=== PATIENT | male | born 1930 | race Caucasian/White ===

== ENCOUNTER 2016-06-29 16:19 | Emergency (ER) | payer OTHER, MEDICARE ==
[~2016-06-29] VITALS: Ht 175.3 cm; Wt 76.0 kg
[2016-06-29 16:31] VITALS: TEMP 36.5
[2016-06-29] MEDS ORDERED: ONDANSETRON INJ 2 MG/ML 2 ML VIAL IV STA (16:32)
[2016-06-29] MEDS ORDERED: SODIUM CHLORIDE 0.9% 1000ML 1,000 ML IV SCH (16:32)
[2016-06-29] MEDS ORDERED: MECLIZINE HCL 25 MG TAB PO STA (16:32)
[2016-06-29 16:35] VITALS: O2SAT 96
[2016-06-29 16:44] VITALS: Ht 175.3 cm; Wt 76.0 kg
[2016-06-29 17:22] LABS: INR 2.8 (0.9-1.1); PARTIAL THROMBOPLASTIN RATIO 1.3; PROTHROMBIN TIME (PATIENT) 31.3 SECONDS (9.0-12.0)
[2016-06-29 17:26] LABS: BLOOD UREA NITROGEN 18 mg/dl (7-18); BUN/CREATININE RATIO 20.9 (10-20); CARBON DIOXIDE 23 mmol/L (21-32); CHLORIDE 107 mmol/L (98-107); CREATININE 0.86 mg/dl (0.60-1.40); GLUCOSE 130 mg/dl (70-99); POTASSIUM 3.2 mmol/L (3.5-5.1); SODIUM 143 mmol/L (136-145)
[2016-06-29 17:31] LABS: CKMB/CK RATIO 2.7 (0-3.0)
--- NOTE | 2016-06-29 17:59 | DIAGNOSTIC IMAGING REPORT ---
CT OF THE HEAD WITHOUT CONTRAST CLINICAL HISTORY: Stroke. COMPARISON STUDY: No previous studies for comparison. CT DOSE: 614.27 mGy.cm TECHNIQUE: Helical axial images of the head were obtained without IV contrast. Automated exposure control was utilized for the study. FINDINGS: No acute intracranial hemorrhage is present. There is a hypodense mass within the left middle cranial fossa along the left sphenoid bone that measures approximately 5.1 x 2.9 cm. This is partially calcified. There is associated permeative appearance of the adjacent temporal bone. There is extensive hypodensity which suggests edema within the left cerebral hemisphere. There is mild mass effect with 3 mm of rightward midline shift and slight compression of the left lateral ventricle. A previous left craniotomy is noted. There is no calvarial fracture. There is mild polypoid mucosal thickening of the sinuses. IMPRESSION: 1. No acute intracranial hemorrhage. 2. Hyperdense left middle cranial fossa mass, measuring approximately 5.1 x 2.9 cm with associated irregularity/permeative appearance of the adjacent bone. This favors a meningioma although is indeterminate and correlation with prior surgical history is recommended given previous left-sided craniotomy. 3. Extensive white matter hypodensity within the left cerebral hemisphere which is age indeterminate. In part, this could be related to the aforementioned mass although there is mild mass effect, including mild compression of the left lateral ventricle and minimal rightward midline shift. Correlation with prior imaging studies, if available, is recommended. An MRI is also recommended to determine the acuity of these findings. Discussed with Dr. Mayen at time of dictation. Electronically signed by: Garrison Martinez M.D. 06/29/2016 5:57 PM Dictated Date/Time: 06/29/2016 5:48 PM
--- NOTE | 2016-06-29 18:17 | DIAGNOSTIC IMAGING REPORT ---
CHEST ONE VIEW PORTABLE CLINICAL HISTORY: Stroke COMPARISON STUDY: No previous studies for comparison. FINDINGS: There is marked enlargement of the cardiac silhouette. No pneumothorax is present. There are trace bilateral pleural effusions. Mild interstitial thickening suggest pulmonary edema. The patient is rotated. IMPRESSION: 1. Mild interstitial pulmonary edema and trace bilateral pleural effusions. 2. Marked enlargement of the cardiac silhouette. Electronically signed by: Garrison Martinez M.D. 06/29/2016 6:15 PM Dictated Date/Time: 06/29/2016 6:14 PM
[2016-06-29 18:42] LABS: HEMATOCRIT 39.1 % (42-52); MEAN CELL VOLUME 88.3 fL (80-100); MEAN CORPUSCULAR HEMOGLOBIN 30.5 pg (25-34); MEAN CORPUSCULAR HGB CONC 34.5 g/dl (32-36); MEAN PLATELET VOLUME 12.3 fL (7.4-10.4); PLATELET COUNT 117 K/uL (130-400); RED BLOOD COUNT 4.43 M/uL (4.7-6.1); WHITE BLOOD COUNT 3.79 K/uL (4.8-10.8)
[2016-06-29 18:43] LABS: BASO ABS # 0.07 K/uL (0-0.2); BASOPHIL % 1.8 % (0-2); COMPLETE YES; EOSINOPHIL % 3.5 %; GIANT PLATELETS 1+; LYMPH ABS # 0.87 K/uL (1.2-3.4); META ABS # 0.03 K/uL (0-0); METAMYELOCYTE % 0.9 %; NEUTROPHILS % 64.6 %; PLT ESTIMATE DECREASED
[2016-06-29] MEDS ORDERED: GABA-113 PO ×2 (19:01)
[2016-06-29] MEDS ORDERED: LEVE250T PO (19:01)
[2016-06-29] MEDS ORDERED: MULT-618 PO (19:01)
[2016-06-29] MEDS ORDERED: TAMS0.4C38 PO (19:01)
[2016-06-29] MEDS ORDERED: WARF5TAB90 PO ×2 (19:01)
[2016-06-29] MEDS ORDERED: SIMV20TA2 PO (19:01)
[2016-06-29] MEDS ORDERED: MAGNEVIST IV PRN (20:30)
--- NOTE | 2016-06-29 21:05 | DIAGNOSTIC IMAGING REPORT ---
MRI OF THE BRAIN WITHOUT AND WITH IV CONTRAST CLINICAL HISTORY: Vertigo. Atrial fibrillation. Evaluate for stroke. COMPARISON STUDY: Head CT performed June 29, 2016. TECHNIQUE: Utilizing a 1.5 Tejal magnet and dedicated coil, multiplanar, multiecho imaging of the brain was performed pre and postcontrast administration. IV administration of 20 mL of Magnevist contrast was uneventful. FINDINGS: There are no areas of restricted diffusion. There are findings consistent with a left-sided craniotomy. There is a large extra-axial mass within the left middle cranial fossa that measures approximately 5.4 x 4.4 x 4.2 cm. This extends into the adjacent sphenoid bone which appears expanded. There may be slight extension to the adjacent soft tissues as well. Extensive edema within left cerebral hemisphere is noted with mild rightward midline shift and moderate compression of the left lateral ventricle. There is mild diffuse dural thickening. There is no extra-axial fluid collection. No acute intracranial hemorrhage is present. Basilar cisterns are patent. Note is made of an indeterminate 2.6 cm T1 and T2 hypointense lesion within the right frontal bone. There is overlying mild dural enhancement that measures 1.4 cm in extent. This is indeterminate. There is mild mucosal thickening of the sinuses and mucous retention cyst within the maxillary sinuses. Small amount of fluid within the left mastoid air cells is noted. IMPRESSION: 1. No evidence of acute infarction. 2. Postsurgical findings consistent with a left sided craniotomy. 5.4 x 4.4 x 4.2 cm enhancing extra-axial mass within the left middle cranial fossa with involvement of the adjacent sphenoid bone. The appearance favors a meningioma however correlation with prior pathology results is recommended to exclude the less likely possibility of a malignant lesion. 3. Extensive edema within the left cerebral hemisphere with moderate mass effect, including compression of the left lateral ventricle and minimal rightward midline shift. This finding is age-indeterminate and correlation with prior imaging studies would be of benefit. This edema could be related to the aforementioned tumor or previous treatment. 4. Indeterminate 2.6 cm right calvarial lesion with associated mild dural thickening. Correlation with prior imaging studies is recommended. 5. Small amount of fluid within the left mastoid air cells. 6. Mild nonspecific dural thickening. This may be postsurgical. Electronically signed by: Garrison Martinez M.D. 06/29/2016 9:03 PM Dictated Date/Time: 06/29/2016 8:52 PM
--- NOTE | 2016-06-29 21:11 | DIAGNOSTIC IMAGING REPORT ---
NECK MRA HISTORY: eval for VBI TECHNIQUE: Ooni-ij-wjtofs and gadolinium-enhanced MRA of the neck was performed both before and after the intravenous administration of contrast. All measurements were calculated based on NASCET criteria. COMPARISON STUDY: None. FINDINGS: The aortic arch and proximal great vessels are widely patent. There is no significant stenosis, occlusion, or dissection identified within the bilateral common carotid, internal carotid, or left vertebral artery. Mild focal narrowing at the distal end of the right vertebral artery.. The heart is enlarged. IMPRESSION: No significant stenosis, occlusion, or dissection identified within the carotid or left vertebral arteries. Mild focal narrowing at the distal end of the right vertebral artery. Electronically signed by: Aguila Cheek M.D. 06/29/2016 9:09 PM Dictated Date/Time: 06/29/2016 9:04 PM
--- NOTE | 2016-06-29 21:58 | DIAGNOSTIC IMAGING REPORT ---
MRA OF THE INTRACRANIAL CIRCULATION WITHOUT CONTRAST CLINICAL HISTORY: Vertigo. Atrial fibrillation. Evaluate for cerebrovascular accident. COMPARISON STUDY: Head CT performed earlier today. TECHNIQUE: Utilizing a 1.5 Tejal magnet and 3-D [id number] technique, unenhanced MRA of the intracranial circulation was obtained. FINDINGS: The bilateral M1, M2, A1 and A2 segments are patent. The left vertebral artery is dominant. The basilar artery is diminutive. There is persistence of the left posterior cerebral artery and a large right posterior communicating artery. An anterior communicating artery is present. No abrupt vessel cut off is identified. There are postsurgical findings consistent with a left-sided craniotomy. IMPRESSION: 1. No abrupt vessel cut off. 2. No intracranial aneurysm identified. 3. persistence of the left posterior cerebral artery and a large right posterior communicating artery. Electronically signed by: Garrison Martinez M.D. 06/29/2016 9:56 PM Dictated Date/Time: 06/29/2016 8:03 PM
[2016-06-29] MEDS ORDERED: MECL1TAB42 PO (22:04)
[2016-06-29 22:15] VITALS: BP 162/97; PULSE 88; O2SAT 95
--- NOTE | 2016-06-29 23:21 | EMERGENCY ROOM VISIT NOTE ---
History Report prepared by Sonali: Deidre Ross Under the Supervision of: Dr. Jesus Mayen M.D. First contact with patient: 16:26 Stated Complaint: RAPID AFIB History of Present Illness The patient is a 89 year old male who presents to the Emergency Room with complaints of persistent vertigo that started this morning. He was brought to the ED via EMS. He reports he feels dizzy, like the "room is spinning". Closing his eyes provides some relief. While in the field, he was found to be in atrial fibrillation with RVR. The patient is on daily Coumadin and admits to a history of atrial fibrillation. He complains of feeling nauseous and is vomiting on exam. He denies any numbness or weakness. He has had no prior history of vertigo. Source of History: patient, EMS Onset: this morning Position: other (global) Symptom Intensity: severe Quality: other (vertigo) Timing: other (persistent) Modifying Factors (Worsening): movement, other (opening his eyes) Modifying Factors (Relieving): other (closing his eyes) Associated Symptoms: + nausea, + vomiting, No numbness, No weakness Review of Systems See HPI for pertinent positives & negatives. A total of 10 systems reviewed and were otherwise negative. Past Medical & Surgical Medical Problems: (1) Atrial fibrillation (2) History of brain tumor Social History Smokeless Tobacco Use: No Alcohol Use: none Drug Use: none Marital Status: Housing Status: lives with family Occupation Status: retired Current/Historical Medications Scheduled Gabapentin (Neurontin), 600 MG PO AMHS Gabapentin (Neurontin), 300 MG PO DAILY NOON Levetiracetam (Keppra), 500 MG PO BID Multiple Vitamins W/ Minerals (Centrum Silver Ultra Mens), 1 TAB PO DAILY Simvastatin (Zocor), 20 MG PO QPM Tamsulosin Hcl (Flomax), 0.4 MG PO DAILY Warfarin Sodium (Coumadin), 5 MG PO 3XWK Warfarin Sodium (Coumadin), 2.5 MG PO 4XWK Scheduled PRN Meclizine Hcl (Meclizine Hcl), 1 TAB PO Q8 PRN for vertigo Physical Exam Vital Signs Date Time Temp Pulse Resp B/P Pulse Ox O2 Delivery O2 Flow Rate FiO2 06/29/16 22:15 88 22 162/97 95 06/29/16 20:53 88 22 160/95 97 Room Air 06/29/16 18:48 85 22 171/101 96 Room Air 06/29/16 16:54 79 16 165/97 93 Room Air 06/29/16 16:35 96 Room Air 06/29/16 16:31 36.5 108 22 176/129 95 Room Air 06/29/16 16:29 94 Physical Exam Constitutional: Vital signs reviewed. Eyes: Pupils are equal round reactive to light. Conjunctiva are noninjected. ENT: Pharynx is clear without erythema or exudate. Mucous membranes are moist. Neck supple without meningeal signs. Respiratory: Clear to auscultation bilaterally. Breath sounds are equal bilaterally. Cardiovascular: Irregularly irregular rhythm. Rate 111. GI: Soft, nondistended and nontender. Bowel sounds are present. Musculoskeletal: No peripheral edema. No lower extremity tenderness. No CVA tenderness. Integumentary: No cyanosis. Neurological: The patient is awake and alert. No focal deficits. Limited examination secondary to vomiting and vertigo with opening his eyes. Rotatory nystagmus without any vertical nystagmus. Psychiatric: Anxious. Medical Decision & Procedures ER Provider Diagnostic Interpretation: This CT scan was reviewed and interpreted by the radiologist and reviewed by myself. CT OF THE HEAD WITHOUT CONTRAST CLINICAL HISTORY: Stroke. COMPARISON STUDY: No previous studies for comparison. CT DOSE: 614.27 mGy.cm TECHNIQUE: Helical axial images of the head were obtained without IV contrast. Automated exposure control was utilized for the study. FINDINGS: No acute intracranial hemorrhage is present. There is a hypodense mass within the left middle cranial fossa along the left sphenoid bone that measures approximately 5.1 x 2.9 cm. This is partially calcified. There is associated permeative appearance of the adjacent temporal bone. There is extensive hypodensity which suggests edema within the left cerebral hemisphere. There is mild mass effect with 3 mm of rightward midline shift and slight compression of the left lateral ventricle. A previous left craniotomy is noted. There is no calvarial fracture. There is mild polypoid mucosal thickening of the sinuses. IMPRESSION: 1. No acute intracranial hemorrhage. 2. Hyperdense left middle cranial fossa mass, measuring approximately 5.1 x 2.9 cm with associated irregularity/permeative appearance of the adjacent bone. This favors a meningioma although is indeterminate and correlation with prior surgical history is recommended given previous left-sided craniotomy. 3. Extensive white matter hypodensity within the left cerebral hemisphere which is age indeterminate. In part, this could be related to the aforementioned mass although there is mild mass effect, including mild compression of the left lateral ventricle and minimal rightward midline shift. Correlation with prior imaging studies, if available, is recommended. An MRI is also recommended to determine the acuity of these findings. Discussed with Dr. Mayen at time of dictation. Electronically signed by: Garrison Martinez M.D. 06/29/2016 5:57 PM This X-Ray was reviewed and interpreted by myself and the radiologist. CHEST ONE VIEW PORTABLE CLINICAL HISTORY: Stroke COMPARISON STUDY: No previous studies for comparison. FINDINGS: There is marked enlargement of the cardiac silhouette. No pneumothorax is present. There are trace bilateral pleural effusions. Mild interstitial thickening suggest pulmonary edema. The patient is rotated. IMPRESSION: 1. Mild interstitial pulmonary edema and trace bilateral pleural effusions. 2. Marked enlargement of the cardiac silhouette. Electronically signed by: Garrison Martinez M.D. 06/29/2016 6:15 PM This MRA was reviewed and interpreted by the radiologist and reviewed by myself. NECK MRA HISTORY: eval for VBI TECHNIQUE: [id number] and gadolinium-enhanced MRA of the neck was performed both before and after the intravenous administration of contrast. All measurements were calculated based on NASCET criteria. COMPARISON STUDY: None. FINDINGS: The aortic arch and proximal great vessels are widely patent. There is no significant stenosis, occlusion, or dissection identified within the bilateral common carotid, internal carotid, or left vertebral artery. Mild focal narrowing at the distal end of the right vertebral artery.. The heart is enlarged. IMPRESSION: No significant stenosis, occlusion, or dissection identified within the carotid or left vertebral arteries. Mild focal narrowing at the distal end of the right vertebral artery. Electronically signed by: Aguila Cheek M.D. 06/29/2016 9:09 PM This MRI was reviewed and interpreted by the radiologist and reviewed by myself. MRI OF THE BRAIN WITHOUT AND WITH IV CONTRAST CLINICAL HISTORY: Vertigo. Atrial fibrillation. Evaluate for stroke. COMPARISON STUDY: Head CT performed June 29, 2016. TECHNIQUE: Utilizing a 1.5 Tejal magnet and dedicated coil, multiplanar, multiecho imaging of the brain was performed pre and postcontrast administration. IV administration of 20 mL of Magnevist contrast was uneventful. FINDINGS: There are no areas of restricted diffusion. There are findings consistent with a left-sided craniotomy. There is a large extra-axial mass within the left middle cranial fossa that measures approximately 5.4 x 4.4 x 4.2 cm. This extends into the adjacent sphenoid bone which appears expanded. There may be slight extension to the adjacent soft tissues as well. Extensive edema within left cerebral hemisphere is noted with mild rightward midline shift and moderate compression of the left lateral ventricle. There is mild diffuse dural thickening. There is no extra-axial fluid collection. No acute intracranial hemorrhage is present. Basilar cisterns are patent. Note is made of an indeterminate 2.6 cm T1 and T2 hypointense lesion within the right frontal bone. There is overlying mild dural enhancement that measures 1.4 cm in extent. This is indeterminate. There is mild mucosal thickening of the sinuses and mucous retention cyst within the maxillary sinuses. Small amount of fluid within the left mastoid air cells is noted. IMPRESSION: 1. No evidence of acute infarction. 2. Postsurgical findings consistent with a left sided craniotomy. 5.4 x 4.4 x 4.2 cm enhancing extra-axial mass within the left middle cranial fossa with involvement of the adjacent sphenoid bone. The appearance favors a meningioma however correlation with prior pathology results is recommended to exclude the less likely possibility of a malignant lesion. 3. Extensive edema within the left cerebral hemisphere with moderate mass effect, including compression of the left lateral ventricle and minimal rightward midline shift. This finding is age-indeterminate and correlation with prior imaging studies would be of benefit. This edema could be related to the aforementioned tumor or previous treatment. 4. Indeterminate 2.6 cm right calvarial lesion with associated mild dural thickening. Correlation with prior imaging studies is recommended. 5. Small amount of fluid within the left mastoid air cells. 6. Mild nonspecific dural thickening. This may be postsurgical. Electronically signed by: Garrison Martinez M.D. 06/29/2016 9:03 PM This MRA was reviewed and interpreted by the radiologist and reviewed by myself. MRA OF THE INTRACRANIAL CIRCULATION WITHOUT CONTRAST CLINICAL HISTORY: Vertigo. Atrial fibrillation. Evaluate for cerebrovascular accident. COMPARISON STUDY: Head CT performed earlier today. TECHNIQUE: Utilizing a 1.5 Tejal magnet and 3-D [id number] technique, unenhanced MRA of the intracranial circulation was obtained. FINDINGS: The bilateral M1, M2, A1 and A2 segments are patent. The left vertebral artery is dominant. The basilar artery is diminutive. There is persistence of the left posterior cerebral artery and a large right posterior communicating artery. An anterior communicating artery is present. No abrupt vessel cut off is identified. There are postsurgical findings consistent with a left-sided craniotomy. IMPRESSION: 1. No abrupt vessel cut off. 2. No intracranial aneurysm identified. 3. persistence of the left posterior cerebral artery and a large right posterior communicating artery. Electronically signed by: Garrison Martinez M.D. 06/29/2016 9:56 PM Laboratory Results 06/29/16 16:48 Red Blood Count 4.43, Mean Corpuscular Volume 88.3, Mean Corpuscular Hemoglobin 30.5, Mean Corpuscular Hemoglobin Concent 34.5, Mean Platelet Volume 12.3 06/29/16 16:48 Test 06/29/16 16:48 06/29/16 17:07 White Blood Count 3.79 K/uL (4.8-10.8) Red Blood Count 4.43 M/uL (4.7-6.1) Hemoglobin 13.5 g/dL (14.0-18.0) Hematocrit 39.1 % (42-52) Mean Corpuscular Volume 88.3 fL (80-100) Mean Corpuscular Hemoglobin 30.5 pg (25-34) Mean Corpuscular Hemoglobin Concent 34.5 g/dl (32-36) Platelet Count 117 K/uL (130-400) Mean Platelet Volume 12.3 fL (7.4-10.4) RDW Standard Deviation 47.2 fL (36.4-46.3) RDW Coefficient of Variation 14.4 % (11.5-14.5) Neutrophils % (Manual) 64.6 % Lymphocytes % (Manual) 23.0 % Monocytes % (Manual) 6.2 % Eosinophils % (Manual) 3.5 % Basophils % (Manual) 1.8 % (0-2) Metamyelocytes % 0.9 % Neutrophils # (Manual) 2.45 K/uL (1.4-6.5) Total Absolute Neutrophils 2.45 K/uL (1.4-6.5) Lymphocytes # (Manual) 0.87 K/uL (1.2-3.4) Total Absolute Lymphocytes 0.87 K/uL (1.2-3.4) Monocytes # (Manual) 0.23 K/uL (0.11-0.59) Eosinophils # (Manual) 0.13 K/uL (0-0.5) Basophils # (Manual) 0.07 K/uL (0-0.2) Metamyelocytes # 0.03 K/uL (0-0) Platelet Estimate DECREASED Giant Platelets 1+ Prothrombin Time 31.3 SECONDS (9.0-12.0) Prothromb Time International Ratio 2.8 (0.9-1.1) Activated Partial Thromboplast Time 34.4 SECONDS (21.0-31.0) Partial Thromboplastin Ratio 1.3 Anion Gap 13.0 mmol/L (3-11) Est Creatinine Clear Calc Drug Dose 61.7 ml/min Estimated GFR () 91.0 Estimated GFR (Non- 78.5 BUN/Creatinine Ratio 20.9 (10-20) Calcium Level 9.0 mg/dl (8.5-10.1) Total Creatine Kinase 64 U/L (39-308) Creatine Kinase MB 1.7 ng/ml (0.5-3.6) Creatine Kinase MB Ratio 2.7 (0-3.0) Troponin I < 0.015 ng/ml (0-0.045) Bedside Glucose 124 mg/dl (70-99) Laboratory results as reviewed by me. Medications Administered Medications (Trade) Dose Ordered Sig/Alexus Route Start Time Stop Time Status Last Admin Dose Admin Sodium Chloride (Nss 1000ml) 1,000 ml @ 50 mls/hr Q20H IV 06/29/16 16:32 07/29/16 16:31 06/29/16 16:43 50 MLS/HR Ondansetron HCl (Zofran Inj) 4 mg NOW STAT IV 06/29/16 16:32 06/29/16 16:35 DC 06/29/16 16:43 4 MG Meclizine HCl (Antivert Tab) 25 mg NOW STAT PO 06/29/16 16:32 06/29/16 16:35 DC 06/29/16 16:43 25 MG ECG Indication: palpitations Rate (beats per minute): 105 Rhythm: atrial fibrillation Findings: PVC, Q waves (Inferior) Comparison ECG Date: no prior available ED Course 1627: The patient was evaluated in room B11. A complete history and physical exam was performed. 163: Meclizine HCl 25 mg PO, Zofran 4 mg IV, NSS 1000 ml @ 50 mls/hr IV. 1800: I reevaluated the patient. He is still dizzy but is feeling better. He states he has a prior history of a brain tumor. 1814: I reevaluated the patient. I discussed his case with his family. They report he has had 6 episodes of similar vertigo in the past. He has been previously worked up at [facility] in [place]. The patient's heart rate remained in the 70's during my reevaluation. 1924: I reassessed the patient. He is on his way to MRI and states he is no longer dizzy. 2029: Magnevist 20 ml IV. 2119: I reviewed the patients extensive records from [facility]. We were unable to get a copy of the CT or MRI of the head despite multiple calls requesting it. 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 He was also noted to have a meningioma with stable mass effect. 2127: I discussed the patients case with Dr. Riggs, [facility]. She agrees with the plan for outpatient management and to have the patient follow up in the office with Dr. Sandoval [facility]. 2134: I reassessed the patient. I discussed the plan with the family and patient and they are in agreement. Medical Decision This is an 86-year-old male presents with vertigo. Differential diagnosis includes CVA, intracranial hemorrhage, intracranial mass, BPV, labyrinthitis. I did perform a limited focused review of portions of the patient's old chart on the electronic medical record. The patient has had no prior visits to this hospital. I did provide prehospital medical command from patient. His heart rate was reported to be in the 140s and he was severely hypertensive. I did order IV Cardizem 10 mg. On arrival to the hospital I did evaluate the patient as noted above. The patient was placed on a continuous bicycle repairer. His heart rate was 110 with atrial fibrillation. After examining him and he started vomiting his heart rate went up to 150. I did treat the patient with IV Zofran. He was also given meclizine 25 mg orally. Once the patient was more comfortable his heart rate was in the 70s to 80s. I did order and personally review the patient 's 12-lead EKG and chest x-ray as described above. I did order and review the patient's blood work as noted in the electronic medical record. Troponin is negative. I did order a CT of the head. I did review the images myself as well as the radiology report as described above. The patient has a meningioma with edema and mass effect. It is unclear whether this is acute. Radiology did recommend an MRI. I did order an MRI of the head as well as an MRA of the neck and head. I did obtain further history from the patient's family stated that he has had 6 episodes of vertigo and was admitted to the hospital in [place] for this. He has a known history of meningioma and has had a craniectomy in the past although his states that the meningioma is getting larger. I did obtain records from [facility] in [place]. They sent record's to us but no CT or MRI results of the head, although he specifically asked for this. It was noted by the physician that the patient likely had BPV and was placed on meclizine. He was evaluated by neuro and ENT. He did have a meningioma with"stable mass effect." This is consistent with the MRI results today. I did discuss the case with Dr. Ortega of neurology. The patient does see Dr. Sandoval as an outpatient. She agreed that the symptoms sound consistent with BPV and recommended outpatient treatment. The patient is currently no longer vertiginous and feels much better. He does not have tachycardia at this time. I did discuss the plan and test results with the patient and his family. He did feel well enough for discharge. He was discharged with a prescription for meclizine and will follow up with neurology, neurosurgery and his primary care physician. After the patient was discharged with did obtain further results from [facility] which included an MRI of the brain which showed meningioma with mass effect. Consults Time Called: 2125 Consulting Physician: [facility] Returned Call: [phone] I discussed the patients case with [facility]. She agrees with the plan for outpatient management and to have the patient follow up in the office with [facility]. Impression Primary Impression: Vertigo Additional Impressions: Atrial fibrillation with RVR Anticoagulated on Coumadin Scribe Attestation The scribe's documentation has been prepared under my direct and personally reviewed by me in its entirety. I confirm that the note above accurately reflects all work, treatment, procedures, and medical decision making performed by me. Departure Information Dispostion Home / Self-Care Prescriptions Meclizine Hcl (MECLIZINE HCL) 25 Mg Tab 1 TAB PO Q8 Y for vertigo, #20 TAB Prov: Jesus Mayen M.D. 06/29/16 Patient Instructions ED Afib, ED Vertigo Unspecified, [facility] Additional Instructions You have been examined and treated today on an emergency basis only. This is not a substitute for, or an effort to provide, complete comprehensive medical care. It is impossible to recognize and treat all injuries or illnesses in a single emergency department visit. It is therefore important that you follow up closely with your physician. Call as soon as possible for an appointment. Return for worsening symptoms or if you develop fever, numbness or weakness on one side of your body, difficulty with your speech, confusion, headache or any other concerning symptoms. Problem Qualifiers
[2016-09-08] MEDS ORDERED: CRD200 PO (10:27)
[2016-09-08] MEDS ORDERED: LSN5 PO (10:27)
[2016-10-04] MEDS ORDERED: METO1TAB66 PO (09:49)
[2016-10-04] MEDS ORDERED: CRD200 PO (09:49)
[2016-10-20] MEDS ORDERED: LSX40 PO (14:07)
[2016-10-20] MEDS ORDERED: CRD200 PO (14:07)
== END 2016-06-29 22:16 | disposition home or self-care (01) ==
LOC: EDBD 16:19 → C.EDB 16:23
DX: I48.91 Unspecified atrial fibrillation (principal); R42 Dizziness and giddiness; R11.2 Nausea with vomiting, unspecified; D32.9 Benign neoplasm of meninges, unspecified; Z79.01 Long term (current) use of anticoagulants; Z86.73 Personal history of transient ischemic attack (TIA), and cerebral infarction without residual deficits

== ENCOUNTER 2016-08-05 11:02 | Inpatient (IN) | payer OTHER, MEDICARE ==
[~2016-08-05] VITALS: Ht 175.3 cm; Wt 75.0 kg
[~2016-08-05 11:02] MED LIST: GABA-113 PO; LEVE250T PO; MECL1TAB42 PO; MULT-618 PO; SIMV20TA2 PO; TAMS0.4C38 PO; WARF5TAB90 PO
[2016-08-05] MEDS ORDERED: DILTIAZEM BOLUS / DRIP IV STA (11:26)
[2016-08-05] MEDS ORDERED: DILTIAZEM HCL 5 MG/ML 5 ML VIAL IV SCH (11:45)
[2016-08-05] MEDS ORDERED: DILTIAZEM HCL INJ 125 MG in DEXTROSE 5% 100ML IV PRN (11:45)
[2016-08-05] MEDS ORDERED: SERT1TAB72 PO (11:52)
--- NOTE | 2016-08-05 11:52 | DIAGNOSTIC IMAGING REPORT ---
CHEST ONE VIEW PORTABLE CLINICAL HISTORY: Respiratory distress. Shortness of breath. COMPARISON STUDY: 06/29/2016 FINDINGS: The cardiac silhouette is enlarged. There is aortic tortuosity. There is radiographic evidence of congestive failure and interstitial pulmonary edema. There are small bilateral pleural effusions.[ There is no lobar consolidation IMPRESSION: Cardiomegaly, worsening pulmonary edema, and small bilateral pleural effusions. Electronically signed by: Alfonzo Shi M.D. 08/05/2016 11:51 AM Dictated Date/Time: 08/05/2016 11:50 AM
[2016-08-05] MEDS ORDERED: NITROGLYCERIN OINT 2% 1GM PACKET EXT STA (12:08)
[2016-08-05] MEDS ORDERED: FUROSEMIDE 40 MG/4 ML VIAL IV STA (12:08)
[2016-08-05 12:10] LABS: BASO % 0.2 %; BASO ABS # 0.01 K/uL (0-0.2); COMPLETE YES; EOS % 0.2 %; HEMATOCRIT 42.3 % (42-52); IG% 0.2 %; LYMPH % 9.9 %; MEAN CELL VOLUME 87.6 fL (80-100); MEAN CORPUSCULAR HEMOGLOBIN 29.6 pg (25-34); MEAN CORPUSCULAR HGB CONC 33.8 g/dl (32-36); MEAN PLATELET VOLUME 12.4 fL (7.4-10.4); MONO % 6.4 %; NEUT % 83.1 %; PLATELET COUNT 138 K/uL (130-400); RED BLOOD COUNT 4.83 M/uL (4.7-6.1); WHITE BLOOD COUNT 5.03 K/uL (4.8-10.8)
[2016-08-05 12:27] LABS: ALT/SGPT 16 U/L (12-78); AST/SGOT 20 U/L (15-37); BLOOD UREA NITROGEN 17 mg/dl (7-18); BUN/CREATININE RATIO 17.4 (10-20); CALCIUM 8.9 mg/dl (8.5-10.1); CARBON DIOXIDE 27 mmol/L (21-32); CHLORIDE 105 mmol/L (98-107); CREATININE 0.96 mg/dl (0.60-1.40); GLUCOSE 85 mg/dl (70-99); MAGNESIUM 1.8 mg/dl (1.8-2.4); POTASSIUM 4.1 mmol/L (3.5-5.1); SODIUM 142 mmol/L (136-145)
[2016-08-05 12:30] LABS: PARTIAL THROMBOPLASTIN RATIO 1.7; PROTHROMBIN TIME (PATIENT) 85.9 SECONDS (9.0-12.0)
[2016-08-05 12:38] LABS: ALB/GLOB RATIO 1.1 (0.9-2); ALKALINE PHOSPHATASE 103 U/L (45-117)
[2016-08-05 12:41] LABS: INR 7.4 (0.9-1.1)
[2016-08-05 12:43] VITALS: O2SAT 92; Ht 175.3 cm; Wt 75.0 kg
[2016-08-05] MEDS ORDERED: ACETAMINOPHEN 325 MG TAB PO PRN (13:15)
[2016-08-05] MEDS ORDERED: ONDANSETRON INJ 2 MG/ML 2 ML VIAL IV PRN (13:15)
[2016-08-05] MEDS ORDERED: DILTIAZEM BOLUS / DRIP IV PRN (13:41)
[2016-08-05 14:30] VITALS: BP 141/85; PULSE 96; TEMP 36.5; O2SAT 92
--- NOTE | 2016-08-05 14:58 | EMERGENCY ROOM VISIT NOTE ---
History Report prepared by Sonali: Carmen Ortiz Under the Supervision of: Dr. Justyn Forman M.D. 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 The patient states that the shortness of breath has been worsened with exertion but he states that it also occurs at rest and when lying down. He states that he does have occasional nausea with his symptoms. The patient states that he has not had any change in his baseline leg edema and denies any history of blood clots. The patient denies any cough, pain, fever, black or bloody stool. The patient states that he takes Coumadin for atrial fibrillation but denies taking any pacer medication. The patient's family states that the patient had a episode of vertigo about a month ago and he was evaluated at the ED. 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 Review of Systems See HPI for pertinent positives & negatives. A total of 10 systems reviewed and were otherwise negative. Past Medical & Surgical Medical Problems: (1) Atrial fibrillation (2) Atrial fibrillation with RVR (3) Congestive heart failure (4) History of brain tumor Family History No pertient family history secondary rto age Social History Smoking Status: Unknown if Ever Smoked Alcohol Use: none Drug Use: none Marital Status: Housing Status: lives with family Occupation Status: retired Current/Historical Medications Scheduled Gabapentin (Neurontin), 600 MG PO AMHS Gabapentin (Neurontin), 300 MG PO DAILY NOON Levetiracetam (Keppra), 500 MG PO BID Multiple Vitamins W/ Minerals (Centrum Silver Ultra Mens), 1 TAB PO DAILY Sertraline Hcl (Zoloft), 25 MG PO DAILY Simvastatin (Zocor), 20 MG PO QAM Tamsulosin Hcl (Flomax), 0.4 MG PO DAILY Warfarin Sodium (Coumadin), 5 MG PO 3XWK Warfarin Sodium (Coumadin), 2.5 MG PO 4XWK Allergies Coded Allergies: No Known Allergies (Unverified , 08/05/16) Physical Exam Vital Signs Date Time Temp Pulse Resp B/P Pulse Ox O2 Delivery O2 Flow Rate FiO2 08/05/16 12:38 90 19 93 08/05/16 12:37 91 20 164/93 92 Nasal Cannula 2.0 08/05/16 12:35 101 14 08/05/16 12:25 87 19 92 Nasal Cannula 2.0 08/05/16 12:24 167/94 08/05/16 12:20 83 21 92 Nasal Cannula 2.0 08/05/16 12:19 158/100 08/05/16 12:15 71 17 92 Nasal Cannula 2.0 08/05/16 12:14 151/98 08/05/16 12:13 77 08/05/16 12:10 74 19 92 Nasal Cannula 2.0 08/05/16 12:09 149/76 08/05/16 12:05 72 17 92 Nasal Cannula 2.0 08/05/16 12:04 150/90 08/05/16 12:00 77 24 92 Nasal Cannula 2.0 08/05/16 11:59 18 135/89 92 Nasal Cannula 2.0 08/05/16 11:54 100 18 155/90 92 Nasal Cannula 2.0 08/05/16 11:33 92 Room Air 08/05/16 11:17 118 08/05/16 11:04 37.1 118 22 138/118 93 Room Air Physical Exam GENERAL: Patient is in no acute distress. HEENT: No acute trauma, normocephalic atraumatic, mucous membranes moist, no nasal congestion, no scleral icterus. NECK: No stridor, no adenopathy, no meningismus, trachea is midline. LUNGS: Clear to auscultation bilaterally, no wheeze, no rhonchi, breath sounds equal. HEART: Tachycardic rate with irregular rhythm. No murmur. ABDOMEN: Soft, nontender, bowel sounds positive, no hernias, no peritonitis. EXTREMITIES: No cyanosis or edema, full range of motion of all the joints without pain or difficulty, no signs for acute trauma. Trace pedal edema. NEUROLOGIC: Oriented x 3, no acute motor or sensory deficits, no focal weakness. SKIN: No rash, no jaundice, no diaphoresis. Medical Decision & Procedures ER Provider Diagnostic Interpretation: X-ray results as stated below per interpretation by me and the radiologist: CHEST ONE VIEW PORTABLE CLINICAL HISTORY: Respiratory distress. Shortness of breath. COMPARISON STUDY: 06/29/2016 FINDINGS: The cardiac silhouette is enlarged. There is aortic tortuosity. There is radiographic evidence of congestive failure and interstitial pulmonary edema. There are small bilateral pleural effusions.[ There is no lobar consolidation IMPRESSION: Cardiomegaly, worsening pulmonary edema, and small bilateral pleural effusions. Electronically signed by: Alfonzo Shi M.D. 08/05/2016 11:51 AM Dictated Date/Time: 08/05/2016 11:50 AM Laboratory Results 08/05/16 11:40 Red Blood Count 4.83, Mean Corpuscular Volume 87.6, Mean Corpuscular Hemoglobin 29.6, Mean Corpuscular Hemoglobin Concent 33.8, Mean Platelet Volume 12.4, Neutrophils (%) (Auto) 83.1, Lymphocytes (%) (Auto) 9.9, Monocytes (%) (Auto) 6.4, Eosinophils (%) (Auto) 0.2, Basophils (%) (Auto) 0.2, Neutrophils # (Auto) 4.18, Lymphocytes # (Auto) 0.50, Monocytes # (Auto) 0.32, Eosinophils # (Auto) 0.01, Basophils # (Auto) 0.01 08/05/16 11:40 Test 08/05/16 11:40 White Blood Count 5.03 K/uL (4.8-10.8) Red Blood Count 4.83 M/uL (4.7-6.1) Hemoglobin 14.3 g/dL (14.0-18.0) Hematocrit 42.3 % (42-52) Mean Corpuscular Volume 87.6 fL (80-100) Mean Corpuscular Hemoglobin 29.6 pg (25-34) Mean Corpuscular Hemoglobin Concent 33.8 g/dl (32-36) Platelet Count 138 K/uL (130-400) Mean Platelet Volume 12.4 fL (7.4-10.4) Neutrophils (%) (Auto) 83.1 % Lymphocytes (%) (Auto) 9.9 % Monocytes (%) (Auto) 6.4 % Eosinophils (%) (Auto) 0.2 % Basophils (%) (Auto) 0.2 % Neutrophils # (Auto) 4.18 K/uL (1.4-6.5) Lymphocytes # (Auto) 0.50 K/uL (1.2-3.4) Monocytes # (Auto) 0.32 K/uL (0.11-0.59) Eosinophils # (Auto) 0.01 K/uL (0-0.5) Basophils # (Auto) 0.01 K/uL (0-0.2) RDW Standard Deviation 49.2 fL (36.4-46.3) RDW Coefficient of Variation 15.3 % (11.5-14.5) Immature Granulocyte % (Auto) 0.2 % Immature Granulocyte # (Auto) 0.01 K/uL (0.00-0.02) Prothrombin Time 85.9 SECONDS (9.0-12.0) Prothromb Time International Ratio 7.4 (0.9-1.1) Activated Partial Thromboplast Time 44.3 SECONDS (21.0-31.0) Partial Thromboplastin Ratio 1.7 Anion Gap 10.0 mmol/L (3-11) Est Creatinine Clear Calc Drug Dose 55.3 ml/min Estimated GFR () 82.6 Estimated GFR (Non- 71.3 BUN/Creatinine Ratio 17.4 (10-20) Calcium Level 8.9 mg/dl (8.5-10.1) Magnesium Level 1.8 mg/dl (1.8-2.4) Total Bilirubin 1.2 mg/dl (0.2-1) Aspartate Amino Transf (AST/SGOT) 20 U/L (15-37) Alanine Aminotransferase (ALT/SGPT) 16 U/L (12-78) Alkaline Phosphatase 103 U/L (45-117) Troponin I < 0.015 ng/ml (0-0.045) Pro-B-Type Natriuretic Peptide 4270 pg/ml (0-1800) Total Protein 7.9 gm/dl (6.4-8.2) Albumin 4.1 gm/dl (3.4-5.0) Globulin 3.8 gm/dl (2.5-4.0) Albumin/Globulin Ratio 1.1 (0.9-2) Thyroid Stimulating Hormone (TSH) 2.260 uIu/ml (0.300-4.500) Free Thyroxine 1.29 ng/dl (0.80-1.60) Laboratory results reviewed by me. Medications Administered Medications (Trade) Dose Ordered Sig/Alexus Route Start Time Stop Time Status Last Admin Dose Admin Diltiazem HCl (Cardizem Bolus / Drip) 1 ea NOW STAT IV 08/05/16 11:26 08/05/16 11:29 DC 08/05/16 11:26 1 EA Diltiazem HCl 10 mg 10 mg TODAY@1145 IV 08/05/16 11:45 08/05/16 11:46 DC 08/05/16 11:52 10 MG Diltiazem HCl/ Dextrose (Cardizem Inj/D5 100ml) 125 ml @ 0 mls/hr Q0M PRN IV 08/05/16 11:45 08/05/16 23:59 08/05/16 11:51 5 MLS/HR Furosemide (Lasix Inj) 40 mg NOW STAT IV 08/05/16 12:08 08/05/16 12:10 DC 08/05/16 12:21 40 MG Nitroglycerin (Nitroglycerin 2% Oint) 1 inch NOW STAT EXT 08/05/16 12:08 08/05/16 12:10 DC 08/05/16 12:21 1 INCH ECG Indication: SOB/dyspnea Rate (beats per minute): 125 Rhythm: atrial fibrillation (with rapid rate ) Findings: PVC, no acute ischemic change, other (old possible inferior infarct) ED Course 1121: The patient was evaluated in room B7. A complete history and physical exam was performed. 1126: Ordered Diltiazem HCl 1 ea IV. 1145: Ordered Diltiazem HCl 125 mg/Dextrose 125 ml @ 0 mls/hr Protocol IV, Cardizem Inj 10 mg IV. 1208: Ordered Nitroglycerin 1 inch EXT, Lasix Inj 40 mg IV. 1215: I discussed the case with Dr. Carmen Martin Hospitalist. He agreed to evaluate the patient for further management and care. Medical Decision The patient is a 86 year old male who presents to the ED with complaints of shortness of breath. Differential diagnoses considered includes rapid atrial fibrillation, GA, electrolyte imbalance, CHF, pneumonia, anemia. There is no leukocytosis or concerning anemia. No significant electrolyte abnormality, kidney failure, hepatitis. INR is quite elevated at over 7. The patient appears to be in a euthyroid state. EKG shows a rapid A. fib, there was no acute ischemia. Cardiac enzyme testing times one is not suggestive of acute cardiac injury. Chest x-ray does not show pneumonia, CHF was noted. BNP is elevated consistent with fluid overload. The patient received IV Lasix, Nitropaste. Because of the rapid atrial fibrillation, he was given a bolus of diltiazem and placed on a diltiazem drip. With the above treatment, the patient is feeling better, his heart rate has decreased. Admission/observation is warranted. I spoke to the patient and his family. I spoke to case management. The on-call hospitalist was consulted. Consults Time Called: 1212 Consulting Physician: Dr. Carmen Martin Hospitalist Returned Call: 1215 I discussed the case with Dr. Carmen Tsai. He agreed to evaluate the patient for further management and care. Impression Primary Impression: Atrial fibrillation with RVR Additional Impression: Congestive heart failure Critical Care I have personally spent greater than 30 minutes of critical care time in the direct management of this patient. This includes bedside care, interpretation of diagnostic studies and testing, discussion with consultants, the patient, and family members, and other required patient management activities. This 30 minutes is in excess of all separately billable procedures. Scribe Attestation The scribe's documentation has been prepared under my direction and personally reviewed by me in its entirety. I confirm that the note above accurately reflects all work, treatment, procedures, and medical decision making performed by me. Departure Information Dispostion Being Evaluated By Hospitalist Referrals Carlie Abarca D.O. (PCP) Patient Instructions [facility] Problem Qualifiers
[2016-08-05 15:07] VITALS: BP 154/92; PULSE 90; TEMP 36.6; O2SAT 90
[2016-08-05] MEDS ORDERED: MECL1TAB42 PO (15:27)
[2016-08-05] MEDS ORDERED: MECLIZINE HCL 25 MG TAB PO PRN (15:30)
--- NOTE | 2016-08-05 16:18 | History and Physical ---
History & Physical Date & Time of Service: Aug 05, 2016 at 13:39 Chief Complaint: Shortness Of Breath Primary Care Physician: Carlie Abarca D.O. History of Present Illness Source: patient, family ( and son-in-law at bedside), clinic records This is an 86 year old male with PMH of chronic atrial fibrillation on anticoagulation, chronic systolic dysfunction EF 45-50%, cerebral meningioma s/ p craniotomy in 1897, dyslipidemia, borderline HTN, depression, and other problems listed below who presents to the ED for worsening shortness of breath. Pt follows with Dr. Hickey for cardiology and Dr. Sandoval for neurology. Pt states he had GROVE at baseline with brisk walking but typically could walk slowly on the treadmill daily. Then for past 3 weeks his GROVE is worse than usual and additionally has paroxysmal nocturnal dyspnea and occasional SOB at rest. He admits to fatigue. He states chronic R>L edema is unchanged. He reports occasional palpitations, but not having any today. He denies presyncope , syncope, chest pain, orthopnea, weight gain, nausea, vomiting, weight gain, calf pain, bleeding. In the ER patient was found to be in AF with RVR to 110s which improved to 80s with Cardizem bolus and drip. His blood pressure has been mildly elevated. CXR showed pulmonary edema. He was also treated with 1 inch nitro paste and Lasix 40 mg. He is feeling better currently. He has chronic "dizzy spells" described as "room spinning" with associated tinnitus in left ear. His symptoms resolve with meclizine. He is not feeling dizzy currently. Pt was seen in [facility] ER in 07/2106 for dizziness and had workup including CT head and MRI brain which showed his known meningioma with mass effect. Records were obtained from [facility] including MRI brain which showed meningioma with mass effect. Case was discussed with Dr. Riggs via phone call and patient's symptoms were thought to be consistent with benign positional vertigo and pt was discharged with meclizine. Pt had a prior cath in 01/2015 at [facility] which showed diffuse nonobstructive coronary plaque disease and medical management was recommended. Pt had echo 05/22/2016 which showed mild global hypokinesis with LV EF 45-50%, mild AV sclerosis, mild AR, mild MR, mod TR, severe biatrial enlargement, pulmonary HTN. Denies history of TIA or CVA. He is on prophylactic antiepileptic medication but denies h/o seizure. He admits to drinking 1 cup of regular coffee each morning. He admits to occasional intake of potato chips and lunch meat. Past Medical/Surgical History Medical Problems: (1) Benign positional vertigo Status: Chronic (2) Borderline hypertension Status: Chronic (3) BPH (benign prostatic hypertrophy) Status: Chronic (4) Cerebral meningioma Status: Chronic (5) Chronic atrial fibrillation Status: Chronic (6) Depression with anxiety Status: Chronic (7) Dyslipidemia Status: Chronic (8) Systolic dysfunction Permanent Comment: echo 05/22/16- moderate concentric LVH, Mildly reduced LV systolic function with mild global hypokinesis, EF 45- 50%. Mild AV scleroiss without stenosis. Mild AR, Mild MR, Moderate TR, Severe biatrial enlargement. Pulmonary HTN is present. The estimated pulmonary artery systolic pressure is 42mm Hg. Status: Chronic Surgical Problems: (1) H/O craniotomy Permanent Comment: 1986 for meningioma Status: Chronic (2) S/P cardiac cath Permanent Comment: 01/2015 [facility]- diffuse nonobstructive coronary plaque disease; overall CAD medically manageable Status: Chronic Family History FH: atrial fibrillation SISTER Recently moved here from [facility]. Social History Smoking Status: Never Smoker Alcohol Use: none Drug Use: none Marital Status: Housing status: lives with family (intermittently uses a walker in the apartment) Occupational Status: retired Allergies Coded Allergies: No Known Allergies (Unverified , 08/05/16) Home Medications Scheduled Gabapentin (Neurontin), 600 MG PO AMHS Gabapentin (Neurontin), 300 MG PO DAILY NOON Levetiracetam (Keppra), 500 MG PO BID Multiple Vitamins W/ Minerals (Centrum Silver Ultra Mens), 1 TAB PO DAILY Sertraline Hcl (Zoloft), 25 MG PO DAILY Simvastatin (Zocor), 20 MG PO QAM Tamsulosin Hcl (Flomax), 0.4 MG PO DAILY Warfarin Sodium (Coumadin), 5 MG PO 3XWK Warfarin Sodium (Coumadin), 2.5 MG PO 4XWK Scheduled PRN Meclizine Hcl (Meclizine Hcl), 25 MG PO Q8 PRN for Dizziness or Vertigo Review of Systems Constitutional: + fatigue, + sweats (occasional sweats. no diaphoresis today.) , + weakness (generalized), No chills, No fever Eyes: + problem reported (style left lower eyelid x 2 days + itching, no discharge), No discharge, No worsening of vision ENT: + tinnitus (left ear), No nasal symptoms, No sore throat Respiratory: + dyspnea on exertion, + shortness of breath, No cough Cardiovascular: + edema (chronic R> L), + palpitations (occasional), + problem reported (paroxysmal nocturnal dyspnea), No chest pain, No orthopnea Abdomen: No GI bleeding, No diarrhea, No nausea, No pain, No vomiting Musculoskeletal: No calf pain Genitourinary - Male: + problem reported (nocturia 2x per night. no change in urination. ), No dysuria, No hematuria, No urinary frequency, No urinary urgency Neurologic: + vertigo (see HPI) Psychiatric: + problem reported (depression/ anxiety are improved after recently starting Zoloft. no suicidal ideation. ) Hematologic / Lymphatic: + problem reported (bruises easily. denies abnormal bleeding including epistaxis, gum bleeding, GI bleeding, hematuria.) Integumentary: + problem reported (chronic venous stasis change RLE), No new/ changing skin lesions Physical Exam Vital Signs Date Time Temp Pulse Resp B/P Pulse Ox O2 Delivery O2 Flow Rate FiO2 08/05/16 12:43 92 Nasal Cannula 2.0 08/05/16 12:37 91 20 164/93 92 Nasal Cannula 2.0 08/05/16 12:35 101 14 08/05/16 12:25 87 19 92 Nasal Cannula 2.0 08/05/16 12:24 167/94 08/05/16 12:20 83 21 92 Nasal Cannula 2.0 08/05/16 12:19 158/100 08/05/16 12:15 71 17 92 Nasal Cannula 2.0 08/05/16 12:14 151/98 08/05/16 12:13 77 08/05/16 12:10 74 19 92 Nasal Cannula 2.0 08/05/16 12:09 149/76 08/05/16 12:05 72 17 92 Nasal Cannula 2.0 08/05/16 12:04 150/90 08/05/16 12:00 77 24 92 Nasal Cannula 2.0 08/05/16 11:59 18 135/89 92 Nasal Cannula 2.0 08/05/16 11:54 100 18 155/90 92 Nasal Cannula 2.0 08/05/16 11:33 92 Room Air 08/05/16 11:17 118 08/05/16 11:04 37.1 118 22 138/118 93 Room Air General Appearance: + pertinent finding (pleasant alert 86 year old male, no distress, family at bedside) Head: normocephalic, atraumatic Eyes: PERRL, EOMI, sclerae normal, + pertinent finding (hordeolum left lower eyelid, no drainage) ENT: pharynx normal, + pertinent finding (mildly hard of hearing) Neck: supple, trachea midline, + JVD Respiratory/Chest: lungs clear, normal breath sounds, no respiratory distress, no accessory muscle use Cardiovascular: no murmur, normal peripheral pulses, + irregularly irregular ( rate 80s) Abdomen/GI: normal bowel sounds, non tender, soft Extremities/Musculoskelatal: no calf tenderness, + pertinent finding (1+ pretibial edema RLE, trace edema LLE) Neurologic/Psych: alert, normal mood/affect, oriented x 3, + pertinent finding (grossly nonfocal) Skin: warm/dry, + pertinent finding (chronic venous stasis change RLE) Diagnostics Laboratory Results Results Past 24 Hours Test 08/05/16 11:40 Range/Units White Blood Count 5.03 4.8-10.8 K/uL Red Blood Count 4.83 4.7-6.1 M/uL Hemoglobin 14.3 14.0-18.0 g/dL Hematocrit 42.3 42-52 % Mean Corpuscular Volume 87.6 80-100 fL Mean Corpuscular Hemoglobin 29.6 25-34 pg Mean Corpuscular Hemoglobin Concent 33.8 32-36 g/dl Platelet Count 138 130-400 K/uL Mean Platelet Volume 12.4 7.4-10.4 fL Neutrophils (%) (Auto) 83.1 % Lymphocytes (%) (Auto) 9.9 % Monocytes (%) (Auto) 6.4 % Eosinophils (%) (Auto) 0.2 % Basophils (%) (Auto) 0.2 % Neutrophils # (Auto) 4.18 1.4-6.5 K/uL Lymphocytes # (Auto) 0.50 1.2-3.4 K/uL Monocytes # (Auto) 0.32 0.11-0.59 K/uL Eosinophils # (Auto) 0.01 0-0.5 K/uL Basophils # (Auto) 0.01 0-0.2 K/uL RDW Standard Deviation 49.2 36.4-46.3 fL RDW Coefficient of Variation 15.3 11.5-14.5 % Immature Granulocyte % (Auto) 0.2 % Immature Granulocyte # (Auto) 0.01 0.00-0.02 K/uL Prothrombin Time 85.9 9.0-12.0 SECONDS Prothromb Time International Ratio 7.4 0.9-1.1 Activated Partial Thromboplast Time 44.3 21.0-31.0 SECONDS Partial Thromboplastin Ratio 1.7 Sodium Level 142 136-145 mmol/L Potassium Level 4.1 3.5-5.1 mmol/L Chloride Level 105 98-107 mmol/L Carbon Dioxide Level 27 21-32 mmol/L Anion Gap 10.0 3-11 mmol/L Blood Urea Nitrogen 17 7-18 mg/dl Creatinine 0.96 0.60-1.40 mg/dl Est Creatinine Clear Calc Drug Dose 55.3 ml/min Estimated GFR () 82.6 Estimated GFR (Non- 71.3 BUN/Creatinine Ratio 17.4 10-20 Random Glucose 85 70-99 mg/dl Calcium Level 8.9 8.5-10.1 mg/dl Magnesium Level 1.8 1.8-2.4 mg/dl Total Bilirubin 1.2 0.2-1 mg/dl Aspartate Amino Transf (AST/SGOT) 20 15-37 U/L Alanine Aminotransferase (ALT/SGPT) 16 12-78 U/L Alkaline Phosphatase 103 45-117 U/L Troponin I < 0.015 0-0.045 ng/ml Pro-B-Type Natriuretic Peptide 4270 0-1800 pg/ml Total Protein 7.9 6.4-8.2 gm/dl Albumin 4.1 3.4-5.0 gm/dl Globulin 3.8 2.5-4.0 gm/dl Albumin/Globulin Ratio 1.1 0.9-2 Thyroid Stimulating Hormone (TSH) 2.260 0.300-4.500 uIu/ml Free Thyroxine 1.29 0.80-1.60 ng/dl Diagnostic Radiology CHEST ONE VIEW PORTABLE CLINICAL HISTORY: Respiratory distress. Shortness of breath. COMPARISON STUDY: 06/29/2016 FINDINGS: The cardiac silhouette is enlarged. There is aortic tortuosity. There is radiographic evidence of congestive failure and interstitial pulmonary edema. There are small bilateral pleural effusions.[ There is no lobar consolidation IMPRESSION: Cardiomegaly, worsening pulmonary edema, and small bilateral pleural effusions. EKG atrial fibrillation with RVR, 125 bpm, occasional PVC, poor R wave progression appears unchanged from prior EKG, no ST or T wave abnormalities Impression Assessment and Plan ATRIAL FIBRILLATION WITH RVR Rate intially 110s, improved to 80s with Cardizem bolus and drip K+ and mag WNL; TSH WNL; initial troponin negative CXR consistent with acute CHF Was not on rate control medication at home as rate was controlled in the past and ? hx of symptomatic bradycardia as per cardiology note Continue Cardizem drip for now Hold Coumadin for supratherapeutic INR Trend serial cardiac enzymes Follows with Dr. Jesus Hickey Consult cardiology ACUTE ON CHRONIC SYSTOLIC CHF Prior echo 05/22/16- moderate concentric LVH, Mildly reduced LV systolic function with mild global hypokinesis, EF 45- 50%. Mild AV scleroiss without stenosis. Mild AR, Mild MR, Moderate TR, Severe biatrial enlargement. Pulmonary HTN is present. The estimated pulmonary artery systolic pressure is 42mm Hg. CXR shows cardiomegaly, pulmonary edema, small bilateral pleural effusions Pro-BNP is 4200 Received IV Lasix 40 mg in ER Monitor daily weight and I/O Discussed with patient about reduced sodium diet HX NONOBSTRUCTIVE CAD S/p cath 01/2015 [facility]- diffuse nonobstructive coronary plaque disease; overall CAD medically manageable Denies chest pain No ischemic findings on EKG Initial troponin negative Trend serial cardiac enzymes HYPERTENSION BP elevated in ER Not on anti-hypertensive medication at home Given nitro paste 1 inch On Cardizem drip BPH Check post void bladder scan Continue Flomax HISTORY OF MENINGIOMA Continue prophylactic Keppra Follows with Dr. Sandoval BENIGN POSITIONAL VERTIGO Continue PRN meclizine DEPRESSION WITH ANXIETY Stable; continue Zoloft DYSLIPIDEMIA Continue statin DVT PROPHYLAXIS Coumadin held for supratherapeutic INR CODE STATUS Full code per my discussion with the patient Patient seen in collaboration with Dr. Morales. Please see his addendum. Advanced Directives Existing Living Will: No Existing Power of Lead Technician: No VTE Prophylaxis VTE Risk Assessment Done? Y/N: Yes Risk Level: High Given or contraindicated: Warfarin (Coumadin) Note ATTENDING ADDENDUM Record reviewed. Patient interviewed and examined. Care coordinated with Marlene Knutson PA-C. Please refer to her documentation for patient's history. Briefly, 86 YO male with chronic atrial fibrillation, rate-controlled without meds. Presented to ED with progressive dyspnea on exertion. Found to be in AF with AVR. Received IV diltiazem bolus followed by infusion with improvement of rate. Chest x-ray demonstrated pulmonary edema. Received IV furosemide. Comfortable at time of my assessment. EXAM: General- no distress VS- as noted Neck- + JVD Lungs- essentially clear Heart- irregularly irregular, no gallop appreciated Abdomen- + BS, soft, nontender Extremities- 1+ pretibial edema, no calf tenderness Neuro- alert DATA: Item Value Date Time Hemoglobin 14.3 g/dL 08/05/16 1140 Prothromb Time International Ratio 7.4 *H 08/05/16 1140 Blood Urea Nitrogen 17 mg/dl 08/05/16 1140 Creatinine 0.96 mg/dl 08/05/16 1140 Potassium Level 4.1 mmol/L 08/05/16 1140 Magnesium Level 1.8 mg/dl 08/05/16 1140 Thyroid Stimulating Hormone (TSH) 2.260 uIu/ml 08/05/16 1140 Troponin I < 0.015 ng/ml 08/05/16 1140 Pro-B-Type Natriuretic Peptide 4270 pg/ml H 08/05/16 1140 Other lab studies as noted. CXR- cardiomegaly, pulmonary edema. EKG- AF 125 / min, PVC's, poor R-wave progression, . ASSESSMENT AND PLAN: Chronic AF. Presented with rapid AF + CHF. Ventricular rate improved with IV diltiazem. Received IV furosemide for CHF. Cardiology consulted for further recommendations. INR elevated on warfarin. No active bleeding. Hold warfarin. Follow. Please refer to BETHANY Knutson's documentation for discussion of other issues. Henok Morales MD .
--- NOTE | 2016-08-05 17:21 | CARDIOLOGY CONSULTATION ---
DATE OF CONSULTATION: 08/05/2016 REFERRING PHYSICIAN: Dr. Henok Morales. REASON FOR CONSULTATION: Congestive heart failure, rapid atrial fibrillation. CHIEF COMPLAINT ON ADMISSION: Shortness of breath. HISTORY OF PRESENT ILLNESS: Mr. Alcantara is an 86-year-old gentleman who presented to the Emergency Department with approximately 2 weeks of progressive shortness of breath. Daughter is present at the bedside to aid in history. The patient states he was dyspneic with both exertion and at times at rest. Denies palpitations, lightheadedness, dizziness, syncope or near syncope. Intermittent chest discomfort noted which was not associated with exertion. He describes a sharp stabbing pain which lasted a few seconds. Denies orthopnea or paroxysmal nocturnal dyspnea. No weight gain or lower extremity edema. The patient was treated in the Emergency Department with intravenous diltiazem, diltiazem infusion, as well as a dose of intravenous Lasix. Currently, the patient is feeling better. Dyspnea has improved. Denies chest pain currently. Initial cardiac enzymes are undetectable. Heart rate currently 70-80s in atrial fibrillation on a diltiazem infusion. Dose currently 10 mg per hour. His INR is supertherapeutic. No signs/symptoms of GI/ blood loss. The patient denies abdominal pain, nausea, vomiting or diarrhea. Denies fevers, chills, or sick contacts. No focal weakness, slurred speech, visual changes, gait instability or falls. Offers no other complaints at this time. REVIEW OF SYSTEMS: The pertinent positive noted above, a comprehensive 10-system review is otherwise negative. PAST MEDICAL HISTORY: 1. Dyslipidemia. 2. Chronic atrial fibrillation. 3. Near syncope. 4. ? history of symptomatic bradycardia. PAST SURGICAL HISTORY: Craniotomy for sphenoid meningioma. FAMILY HISTORY: Negative for premature CAD or sudden cardiac ; however, noncontributory given patient's age. SOCIAL HISTORY: Lifelong nonsmoker, denies alcohol or illicit drug use. ALLERGIES: No known drug allergies. CURRENT OUTPATIENT MEDICATIONS: 1. Coumadin 5 mg every other day alternating with 2.5 mg. 2. Flomax 0.4 mg daily. 3. Zocor 20 mg daily. 4. Levetiracetam 250 mg 2 tablets twice daily. 5. Gabapentin 300 mg 2 capsules in the a.m., 1 at lunch and 2 at bedtime. DATA: Telemetry demonstrates atrial fibrillation with currently controlled ventricular response. ECG currently unavailable for review in the medical record or on MUSE. Recent 2D transthoracic echo performed 05/2016 at [facility] demonstrated mild systolic dysfunction with an ejection fraction of 45%-50%, mild global hypokinesis, aortic sclerosis without stenosis, moderate tricuspid regurgitation, severe biatrial enlargement, and pulmonary hypertension with estimated pulmonary systolic pressure 42 mmHg. A 24-hour Holter monitor performed on 05/22/2016 demonstrated an average heart rate of 81 beats per minute with a minimum heart rate of 46 beats per minute and a maximum heart rate of 150 beats per minute in atrial fibrillation. Chest x-ray on admission demonstrates pulmonary edema and small bilateral pleural effusions. LABORATORY DATA: ProBNP 4270. Sodium 142, potassium 4.0, chloride 105, CO2 is 27, BUN is 17, creatinine 0.96. Calcium is 8.9. TSH 2.260. INR is 7.4. PHYSICAL EXAMINATION: VITAL SIGNS: Temperature is 36.6 degrees centigrade, pulse 90 beats per minute and irregular, respiratory rate is 18 breaths per minute, blood pressure currently 154/92. SAO2 is 98% on room air. GENERAL: NAD, awake, alert and oriented x3, hard of hearing. THROAT: His mucous membranes are moist. No scleral icterus. Conjunctivae pink. NECK: Supple with mildly elevated JVD, there is no HJR. There are no carotid bruits. HEART: Irregular with a normal S1 and S2. A soft 1/6 systolic ejection murmurs heard best at the right second intercostal space without radiation. LUNGS: Demonstrate crackles at the bases bilaterally. There are also diminished breath sounds at the bases. No rhonchi or wheeze. ABDOMEN: Soft, nontender. No rebound or guarding. EXTREMITIES: Demonstrate trace pedal edema. Bilateral varicosities noted. NEUROLOGIC: Demonstrates no focal motor deficit. FINAL IMPRESSION: 1. Acute decompensated heart failure secondary to atrial fibrillation with rapid ventricular response, diastolic dysfunction, and mild systolic dysfunction. 2. 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 3. Supratherapeutic INR. 4. Aortic valve sclerosis without stenosis. 5. Moderate tricuspid regurgitation with mild pulmonary hypertension. 6. Hypertension -- borderline controlled. 7. Dyslipidemia. RECOMMENDATIONS: Recommend discontinuation of intravenous diltiazem infusion at this time. We will cautiously start low-dose beta-akil therapy, Lopressor 12.5 q. 12 hours. We will monitor telemetry for any symptomatic bradycardia, or significant pauses. I discussed the potential need for pacemaker implantation pending clinical course and response to medical therapies. Both the patient and his daughter voice understanding and agreement. Coumadin will remain on hold due to supratherapeutic INR. He will receive an additional dose of intravenous Lasix in the a.m., 40 mg x1. Will continue to follow urine output, fluid balance, electrolytes, and daily weights closely. Other cardiovascular medications will be continued as noted in the outpatient record. No need for repeat resting 2D transthoracic echo currently. Cardiac enzymes will be trended x3 sets. Further recommendations pending clinical response to medical therapies. Thank you for allowing me to take part in the care of your patient.
[2016-08-05 18:06] LABS: CKMB/CK RATIO 2.8 (0-3.0)
[2016-08-05] MEDS: METOPROLOL TARTRATE 25 MG TAB PO SCH (18:20)
[2016-08-05 19:29] VITALS: BP 151/87; TEMP 37; O2SAT 96
[2016-08-05 20:00] VITALS: O2SAT 96
[2016-08-05] MEDS: LEVETIRACETAM 500 MG TAB PO SCH (20:32)
[2016-08-05] MEDS: GABAPENTIN 600 MG TAB PO SCH (20:34)
[2016-08-05 23:23] VITALS: BP 144/72; PULSE 84; TEMP 37; O2SAT 99
[2016-08-06] MEDS ORDERED: BUTALBITAL/ACETAMIN/CAFFEINE TAB PO STA
[2016-08-06 04:57] VITALS: BP 155/87; PULSE 82; TEMP 36.5; O2SAT 97
[2016-08-06 06:56] LABS: PROTHROMBIN TIME (PATIENT) 78.6 SECONDS (9.0-12.0)
[2016-08-06 07:00] LABS: INR 6.8 (0.9-1.1)
[2016-08-06 07:14] LABS: CALCIUM 8.5 mg/dl (8.5-10.1); CREATININE 0.91 mg/dl (0.60-1.40); MAGNESIUM 1.8 mg/dl (1.8-2.4); POTASSIUM 3.6 mmol/L (3.5-5.1)
[2016-08-06 08:00] VITALS: BP 159/99; PULSE 84; TEMP 36.3; O2SAT 96
[2016-08-06] MEDS: FUROSEMIDE INJ 40 MG in SYRINGE 0 ML IV SCH (08:02)
[2016-08-06] MEDS: TAMSULOSIN HCL 0.4 MG CAP PO SCH (08:02)
[2016-08-06] MEDS: LEVETIRACETAM 500 MG TAB PO SCH ×2 (08:03→19:55)
[2016-08-06] MEDS: GABAPENTIN 600 MG TAB PO SCH ×2 (08:04→19:55)
[2016-08-06] MEDS: METOPROLOL TARTRATE 25 MG TAB PO SCH ×2 (08:04→19:56)
[2016-08-06] MEDS: CEROVITE ADV FORMULA TAB PO SCH (08:04)
[2016-08-06] MEDS: SERTRALINE HCL 50 MG TAB PO SCH (08:05)
[2016-08-06] MEDS: SIMVASTATIN 20 MG TAB PO SCH (08:05)
[2016-08-06] MEDS: GABAPENTIN 300 MG CAP PO SCH ×2 (11:10→19:55)
[2016-08-06 12:00] VITALS: BP 132/83; PULSE 56; TEMP 36.4; O2SAT 98
--- NOTE | 2016-08-06 13:32 | Cardiology Follow-Up ---
Subjective General Date of Service: Aug 06, 2016. Pt evaluation today including: conversation w/ patient, conversation w/ family , physical exam, chart review, lab review, review of studies, review of inpatient medication list History of Present Illness The patient is a 86 year old male seen in follow up. Patient feeling better today. No CP, palpitations, lightheadedness, syncope, or near syncope. SOB improving. Slept well overnight. Heart rate controlled. Offers no complaints at this time. Allergies Coded Allergies: No Known Allergies (Unverified , 08/05/16) Social History Smoking Status: Never Smoker Hx Alcohol Use - Type And Amou: No Hx Substance Use - Type And Am: No Problem List Medical Problems: (1) Anticoagulated on Coumadin Status: Acute (2) Atrial fibrillation with RVR Status: Acute (3) Vertigo Status: Acute Review of Systems Respiratory: + dyspnea on exertion, + shortness of breath, No cough, No dyspnea at rest, No hemoptysis, No sputum, No wheezing Cardiac: + edema, No PND, No chest pain, No claudication, No orthopnea, No palpitations Physical Exam Vital Signs Last Vital Signs Documentation Date Time Temp Pulse Resp B/P Pulse Ox O2 Delivery O2 Flow Rate FiO2 08/06/16 12:00 Nasal Cannula 3.0 08/06/16 12:00 36.4 56 18 132/83 98 Physical Exam Constitutional: General Apperance: well-nourished Level of Distress: NAD Head: normocephalic ENMT: normal ENT inspection Neck: supple, trachea midline Lungs: Auscultation: no wheezing, no rhonchi, rales/crackles on the right Cardiovascular: Heart Auscultation: normal S1, normal S2, II/ MARIE, irregular rate rhythm Peripheral Pulses: Carotid Pulse: normal on the left, normal on the right Abdomen: Bowel Sounds: normal Inspection & Palpation: soft, non-distended, no tenderness, guarding & rebound Extremities: no cyanosis, no edema, no clubbing, no ulcers Neurologic: Cranial Nerves: grossly intact Assessment and Plan Assessment and Plan FINAL IMPRESSION: 1. Acute decompensated heart failure secondary to atrial fibrillation with rapid ventricular response, diastolic dysfunction, and mild systolic dysfunction. -improving with IV diuresis and rate control 2. 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 3. Supratherapeutic INR - trending downward, no signs/symptoms of bleeding 4. Aortic valve sclerosis without stenosis. 5. Moderate tricuspid regurgitation with mild pulmonary hypertension. 6. Hypertension - borderline control 7. Dyslipidemia. RECOMMENDATIONS: Continue low dose beta akil and follow telemetry. Will give additional dose IV lasix in AM. Repeat Pt/INR in AM. No indication for PPM currently. Plan discharge to home in 24-48 hours. Laboratory Results Last 24 Hours Test 08/05/16 17:25 08/05/16 23:30 08/06/16 06:18 Total Creatine Kinase 57 U/L 63 U/L Creatine Kinase MB 1.6 ng/ml 1.9 ng/ml Creatine Kinase MB Ratio 2.8 3.0 Troponin I < 0.015 ng/ml < 0.015 ng/ml Prothrombin Time 78.6 SECONDS Prothromb Time International Ratio 6.8 Sodium Level 138 mmol/L Potassium Level 3.6 mmol/L Chloride Level 102 mmol/L Carbon Dioxide Level 32 mmol/L Anion Gap 4.0 mmol/L Blood Urea Nitrogen 24 mg/dl Creatinine 0.91 mg/dl Est Creatinine Clear Calc Drug Dose 58.3 ml/min Estimated GFR () 88.1 Estimated GFR (Non- 76.0 BUN/Creatinine Ratio 26.0 Random Glucose 76 mg/dl Calcium Level 8.5 mg/dl Magnesium Level 1.8 mg/dl
[2016-08-06 15:35] VITALS: BP 94/44; PULSE 79; TEMP 36.2; O2SAT 91
[2016-08-06 19:13] VITALS: BP 123/70; PULSE 85; TEMP 36.3; O2SAT 92
[2016-08-06] MEDS ORDERED: POTASSIUM CHLORIDE 20 MEQ TABCR PO STA (21:13)
--- NOTE | 2016-08-06 21:18 | Progress Note ---
Internal Med Progress Note Date of Service: Aug 06, 2016. Provider Documentation: SUBJECTIVE: denies of chest pain , no complain of palpitations, lightheadedness, syncope, or near syncope. SOB improving. Slept well overnight. Heart rate controlled. Offers no complaints at this time. OBJECTIVE: Vital Signs-as noted below Exam: General-no sign of distress Eyes-sclera non icteric ENT-NAd Neck-no JVD Lungs-[CTA Heart-irregular Abdomen-soft, non tender Extremities-no lower ext edema Neuro-no focal deficit Lab data as noted below. ASSESSMENT & PLAN: ATRIAL FIBRILLATION WITH RVR appreciate cardiology eval given Cardizem drip ED D/radha started on Low dose Beta akil HR remains rate controlled in 70's Hold Coumadin for supratherapeutic INR ACUTE ON CHRONIC SYSTOLIC CHF due to above echo 05/22/16- moderate concentric LVH, Mildly reduced LV systolic function with mild global hypokinesis, EF 45- 50%. Mild AV scleroiss without stenosis. Mild AR, Mild MR, Moderate TR, Severe biatrial enlargement. Pulmonary HTN is present. The estimated pulmonary artery systolic pressure is 42mm Hg. CXR shows cardiomegaly, pulmonary edema, small bilateral pleural effusions Pro-BNP is 4200 Received IV Lasix 40 mg in ER ordered for repeat Lasix dose tomorrow by Cardiology Monitor daily weight and I/O HX NONOBSTRUCTIVE CAD S/p cath 01/2015 [facility]- diffuse nonobstructive coronary plaque disease; overall CAD medically manageable Denies chest pain No ischemic findings on EKG serial troponin negative Cardiology following HYPERTENSION BP stable BPH Continue Flomax HISTORY OF MENINGIOMA Continue Noman for Sz prophylaxis Follows with Dr. Sandoval DEPRESSION WITH ANXIETY continue Zoloft DYSLIPIDEMIA Continue statin DVT PROPHYLAXIS Coumadin held for supratherapeutic INR CODE STATUS Full code DISPOSITION to home when medically stale Vital Signs: Date Time Temp Pulse Resp B/P Pulse Ox O2 Delivery O2 Flow Rate FiO2 08/07/16 16:00 Room Air 08/07/16 15:09 36.6 88 18 144/84 95 08/07/16 12:00 Room Air 08/07/16 11:45 36.5 72 20 137/86 93 Room Air 08/07/16 08:00 Room Air 08/07/16 07:48 36.8 92 20 144/84 92 Room Air 08/07/16 04:00 Room Air 08/07/16 03:54 36.6 84 18 148/86 93 Room Air 08/07/16 00:00 Room Air 08/06/16 23:23 37.1 86 17 123/71 93 Room Air 08/06/16 20:00 Room Air 08/06/16 19:13 36.3 85 16 123/70 92 Room Air Lab Results: Results Past 24 Hours Test 08/07/16 05:33 Range/Units Prothrombin Time 38.1 9.0-12.0 SECONDS Prothromb Time International Ratio 3.4 0.9-1.1 Sodium Level 139 136-145 mmol/L Potassium Level 4.1 3.5-5.1 mmol/L Chloride Level 102 98-107 mmol/L Carbon Dioxide Level 33 21-32 mmol/L Anion Gap 4.0 3-11 mmol/L Blood Urea Nitrogen 21 7-18 mg/dl Creatinine 0.80 0.60-1.40 mg/dl Est Creatinine Clear Calc Drug Dose 66.3 ml/min Estimated GFR () 93.8 Estimated GFR (Non- 80.9 BUN/Creatinine Ratio 26.1 10-20 Random Glucose 85 70-99 mg/dl Calcium Level 8.3 8.5-10.1 mg/dl Magnesium Level 2.2 1.8-2.4 mg/dl
[2016-08-06] MEDS: MAGNESIUM SULFATE 1GM / D5W 1 GM in PREMIXED IN D5W 100 ML IV SCH ×2 (21:35→22:00)
[2016-08-06 23:23] VITALS: BP 123/71; PULSE 86; TEMP 37.1; O2SAT 93
[2016-08-07] VITALS (7 sets, daily range): BP systolic 137–166; BP diastolic 77–94; PULSE 72–92; TEMP 36.5–36.8; O2SAT 92–95
[2016-08-07 06:27] LABS: INR 3.4 (0.9-1.1); PROTHROMBIN TIME (PATIENT) 38.1 SECONDS (9.0-12.0)
[2016-08-07 06:36] LABS: BUN/CREATININE RATIO 26.1 (10-20); CALCIUM 8.3 mg/dl (8.5-10.1); CREATININE 0.8 mg/dl (0.60-1.40); MAGNESIUM 2.2 mg/dl (1.8-2.4); POTASSIUM 4.1 mmol/L (3.5-5.1)
[2016-08-07] MEDS: FUROSEMIDE INJ 40 MG in SYRINGE 0 ML IV SCH (08:09)
[2016-08-07] MEDS: CEROVITE ADV FORMULA TAB PO SCH (08:10)
[2016-08-07] MEDS: SERTRALINE HCL 50 MG TAB PO SCH (08:10)
[2016-08-07] MEDS: GABAPENTIN 600 MG TAB PO SCH ×2 (08:11→20:40)
[2016-08-07] MEDS: SIMVASTATIN 20 MG TAB PO SCH (08:11)
[2016-08-07] MEDS: METOPROLOL TARTRATE 25 MG TAB PO SCH ×2 (08:11→20:39)
[2016-08-07] MEDS: LEVETIRACETAM 500 MG TAB PO SCH ×2 (08:11→20:39)
[2016-08-07] MEDS: TAMSULOSIN HCL 0.4 MG CAP PO SCH (08:12)
--- NOTE | 2016-08-07 10:25 | Cardiology Follow-Up ---
Subjective General Date of Service: Aug 07, 2016. Pt evaluation today including: conversation w/ patient, physical exam, chart review, lab review, review of studies, review of inpatient medication list History of Present Illness The patient is a 86 year old male seen in follow up. C/o GROVE today. No Cp. Rate controlled at rest on telemetry. No palpitations, lightheadedness, syncope, or near syncope. Slept well overnight. Offers no other complaints at this time. Allergies Coded Allergies: No Known Allergies (Unverified , 08/05/16) Social History Smoking Status: Never Smoker Hx Alcohol Use - Type And Amou: No Hx Substance Use - Type And Am: No Problem List Medical Problems: (1) Anticoagulated on Coumadin Status: Acute (2) Atrial fibrillation with RVR Status: Acute (3) Vertigo Status: Acute Review of Systems Respiratory: + dyspnea on exertion, No cough, No dyspnea at rest, No shortness of breath, No sputum, No wheezing Cardiac: No PND, No chest pain, No claudication, No edema, No orthopnea, No palpitations Physical Exam Vital Signs Last Vital Signs Documentation Date Time Temp Pulse Resp B/P Pulse Ox O2 Delivery O2 Flow Rate FiO2 08/07/16 07:48 36.8 92 20 144/84 92 Room Air 08/06/16 16:00 3.0 Physical Exam Constitutional: General Apperance: well-nourished Level of Distress: NAD Head: normocephalic ENMT: normal ENT inspection Neck: supple, trachea midline Lungs: Auscultation: no wheezing, no rhonchi, rales/crackles on the right Cardiovascular: Heart Auscultation: normal S1, normal S2, II/ MARIE, irregular rate rhythm Peripheral Pulses: Carotid Pulse: normal on the left, normal on the right Abdomen: Bowel Sounds: normal Inspection & Palpation: soft, non-distended, no tenderness, guarding & rebound Extremities: no cyanosis, no edema, no clubbing, no ulcers Neurologic: Cranial Nerves: grossly intact Assessment and Plan Assessment and Plan FINAL IMPRESSION: 1. Acute decompensated heart failure secondary to atrial fibrillation with rapid ventricular response, diastolic dysfunction, and mild systolic dysfunction. -improving with IV diuresis and rate control 2. 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 - no symptomatic bradycardia or significant pauses overnight. 3. Supratherapeutic INR - trending downward, no signs/symptoms of bleeding 4. Aortic valve sclerosis without stenosis. 5. Moderate tricuspid regurgitation with mild pulmonary hypertension. 6. Hypertension -controlled 7. Dyslipidemia. RECOMMENDATIONS: Ambulate patient in nash with assistance. Continue low dose beta akil. Will add low dose diuretic. Furosemide 20mg daily as outpatient. Restart coumadin. Repeat Pt/INR in AM. No indication for PPM currently. Close outpatient cardiology follow up in one week. Laboratory Results Last 24 Hours Test 08/07/16 05:33 Prothrombin Time 38.1 SECONDS Prothromb Time International Ratio 3.4 Sodium Level 139 mmol/L Potassium Level 4.1 mmol/L Chloride Level 102 mmol/L Carbon Dioxide Level 33 mmol/L Anion Gap 4.0 mmol/L Blood Urea Nitrogen 21 mg/dl Creatinine 0.80 mg/dl Est Creatinine Clear Calc Drug Dose 66.3 ml/min Estimated GFR () 93.8 Estimated GFR (Non- 80.9 BUN/Creatinine Ratio 26.1 Random Glucose 85 mg/dl Calcium Level 8.3 mg/dl Magnesium Level 2.2 mg/dl
--- NOTE | 2016-08-07 16:21 | Discharge Instructions ---
Discharge Instructions Admission Reason for Admission: Atrial Fibrillation With Rvr Discharge Discharge Diagnosis / Problem: AFIB RVR /ELEVATED INR Discharge Goals Goal(s): Increase independence, Diagnostic testing, Therapeutic intervention Activity Recommendations Activity Limitations: resume your previous activity . Instructions / Follow-Up Instructions / Follow-Up HOSPITAL FOLLOW UP WITH DR NAVARRETE ON 08/11/16 @ 12 : 50 PM LAB WORK : PT /INR ON 08/09/16 CARDIOLOGY FOLLOW UP ON 08/22/2016 @ 10:[address] Jesus Hickey, Cardiology, [facility] Diet Patient's current hospital diet: AHA Diet (Heart Healthy) Discharge Diet Recommended Diet: AHA Diet (Heart Healthy) Pending Studies Studies pending at discharge: yes List of pending studies: PT/INR Medical Emergencies . Who to Call and When: Medical Emergencies: If at any time you feel your situation is an emergency, please call 911 immediately. . Non-Emergent Contact Non-Emergency issues call your: Primary Care Provider . . "Provider Documentation" section prepared by Maxine Landa. VTE Core Measure Inpt VTE Proph given/why not?: Warfarin (Coumadin)
[2016-08-07] MEDS ORDERED: LPR25 PO (16:22)
[2016-08-07] MEDS ORDERED: CMD25 PO (16:25)
[2016-08-07] MEDS ORDERED: FURO40TA3 PO (16:25)
[2016-08-08] VITALS: BP 151/83; PULSE 77; TEMP 36.6; O2SAT 95
[2016-08-08 07:03] VITALS: BP 169/96; PULSE 92; TEMP 36.9; O2SAT 92
[2016-08-08 07:47] LABS: INR 1.9 (0.9-1.1); PROTHROMBIN TIME (PATIENT) 21.2 SECONDS (9.0-12.0)
[2016-08-08] MEDS: TAMSULOSIN HCL 0.4 MG CAP PO SCH (07:58)
[2016-08-08] MEDS: LEVETIRACETAM 500 MG TAB PO SCH (07:59)
[2016-08-08] MEDS: CEROVITE ADV FORMULA TAB PO SCH (07:59)
[2016-08-08] MEDS: METOPROLOL TARTRATE 25 MG TAB PO SCH (07:59)
[2016-08-08] MEDS: SIMVASTATIN 20 MG TAB PO SCH (08:00)
[2016-08-08] MEDS: SERTRALINE HCL 50 MG TAB PO SCH (08:00)
[2016-08-08] MEDS: GABAPENTIN 600 MG TAB PO SCH (08:00)
[2016-08-08 10:00] VITALS: BP 136/76
[2016-08-08] MEDS ORDERED: FUROSEMIDE 40 MG TAB PO SCH (10:00)
[2016-08-08] MEDS: GABAPENTIN 300 MG CAP PO SCH (11:31)
--- NOTE | 2016-08-08 13:09 | Progress Note ---
Internal Med Progress Note Date of Service: Aug 07, 2016. LATE ENTRY FOR 08/07/16 PT WAS SEEN AT 1700 Provider Documentation: SUBJECTIVE: HR remains stable , rate controlled Afib no complain of chest pain feels fine OBJECTIVE: Vital Signs-as noted below Exam: General-no sign of distress Eyes-sclera non icteric ENT-NAd Neck-no JVD Lungs-[CTA Heart-irregular Abdomen-soft, non tender Extremities-no lower ext edema Neuro-no focal deficit Lab data as noted below. ASSESSMENT & PLAN: ATRIAL FIBRILLATION WITH RVR appreciate cardiology eval started on Low dose Beta akil HR remains rate controlled in 70's Coumadin will be resumed as INR becomes therapeutic ACUTE ON CHRONIC SYSTOLIC CHF due to above echo 05/22/16- moderate concentric LVH, Mildly reduced LV systolic function with mild global hypokinesis, EF 45- 50%. Mild AV scleroiss without stenosis. Mild AR, Mild MR, Moderate TR, Severe biatrial enlargement. Pulmonary HTN is present. The estimated pulmonary artery systolic pressure is 42mm Hg. CXR shows cardiomegaly, pulmonary edema, small bilateral pleural effusions Pro-BNP is 4200 pt is started on low dose Lasix 20 mg PO daily by Cardiology Monitor daily weight and I/O HX NONOBSTRUCTIVE CAD S/p cath 01/[address] [facility]- diffuse nonobstructive coronary plaque disease; overall CAD medically manageable Denies chest pain No ischemic findings on EKG serial troponin negative no evidence of ACS HYPERTENSION BP stable BPH Continue Flomax HISTORY OF MENINGIOMA Continue Keppra for Sz prophylaxis Follows with Dr. Sandoval DEPRESSION WITH ANXIETY continue Zoloft DYSLIPIDEMIA Continue statin DVT PROPHYLAXIS Coumadin resumed CODE STATUS Full code DISPOSITION to home when medically stale Vital Signs: Lab Results:
[2016-08-08 13:18] VITALS: BP 136/76; PULSE 92; TEMP 36.9; O2SAT 92
[2016-08-08] MEDS ORDERED: WARFARIN SOD 5 MG TAB PO ONE (13:45)
[2016-08-08] MEDS ORDERED: WARFARIN SOD 5 MG TAB PO SCH ×2 (14:00→16:00)
--- NOTE | 2016-08-08 14:44 | Discharge Summary ---
Discharge Summary Date of Service Aug 08, 2016. Discharge Summary Admission Date: Aug 05, 2016 at 12:41 Discharge Date: Aug 08, 2016 Discharge Disposition: Home with services Principal Diagnosis: AFIB RVR /ELEVATED INR Consultations: CARDIOLOGY Medication Reconciliation New Medications: Furosemide (Lasix) 40 Mg Tab 20 MG PO DAILY for 30 Days, #15 TAB 3 Refills Warfarin Sod (Coumadin) 2.5 Mg Tab 1 TAB PO DAILY for 30 Days, #30 TAB 2 Refills Metoprolol Tartrate (Lopressor) 25 Mg Tab 12.5 MG PO BID for 30 Days, #60 TAB 5 Refills Continued Medications: Gabapentin (Neurontin) 300 Mg Cap 600 MG PO AMHS, CAP Gabapentin (Neurontin) 300 Mg Cap 300 MG PO DAILY NOON, CAP Levetiracetam (Keppra) 250 Mg Tab 500 MG PO BID, TAB Meclizine Hcl (Meclizine Hcl) 25 Mg Tab 25 MG PO Q8 PRN for Dizziness or Vertigo, TAB Multiple Vitamins W/ Minerals (Centrum Silver Ultra Mens) 1 Tab Tab 1 TAB PO DAILY Sertraline Hcl (Zoloft) 25 Mg Tab 25 MG PO DAILY, TAB Simvastatin (Zocor) 20 Mg Tab 20 MG PO QAM, TAB Tamsulosin Hcl (Flomax) 0.4 Mg Cap 0.4 MG PO DAILY, CAP Discontinued Medications: Warfarin Sodium (Coumadin) 5 Mg Tab 5 MG PO 3XWK, TAB Take sun, tu, thur Warfarin Sodium (Coumadin) 5 Mg Tab 2.5 MG PO 4XWK, TAB mon, wed, fri, sat Admission Information HPI (per Admitting provider): This is an 86 year old male with PMH of chronic atrial fibrillation on anticoagulation, chronic systolic dysfunction EF 45-50%, cerebral meningioma s/ p craniotomy in 1897, dyslipidemia, borderline HTN, depression, and other problems listed below who presents to the ED for worsening shortness of breath. Pt follows with Dr. Hickey for cardiology and Dr. Sandoval for neurology. Pt states he had GROVE at baseline with brisk walking but typically could walk slowly on the treadmill daily. Then for past 3 weeks his GROVE is worse than usual and additionally has paroxysmal nocturnal dyspnea and occasional SOB at rest. He admits to fatigue. He states chronic R>L edema is unchanged. He reports occasional palpitations, but not having any today. He denies presyncope , syncope, chest pain, orthopnea, weight gain, nausea, vomiting, weight gain, calf pain, bleeding. In the ER patient was found to be in AF with RVR to 110s which improved to 80s with Cardizem bolus and drip. His blood pressure has been mildly elevated. CXR showed pulmonary edema. He was also treated with 1 inch nitro paste and Lasix 40 mg. He is feeling better currently. He has chronic "dizzy spells" described as "room spinning" with associated tinnitus in left ear. His symptoms resolve with meclizine. He is not feeling dizzy currently. Pt was seen in [facility] ER in 07/2106 for dizziness and had workup including CT head and MRI brain which showed his known meningioma with mass effect. Records were obtained from [facility] including MRI brain which showed meningioma with mass effect. Case was discussed with Dr. Riggs via phone call and patient's symptoms were thought to be consistent with benign positional vertigo and pt was discharged with meclizine. Pt had a prior cath in 01/2015 at [facility] which showed diffuse nonobstructive coronary plaque disease and medical management was recommended. Pt had echo 05/22/2016 which showed mild global hypokinesis with LV EF 45-50%, mild AV sclerosis, mild AR, mild MR, mod TR, severe biatrial enlargement, pulmonary HTN. Denies history of TIA or CVA. He is on prophylactic antiepileptic medication but denies h/o seizure. He admits to drinking 1 cup of regular coffee each morning. He admits to occasional intake of potato chips and lunch meat. Physical Exam (per Admitting): General Appearance: + pertinent finding (pleasant alert 86 year old male, no distress, family at bedside) Head: normocephalic, atraumatic Eyes: PERRL, EOMI, sclerae normal, + pertinent finding (hordeolum left lower eyelid, no drainage) ENT: pharynx normal, + pertinent finding (mildly hard of hearing) Neck: supple, trachea midline, + JVD Respiratory/Chest: lungs clear, normal breath sounds, no respiratory distress, no accessory muscle use Cardiovascular: no murmur, normal peripheral pulses, + irregularly irregular (rate 80s) Abdomen/GI: normal bowel sounds, non tender, soft Extremities/Musculoskelatal: no calf tenderness, + pertinent finding (1+ pretibial edema RLE, trace edema LLE) Neurologic/Psych: alert, normal mood/affect, oriented x 3, + pertinent finding (grossly nonfocal) Skin: warm/dry, + pertinent finding (chronic venous stasis change RLE) Hospital Course ATRIAL FIBRILLATION WITH RVR appreciate cardiology eval started on Low dose Beta akil HR remains rate controlled in 70's Coumadin resumed as INR becomes therapeutic ACUTE ON CHRONIC SYSTOLIC CHF due to above echo 05/22/16- moderate concentric LVH, Mildly reduced LV systolic function with mild global hypokinesis, EF 45- 50%. Mild AV scleroiss without stenosis. Mild AR, Mild MR, Moderate TR, Severe biatrial enlargement. Pulmonary HTN is present. The estimated pulmonary artery systolic pressure is 42mm Hg. CXR shows cardiomegaly, pulmonary edema, small bilateral pleural effusions Pro-BNP is 4200 pt is started on low dose Lasix 20 mg PO daily by Cardiology Monitor daily weight and I/O HX NONOBSTRUCTIVE CAD S/p cath 01/2015 [facility]- diffuse nonobstructive coronary plaque disease; overall CAD medically manageable Denies chest pain No ischemic findings on EKG serial troponin negative no evidence of ACS HYPERTENSION BP stable BPH Continue Flomax HISTORY OF MENINGIOMA Continue Keppra for Sz prophylaxis Follows with Dr. Sandoval DEPRESSION WITH ANXIETY continue Zoloft DYSLIPIDEMIA Continue statin DVT PROPHYLAXIS Coumadin resumed CODE STATUS Full code DISPOSITION discharge to home today Total time spent on discharge = 35 mins This includes examination of the patient, discharge planning, medication reconciliation, and communication with other providers. Discharge Instructions Discharge Instructions Admission Reason for Admission: Atrial Fibrillation With Rvr Discharge Discharge Diagnosis / Problem: AFIB RVR /ELEVATED INR Discharge Goals Goal(s): Increase independence, Diagnostic testing, Therapeutic intervention Activity Recommendations Activity Limitations: resume your previous activity . Instructions / Follow-Up Instructions / Follow-Up HOSPITAL FOLLOW UP WITH DR NAVARRETE ON 08/11/16 @ 12 : 50 PM LAB WORK : PT /INR ON 08/09/16 CARDIOLOGY FOLLOW UP ON 08/22/2016 @ 10:[address] Jesus Hickey, DO Cardiology, [facility] Current Hospital Diet Patient's current hospital diet: AHA Diet (Heart Healthy) Discharge Diet Recommended Diet: AHA Diet (Heart Healthy) Pending Studies Studies pending at discharge: yes List of pending studies: PT/INR Medical Emergencies . Who to Call and When: Medical Emergencies: If at any time you feel your situation is an emergency, please call 911 immediately. . Non-Emergent Contact Non-Emergency issues call your: Primary Care Provider . . "Provider Documentation" section prepared by Maxine Landa. VTE Core Measure Inpt VTE Proph given/why not?: Warfarin (Coumadin)
--- NOTE | 2016-08-08 15:41 | Cardiology Follow-Up ---
Subjective General Date of Service: Aug 08, 2016. Pt evaluation today including: conversation w/ patient, physical exam, chart review, lab review, review of studies, review of inpatient medication list History of Present Illness The patient is a 86 year old male seen in follow-up. Feeling better from a cardiovascular perspective. Dyspnea on exertion has nearly resolved. Denies orthopnea or paroxysmal nocturnal dyspnea. No palpitations, lightheadedness, dizziness, syncopal or near-syncope. Telemetry has been discontinued. Patient ambulating in the halls without complaints. Allergies Coded Allergies: No Known Allergies (Unverified , 08/05/16) Social History Smoking Status: Never Smoker Hx Alcohol Use - Type And Amou: No Hx Substance Use - Type And Am: No Problem List Medical Problems: (1) Anticoagulated on Coumadin Status: Acute (2) Atrial fibrillation with RVR Status: Acute (3) Vertigo Status: Acute Review of Systems Respiratory: + dyspnea on exertion, No cough, No dyspnea at rest, No hemoptysis , No shortness of breath, No sputum, No wheezing Cardiac: No PND, No chest pain, No claudication, No edema, No orthopnea Physical Exam Vital Signs Last Vital Signs Documentation Date Time Temp Pulse Resp B/P Pulse Ox O2 Delivery O2 Flow Rate FiO2 08/08/16 13:18 36.9 92 18 92 Room Air 08/08/16 10:00 136/76 08/06/16 16:00 3.0 Physical Exam Constitutional: General Apperance: well-nourished Level of Distress: NAD Head: normocephalic ENMT: normal ENT inspection Neck: supple, trachea midline Lungs: Auscultation: breath sounds normal, no wheezing, no rales/crackles, no rhonchi Cardiovascular: Heart Auscultation: normal S1, normal S2, II/ MARIE, irregular rate rhythm Peripheral Pulses: Carotid Pulse: normal on the left, normal on the right Abdomen: Bowel Sounds: normal Inspection & Palpation: soft, non-distended, no tenderness, guarding & rebound Extremities: no cyanosis, no edema, no clubbing, no ulcers Neurologic: Gait & Station: pertinent finding (no focal motor deficit.) Cranial Nerves: grossly intact Assessment and Plan Assessment and Plan FINAL IMPRESSION: 1. Acute decompensated heart failure secondary to atrial fibrillation with rapid ventricular response, diastolic dysfunction, and mild systolic dysfunction. -Resolved IV diuresis and rate control 2. 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 - no symptomatic bradycardia or significant pauses overnight. 3. Subtherapeutic INR today 1.9 4. Aortic valve sclerosis without stenosis. 5. Moderate tricuspid regurgitation with mild pulmonary hypertension. 6. Hypertension -controlled 7. Dyslipidemia. RECOMMENDATIONS: Continue low dose beta akil and low-dose oral furosemide, 20mg, at discharge. Coumadin restarted. Follow-up with [facility] anticoagulation clinic as outpatient. No indication for PPM. I will arrange for outpatient cardiology follow-up in 1-2 weeks. We'll sign off at this time. Please call with questions. Laboratory Results Last 24 Hours Test 08/08/16 07:00 Prothrombin Time 21.2 SECONDS Prothromb Time International Ratio 1.9
[2016-10-04] MEDS ORDERED: CRD200 PO (09:49)
[2016-10-04] MEDS ORDERED: METO1TAB66 PO (09:49)
[2016-10-20] MEDS ORDERED: LSX40 PO (14:07)
[2016-10-20] MEDS ORDERED: CRD200 PO (14:07)
== END 2016-08-08 15:08 | disposition home health service (06) | DRG 308 ==
LOC: CANRESERV → ENRESERVTM → ENRESERVDT → C.EDB 11:03 → C.2T 12:41 → C.MS2W 08-07 19:03
PROVIDERS: ADMIT Hospitalist; ATTEND Internal Medicine
DX: I48.91 Unspecified atrial fibrillation (principal); I50.23 Acute on chronic systolic (congestive) heart failure; E78.5 Hyperlipidemia, unspecified; I10 Essential (primary) hypertension; F32.9 Major depressive disorder, single episode, unspecified; I25.10 Atherosclerotic heart disease of native coronary artery without angina pectoris; I36.1 Nonrheumatic tricuspid (valve) insufficiency; I27.2 Other secondary pulmonary hypertension; H81.10 Benign paroxysmal vertigo, unspecified ear; Z86.011 Personal history of benign neoplasm of the brain; T45.516A Underdosing of anticoagulants, initial encounter; Y92.009 Unspecified place in unspecified non-institutional (private) residence as the place of occurrence of the external cause; Z79.01 Long term (current) use of anticoagulants

== ENCOUNTER 2016-08-31 19:03 | Emergency (ER) | payer OTHER, MEDICARE ==
[~2016-08-31] VITALS: Ht 175.3 cm; Wt 77.3 kg
[~2016-08-31 19:03] MED LIST changes: +CMD25 PO; +FURO40TA3 PO; +LPR25 PO; +SERT1TAB72 PO; -WARF5TAB90 PO
[2016-08-31 19:10] VITALS: TEMP 37.1; Ht 175.3 cm; Wt 77.3 kg
[2016-08-31] MEDS ORDERED: SODIUM CHLORIDE 0.9% 500ML 500 ML IV STA (19:20)
[2016-08-31] MEDS ORDERED: MECLIZINE HCL 25 MG TAB PO STA (19:20)
--- NOTE | 2016-08-31 19:21 | EMERGENCY ROOM VISIT NOTE ---
History Report prepared by Sonali: Pratik Wang Under the Supervision of: Dr. Andrea Marroquin M.D. First contact with patient: 19:15 Chief Complaint: VERTIGO Stated Complaint: DIZZY/VERTIGO Nursing Triage Summary: pt has hx of vertigo seen in ER within past several months for vertigo today pt had episode of vertigo. Pt felt "off balance" pt was near chair and sat down, no fall no loc no injury pt reports "slight pain on left side chest under breast radiating to side History of Present Illness The patient is an 86 year old male who presents to the Emergency Room with complaints of resolved dizziness that occurred earlier today. The patient describes a room-spinning sensation that has improved on its own. He did not fall or hit his head. The patient has been to the ED with dizziness before. He has had intermittent chest pains, but none today that he can recall. The patient denies headaches, double vision, shortness of breath, abdominal pain, or one-sided weakness. He is not sure if he has Meclizine. Source of History: patient Onset: today Position: other (global) Quality: other (dizziness) Timing: resolved Associated Symptoms: No SOB, No abdominal pain, No chest pain, No headache, No weakness Review of Systems See HPI for pertinent positives & negatives. A total of 10 systems reviewed and were otherwise negative. Past Medical & Surgical Medical Problems: (1) Atrial fibrillation (2) Atrial fibrillation with RVR (3) Benign positional vertigo (4) Borderline hypertension (5) BPH (benign prostatic hypertrophy) (6) Cerebral meningioma (7) Chronic atrial fibrillation (8) Congestive heart failure (9) Depression with anxiety (10) Dyslipidemia (11) History of brain tumor (12) Systolic dysfunction Surgical Problems: (1) H/O craniotomy (2) S/P cardiac cath Family History FH: atrial fibrillation SISTER Social History Smoking Status: Never Smoker Alcohol Use: none Drug Use: none Marital Status: Housing Status: lives with family Occupation Status: retired Current/Historical Medications Scheduled Furosemide (Lasix), 20 MG PO DAILY Gabapentin (Neurontin), 600 MG PO AMHS Gabapentin (Neurontin), 300 MG PO DAILY NOON Levetiracetam (Keppra), 500 MG PO BID Metoprolol Tartrate (Lopressor), 12.5 MG PO BID Multiple Vitamins W/ Minerals (Centrum Silver Ultra Mens), 1 TAB PO DAILY Sertraline Hcl (Zoloft), 25 MG PO DAILY Simvastatin (Zocor), 20 MG PO QAM Tamsulosin Hcl (Flomax), 0.4 MG PO DAILY Warfarin Sod (Jantoven), 5 MG PO UD Warfarin Sod (Jantoven), 2.5 MG PO UD Scheduled PRN Meclizine Hcl (Meclizine Hcl), 25 MG PO Q8 PRN for Dizziness or Vertigo Allergies Coded Allergies: No Known Allergies (Unverified , 08/31/16) Physical Exam Vital Signs Date Time Temp Pulse Resp B/P Pulse Ox O2 Delivery O2 Flow Rate FiO2 08/31/16 21:26 84 20 160/75 92 08/31/16 20:21 99 20 158/94 95 Room Air 08/31/16 19:34 85 20 164/98 08/31/16 19:13 83 08/31/16 19:10 37.1 90 20 164/110 96 Room Air Physical Exam GENERAL: Patient is well appearing and in no acute distress. HEENT: No acute trauma, normocephalic atraumatic, mucous membranes moist, no nasal congestion, no scleral icterus. NECK: No stridor, no adenopathy, no meningismus, trachea is midline. LUNGS: No dyspnea. Clear to auscultation and equal bilaterally. No wheeze, no rhonchi. HEART: Irregular rhythm, regular rate. No murmurs, rubs, gallops appreciated. ABDOMEN: Soft, nontender, bowel sounds positive, no masses appreciated, no peritonitis. BACK: No midline tenderness, no CVA tenderness EXTREMITIES: Normal motion all extremities, no cyanosis, no edema. NEUROLOGIC: Alert and oriented, no acute motor or sensory deficits, no focal weakness, cranial nerves grossly intact. SKIN: No rash, no jaundice, no diaphoresis. Medical Decision & Procedures ER Provider Diagnostic Interpretation: Radiology results and stated below per my review and radiologist interpretation: SINGLE VIEW CHEST CLINICAL HISTORY: Vertigo. Dizziness. FINDINGS: An AP, portable, upright chest radiograph is compared to study dated 08/05/2016. The examination is degraded by portable technique and patient rotation. The heart is markedly enlarged and there is atherosclerotic calcification of the thoracic aorta. There is prominence of the central pulmonary vessels. Chronic interstitial thickening is identified. A trace right pleural effusion is suspected. No airspace consolidation is seen typical for pneumonia. No pneumothorax is seen. The skeletal structures are osteopenic. The bony thorax is grossly intact. IMPRESSION: 1. Marked cardiomegaly. There is prominence of the central pulmonary vessels. Correlate clinically for evidence of mild congestive failure. 2. A trace right pleural effusion is identified. No airspace consolidation is seen typical for pneumonia. Electronically signed by: Justyn Alaniz M.D. 08/31/2016 7:51 PM Dictated Date/Time: 08/31/2016 7:[address] SCAN OF THE BRAIN WITHOUT IV CONTRAST CLINICAL HISTORY: Vertigo and dizziness. COMPARISON STUDY: CT of the brain dated 06/29/2016. MRI of the brain dated 06/29/2016. TECHNIQUE: Unenhanced axial CT scan of the brain is performed from the vertex to the skull base. 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 This measures at least 4.4 cm and invades the anterior sphenoid bone. There is significant edema seen throughout the left hemisphere with effacement of the overlying left temporal sulci. No midline shift is seen. There are age-related involutional changes noting mild to moderate patchy subcortical and periventricular microangiopathic change. There is no hemorrhage or evidence of acute territorial ischemia by CT criteria. No extra-axial fluid collection is seen. Ventricles, sulci, cisterns: Prominent secondary to involutional change. See above. Intracranial vasculature: There is atherosclerotic calcification of the cavernous carotid and vertebral arteries. Calvarium: There is evidence of previous left craniotomy. 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 Sinuses and mastoids: A retention cyst is noted in the right maxillary antrum. Trace mucosal thickening is seen in the ethmoid sinuses. The remaining visualized paranasal sinuses are clear. The mastoid air cells are well pneumatized. Orbits: The bony orbits are grossly intact. There are bilateral ocular lens implants. There is trace abnormal soft tissue density along the posterior aspect of the left orbit, likely related to the permeative lesion in the adjacent sphenoid bone. IMPRESSION: 1. There is no hemorrhage or evidence of acute territorial ischemia by CT criteria. 2. No significant change in the appearance of a large mass lesion within the anterior left temporal fossa measuring at least 4.5 cm. There is significant mass effect and edema throughout the left hemisphere as above. This is also similar to previous. No midline shift is seen. Correlation with the patient's history will be required. 3. 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 Electronically signed by: Justyn Alaniz M.D. 08/31/2016 8:10 PM Dictated Date/Time: 08/31/2016 8:04 PM Laboratory Results 08/31/16 19:35 08/31/16 19:35 Test 08/31/16 19:35 Red Blood Count 4.02 M/uL (4.7-6.1) Mean Corpuscular Volume 87.3 fL (80-100) Mean Corpuscular Hemoglobin 29.6 pg (25-34) Mean Corpuscular Hemoglobin Concent 33.9 g/dl (32-36) RDW Standard Deviation 48.3 fL (36.4-46.3) RDW Coefficient of Variation 15.0 % (11.5-14.5) Mean Platelet Volume 12.4 fL (7.4-10.4) Prothrombin Time 29.0 SECONDS (9.0-12.0) Prothromb Time International Ratio 2.6 (0.9-1.1) Anion Gap 6.0 mmol/L (3-11) Est Creatinine Clear Calc Drug Dose 71.7 ml/min Estimated GFR () 96.8 Estimated GFR (Non- 83.5 BUN/Creatinine Ratio 35.1 (10-20) Calcium Level 8.4 mg/dl (8.5-10.1) Troponin I < 0.015 ng/ml (0-0.045) Laboratory results as reviewed by me. Medications Administered Medications (Trade) Dose Ordered Sig/Alexus Route Start Time Stop Time Status Last Admin Dose Admin Meclizine HCl 12.5 mg 12.5 mg NOW STAT PO 08/31/16 19:20 08/31/16 19:22 DC 08/31/16 19:36 12.5 MG Sodium Chloride (Nss 500ml) 500 ml @ 999 mls/hr Q31M STAT IV 08/31/16 19:20 08/31/16 19:50 DC 08/31/16 19:36 999 MLS/HR ECG Indication: other (dizziness) Rate (beats per minute): 82 Rhythm: atrial fibrillation Findings: PVC, no acute ischemic change ED Course 1916: The patient was evaluated in room C5. A complete history and physical exam was performed. 1919: NSS 500 ml @ 999 mls/hr, Antivert 12.5 mg PO. 2019: The patient has no further symptoms. Discussed findings with and son. They note that he got Meclizine at home around 1300 today. He feels comfortable going home and following up with his Neurologist. He also has Meclizine at home. Medical Decision Differential diagnoses include Benign positional vertigo, Dehydration, Hypovolemia, Anemia, Tumor, Infection, Hypoglycemia, Electrolyte abnormalities, Cardiac sources, Intracerebral event, Toxicologic, Neurologic, as well as others were entertained. 86 yr old male with long history of BPV arrives post vertiginous symptoms last few hours now resolved. Still mild horizontal nystagmus to left thus small dose meclizine given. Patient feeling fine and in no distress. With known brain mass and on blood thinner felt CT head necessary. Labs EKG unremarkable. CT head without change from previous several months ago. Mass apparently being followed closely though family notes it is not amenable to resection are aware risks of it getting worse, swelling more or bleeding, especially on blood thinner. Feeling well and in no distress without neuro deficits. Had MRI just a few months ago when episode of similar symptoms. No evidence ACS, bleeding, electrolyte cause. Follow up with PCP, aware can always return if worsening or other concerns. Impression Primary Impression: Benign positional vertigo Additional Impressions: Afib Brain mass Scribe Attestation The scribe's documentation has been prepared under my direction and personally reviewed by me in its entirety. I confirm that the note above accurately reflects all work, treatment, procedures, and medical decision making performed by me. Departure Information Dispostion Home / Self-Care Referrals Carlie Abarca D.O. (PCP) Forms HOME CARE DOCUMENTATION FORM, IMPORTANT VISIT INFORMATION Patient Instructions ED BPV Vertigo, My [facility] Additional Instructions Follow up with your Neurologist. Return immediately if worsening symptoms or other concerns. Problem Qualifiers Primary Impression: Benign positional vertigo Laterality: unspecified laterality Qualified Codes: H81.10 - Benign paroxysmal vertigo, unspecified ear Additional Impressions: Afib Atrial fibrillation type: persistent Qualified Codes: I48.1 - Persistent atrial fibrillation
[2016-08-31 19:52] LABS: HEMATOCRIT 35.1 % (42-52); MEAN CELL VOLUME 87.3 fL (80-100); MEAN CORPUSCULAR HEMOGLOBIN 29.6 pg (25-34); MEAN CORPUSCULAR HGB CONC 33.9 g/dl (32-36); MEAN PLATELET VOLUME 12.4 fL (7.4-10.4); PLATELET COUNT 128 K/uL (130-400); RED BLOOD COUNT 4.02 M/uL (4.7-6.1); WHITE BLOOD COUNT 5.46 K/uL (4.8-10.8)
--- NOTE | 2016-08-31 19:53 | DIAGNOSTIC IMAGING REPORT ---
SINGLE VIEW CHEST CLINICAL HISTORY: Vertigo. Dizziness. FINDINGS: An AP, portable, upright chest radiograph is compared to study dated 08/05/2016. The examination is degraded by portable technique and patient rotation. The heart is markedly enlarged and there is atherosclerotic calcification of the thoracic aorta. There is prominence of the central pulmonary vessels. Chronic interstitial thickening is identified. A trace right pleural effusion is suspected. No airspace consolidation is seen typical for pneumonia. No pneumothorax is seen. The skeletal structures are osteopenic. The bony thorax is grossly intact. IMPRESSION: 1. Marked cardiomegaly. There is prominence of the central pulmonary vessels. Correlate clinically for evidence of mild congestive failure. 2. A trace right pleural effusion is identified. No airspace consolidation is seen typical for pneumonia. Electronically signed by: Justyn Alaniz M.D. 08/31/2016 7:51 PM Dictated Date/Time: 08/31/2016 7:50 PM
[2016-08-31 20:05] LABS: BLOOD UREA NITROGEN 26 mg/dl (7-18); BUN/CREATININE RATIO 35.1 (10-20); CALCIUM 8.4 mg/dl (8.5-10.1); CARBON DIOXIDE 30 mmol/L (21-32); CHLORIDE 106 mmol/L (98-107); CREATININE 0.74 mg/dl (0.60-1.40); GLUCOSE 89 mg/dl (70-99); SODIUM 142 mmol/L (136-145)
[2016-08-31 20:06] LABS: INR 2.6 (0.9-1.1)
--- NOTE | 2016-08-31 20:11 | DIAGNOSTIC IMAGING REPORT ---
CT SCAN OF THE BRAIN WITHOUT IV CONTRAST CLINICAL HISTORY: Vertigo and dizziness. COMPARISON STUDY: CT of the brain dated 06/29/2016. MRI of the brain dated 06/29/2016. TECHNIQUE: Unenhanced axial CT scan of the brain is performed from the vertex to the skull base. 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 This measures at least 4.4 cm and invades the anterior sphenoid bone. There is significant edema seen throughout the left hemisphere with effacement of the overlying left temporal sulci. No midline shift is seen. There are age-related involutional changes noting mild to moderate patchy subcortical and periventricular microangiopathic change. There is no hemorrhage or evidence of acute territorial ischemia by CT criteria. No extra-axial fluid collection is seen. Ventricles, sulci, cisterns: Prominent secondary to involutional change. See above. Intracranial vasculature: There is atherosclerotic calcification of the cavernous carotid and vertebral arteries. Calvarium: There is evidence of previous left craniotomy. 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 Sinuses and mastoids: A retention cyst is noted in the right maxillary antrum. Trace mucosal thickening is seen in the ethmoid sinuses. The remaining visualized paranasal sinuses are clear. The mastoid air cells are well pneumatized. Orbits: The bony orbits are grossly intact. There are bilateral ocular lens implants. There is trace abnormal soft tissue density along the posterior aspect of the left orbit, likely related to the permeative lesion in the adjacent sphenoid bone. IMPRESSION: 1. There is no hemorrhage or evidence of acute territorial ischemia by CT criteria. 2. No significant change in the appearance of a large mass lesion within the anterior left temporal fossa measuring at least 4.5 cm. There is significant mass effect and edema throughout the left hemisphere as above. This is also similar to previous. No midline shift is seen. Correlation with the patient's history will be required. 3. 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 Electronically signed by: Justyn Alaniz M.D. 08/31/2016 8:10 PM Dictated Date/Time: 08/31/2016 8:04 PM
[2016-08-31] MEDS ORDERED: WARF5TAB7 PO (20:23)
[2016-08-31] MEDS ORDERED: WARF2.5T8 PO (20:27)
[2016-08-31 21:26] VITALS: BP 160/75; PULSE 84; O2SAT 92
[2016-09-08] MEDS ORDERED: LSN5 PO (10:27)
[2016-09-08] MEDS ORDERED: CRD200 PO (10:27)
[2016-10-04] MEDS ORDERED: CRD200 PO (09:49)
[2016-10-04] MEDS ORDERED: METO1TAB66 PO (09:49)
[2016-10-20] MEDS ORDERED: CRD200 PO (14:07)
[2016-10-20] MEDS ORDERED: LSX40 PO (14:07)
== END 2016-08-31 21:27 | disposition home or self-care (01) ==
LOC: EDBD 19:03 → C.EDC 19:04
DX: H81.10 Benign paroxysmal vertigo, unspecified ear (principal); G93.9 Disorder of brain, unspecified; I48.1 Persistent atrial fibrillation; R03.0 Elevated blood-pressure reading, without diagnosis of hypertension; N40.0 Benign prostatic hyperplasia without lower urinary tract symptoms; I50.9 Heart failure, unspecified; F41.9 Anxiety disorder, unspecified; F32.9 Major depressive disorder, single episode, unspecified; E78.5 Hyperlipidemia, unspecified; Z82.49 Family history of ischemic heart disease and other diseases of the circulatory system; Z79.01 Long term (current) use of anticoagulants; Z79.899 Other long term (current) drug therapy

== ENCOUNTER 2016-09-02 15:42 | Inpatient (IN) | payer OTHER, MEDICARE ==
[2016-09-01 20:45] VITALS: BP 129/72; TEMP 36.8; BMI 23.7
[~2016-09-02] VITALS: Ht 175.3 cm; Wt 72.7 kg
[2016-09-02 15:42] VITALS: Ht 175.3 cm; Wt 72.7 kg
[~2016-09-02 15:42] MED LIST changes: -CMD25 PO; +WARF2.5T8 PO; +WARF5TAB7 PO
[2016-09-02] MEDS ORDERED: MECLIZINE HCL 25 MG TAB PO STA (16:03)
[2016-09-02 16:29] LABS: BASO % 0.2 %; BASO ABS # 0.01 K/uL (0-0.2); COMPLETE YES; EOS % 0.5 %; HEMATOCRIT 35.6 % (42-52); IG% 0.2 %; LYMPH % 12.6 %; LYMPH ABS # 0.74 K/uL (1.2-3.4); MEAN CELL VOLUME 89.2 fL (80-100); MEAN CORPUSCULAR HEMOGLOBIN 31.1 pg (25-34); MEAN CORPUSCULAR HGB CONC 34.8 g/dl (32-36); MEAN PLATELET VOLUME 11.5 fL (7.4-10.4); MONO % 11.1 %; NEUT % 75.4 %; PLATELET COUNT 119 K/uL (130-400); RED BLOOD COUNT 3.99 M/uL (4.7-6.1); WHITE BLOOD COUNT 5.86 K/uL (4.8-10.8)
--- NOTE | 2016-09-02 16:33 | EMERGENCY ROOM VISIT NOTE ---
History Report prepared by Sonali: Roseline Cerrato Under the Supervision of: Dr. Ty Godoy D.O. First contact with patient: 15:51 Chief Complaint: DIZZY Stated Complaint: DIZZINESS Nursing Triage Summary: Per EMS, patient c/o dizziness x 2 days. Patient was seen yesterday in the ER for the same symptoms. Patient describes a room-spinning sensation whenever he moves his head left or right or whenever he stands. Patient denies trauma or injury. Patient denies headaches, double vision, shortness of breath, abdominal pain, or one-sided weakness. Patient has hx of vertigo and A-fib. History of Present Illness The patient is a 86 year old male who presents to the Emergency Room with complaints of intermittent dizziness starting 8-9 months ago. The patient was seen here 2 days ago for similar complaints. He experiences the dizziness often and takes Antivert, which he says usually calms down his dizziness. He took some today at 1230, but presents to the ED after still feeling dizzy. His daughter reports that the patient was started on Lasix and metoprolol 1 month ago. He has seen a neurologist and has an ENT appointment next week. He has a meningioma in the front of his brain, but has been told that it is not the cause of his dizziness. He reports shortness of breath with even short walks from one room to the other. He denies any swelling or pain in the legs, ringing in the ears, nausea, or vomiting. He denies any alcohol use. Source of History: patient, family (daughter) Onset: 8-9 months ago Position: other (global) Quality: other (dizziness) Timing: intermittent Associated Symptoms: + SOB (on exertion), No nausea, No vomiting Note: Pt denies pain or swelling in the legs, ringing in the ears. Review of Systems See HPI for pertinent positives & negatives. A total of 10 systems reviewed and were otherwise negative. Past Medical & Surgical Medical Problems: (1) Atrial fibrillation (2) Atrial fibrillation with RVR (3) Benign positional vertigo (4) Borderline hypertension (5) BPH (benign prostatic hypertrophy) (6) Cerebral meningioma (7) Chest pain (8) Chronic atrial fibrillation (9) Congestive heart failure (10) Depression with anxiety (11) Dyslipidemia (12) History of brain tumor (13) Systolic dysfunction Surgical Problems: (1) H/O craniotomy (2) S/P cardiac cath Family History FH: atrial fibrillation SISTER Social History Smoking Status: Never Smoker Alcohol Use: none Drug Use: none Marital Status: Housing Status: lives with family Occupation Status: retired Current/Historical Medications Scheduled Furosemide (Lasix), 20 MG PO Q2D Gabapentin (Gabapentin), 300 MG PO UD Levetiracetam (Keppra), 500 MG PO BID Magnesium Oxide (Mg Supplement (Magnesium Oxide), 1 TAB DAILY Metoprolol Tartrate (Lopressor), 12.5 MG PO BID Multiple Vitamins W/ Minerals (Centrum Silver Ultra Mens), 1 TAB PO DAILY Sertraline Hcl (Zoloft), 25 MG PO DAILY Simvastatin (Zocor), 20 MG PO QAM Tamsulosin Hcl (Flomax), 0.4 MG PO DAILY Warfarin Sod (Coumadin), 2.5 MG PO DAILY Warfarin Sodium (Coumadin), 5 MG PO UD Scheduled PRN Meclizine Hcl (Meclizine Hcl), 25 MG PO Q8 PRN for Dizziness or Vertigo Allergies Coded Allergies: No Known Allergies (Unverified , 09/02/16) Physical Exam Vital Signs Date Time Temp Pulse Resp B/P Pulse Ox O2 Delivery O2 Flow Rate FiO2 09/02/16 18:26 167/86 09/02/16 18:13 85 20 94 09/02/16 18:00 148/100 09/02/16 17:43 86 19 95 09/02/16 17:37 157/83 09/02/16 17:30 164/89 09/02/16 17:13 87 14 94 09/02/16 17:08 84 13 93 09/02/16 17:00 162/85 09/02/16 16:38 79 15 96 09/02/16 16:33 83 20 123/69 94 09/02/16 16:31 140/68 09/02/16 16:30 130/88 09/02/16 16:30 89 18 130/88 95 Room Air 87 140/68 91 123/69 09/02/16 16:29 95 Room Air 09/02/16 16:12 85 18 94 09/02/16 16:11 81 09/02/16 16:03 137/88 09/02/16 15:42 37.1 85 13 142/76 95 Room Air Physical Exam GENERAL: Patient is awake, alert, non-anxious appearing, and comfortable appearing. EYES: The conjunctivae are clear. The pupils are round and reactive. EARS, NOSE, MOUTH AND THROAT: The nose is without any evidence of any deformity. Mucous membranes are moist tongue is midline. TMs clear bilaterally. Mild cerumen impaction bilaterally. NECK: The neck is nontender and supple. RESPIRATORY: Normal respiratory effort is noted there is no evidence of wheezing rhonchi or rales CARDIOVASCULAR: Regular rate and irregular rhythm noted. No definite murmurs noted to auscultation. GASTROINTESTINAL: The abdomen is soft. Bowel sounds are present in all quadrants. Abdomen is nontender MUSCULOSKELETAL/EXTREMITIES: There is no evidence of gross deformity full range of motion is noted in the hips and shoulders SKIN: There is no obvious evidence of any rash. There are no petechiae, pallor or cyanosis noted. Trace pedal edema. NEUROLOGIC: Patient is awake alert and oriented x3 strength is symmetric, no facial droop noted. Medical Decision & Procedures Laboratory Results 09/02/16 16:16 Red Blood Count 3.99, Mean Corpuscular Volume 89.2, Mean Corpuscular Hemoglobin 31.1, Mean Corpuscular Hemoglobin Concent 34.8, Mean Platelet Volume 11.5, Neutrophils (%) (Auto) 75.4, Lymphocytes (%) (Auto) 12.6, Monocytes (%) (Auto) 11.1, Eosinophils (%) (Auto) 0.5, Basophils (%) (Auto) 0.2, Neutrophils # (Auto ) 4.42, Lymphocytes # (Auto) 0.74, Monocytes # (Auto) 0.65, Eosinophils # (Auto ) 0.03, Basophils # (Auto) 0.01 09/02/16 16:16 Test 09/02/16 16:16 09/02/16 18:25 White Blood Count 5.86 K/uL (4.8-10.8) Red Blood Count 3.99 M/uL (4.7-6.1) Hemoglobin 12.4 g/dL (14.0-18.0) Hematocrit 35.6 % (42-52) Mean Corpuscular Volume 89.2 fL (80-100) Mean Corpuscular Hemoglobin 31.1 pg (25-34) Mean Corpuscular Hemoglobin Concent 34.8 g/dl (32-36) Platelet Count 119 K/uL (130-400) Mean Platelet Volume 11.5 fL (7.4-10.4) Neutrophils (%) (Auto) 75.4 % Lymphocytes (%) (Auto) 12.6 % Monocytes (%) (Auto) 11.1 % Eosinophils (%) (Auto) 0.5 % Basophils (%) (Auto) 0.2 % Neutrophils # (Auto) 4.42 K/uL (1.4-6.5) Lymphocytes # (Auto) 0.74 K/uL (1.2-3.4) Monocytes # (Auto) 0.65 K/uL (0.11-0.59) Eosinophils # (Auto) 0.03 K/uL (0-0.5) Basophils # (Auto) 0.01 K/uL (0-0.2) RDW Standard Deviation 49.2 fL (36.4-46.3) RDW Coefficient of Variation 14.9 % (11.5-14.5) Immature Granulocyte % (Auto) 0.2 % Immature Granulocyte # (Auto) 0.01 K/uL (0.00-0.02) Prothrombin Time 19.7 SECONDS (9.0-12.0) Prothromb Time International Ratio 1.8 (0.9-1.1) Activated Partial Thromboplast Time 34.4 SECONDS (21.0-31.0) Partial Thromboplastin Ratio 1.3 Anion Gap 5.0 mmol/L (3-11) Est Creatinine Clear Calc Drug Dose 63.2 ml/min Estimated GFR () 91.9 Estimated GFR (Non- 79.3 BUN/Creatinine Ratio 31.7 (10-20) Calcium Level 8.1 mg/dl (8.5-10.1) Magnesium Level 2.1 mg/dl (1.8-2.4) Total Bilirubin 1.1 mg/dl (0.2-1) Direct Bilirubin 0.3 mg/dl (0-0.2) Aspartate Amino Transf (AST/SGOT) 16 U/L (15-37) Alanine Aminotransferase (ALT/SGPT) 15 U/L (12-78) Alkaline Phosphatase 78 U/L (45-117) Troponin I < 0.015 ng/ml (0-0.045) Total Protein 7.3 gm/dl (6.4-8.2) Albumin 3.2 gm/dl (3.4-5.0) Thyroid Stimulating Hormone (TSH) 1.300 uIu/ml (0.300-4.500) Urine Color YELLOW Urine Appearance CLEAR (CLEAR) Urine pH 7.0 (4.5-7.5) Urine Specific [place] 1.011 (1.000-1.030) Urine Protein NEG (NEG) Urine Glucose (UA) NEG (NEG) Urine Ketones NEG (NEG) Urine Occult Blood NEG (NEG) Urine Nitrite NEG (NEG) Urine Bilirubin NEG (NEG) Urine Urobilinogen NEG (NEG) Urine Leukocyte Esterase NEG (NEG) Laboratory results per my review. Medications Administered Medications (Trade) Dose Ordered Sig/Alexus Route Start Time Stop Time Status Last Admin Dose Admin Meclizine HCl 25 mg 25 mg NOW STAT PO 09/02/16 16:03 09/02/16 16:04 DC 09/02/16 16:29 25 MG Sodium Chloride (Nss 500ml) 500 ml @ 999 mls/hr Q31M STAT IV 09/02/16 16:49 09/02/16 17:19 DC 09/02/16 17:06 999 MLS/HR ECG Indication: SOB/dyspnea Rate (beats per minute): 80 Rhythm: atrial fibrillation Findings: PVC, other (no ST segment abnormalities noted) Comparison ECG Date: Change: no significant change ED Course 1558: The patient was evaluated in room B4. A complete history and physical examination were performed. 1603: Antivert Tab 25 mg PO. 1649: NSS 500 ml 999 mls/hr IV. 1803: I discussed the patient's case with JESSICA Montana. The patient will be evaluated for further management. 1807: I reevaluated the patient. He is resting comfortably. I discussed results and treatment plan with him. He verbalizes agreement and understanding. The patient will be evaluated for further management and care. Medical Decision Prior records/ancillary studies reviewed. Triage Nursing notes reviewed. Additional history obtained from the patient's family members. The patient's history was concerning for chest pain. Differential diagnosis: Etiologies such as cardiac ischemia, aortic dissection, pulmonary embolism, pneumonia, pneumothorax, musculoskeletal, infections, pericarditis, myocarditis , esophageal rupture, gastrointestinal, as well as others were entertained. The patient is an 86-year-old male who presented to the emergency department with family for an evaluation of dizziness and vertigo but also anterior chest pain. The patient has been seen multiple times in our facility for vertigo. The patient was treated with meclizine and IV fluids in the emergency department. He was found have some mild degree of orthostasis. I discussed the patient's laboratory and radiographic studies with him. He also had a recent visit to our facility for similar complaints. At that time he did have a complete neurologic workup. The patient did not have any new focal neurologic complaints. I discussed the patient's condition with the on-call [facility] hospitalist group. They've agreed to evaluate the patient in emergency department for further management and disposition. Consults Time Called: 1800 Consulting Physician: JESSICA Montana Returned Call: [phone] I discussed the patient's case with her. The patient will be evaluated for further management. Impression Primary Impression: Substernal chest pain Additional Impressions: Vertigo Orthostatic hypotension Scribe Attestation The scribe's documentation has been prepared under my direction and personally reviewed by me in its entirety. I confirm that the note above accurately reflects all work, treatment, procedures, and medical decision making performed by me. Departure Information Dispostion Being Evaluated By Hospitalist Referrals Carlie Abarca D.O. (PCP) Patient Instructions My [facility] Problem Qualifiers
[2016-09-02 16:40] LABS: INR 1.8 (0.9-1.1); PARTIAL THROMBOPLASTIN RATIO 1.3; PROTHROMBIN TIME (PATIENT) 19.7 SECONDS (9.0-12.0)
[2016-09-02] MEDS ORDERED: MAGNTAB10 PO (16:43)
[2016-09-02 16:46] LABS: ALT/SGPT 15 U/L (12-78); AST/SGOT 16 U/L (15-37); BLOOD UREA NITROGEN 27 mg/dl (7-18); BUN/CREATININE RATIO 31.7 (10-20); CALCIUM 8.1 mg/dl (8.5-10.1); CARBON DIOXIDE 29 mmol/L (21-32); CHLORIDE 106 mmol/L (98-107); CREATININE 0.84 mg/dl (0.60-1.40); GLUCOSE 121 mg/dl (70-99); MAGNESIUM 2.1 mg/dl (1.8-2.4); SODIUM 140 mmol/L (136-145)
[2016-09-02] MEDS ORDERED: SODIUM CHLORIDE 0.9% 500ML 500 ML IV STA (16:49)
[2016-09-02 16:57] LABS: ALKALINE PHOSPHATASE 78 U/L (45-117)
[2016-09-02 18:36] LABS: URINE APPEARANCE CLEAR (CLEAR); URINE BILIRUBIN NEG (NEG); URINE COLOR YELLOW; URINE NITRITE NEG (NEG); URINE SPECIFIC GRAVITY 1.011 (1.000-1.030); UROBILINOGEN NEG (NEG)
[2016-09-02 18:40] LABS: MANUAL MICROSCOPIC REQUIRED? NO; REVIEW REQ? NO
[2016-09-02] MEDS ORDERED: NITROGLYCERIN 0.4 MG SL PER TAB CHARGE SL PRN (19:00)
[2016-09-02] MEDS ORDERED: IV FLUIDS COMPLETED PRN (19:30)
--- NOTE | 2016-09-02 19:40 | History and Physical ---
History & Physical Date & Time of Service: Sep 02, 2016 at 19:02 Chief Complaint: Dizziness Primary Care Physician: Carlie Abarca D.O. History of Present Illness Source: patient, family, clinic records, hospital records 86 year old male with PMH of AFib on coumadin, cerbral meningioma, vertigo, systolic CHF was brought to the Emergency Room with complaints for dizziness. Pt has been having intermittent dizziness for almost 1 yr. He describes the episodes as the room is spinning. He had many imaging done. He was in the ER 2 days ago for vertigo where he had CT head done. Daughter said that this morning pt had an appointment this morning to see his pcp, they could not get him out of bed because he was so dizzy. Daughter called the PCP that recommended to bring him to the ER via EMS. Pt also said that he has been having intermittent chest discomfort around left breast area, last few seconds, sharp pain and grade 4/10. No aggravating factors. he said that he can occur at anytime. he said that he has been having SOB with minimal exertion. denies any palpitation , fever, cough and urinary symptoms. Past Medical/Surgical History Medical Problems: (1) Benign positional vertigo Status: Chronic (2) Borderline hypertension Status: Chronic (3) BPH (benign prostatic hypertrophy) Status: Chronic (4) Cerebral meningioma Status: Chronic (5) Chronic atrial fibrillation Status: Chronic (6) Depression with anxiety Status: Chronic (7) Dyslipidemia Status: Chronic (8) Systolic dysfunction Permanent Comment: echo 05/22/16- moderate concentric LVH, Mildly reduced LV systolic function with mild global hypokinesis, EF 45- 50%. Mild AV scleroiss without stenosis. Mild AR, Mild MR, Moderate TR, Severe biatrial enlargement. Pulmonary HTN is present. The estimated pulmonary artery systolic pressure is 42mm Hg. Status: Chronic Surgical Problems: (1) H/O craniotomy Permanent Comment: 1986 for meningioma Status: Chronic (2) S/P cardiac cath Permanent Comment: 01/2015 [facility]- diffuse nonobstructive coronary plaque disease; overall CAD medically manageable Status: Chronic Family History FH: atrial fibrillation SISTER Social History Smoking Status: Never Smoker Alcohol Use: none Drug Use: none Marital Status: Housing status: lives with family Occupational Status: retired Allergies Coded Allergies: No Known Allergies (Unverified , 09/02/16) Home Medications Scheduled Furosemide (Lasix), 20 MG PO Q2D Gabapentin (Gabapentin), 300 MG PO UD Levetiracetam (Keppra), 500 MG PO BID Magnesium Oxide (Mg Supplement (Magnesium Oxide), 1 TAB DAILY Metoprolol Tartrate (Lopressor), 12.5 MG PO BID Multiple Vitamins W/ Minerals (Centrum Silver Ultra Mens), 1 TAB PO DAILY Sertraline Hcl (Zoloft), 25 MG PO DAILY Simvastatin (Zocor), 20 MG PO QAM Tamsulosin Hcl (Flomax), 0.4 MG PO DAILY Warfarin Sod (Coumadin), 2.5 MG PO DAILY Warfarin Sodium (Coumadin), 5 MG PO UD Scheduled PRN Meclizine Hcl (Meclizine Hcl), 25 MG PO Q8 PRN for Dizziness or Vertigo Review of Systems Constitutional: No chills, No fever Eyes: No eye pain, No worsening of vision ENT: No nasal symptoms, No sore throat Respiratory: + shortness of breath, No cough, No sputum Cardiovascular: + chest pain Abdomen: No nausea, No pain, No vomiting Musculoskeletal: No calf pain Genitourinary - Male: No dysuria, No hematuria Neurologic: + weakness, No paralysis Psychiatric: No substance abuse Endocrine: No excessive thirst Hematologic / Lymphatic: No night sweats Integumentary: No itch, No rash Physical Exam Vital Signs Date Time Temp Pulse Resp B/P Pulse Ox O2 Delivery O2 Flow Rate FiO2 09/02/16 17:08 84 13 93 09/02/16 17:00 162/85 09/02/16 16:38 79 15 96 09/02/16 16:33 83 20 123/69 94 09/02/16 16:31 140/68 09/02/16 16:30 130/88 09/02/16 16:30 89 18 130/88 95 Room Air 87 140/68 91 123/69 09/02/16 16:29 95 Room Air 09/02/16 16:12 85 18 94 09/02/16 16:11 81 09/02/16 16:03 137/88 09/02/16 15:42 37.1 85 13 142/76 95 Room Air General Appearance: WD/WN, no apparent distress Head: normocephalic, atraumatic Eyes: normal inspection, PERRL, EOMI ENT: normal ENT inspection, + nasal congestion Neck: supple, no JVD Respiratory/Chest: lungs clear, no respiratory distress, no accessory muscle use Cardiovascular: no JVD, + systolic murmur, + irregularly irregular Abdomen/GI: normal bowel sounds, non tender, soft Back: normal inspection, no CVA tenderness Extremities/Musculoskelatal: no calf tenderness Neurologic/Psych: no motor/sensory deficits, alert, normal mood/affect Skin: normal color, warm/dry, no rash Diagnostics Laboratory Results Results Past 24 Hours Test 09/02/16 16:16 09/02/16 18:25 Range/Units White Blood Count 5.86 4.8-10.8 K/uL Red Blood Count 3.99 4.7-6.1 M/uL Hemoglobin 12.4 14.0-18.0 g/dL Hematocrit 35.6 42-52 % Mean Corpuscular Volume 89.2 80-100 fL Mean Corpuscular Hemoglobin 31.1 25-34 pg Mean Corpuscular Hemoglobin Concent 34.8 32-36 g/dl Platelet Count 119 130-400 K/uL Mean Platelet Volume 11.5 7.4-10.4 fL Neutrophils (%) (Auto) 75.4 % Lymphocytes (%) (Auto) 12.6 % Monocytes (%) (Auto) 11.1 % Eosinophils (%) (Auto) 0.5 % Basophils (%) (Auto) 0.2 % Neutrophils # (Auto) 4.42 1.4-6.5 K/uL Lymphocytes # (Auto) 0.74 1.2-3.4 K/uL Monocytes # (Auto) 0.65 0.11-0.59 K/uL Eosinophils # (Auto) 0.03 0-0.5 K/uL Basophils # (Auto) 0.01 0-0.2 K/uL RDW Standard Deviation 49.2 36.4-46.3 fL RDW Coefficient of Variation 14.9 11.5-14.5 % Immature Granulocyte % (Auto) 0.2 % Immature Granulocyte # (Auto) 0.01 0.00-0.02 K/uL Prothrombin Time 19.7 9.0-12.0 SECONDS Prothromb Time International Ratio 1.8 0.9-1.1 Activated Partial Thromboplast Time 34.4 21.0-31.0 SECONDS Partial Thromboplastin Ratio 1.3 Sodium Level 140 136-145 mmol/L Potassium Level 4.0 3.5-5.1 mmol/L Chloride Level 106 98-107 mmol/L Carbon Dioxide Level 29 21-32 mmol/L Anion Gap 5.0 3-11 mmol/L Blood Urea Nitrogen 27 7-18 mg/dl Creatinine 0.84 0.60-1.40 mg/dl Est Creatinine Clear Calc Drug Dose 63.2 ml/min Estimated GFR () 91.9 Estimated GFR (Non- 79.3 BUN/Creatinine Ratio 31.7 10-20 Random Glucose 121 70-99 mg/dl Calcium Level 8.1 8.5-10.1 mg/dl Magnesium Level 2.1 1.8-2.4 mg/dl Total Bilirubin 1.1 0.2-1 mg/dl Direct Bilirubin 0.3 0-0.2 mg/dl Aspartate Amino Transf (AST/SGOT) 16 15-37 U/L Alanine Aminotransferase (ALT/SGPT) 15 12-78 U/L Alkaline Phosphatase 78 45-117 U/L Troponin I < 0.015 0-0.045 ng/ml Total Protein 7.3 6.4-8.2 gm/dl Albumin 3.2 3.4-5.0 gm/dl Thyroid Stimulating Hormone (TSH) 1.300 0.300-4.500 uIu/ml Urine Color YELLOW Urine Appearance CLEAR CLEAR Urine pH 7.0 4.5-7.5 Urine Specific [place] 1.011 1.000-1.030 Urine Protein NEG NEG Urine Glucose (UA) NEG NEG Urine Ketones NEG NEG Urine Occult Blood NEG NEG Urine Nitrite NEG NEG Urine Bilirubin NEG NEG Urine Urobilinogen NEG NEG Urine Leukocyte Esterase NEG NEG Diagnostic Radiology CT SCAN OF THE BRAIN WITHOUT IV CONTRAST CLINICAL HISTORY: Vertigo and dizziness. COMPARISON STUDY: CT of the brain dated 06/29/2016. MRI of the brain dated 06/29/2016. TECHNIQUE: Unenhanced axial CT scan of the brain is performed from the vertex to the skull base. 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 This measures at least 4.4 cm and invades the anterior sphenoid bone. There is significant edema seen throughout the left hemisphere with effacement of the overlying left temporal sulci. No midline shift is seen. There are age-related involutional changes noting mild to moderate patchy subcortical and periventricular microangiopathic change. There is no hemorrhage or evidence of acute territorial ischemia by CT criteria. No extra-axial fluid collection is seen. Ventricles, sulci, cisterns: Prominent secondary to involutional change. See above. Intracranial vasculature: There is atherosclerotic calcification of the cavernous carotid and vertebral arteries. Calvarium: There is evidence of previous left craniotomy. 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 Sinuses and mastoids: A retention cyst is noted in the right maxillary antrum. Trace mucosal thickening is seen in the ethmoid sinuses. The remaining visualized paranasal sinuses are clear. The mastoid air cells are well pneumatized. Orbits: The bony orbits are grossly intact. There are bilateral ocular lens implants. There is trace abnormal soft tissue density along the posterior aspect of the left orbit, likely related to the permeative lesion in the adjacent sphenoid bone. IMPRESSION: 1. There is no hemorrhage or evidence of acute territorial ischemia by CT criteria. 2. No significant change in the appearance of a large mass lesion within the anterior left temporal fossa measuring at least 4.5 cm. There is significant mass effect and edema throughout the left hemisphere as above. This is also similar to previous. No midline shift is seen. Correlation with the patient's history will be required. 3. 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 Electronically signed by: Justyn Alaniz M.D. 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 Hickey on 08/28 Consider cardiology consult if troponin trending up or chest pain persists Continue metoprolol and statin last Echo on 05/22/16 showed: Interpretation Summary The primary indication after review was deemed appropriate and the examination was performed. Normal LV chamber size with moderate concentric LVH. Mildly reduced LV systolic function with mild global hypokinesis, EF 4550%. Mild aortic valve scleroiss without stenosis. Mild aortic regurgitation. Mild mitral regurgitation. Moderate tricuspid regurgitation. Severe biatrial enlargement. Pulmonary hypertension is present. The estimated pulmonary artery systolic pressure is 42mm Hg. Dizziness Possible related to benign positional vertigo CT done on 08/31 showed no changes schedule with neuro and ENT next week continue meclizine fall precaution Atrial Fibrillation rate is controlled continue metoprolol and coumadin INR 1.8 CHRONIC SYSTOLIC CHF Last echo was 05/22/[address] Corrigan on 08/28 Continue lasix, metoprolol BPH Continue Flomax HISTORY OF MENINGIOMA Continue prophylactic Keppra and gabapentin Pt said that he has a follow up with neuro next week Stable DEPRESSION WITH ANXIETY Stable; continue Zoloft DYSLIPIDEMIA Continue statin DVT px on Coumadin Code Status Full code as per my discussion with patient Level of Care Telemetry Resuscitation Status FULL RESUSCITATION VTE Prophylaxis VTE Risk Assessment Done? Y/N: Yes Risk Level: Moderate Given or contraindicated: Warfarin (Coumadin)
[2016-09-02] MEDS ORDERED: CMD/25 PO (19:59)
[2016-09-02] MEDS ORDERED: MAGN250T16 (19:59)
[2016-09-02] MEDS ORDERED: GABA1CAP4 PO (19:59)
[2016-09-02] MEDS ORDERED: WARF5TAB90 PO (19:59)
[2016-09-02] MEDS ORDERED: FURO-85 PO (20:00)
[2016-09-02 21:15] VITALS: BP 156/80; PULSE 80; TEMP 36.8; O2SAT 95
[2016-09-02] MEDS: GABAPENTIN 300 MG CAP PO SCH (22:32)
[2016-09-02] MEDS: METOPROLOL TARTRATE 25 MG TAB PO SCH (22:33)
[2016-09-02] MEDS: LEVETIRACETAM 500 MG TAB PO SCH (22:35)
[2016-09-02 23:14] VITALS: BP 129/72; PULSE 89; TEMP 36.8; O2SAT 96
[2016-09-03] VITALS (11 sets, daily range): BP systolic 90–161; BP diastolic 48–81; PULSE 65–96; TEMP 36.5–37.9; O2SAT 91–96
[2016-09-03 04:39] LABS: INR 1.7 (0.9-1.1); PROTHROMBIN TIME (PATIENT) 18.8 SECONDS (9.0-12.0)
[2016-09-03 04:55] LABS: BLOOD UREA NITROGEN 25 mg/dl (7-18); BUN/CREATININE RATIO 32.8 (10-20); CALCIUM 8.2 mg/dl (8.5-10.1); CARBON DIOXIDE 30 mmol/L (21-32); CHLORIDE 108 mmol/L (98-107); CREATININE 0.76 mg/dl (0.60-1.40); GLUCOSE 92 mg/dl (70-99); POTASSIUM 4.1 mmol/L (3.5-5.1); SODIUM 141 mmol/L (136-145)
[2016-09-03 05:16] LABS: HEMATOCRIT 34.4 % (42-52); MEAN CELL VOLUME 89.4 fL (80-100); MEAN CORPUSCULAR HEMOGLOBIN 30.6 pg (25-34); MEAN CORPUSCULAR HGB CONC 34.3 g/dl (32-36); MEAN PLATELET VOLUME 12.2 fL (7.4-10.4); PLATELET COUNT 126 K/uL (130-400); RED BLOOD COUNT 3.85 M/uL (4.7-6.1); WHITE BLOOD COUNT 5.71 K/uL (4.8-10.8)
[2016-09-03 05:18] LABS: PLT ESTIMATE DECREASED
[2016-09-03] MEDS: TAMSULOSIN HCL 0.4 MG CAP PO SCH (07:50)
[2016-09-03] MEDS: CEROVITE ADV FORMULA TAB PO SCH (07:50)
[2016-09-03] MEDS: MAGNESIUM OXIDE 400 MG TAB PO SCH (07:50)
[2016-09-03] MEDS: SERTRALINE HCL 50 MG TAB PO SCH (07:50)
[2016-09-03] MEDS: LEVETIRACETAM 500 MG TAB PO SCH ×2 (07:50→21:10)
[2016-09-03] MEDS: METOPROLOL TARTRATE 25 MG TAB PO SCH ×2 (07:50→21:11)
[2016-09-03] MEDS: MECLIZINE HCL 12.5 MG TAB PO PRN (07:51)
[2016-09-03] MEDS: GABAPENTIN 300 MG CAP PO SCH ×3 (07:51→21:11)
[2016-09-03] MEDS: SIMVASTATIN 20 MG TAB PO SCH (07:52)
--- NOTE | 2016-09-03 09:25 | Progress Note ---
Internal Med Progress Note Date of Service: Sep 03, 2016. Provider Documentation: SUBJECTIVE: Patient did have an episode of vertigo today AM. Received Meclizine and it helped - symptoms resolved. Has had these symptoms for 1 year now. C/o chest pain in AM, atypical- left sided, non radiating, sharp, self resolving after few minutes. Does have some nasal congestion + No fever, chills, cough, leg swelling. OBJECTIVE: Vital Signs-as noted below Exam: General Appearance: AAO X 3, No apparent distress Neck- Supple, No JVD Respiratory/Chest: Lungs clear, no wheezing, rhonchi Cardiovascular: no JVD, + systolic murmur, + irregularly irregular Abdomen/GI: normal bowel sounds, non tender, soft Extremities/Musculoskelatal: no edema Neurologic/Psych: no motor/sensory deficits, alert, normal mood/affect Lab data as noted below. Diagnostic Radiology CT SCAN OF THE BRAIN WITHOUT IV CONTRAST CLINICAL HISTORY: Vertigo and dizziness. COMPARISON STUDY: CT of the brain dated 06/29/2016. MRI of the brain dated 06/29/2016. TECHNIQUE: Unenhanced axial CT scan of the brain is performed from the vertex to the skull base. 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 This measures at least 4.4 cm and invades the anterior sphenoid bone. There is significant edema seen throughout the left hemisphere with effacement of the overlying left temporal sulci. No midline shift is seen. There are age-related involutional changes noting mild to moderate patchy subcortical and periventricular microangiopathic change. There is no hemorrhage or evidence of acute territorial ischemia by CT criteria. No extra-axial fluid collection is seen. Ventricles, sulci, cisterns: Prominent secondary to involutional change. See above. Intracranial vasculature: There is atherosclerotic calcification of the cavernous carotid and vertebral arteries. Calvarium: There is evidence of previous left craniotomy. 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 Sinuses and mastoids: A retention cyst is noted in the right maxillary antrum. Trace mucosal thickening is seen in the ethmoid sinuses. The remaining visualized paranasal sinuses are clear. The mastoid air cells are well pneumatized. Orbits: The bony orbits are grossly intact. There are bilateral ocular lens implants. There is trace abnormal soft tissue density along the posterior aspect of the left orbit, likely related to the permeative lesion in the adjacent sphenoid bone. IMPRESSION: 1. There is no hemorrhage or evidence of acute territorial ischemia by CT criteria. 2. No significant change in the appearance of a large mass lesion within the anterior left temporal fossa measuring at least 4.5 cm. There is significant mass effect and edema throughout the left hemisphere as above. This is also similar to previous. No midline shift is seen. Correlation with the patient's history will be required. 3. 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 ASSESSMENT & PLAN: Assessment and Plan: CHEST PAIN, ATYPICAL : Patient came in for vertigo, but had chest pain, atypical. Says has had it on and off in past, self resolving, not associated with exertion, diaphoresis, SOB , palpitations, sweating. No prior hx of CAD/RI/Stroke. Does have chronic CHF, Atrial fibrillation -EKG on admission - No acute ischemic changes (per admitting physician)-unable to find the EKG in chart or in EMS, Repeat EKG in AM- No acute ischemic changes -Troponin x 3 negative, Recent Echo 05/22/16- Moderate LVH, EF 45-50%, Mild MR, Moderate TR, Severe Biatrial Enlargement. -Continue with Metoprolol, Statin. On coumadin -Recently seen by cardiology Dr Hickey on 08/28/16 -Monitor VERTIGO, CHRONIC -Likely BPPV. Has had symptoms x 1 year. Has had multiple tests /Investigations done in past. -Last CT scan 08/31- No new changes -Meclizine PRN helps -Neurology, ENT appointment scheduled for next week -Fall precautions -Will get PT for Donny maneuver trial to see if it helps ATRIAL FIBRILLATION, Rate controlled -Continue with Metoprolol, Coumadin -INR 1.8 -Monitor INR CHRONIC SYSTOLIC CHF: -Last echo 05/22/17 -No signs of exacerbation -Continue with lasix/Metoprolol BPH -Continue Flomax HISTORY OF MENINGIOMA -Continue prophylactic Keppra and gabapentin -Pt said that he has a follow up with neuro next week -Stable DEPRESSION WITH ANXIETY -Stable; continue Zoloft DYSLIPIDEMIA -Continue statin DVT px on Coumadin Heparin SQ till INR is therapeutic Code Status Full code as per Dr Beth discussion with patient DISPOSITION Monitor on telemetry PT- ordered for Donny Maneuver Vital Signs: Date Time Temp Pulse Resp B/P Pulse Ox O2 Delivery O2 Flow Rate FiO2 09/03/16 06:58 37.5 65 20 161/81 92 Room Air 09/03/16 05:13 37.4 09/03/16 04:05 Room Air 09/03/16 04:01 37.9 96 18 144/68 91 Nasal Cannula 09/03/16 00:05 94 Room Air 09/02/16 23:14 36.8 89 20 129/72 96 Room Air 09/02/16 21:15 36.8 80 20 156/80 95 Room Air 09/02/16 20:14 37.1 85 20 147/84 94 09/02/16 20:07 85 20 147/84 94 Room Air 09/02/16 19:15 85 20 154/88 94 Room Air 09/02/16 18:26 167/86 09/02/16 18:13 85 20 94 09/02/16 18:00 148/100 09/02/16 17:43 86 19 95 09/02/16 17:37 157/83 09/02/16 17:30 164/89 09/02/16 17:13 87 14 94 09/02/16 17:08 84 13 93 09/02/16 17:00 162/85 09/02/16 16:38 79 15 96 09/02/16 16:33 83 20 123/69 94 09/02/16 16:31 140/68 09/02/16 16:30 130/88 09/02/16 16:30 89 18 130/88 95 Room Air 87 140/68 91 123/69 09/02/16 16:29 95 Room Air 09/02/16 16:12 85 18 94 09/02/16 16:11 81 09/02/16 16:03 137/88 09/02/16 15:42 37.1 85 13 142/76 95 Room Air Lab Results: Results Past 24 Hours Test 09/02/16 16:16 09/02/16 18:25 09/02/16 22:00 09/02/16 22:15 Range/Units White Blood Count 5.86 4.8-10.8 K/uL Red Blood Count 3.99 4.7-6.1 M/uL Hemoglobin 12.4 14.0-18.0 g/dL Hematocrit 35.6 42-52 % Mean Corpuscular Volume 89.2 80-100 fL Mean Corpuscular Hemoglobin 31.1 25-34 pg Mean Corpuscular Hemoglobin Concent 34.8 32-36 g/dl Platelet Count 119 130-400 K/uL Mean Platelet Volume 11.5 7.4-10.4 fL Neutrophils (%) (Auto) 75.4 % Lymphocytes (%) (Auto) 12.6 % Monocytes (%) (Auto) 11.1 % Eosinophils (%) (Auto) 0.5 % Basophils (%) (Auto) 0.2 % Neutrophils # (Auto) 4.42 1.4-6.5 K/uL Lymphocytes # (Auto) 0.74 1.2-3.4 K/uL Monocytes # (Auto) 0.65 0.11-0.59 K/uL Eosinophils # (Auto) 0.03 0-0.5 K/uL Basophils # (Auto) 0.01 0-0.2 K/uL RDW Standard Deviation 49.2 36.4-46.3 fL RDW Coefficient of Variation 14.9 11.5-14.5 % Immature Granulocyte % (Auto) 0.2 % Immature Granulocyte # (Auto) 0.01 0.00-0.02 K/uL Prothrombin Time 19.7 9.0-12.0 SECONDS Prothromb Time International Ratio 1.8 0.9-1.1 Activated Partial Thromboplast Time 34.4 21.0-31.0 SECONDS Partial Thromboplastin Ratio 1.3 Sodium Level 140 136-145 mmol/L Potassium Level 4.0 3.5-5.1 mmol/L Chloride Level 106 98-107 mmol/L Carbon Dioxide Level 29 21-32 mmol/L Anion Gap 5.0 3-11 mmol/L Blood Urea Nitrogen 27 7-18 mg/dl Creatinine 0.84 0.60-1.40 mg/dl Est Creatinine Clear Calc Drug Dose 63.2 ml/min Estimated GFR () 91.9 Estimated GFR (Non- 79.3 BUN/Creatinine Ratio 31.7 10-20 Random Glucose 121 70-99 mg/dl Calcium Level 8.1 8.5-10.1 mg/dl Magnesium Level 2.1 1.8-2.4 mg/dl Total Bilirubin 1.1 0.2-1 mg/dl Direct Bilirubin 0.3 0-0.2 mg/dl Aspartate Amino Transf (AST/SGOT) 16 15-37 U/L Alanine Aminotransferase (ALT/SGPT) 15 12-78 U/L Alkaline Phosphatase 78 45-117 U/L Troponin I < 0.015 < 0.015 0-0.045 ng/ml Total Protein 7.3 6.4-8.2 gm/dl Albumin 3.2 3.4-5.0 gm/dl Thyroid Stimulating Hormone (TSH) 1.300 0.300-4.500 uIu/ml Urine Color YELLOW Urine Appearance CLEAR CLEAR Urine pH 7.0 4.5-7.5 Urine Specific Center 1.011 1.000-1.030 Urine Protein NEG NEG Urine Glucose (UA) NEG NEG Urine Ketones NEG NEG Urine Occult Blood NEG NEG Urine Nitrite NEG NEG Urine Bilirubin NEG NEG Urine Urobilinogen NEG NEG Urine Leukocyte Esterase NEG NEG Creatine Kinase MB Ratio 0-3.0 Creatine Kinase MB < 0.5 0.5-3.6 ng/ml Test 09/03/16 04:00 09/03/16 04:20 Range/Units Creatine Kinase MB Ratio 0-3.0 White Blood Count 5.71 4.8-10.8 K/uL Red Blood Count 3.85 4.7-6.1 M/uL Hemoglobin 11.8 14.0-18.0 g/dL Hematocrit 34.4 42-52 % Mean Corpuscular Volume 89.4 80-100 fL Mean Corpuscular Hemoglobin 30.6 25-34 pg Mean Corpuscular Hemoglobin Concent 34.3 32-36 g/dl RDW Standard Deviation 48.7 36.4-46.3 fL RDW Coefficient of Variation 14.9 11.5-14.5 % Platelet Count 126 130-400 K/uL Mean Platelet Volume 12.2 7.4-10.4 fL Platelet Estimate DECREASED Prothrombin Time 18.8 9.0-12.0 SECONDS Prothromb Time International Ratio 1.7 0.9-1.1 Sodium Level 141 136-145 mmol/L Potassium Level 4.1 3.5-5.1 mmol/L Chloride Level 108 98-107 mmol/L Carbon Dioxide Level 30 21-32 mmol/L Anion Gap 3.0 3-11 mmol/L Blood Urea Nitrogen 25 7-18 mg/dl Creatinine 0.76 0.60-1.40 mg/dl Est Creatinine Clear Calc Drug Dose 69.8 ml/min Estimated GFR () 95.7 Estimated GFR (Non- 82.6 BUN/Creatinine Ratio 32.8 10-20 Random Glucose 92 70-99 mg/dl Calcium Level 8.2 8.5-10.1 mg/dl Magnesium Level 2.0 1.8-2.4 mg/dl Creatine Kinase MB < 0.5 0.5-3.6 ng/ml Troponin I < 0.015 0-0.045 ng/ml
[2016-09-03] MEDS ORDERED: WARFARIN SOD 2.5 MG TAB PO SCH (16:00)
[2016-09-03] MEDS: WARFARIN SOD 2.5 MG TAB PO SCH (16:35)
[2016-09-04 05:03] VITALS: BP 146/81; PULSE 75; TEMP 36.9; O2SAT 94
[2016-09-04 06:05] LABS: HEMATOCRIT 35.9 % (42-52); MEAN CELL VOLUME 89.1 fL (80-100); MEAN CORPUSCULAR HEMOGLOBIN 29.8 pg (25-34); MEAN CORPUSCULAR HGB CONC 33.4 g/dl (32-36); PLATELET COUNT 145 K/uL (130-400); RED BLOOD COUNT 4.03 M/uL (4.7-6.1); WHITE BLOOD COUNT 5.12 K/uL (4.8-10.8)
[2016-09-04 06:39] LABS: BUN/CREATININE RATIO 33.8 (10-20); CALCIUM 8.6 mg/dl (8.5-10.1); CREATININE 0.8 mg/dl (0.60-1.40); POTASSIUM 4.1 mmol/L (3.5-5.1)
[2016-09-04 07:49] VITALS: BP 137/79; PULSE 94; TEMP 36.5; O2SAT 93
[2016-09-04] MEDS: CEROVITE ADV FORMULA TAB PO SCH (08:03)
[2016-09-04] MEDS: MAGNESIUM OXIDE 400 MG TAB PO SCH (08:03)
[2016-09-04] MEDS: FUROSEMIDE 20 MG TAB PO SCH (08:03)
[2016-09-04] MEDS: METOPROLOL TARTRATE 25 MG TAB PO SCH ×2 (08:03→20:20)
[2016-09-04] MEDS: LEVETIRACETAM 500 MG TAB PO SCH ×2 (08:03→20:19)
[2016-09-04] MEDS: TAMSULOSIN HCL 0.4 MG CAP PO SCH (08:03)
[2016-09-04] MEDS: SERTRALINE HCL 50 MG TAB PO SCH (08:04)
[2016-09-04] MEDS: SIMVASTATIN 20 MG TAB PO SCH (08:04)
[2016-09-04] MEDS: GABAPENTIN 300 MG CAP PO SCH ×3 (08:04→20:18)
--- NOTE | 2016-09-04 09:18 | Progress Note ---
Internal Med Progress Note Date of Service: Sep 04, 2016. Provider Documentation: SUBJECTIVE : Patient is doing better. Tolerating activity well. No vertigo episodes since yesterday. No chest pain episodes since yesterday. Does have some nasal congestion + No fever, chills, cough, leg swelling, SOB. Tele- Atrial fibrillation Had a run of v tach, non sustained overnight OBJECTIVE: Vital Signs-as noted below Exam: General Appearance: AAO X 3, No apparent distress Neck- Supple, No JVD Respiratory/Chest: Lungs clear, no wheezing, rhonchi Cardiovascular: no JVD, + systolic murmur, + irregularly irregular Abdomen/GI: normal bowel sounds, non tender, soft Extremities/Musculoskelatal: no edema Neurologic/Psych: no motor/sensory deficits, alert, normal mood/affect Lab data as noted below. Diagnostic Radiology CT SCAN OF THE BRAIN WITHOUT IV CONTRAST CLINICAL HISTORY: Vertigo and dizziness. COMPARISON STUDY: CT of the brain dated 06/29/2016. MRI of the brain dated 06/29/2016. TECHNIQUE: Unenhanced axial CT scan of the brain is performed from the vertex to the skull base. 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 This measures at least 4.4 cm and invades the anterior sphenoid bone. There is significant edema seen throughout the left hemisphere with effacement of the overlying left temporal sulci. No midline shift is seen. There are age-related involutional changes noting mild to moderate patchy subcortical and periventricular microangiopathic change. There is no hemorrhage or evidence of acute territorial ischemia by CT criteria. No extra-axial fluid collection is seen. Ventricles, sulci, cisterns: Prominent secondary to involutional change. See above. Intracranial vasculature: There is atherosclerotic calcification of the cavernous carotid and vertebral arteries. Calvarium: There is evidence of previous left craniotomy. 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 Sinuses and mastoids: A retention cyst is noted in the right maxillary antrum. Trace mucosal thickening is seen in the ethmoid sinuses. The remaining visualized paranasal sinuses are clear. The mastoid air cells are well pneumatized. Orbits: The bony orbits are grossly intact. There are bilateral ocular lens implants. There is trace abnormal soft tissue density along the posterior aspect of the left orbit, likely related to the permeative lesion in the adjacent sphenoid bone. IMPRESSION: 1. There is no hemorrhage or evidence of acute territorial ischemia by CT criteria. 2. No significant change in the appearance of a large mass lesion within the anterior left temporal fossa measuring at least 4.5 cm. There is significant mass effect and edema throughout the left hemisphere as above. This is also similar to previous. No midline shift is seen. Correlation with the patient's history will be required. 3. 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 ASSESSMENT & PLAN: Assessment and Plan : CHEST PAIN, ATYPICAL : Patient came in for vertigo, but had chest pain, atypical. Says has had it on and off in past, self resolving, not associated with exertion, diaphoresis, SOB , palpitations, sweating. No prior hx of CAD/MN/Stroke. Does have chronic CHF, Atrial fibrillation. -EKG on admission - No acute ischemic changes (per admitting physician), unable to find it in chart. EKG repeat- No acute changes. -Tele- Had a run of non sustained V tach overnight. -Troponin x 3 negative, Recent Echo 05/22/16- Moderate LVH, EF 45-50%, Mild MR, Moderate TR, Severe Biatrial Enlargement-- > Will order Echo with chest pain, Runs of v tach. -Continue with Metoprolol, Statin. On Coumadin, thus not on ASA -Recently seen by cardiology Dr Hickey on 08/28/16 VERTIGO, CHRONIC -Likely BPPV. Has had symptoms x 1 year. Has had multiple tests /Investigations done in past. -Last CT scan 08/31- No new changes -Meclizine PRN helps -Neurology, ENT appointment scheduled for next week -Fall precautions -Will get PT for Donny maneuver trial to see if it helps ATRIAL FIBRILLATION, Rate controlled -Continue with Metoprolol, Coumadin -INR 1.7 -Monitor INR CHRONIC SYSTOLIC CHF: -Last echo 05/22/17 -No signs of exacerbation -Continue with lasix/Metoprolol BPH -Continue Flomax HISTORY OF MENINGIOMA -Continue prophylactic Keppra and gabapentin -Pt said that he has a follow up with neuro next week -Stable DEPRESSION WITH ANXIETY -Stable; continue Zoloft DYSLIPIDEMIA -Continue statin DVT px on Coumadin Heparin SQ till INR is therapeutic Code Status Full code as per Dr Campos discussion with patient DISPOSITION Monitor on telemetry PT- ordered for Donny Maneuver - for it today, recommends home. Vital Signs: Date Time Temp Pulse Resp B/P Pulse Ox O2 Delivery O2 Flow Rate FiO2 09/04/16 07:49 36.5 94 18 137/79 93 Room Air 09/04/16 05:03 36.9 75 20 146/81 94 Room Air 09/04/16 04:05 Room Air 09/04/16 00:05 Room Air 09/03/16 23:11 37.1 93 20 145/79 92 Room Air 09/03/16 20:24 36.8 68 20 137/77 93 Room Air 09/03/16 20:05 Room Air 09/03/16 16:00 92 Room Air 09/03/16 14:16 37.0 78 18 118/65 94 71 113/65 80 107/67 09/03/16 12:00 92 Room Air 09/03/16 11:51 36.5 78 20 90/48 96 Room Air Lab Results: Results Past 24 Hours Test 09/04/16 05:45 Range/Units White Blood Count 5.12 4.8-10.8 K/uL Red Blood Count 4.03 4.7-6.1 M/uL Hemoglobin 12.0 14.0-18.0 g/dL Hematocrit 35.9 42-52 % Mean Corpuscular Volume 89.1 80-100 fL Mean Corpuscular Hemoglobin 29.8 25-34 pg Mean Corpuscular Hemoglobin Concent 33.4 32-36 g/dl RDW Standard Deviation 48.6 36.4-46.3 fL RDW Coefficient of Variation 14.8 11.5-14.5 % Platelet Count 145 130-400 K/uL Mean Platelet Volume 12.0 7.4-10.4 fL Sodium Level 142 136-145 mmol/L Potassium Level 4.1 3.5-5.1 mmol/L Chloride Level 106 98-107 mmol/L Carbon Dioxide Level 29 21-32 mmol/L Anion Gap 7.0 3-11 mmol/L Blood Urea Nitrogen 27 7-18 mg/dl Creatinine 0.80 0.60-1.40 mg/dl Est Creatinine Clear Calc Drug Dose 66.3 ml/min Estimated GFR () 93.8 Estimated GFR (Non- 80.9 BUN/Creatinine Ratio 33.8 10-20 Random Glucose 92 70-99 mg/dl Calcium Level 8.6 8.5-10.1 mg/dl
[2016-09-04 12:01] VITALS: BP 136/75; PULSE 79; TEMP 37.1; O2SAT 93
--- NOTE | 2016-09-04 14:05 | ECHOCARDIOGRAM REPORT ---
*NOTICE TO RECEIVING [employer] This information is strictly Confidential and protected under [place] law. [place] law prohibits you from making any further disclosure of this information unless further disclosure is expressly permitted by the written consent of the person to whom it pertains or is authorized by law. A general authorization for the release of medical or other information is not sufficient for this purpose. Hospital accepts no responsibility if the information is made available to any other person, INCLUDING THE PATIENT. Interpretation Summary * Name: ABDULKADIR BOYD Study Date: 09/04/2016 11:06 AM BP: 137/79 mmHg * Patient Location: [facility]\S\N281\S\2 HR: 94 * : 1930 (M/d/yyyy) Gender: Male Height: 69 in * Age: 86 yrs Ethnicity: DC Weight: 157 lb * Ordering Physician: Cecilia Craft. * Performed By: Erika Castillo/ Sudha Catherine * * Reason For Study: CHEST PAIN/ RUN OF V TACH * BSA: 1.9 m2 * The study was technically adequate. * -- Conclusions -- * Atrial fibrillation with controlled ventricular rate was present during the echocardiogram study. * There is moderate concentric left ventricular hypertrophy. * There is moderate global hypokinesis of the left ventricle. * Left ventricular systolic function is moderately reduced. * The LV Ejection Fraction = 35-40%. * The left atrium is severely dilated. * There is moderate tricuspid regurgitation. * Moderate aortic regurgitation. Procedure Details * A complete two-dimensional transthoracic echocardiogram was performed (2D, M-mode, Doppler and color flow Doppler). Left Ventricle * The left ventricle is normal in size. * There is moderate concentric left ventricular hypertrophy. * Left ventricular systolic function is moderately reduced. * Ejection Fraction = 35-40%. * There is moderate global hypokinesis of the left ventricle. Right Ventricle * The right ventricle is normal in size and function. Atria * The left atrium is severely dilated. * The right atrium is moderately dilated. * There is no evidence of atrial septal defect, but resolution does not allow assessment for a patent foramen ovale. Mitral Valve * The mitral valve is normal. * There is no mitral valve stenosis. * There is moderate mitral regurgitation. Tricuspid Valve * The tricuspid valve is normal. * There is no tricuspid stenosis. * There is moderate tricuspid regurgitation. Aortic Valve * The aortic valve is trileaflet. * Aortic valve sclerosis mild, without significant aortic valvular stenosis. * Aortic stenosis is absent. * Moderate aortic regurgitation. Pulmonic Valve * The pulmonary valve is not well seen, but the Doppler examination is normal without significant regurgitation or stenosis. Great Vessels * The aortic root and proximal ascending aorta are normal sized. Pericardium/Pleural * There is no pericardial effusion. Great Vessels * Normal inferior vena cava diameter and respiratory variation suggests normal central venous pressure. MMode 2D Measurements and Calculations IVSd 1.8 cm IVSs 1.9 cm LVIDd 5.3 cm LVIDs 3.8 cm LVPWd 1.5 cm LVPWs 2.5 cm IVS/LVPW 1.2 FS 27.1 % EDV(Teich) 132.9 ml ESV(Teich) 63.3 ml EF(Teich) 52.4 % EDV(cubed) 145.3 ml ESV(cubed) 56.3 ml EF(cubed) 61.2 % % IVS thick 5.2 % % LVPW thick 66.0 % LV mass(C)d 408.7 grams LV mass(C)dI 219.3 grams/m\S\2 LV mass(C)s 422.5 grams LV mass(C)sI 226.7 grams/m\S\2 SV(Teich) 69.6 ml SI(Teich) 37.3 ml/m\S\2 SV(cubed) 89.0 ml SI(cubed) 47.8 ml/m\S\2 ACS 1.3 cm LA dimension 5.8 cm asc Aorta Diam 3.5 cm LVOT diam 2.1 cm LVOT area 3.4 cm\S\2 LVAd ap4 27.5 cm\S\2 LVLd ap4 7.5 cm EDV(MOD-sp4) 85.9 ml EDV(sp4-el) 85.2 ml LVAs ap4 16.3 cm\S\2 LVLs ap4 5.5 cm ESV(MOD-sp4) 40.4 ml ESV(sp4-el) 40.9 ml EF(MOD-sp4) 53.0 % EF(sp4-el) 52.0 % LVAd ap2 34.0 cm\S\2 LVLd ap2 8.8 cm EDV(MOD-sp2) 109.4 ml EDV(sp2-el) 111.6 ml LVAs ap2 21.0 cm\S\2 LVLs ap2 7.1 cm ESV(MOD-sp2) 51.1 ml ESV(sp2-el) 52.5 ml EF(MOD-sp2) 53.2 % EF(sp2-el) 52.9 % LVLd %diff 14.5 % EDV(MOD-bp) 105.9 ml LVLs %diff 22.2 % ESV(MOD-bp) 51.6 ml EF(MOD-bp) 51.3 % SV(MOD-sp4) 45.5 ml SI(MOD-sp4) 24.4 ml/m\S\2 SV(MOD-sp2) 58.2 ml SI(MOD-sp2) 31.2 ml/m\S\2 SV(MOD-bp) 54.3 ml SI(MOD-bp) 29.1 ml/m\S\2 SV(sp4-el) 44.3 ml SI(sp4-el) 23.8 ml/m\S\2 SV(sp2-el) 59.1 ml SI(sp2-el) 31.7 ml/m\S\2 Doppler Measurements and Calculations MV E max luan 75.9 cm/sec MV dec time 0.22 sec Ao V2 max 157.7 cm/sec Ao max PG 10.0 mmHg Ao max PG (full) 8.5 mmHg Ao V2 mean 89.1 cm/sec Ao mean PG 4.0 mmHg Ao V2 VTI 26.4 cm FARTUN(V,A) 1.3 cm\S\2 FARTUN(V,D) 1.3 cm\S\2 AI max luan 430.8 cm/sec AI max PG 74.4 mmHg AI dec slope 203.9 cm/sec\S\2 AI P1/2t 619.0 msec LV V1 max PG 1.5 mmHg LV V1 max 60.5 cm/sec MR max luan 534.3 cm/sec MR max PG 114.2 mmHg MR mean luan 394.5 cm/sec MR mean PG 72.3 mmHg MR VTI 155.2 cm PA V2 max 55.9 cm/sec PA max PG 1.2 mmHg TR max luan 271.1 cm/sec
--- NOTE | 2016-09-04 14:47 | Cardiology Consultation ---
Cardiology Consultation Date of Consultation: Sep 04, 2016 History of Present Illness Mr. Alcantara is a 86 year old male seen in cardiology consultation per the request of Dr Cecilia Craft for evaluation of chest pain, atrial fibrillation, and nonsustained ventricular tachycardia. The patient's primary management professor is Dr Hickey of our practice with whom the patient had established in 2015. I had initially interviewed and examined the patient and he was alone in his room and a telemetry bed on the 2 N. unit. I went back later and spoke to him again while his spouse and daughter were keeping him company. The patient had moved to the area to be closer to family in 2016 having previously lived in [place]. The patient is somewhat of a poor historian, there may be some degree of cognitive impairment, versus a language barrier. The patient had described recent dizziness and his symptoms are characteristic of vertigo and has since resolved. He also complains of occasional chest discomfort. The discomfort that happened today occurred at rest while he was in his bed. He described a brief, episode of 3 sharp chest pains that happened in quick succession , he describes the discomfort as a "boom, boom, boom " sensation. Review of his records reveals that he described occasional chest pains at rest, atypical for angina when he was admitted in 07/2016 for AF and heart failure, and again at a follow up visit with Dr Hickey in 08/2016. History PAST MEDICAL HISTORY: 1. Dyslipidemia. 2. Chronic atrial fibrillation. 3. Near syncope. 4. non ischemic cardiomyopathy 5. Mixed valvular heart disease,moderate MR, Moderate AR, Moderate TR 6. Cardiac catheterization, performed 01/2015 [facility], for evaluation of chest discomfort with diffuse nonobstructive CAD noted at that time, and on going risk factor modification was recommended, as well as treatment for non cardiac cause of chest discomfort (per Cath report , which is scanned in to the patient's records). PAST SURGICAL HISTORY: Craniotomy for sphenoid meningioma. FAMILY HISTORY: Negative for premature CAD or sudden cardiac ; however, noncontributory given patient's age. SOCIAL HISTORY: Lifelong nonsmoker, denies alcohol or illicit drug use. Review Of Systems See above for pertinent positives & negatives. A total of 10 systems reviewed and were otherwise negative. Allergies Coded Allergies: No Known Allergies (Unverified , 09/02/16) Medications Reported Home Medications Medications Dose Route/Sig Max Daily Dose Days Date Category Dose Instructions Lasix (Furosemide) 20 Mg Tab 20 Mg PO Q2D 09/02/16 Reported Gabapentin 300 Mg Cap 300 Mg PO UD 09/02/16 Reported 2 CAPSULES IN AM, 1 CAPSULE AT LUNCH, 2 CAPSULES AT BEDTIME Coumadin (Warfarin Sodium) 5 Mg Tab 5 Mg PO UD 09/02/16 Reported ON SUNDAY Coumadin (Warfarin Sod) 2.5 Mg Tab 2.5 Mg PO DAILY 09/02/16 Reported EVERY DAY, EXCEPT SUNDAY Magnesium Oxide (Magnesium Oxide (Mg Supplement) 250 Mg Tab 1 Tab DAILY 09/02/16 Reported Lopressor (Metoprolol Tartrate) 25 Mg Tab 12.5 Mg PO BID 30 08/07/16 Rx Meclizine Hcl 25 Mg Tab 25 Mg PO Q8 PRN 08/05/16 Reported Zoloft (Sertraline Hcl) 25 Mg Tab 25 Mg PO DAILY 08/05/16 Reported Centrum Silver Ultra Mens (Multiple Vitamins W/ Minerals) 1 Tab Tab 1 Tab PO DAILY 06/29/16 Reported Keppra (Levetiracetam) 250 Mg Tab 500 Mg PO BID 06/29/16 Reported Zocor (Simvastatin) 20 Mg Tab 20 Mg PO QAM 06/29/16 Reported Flomax (Tamsulosin Hcl) 0.4 Mg Cap 0.4 Mg PO DAILY 06/29/16 Reported Physical Exam Vital Signs (Last 8hrs): Last 8 Hrs Date Time Temp Pulse Resp B/P Pulse Ox O2 Delivery O2 Flow Rate FiO2 09/04/16 12:01 37.1 79 20 136/75 93 09/04/16 07:50 Room Air 09/04/16 07:49 36.5 94 18 137/79 93 Room Air General Appearance: Alert and Oriented x3. NAD. Head: Normocephalic Atraumatic. Eyes: PERRLA, EOMI, conjunctiva and sclera clear Neck: Supple. No carotid bruits noted. No JVD. No HJD. Respiratory: Breath sounds clear to auscultation bilaterally. No w/r/r. Cardiovascular: Reg rate and rhythm. S1 and S2 noted. No murmurs, rubs, gallops. PMI non displace. Abdomen: Normal bowel sounds, soft nontender. no abdominal bruits. Extremities: No edema, no clubbing or cyanosis. distal pulses 2/4 bilaterally. Neuro: No focal deficits. Psychiatric: Normal affect. Data Last 24 Hours Test 09/04/16 05:45 White Blood Count 5.12 K/uL Red Blood Count 4.03 M/uL Hemoglobin 12.0 g/dL Hematocrit 35.9 % Mean Corpuscular Volume 89.1 fL Mean Corpuscular Hemoglobin 29.8 pg Mean Corpuscular Hemoglobin Concent 33.4 g/dl RDW Standard Deviation 48.6 fL RDW Coefficient of Variation 14.8 % Platelet Count 145 K/uL Mean Platelet Volume 12.0 fL Sodium Level 142 mmol/L Potassium Level 4.1 mmol/L Chloride Level 106 mmol/L Carbon Dioxide Level 29 mmol/L Anion Gap 7.0 mmol/L Blood Urea Nitrogen 27 mg/dl Creatinine 0.80 mg/dl Est Creatinine Clear Calc Drug Dose 66.3 ml/min Estimated GFR () 93.8 Estimated GFR (Non- 80.9 BUN/Creatinine Ratio 33.8 Random Glucose 92 mg/dl Calcium Level 8.6 mg/dl TTechocardiogram, performed today, 09/04/16 and reviewed independently: * -- Conclusions -- * Atrial fibrillation with controlled ventricular rate was present during the echocardiogram study. * There is moderate concentric left ventricular hypertrophy. * There is moderate global hypokinesis of the left ventricle. * Left ventricular systolic function is moderately reduced. * The LV Ejection Fraction = 35-40%. * The left atrium is severely dilated. * There is moderate tricuspid regurgitation. * Moderate aortic regurgitation. * Compared to the report of the outpt echo performed at [facility] in 05/2016 , the LVEF was graded to be 45-50% at that time. EKG: Three EKG tracings are in his electronic record from this admission and all reveal atrial fibrillation with controlled ventricular rate, and occasional PVCs. Telemetry reviewed: Rate controlled AF, for the most part the ventricular rate is in the 80's, Occasional PVCs with PVC singles, couplets, and one 9 beat yuliana of NSVT noted on 09/03/16 at 23:24 with rate of 150 bpm and offset to AF. Two brief bradycardia episodes are noted thus far, this admission with brief rates in the 40's, perhaps during sleep. Assessment & Plan IMPRESSION: 86 year old male 1. Chest discomfort at rest, atypical for angina, and description is suggestive that he is describing sensed ventricular ectopy 2. Occasional PVCs, ventricular couplets on telemetry 3. One episode of nonsustained ventricular tachycardia, 9 beat in duration, 150 bpm 4. 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 Nonischemic CM, with mixed valvular heart disease, moderate MR, moderate AR, Moderate TR 6. Chronic atrial fibrillation 7. Dizziness, with description characteristic of vertigo rather than this being associated with his cardiac arrhythmia however will continue to monitor the patient on telemetry as we adjust his medications including an amiodarone to make sure he is not having bradycardia or more prolonged ventricular arrhythmias that correlate with the dizziness. RECOMMENDATIONS: At present, I think the chest episodes that the patient is describing are sensed ventricular ectopy. He also has an episode of nonsustained ventricular tachycardia. The echocardiogram performed today reveals an ejection fraction that is moderately depressed at 35-40% compared to 45-50% on his outpatient echocardiogram in our office in May 2016. At present, I think the echocardiogram findings today correlate well with his recent heart failure decompensation, chronic atrial fibrillation, and findings of ventricular ectopy and nonsustained ventricular tachycardia. I recommend adding amiodarone to his beta akil for the purpose of suppressing his PVCs which she obviously seems to feel and make some feel uncomfortable. This would also serve in helping to suppress the nonsustained ventricular tachycardia. Patient should remain on telemetry as his medications are adjusted to ensure he does not have any bradycardia or occult additional ventricular arrhythmias. His Coumadin dose will need to be adjusted and likely reduced given the addition of amiodarone and his medication changes will need to be communicated to the outpatient anticoagulation clinic.
[2016-09-04] MEDS ORDERED: WARFARIN SOD 5 MG TAB PO SCH (16:00)
[2016-09-04 16:10] VITALS: BP 134/61; PULSE 80; TEMP 36.7; O2SAT 95
[2016-09-04] MEDS: AMIODARONE 200 MG TAB PO SCH (17:25)
[2016-09-04] MEDS: MECLIZINE HCL 12.5 MG TAB PO PRN (18:42)
[2016-09-04] MEDS: HEPARIN SOD 5000 UNIT/0.5 ML CARP SQ SCH (20:19)
[2016-09-04 20:54] VITALS: BP 144/75; PULSE 84; TEMP 37; O2SAT 94
[2016-09-04 23:37] VITALS: BP 137/79; PULSE 72; TEMP 36.6; O2SAT 97
[2016-09-05] MEDS: MECLIZINE HCL 12.5 MG TAB PO PRN ×2 (02:41→16:54)
[2016-09-05 04:18] VITALS: BP 143/73; PULSE 84; TEMP 36.8; O2SAT 95
[2016-09-05 07:29] VITALS: BP 137/79; PULSE 82; TEMP 36.7; O2SAT 94
[2016-09-05] MEDS: AMIODARONE 200 MG TAB PO SCH ×2 (07:39→16:53)
[2016-09-05] MEDS: LEVETIRACETAM 500 MG TAB PO SCH ×2 (07:40→20:38)
[2016-09-05] MEDS: TAMSULOSIN HCL 0.4 MG CAP PO SCH (07:40)
[2016-09-05] MEDS: MAGNESIUM OXIDE 400 MG TAB PO SCH (07:41)
[2016-09-05] MEDS: METOPROLOL TARTRATE 25 MG TAB PO SCH ×2 (07:41→20:39)
[2016-09-05] MEDS: GABAPENTIN 300 MG CAP PO SCH ×3 (07:42→20:40)
[2016-09-05] MEDS: CEROVITE ADV FORMULA TAB PO SCH (07:42)
[2016-09-05] MEDS: SERTRALINE HCL 50 MG TAB PO SCH (07:43)
[2016-09-05] MEDS: SIMVASTATIN 20 MG TAB PO SCH (07:43)
--- NOTE | 2016-09-05 09:42 | PROGRESS NOTE ---
DATE: 09/05/2016 SUBJECTIVE: The patient was seen and examined at the bedside. Family is present as well. The patient was admitted on 09/04/2016 with dizziness. The patient was recently hospitalized with acute decompensated heart failure secondary to rapid atrial fibrillation, mild systolic dysfunction and diastolic dysfunction as well as mixed valvular heart disease. The patient was noted to have intermittent episodes of chest discomfort and frequent PVCs as well as brief runs of non-sustained ventricular tachycardia. Amiodarone was initiated yesterday. Telemetry demonstrates rapid atrial fibrillation with activity. A repeat resting 2D transthoracic echo performed yesterday demonstrates decline in LV systolic function with ejection fraction of 35-40%, moderate tricuspid regurgitation, moderate aortic regurgitation and moderate mitral regurgitation. Today, the patient is resting comfortably. He denies recurrent chest discomfort overnight. Family reports an episode of confusion last evening which was transient. His INR is subtherapeutic. ECG performed yesterday demonstrates atrial fibrillation with occasional PVCs. REVIEW OF SYSTEMS: The pertinent positives are noted per HPI, a 5-system review including cardiovascular, pulmonary, gastroenterology, musculoskeletal and neurologic systems are otherwise negative. MEDICATIONS: Reviewed via EMR. Please see list for details. LABORATORY DATA: No repeat labs were performed. PHYSICAL EXAMINATION: VITAL SIGNS: Temperature is 36.7 degrees centigrade, pulse 82 beats per minute and regular, respiratory rate 20 breaths per minute, blood pressure 137/78, SaO2 is 94% on room air. GENERAL: NAD, awake, alert and oriented x3. HEENT: His mucous membranes are moist. No scleral icterus. Conjunctivae are pink. NECK: Supple without JVD or HJR. No carotid bruits. HEART: Irregular with a normal S1 and S2. There is a 1-2/6 holosystolic murmur heard best at left ventricular apex. LUNGS: Clear without rales, rhonchi or wheeze. ABDOMEN: Soft and nontender. No rebound or guarding. Normal bowel sounds. EXTREMITIES: Warm and dry. There is no clubbing, cyanosis or edema. NEUROLOGIC: Demonstrates no focal motor deficits. FINAL IMPRESSION: 1. An 86-year-old male, who presents with dizziness and episodes of rapid atrial fibrillation. 2. Frequent premature ventricular complexes as well as runs of non-sustained ventricular tachycardia. 3. Moderate left ventricular systolic dysfunction with an ejection fraction of 35-40%. 4. History of non-obstructive coronary artery disease per cardiac catheterization performed in 2014 with the most significant lesion being a 50% [id number] left circumflex stenosis. 5. Compensated heart failure secondary to atrial fibrillation, moderate systolic dysfunction, diastolic dysfunction and mixed valvular heart disease including moderate mitral regurgitation, moderate tricuspid regurgitation and moderate aortic insufficiency. 6. Hypertension -- controlled. 7. Dyslipidemia. PLAN AND RECOMMENDATIONS: Continue oral amiodarone 200 twice daily for suppression of PVCs as the suspected etiology of the patient's intermittent chest discomfort. Amiodarone will also aid in rate control of patient's chronic atrial fibrillation. He continues to have episodes of rapid atrial fibrillation with exertion. I will also add lisinopril 5 mg daily given declining LV systolic function. Repeat PT/INR ordered today. Continue telemetry monitoring during hospitalization. I will continue to follow closely as well. All findings and plan of care were discussed at length with the patient and his family at bedside. All questions were answered to their satisfaction.
[2016-09-05] MEDS: LISINOPRIL 5 MG TAB PO SCH (09:51)
[2016-09-05] MEDS: HEPARIN SOD 5000 UNIT/0.5 ML CARP SQ SCH ×2 (09:54→20:43)
[2016-09-05 10:18] LABS: INR 1.7 (0.9-1.1); PROTHROMBIN TIME (PATIENT) 18.5 SECONDS (9.0-12.0)
[2016-09-05 11:47] VITALS: BP 99/76; PULSE 79; TEMP 36.3; O2SAT 95
[2016-09-05 14:40] VITALS: BP 95/59; PULSE 68; TEMP 36.2; O2SAT 91
[2016-09-05] MEDS ORDERED: WARFARIN SOD 5 MG TAB PO SCH (16:00)
--- NOTE | 2016-09-05 17:21 | Progress Note ---
Internal Med Progress Note Date of Service: Sep 05, 2016. Provider Documentation: SUBJECTIVE: Patient is seen and examined at bedside. States having intermittent episodic chest discomfort. Denies any dizziness, SOB, nausea. Family at bedside. Offers no other complaints. OBJECTIVE: Vital Signs-as noted below Physical Exam: General Appearance:Moderately built and nourished, no apparent distress Head: normocephalic, Atraumatic Eyes: normal inspection, EOMI, PERRLA Neck: supple, Trachea midline Respiratory/Chest: Normal breath sounds, CTA Cardiovascular: Irregularly Irregular, + murmur Abdomen/GI:Soft, Non tender, Bowel sounds present Extremities/Musculoskelatal:normal inspection, no edema Neurologic/Psych:AAOX3, grossly no focal neurological deficits Skin: normal color, warm Lab data as noted below. ASSESSMENT & PLAN: CHEST PAIN, ATYPICAL : Patient presented with vertigo and atypical chest pain. Chest pain is not associated with exertion, diaphoresis, SOB, palpitations, diaphoresis H/O non obstructive coronary artery disease: Last cath 2014 EKG: no acute changes, Troponin: negative Chest discomfort likely secondary to PVCs, NSVT Continue amiodarone per cardiology Lisinopril added for declining LV systolic function Continue Metoprolol, Statin. ECHO: As below:moderate global hypokinesis of the left ventricle SUBTHERAPEUTIC INR: Continue Coumadin, Monitor INR Needs Coumadin dose adjusted as also on amiodarone INR:1.7 today VERTIGO, CHRONIC Likely BPPV. Patient had symptoms for about an year. Has had multiple tests/ Investigations done in past. Last CT scan 08/31- No new changes Continue Meclizine PRN Follow up with Neurology, ENT appointment scheduled for next week Fall precautions Donny maneuver done A.FIB / NSVT: Currently rate controlled Continue Metoprolol, amiodarone, Coumadin Monitor INR Appreciate cardiology input CHRONIC SYSTOLIC CHF: EF:35-40% Lisinopril added Continue lasix/Metoprolol BPH Continue Flomax H/O MENINGIOMA Continue prophylactic Keppra and gabapentin Follow up with Neurology as outpatient Stable DEPRESSION and ANXIETY Continue zoloft DYSLIPIDEMIA Continue statin DVT PX: on Coumadin Also on Heparin SQ till INR is therapeutic Code Status: Full code DISPOSITION: Continue telemetry monitoring PROCEDURES: ECHO: * Atrial fibrillation with controlled ventricular rate was present during the echocardiogram study. * There is moderate concentric left ventricular hypertrophy. * There is moderate global hypokinesis of the left ventricle. * Left ventricular systolic function is moderately reduced. * The LV Ejection Fraction = 35-40%. * The left atrium is severely dilated. * There is moderate tricuspid regurgitation. * Moderate aortic regurgitation. Vital Signs: Date Time Temp Pulse Resp B/P Pulse Ox O2 Delivery O2 Flow Rate FiO2 09/05/16 14:40 36.2 68 18 95/59 91 Room Air 09/05/16 12:00 Room Air 09/05/16 11:47 36.3 79 18 99/76 95 Room Air 09/05/16 08:00 Room Air 09/05/16 07:29 36.7 82 137/79 94 Room Air 09/05/16 04:18 36.8 84 20 143/73 95 Room Air 09/05/16 04:01 Room Air 09/05/16 00:05 Room Air 09/04/16 23:37 36.6 72 18 137/79 97 09/04/16 20:54 37.0 84 16 144/75 94 09/04/16 20:00 Room Air Lab Results: Results Past 24 Hours Test 09/05/16 10:00 Range/Units Prothrombin Time 18.5 9.0-12.0 SECONDS Prothromb Time International Ratio 1.7 0.9-1.1
[2016-09-05 20:01] VITALS: BP_SYST 110; BP_SYST 131; BP_DIAS 68; BP_DIAS 76; PULSE 71; PULSE 75; TEMP 36.8; O2SAT 91; O2SAT 94
[2016-09-06] VITALS (7 sets, daily range): BP systolic 99–153; BP diastolic 58–88; PULSE 62–93; TEMP 36.4–36.9; O2SAT 94–96
[2016-09-06] MEDS ORDERED: TRAMADOL HCL 50 MG TAB PO PRN (06:30)
[2016-09-06 07:14] LABS: PROTHROMBIN TIME (PATIENT) 22.5 SECONDS (9.0-12.0)
[2016-09-06 07:31] LABS: BUN/CREATININE RATIO 26.5 (10-20); CALCIUM 8.3 mg/dl (8.5-10.1); CREATININE 0.97 mg/dl (0.60-1.40); POTASSIUM 3.9 mmol/L (3.5-5.1)
[2016-09-06] MEDS: CEROVITE ADV FORMULA TAB PO SCH (09:10)
[2016-09-06] MEDS: SERTRALINE HCL 50 MG TAB PO SCH (09:10)
[2016-09-06] MEDS: MECLIZINE HCL 12.5 MG TAB PO PRN (09:10)
[2016-09-06] MEDS: AMIODARONE 200 MG TAB PO SCH ×2 (09:10→16:58)
[2016-09-06] MEDS: METOPROLOL TARTRATE 25 MG TAB PO SCH ×2 (09:10→21:10)
[2016-09-06] MEDS: SIMVASTATIN 20 MG TAB PO SCH (09:10)
[2016-09-06] MEDS: GABAPENTIN 300 MG CAP PO SCH ×3 (09:11→21:08)
[2016-09-06] MEDS: LEVETIRACETAM 500 MG TAB PO SCH ×2 (09:11→21:08)
[2016-09-06] MEDS: FUROSEMIDE 20 MG TAB PO SCH (09:11)
[2016-09-06] MEDS: TAMSULOSIN HCL 0.4 MG CAP PO SCH (09:11)
[2016-09-06] MEDS: LISINOPRIL 5 MG TAB PO SCH (09:11)
[2016-09-06] MEDS: MAGNESIUM OXIDE 400 MG TAB PO SCH (09:12)
[2016-09-06] MEDS: HEPARIN SOD 5000 UNIT/0.5 ML CARP SQ SCH (09:17)
--- NOTE | 2016-09-06 10:24 | Cardiology Follow-Up ---
Subjective General Date of Service: Sep 06, 2016. Pt evaluation today including: conversation w/ patient, conversation w/ family , physical exam, chart review, lab review, review of studies, review of inpatient medication list History of Present Illness The patient is a 86 year old male seen in follow up. Feeling better today. No recurrent chest pain overnight. isolated PVCs and couplets on telemetry. No recurrent VT. AF rate controlled. GROVE unchanged. Allergies Coded Allergies: No Known Allergies (Unverified , 09/02/16) Social History Smoking Status: Never Smoker Hx Alcohol Use - Type And Amou: No Hx Substance Use - Type And Am: No Problem List Medical Problems: (1) Afib Status: Acute (2) Anticoagulated on Coumadin Status: Acute (3) Atrial fibrillation with RVR Status: Acute (4) Brain mass Status: Acute (5) Orthostatic hypotension Status: Acute (6) Substernal chest pain Status: Acute (7) Vertigo Status: Acute (8) Vertigo Status: Acute Review of Systems Respiratory: + dyspnea on exertion, No cough, No dyspnea at rest, No hemoptysis , No shortness of breath, No sputum, No wheezing Cardiac: No PND, No chest pain, No edema, No orthopnea, No palpitations Physical Exam Vital Signs Last Vital Signs Documentation Date Time Temp Pulse Resp B/P Pulse Ox O2 Delivery O2 Flow Rate FiO2 09/06/16 07:20 36.8 83 18 153/88 95 Room Air Physical Exam Constitutional: General Apperance: well-nourished Level of Distress: NAD Head: normocephalic, atraumatic ENMT: normal ENT inspection Neck: supple, trachea midline Lungs: Auscultation: breath sounds normal, no wheezing, no rales/crackles, no rhonchi Cardiovascular: Heart Auscultation: normal S1, normal S2, II/ WSM, irregular rate rhythm Peripheral Pulses: Carotid Pulse: normal on the left, normal on the right Extremities: no cyanosis, no edema, no clubbing, no ulcers Neurologic: Gait & Station: pertinent finding (No focal motor deficit) Cranial Nerves: grossly intact Assessment and Plan Assessment and Plan Imp: 1. Chronic atrial fibrillation with improved rate control. - INR therapeutic today 2. Frequent premature ventricular complexes as well as runs of non-sustained ventricular tachycardia. - tolerating amiodarone - no recurrent VT overnight 3. Moderate left ventricular systolic dysfunction with an ejection fraction of 35-40%. 4. History of non-obstructive coronary artery disease per cardiac catheterization performed in 2014 with the most significant lesion being a 50% [id number] left circumflex stenosis. 5. Compensated heart failure secondary to atrial fibrillation, moderate systolic dysfunction, diastolic dysfunction and mixed valvular heart disease including moderate mitral regurgitation, moderate tricuspid regurgitation and moderate aortic insufficiency. 6. Hypertension -- controlled. 7. Dyslipidemia. PLAN AND RECOMMENDATIONS: Continue oral amiodarone 200 twice daily for suppression of PVCs and rate control. Other medications will be continued as previously ordered including coumadin for goal INR 2.0 - 3.0. Repeat ECG today. Continue to monitor telemetry. OOB with assistance. PT / OT evaluation. Possible discharge in 24-48 hours. Laboratory Results Last 24 Hours Test 09/06/16 06:33 Prothrombin Time 22.5 SECONDS Prothromb Time International Ratio 2.0 Sodium Level 141 mmol/L Potassium Level 3.9 mmol/L Chloride Level 106 mmol/L Carbon Dioxide Level 31 mmol/L Anion Gap 4.0 mmol/L Blood Urea Nitrogen 26 mg/dl Creatinine 0.97 mg/dl Est Creatinine Clear Calc Drug Dose 54.6 ml/min Estimated GFR () 81.6 Estimated GFR (Non- 70.4 BUN/Creatinine Ratio 26.5 Random Glucose 85 mg/dl Calcium Level 8.3 mg/dl
[2016-09-06] MEDS: ACETAMINOPHEN 325 MG TAB PO PRN ×2 (13:55→20:24)
--- NOTE | 2016-09-06 14:18 | Progress Note ---
Internal Med Progress Note Date of Service: Sep 06, 2016. Provider Documentation: SUBJECTIVE: Patient is seen and examined at bedside. States episodic chest discomfort has resolved. Also has SOB on exertion. Dizziness is improving. Offers no other complaints. OBJECTIVE: Vital Signs-as noted below Physical Exam: General Appearance:Moderately built and nourished, no apparent distress Head: normocephalic, Atraumatic Eyes: normal inspection, EOMI, PERRLA Neck: supple, Trachea midline Respiratory/Chest: Normal breath sounds, CTA Cardiovascular: Irregularly Irregular, + murmur Abdomen/GI:Soft, Non tender, Bowel sounds present Extremities/Musculoskelatal:normal inspection, no edema Neurologic/Psych:AAOX3, grossly no focal neurological deficits Skin: normal color, warm Lab data as noted below. ASSESSMENT & PLAN: CHEST PAIN, ATYPICAL : Patient presented with vertigo and atypical chest pain. Chest pain is not associated with exertion, diaphoresis, SOB, palpitations, diaphoresis H/O non obstructive coronary artery disease: Last cath 2014 EKG: no acute changes, Troponin: negative Chest discomfort likely secondary to PVCs, NSVT Continue amiodarone per cardiology Lisinopril added for declining LV systolic function Continue Metoprolol, Statin. ECHO: As below:moderate global hypokinesis of the left ventricle Appreciate cardiology help SUBTHERAPEUTIC INR: Resolved Continue Coumadin, Monitor INR Needs Coumadin dose adjusted as also on amiodarone INR:2.0 today Give Coumadin 2.5 mg today VERTIGO, CHRONIC Likely BPPV. Patient had symptoms for about an year. Has had multiple tests/ Investigations done in past. Last CT scan 08/31- No new changes Continue Meclizine PRN Follow up with Neurology, ENT appointment scheduled for next week Fall precautions Donny maneuver done A.FIB / NSVT: Currently rate controlled Continue Metoprolol, amiodarone, Coumadin Monitor INR Appreciate cardiology input CHRONIC SYSTOLIC CHF: EF:35-40% Lisinopril added Continue lasix/Metoprolol BPH Continue Flomax H/O MENINGIOMA Continue prophylactic Keppra and gabapentin Follow up with Neurology as outpatient Stable DEPRESSION and ANXIETY Continue Zoloft DYSLIPIDEMIA Continue statin DVT PX: on Coumadin Code Status: Full code DISPOSITION: Continue telemetry monitoring Likely discharge in next 24-48 hours if stable PROCEDURES: ECHO: * Atrial fibrillation with controlled ventricular rate was present during the echocardiogram study. * There is moderate concentric left ventricular hypertrophy. * There is moderate global hypokinesis of the left ventricle. * Left ventricular systolic function is moderately reduced. * The LV Ejection Fraction = 35-40%. * The left atrium is severely dilated. * There is moderate tricuspid regurgitation. * Moderate aortic regurgitation. Vital Signs: Date Time Temp Pulse Resp B/P Pulse Ox O2 Delivery O2 Flow Rate FiO2 09/06/16 12:03 36.4 64 18 99/60 94 Room Air 09/06/16 12:00 Room Air 09/06/16 08:00 Room Air 09/06/16 07:20 36.8 83 18 153/88 95 Room Air 09/06/16 04:35 36.8 76 16 131/74 96 Room Air 09/06/16 04:05 Room Air 09/06/16 00:20 36.8 93 18 150/82 94 Room Air 142/74 09/06/16 00:05 Room Air 09/05/16 20:01 36.8 75 18 131/76 91 Room Air 09/05/16 20:00 Room Air 09/05/16 16:00 Room Air 09/05/16 14:40 36.2 68 18 95/59 91 Room Air Lab Results: Results Past 24 Hours Test 09/06/16 06:33 Range/Units Prothrombin Time 22.5 9.0-12.0 SECONDS Prothromb Time International Ratio 2.0 0.9-1.1 Sodium Level 141 136-145 mmol/L Potassium Level 3.9 3.5-5.1 mmol/L Chloride Level 106 98-107 mmol/L Carbon Dioxide Level 31 21-32 mmol/L Anion Gap 4.0 3-11 mmol/L Blood Urea Nitrogen 26 7-18 mg/dl Creatinine 0.97 0.60-1.40 mg/dl Est Creatinine Clear Calc Drug Dose 54.6 ml/min Estimated GFR () 81.6 Estimated GFR (Non- 70.4 BUN/Creatinine Ratio 26.5 10-20 Random Glucose 85 70-99 mg/dl Calcium Level 8.3 8.5-10.1 mg/dl
[2016-09-06] MEDS ORDERED: WARFARIN SOD 2.5 MG TAB PO ONE (16:00)
[2016-09-06] MEDS: WARFARIN SOD 2.5 MG TAB PO SCH (16:57)
[2016-09-07] VITALS (9 sets, daily range): BP systolic 98–169; BP diastolic 58–88; PULSE 60–82; TEMP 36.3–36.5; O2SAT 92–96
[2016-09-07 06:07] LABS: HEMATOCRIT 34.3 % (42-52); MEAN CELL VOLUME 88.2 fL (80-100); MEAN CORPUSCULAR HEMOGLOBIN 29.3 pg (25-34); MEAN CORPUSCULAR HGB CONC 33.2 g/dl (32-36); MEAN PLATELET VOLUME 11.2 fL (7.4-10.4); PLATELET COUNT 165 K/uL (130-400); RED BLOOD COUNT 3.89 M/uL (4.7-6.1)
[2016-09-07 06:14] LABS: INR 2.8 (0.9-1.1); PROTHROMBIN TIME (PATIENT) 31.3 SECONDS (9.0-12.0)
[2016-09-07] MEDS: MAGNESIUM OXIDE 400 MG TAB PO SCH (08:04)
[2016-09-07] MEDS: MECLIZINE HCL 12.5 MG TAB PO PRN (08:04)
[2016-09-07] MEDS: GABAPENTIN 300 MG CAP PO SCH ×3 (08:04→20:36)
[2016-09-07] MEDS: AMIODARONE 200 MG TAB PO SCH ×2 (08:04→16:11)
[2016-09-07] MEDS: CEROVITE ADV FORMULA TAB PO SCH (08:05)
[2016-09-07] MEDS: LISINOPRIL 5 MG TAB PO SCH (08:05)
[2016-09-07] MEDS: METOPROLOL TARTRATE 25 MG TAB PO SCH ×2 (08:05→20:37)
[2016-09-07] MEDS: SIMVASTATIN 20 MG TAB PO SCH (08:05)
[2016-09-07] MEDS: TAMSULOSIN HCL 0.4 MG CAP PO SCH (08:05)
[2016-09-07] MEDS: SERTRALINE HCL 50 MG TAB PO SCH (08:06)
[2016-09-07] MEDS: LEVETIRACETAM 500 MG TAB PO SCH ×2 (08:06→20:36)
--- NOTE | 2016-09-07 12:27 | Cardiology Follow-Up ---
Subjective General Date of Service: Sep 07, 2016. Pt evaluation today including: conversation w/ patient, physical exam, chart review, lab review, review of studies, conversation w/ customer service and sales consultant, review of inpatient medication list History of Present Illness The patient is a 86 year old male seen in follow up. Feeling better today. No recurrent chest pain overnight or SOB. No recurrent VT on telemetry. No recurrent VT. AF rate controlled without significant bradycardia or pauses. Ambulating in nash without symptoms. Allergies Coded Allergies: No Known Allergies (Unverified , 09/02/16) Social History Smoking Status: Never Smoker Hx Alcohol Use - Type And Amou: No Hx Substance Use - Type And Am: No Problem List Medical Problems: (1) Afib Status: Acute (2) Anticoagulated on Coumadin Status: Acute (3) Atrial fibrillation with RVR Status: Acute (4) Brain mass Status: Acute (5) Orthostatic hypotension Status: Acute (6) Substernal chest pain Status: Acute (7) Vertigo Status: Acute (8) Vertigo Status: Acute Review of Systems Respiratory: + dyspnea on exertion, No cough, No dyspnea at rest, No hemoptysis , No shortness of breath, No wheezing Cardiac: No chest pain, No edema, No orthopnea, No palpitations Physical Exam Vital Signs Last Vital Signs Documentation Date Time Temp Pulse Resp B/P Pulse Ox O2 Delivery O2 Flow Rate FiO2 09/07/16 12:00 Room Air 09/07/16 11:38 36.3 60 18 103/59 96 Physical Exam Constitutional: General Apperance: well-nourished Level of Distress: NAD Head: normocephalic, atraumatic ENMT: normal ENT inspection Neck: supple, trachea midline Lungs: Auscultation: breath sounds normal, no wheezing, no rales/crackles, no rhonchi Cardiovascular: Heart Auscultation: normal S1, normal S2, II/ WSM, irregular rate rhythm Peripheral Pulses: Carotid Pulse: normal on the left, normal on the right Extremities: no cyanosis, no edema, no clubbing, no ulcers Neurologic: Gait & Station: pertinent finding (No focal motor deficit) Cranial Nerves: grossly intact Assessment and Plan Assessment and Plan Imp: 1. Chronic atrial fibrillation with improved rate control. - INR therapeutic today and trending upward. 2. Frequent premature ventricular complexes as well as runs of non-sustained ventricular tachycardia. - no recurrent VT overnight - tolerating amiodarone 3. Moderate left ventricular systolic dysfunction with an ejection fraction of 35-40%. 4. History of non-obstructive coronary artery disease per cardiac catheterization performed in 2014 with the most significant lesion being a 50% [id number] left circumflex stenosis. 5. Compensated heart failure secondary to atrial fibrillation, moderate systolic dysfunction, diastolic dysfunction and mixed valvular heart disease including moderate mitral regurgitation, moderate tricuspid regurgitation and moderate aortic insufficiency. 6. Hypertension -- controlled. 7. Dyslipidemia. PLAN AND RECOMMENDATIONS: Continue oral amiodarone 200 twice daily for one week then reduce dose to once daily. Other medications will be continued as previously ordered including coumadin for goal INR 2.0 - 3.0. Patient will need close anticoagulation clinic follow with addition of amiodarone. Continue telemetry as inpatient. I will arrange close cardiology follow up in my clinic next with possible 24 hour holter pending evaluation. Laboratory Results Last 24 Hours Test 09/07/16 05:46 White Blood Count 4.00 K/uL Red Blood Count 3.89 M/uL Hemoglobin 11.4 g/dL Hematocrit 34.3 % Mean Corpuscular Volume 88.2 fL Mean Corpuscular Hemoglobin 29.3 pg Mean Corpuscular Hemoglobin Concent 33.2 g/dl RDW Standard Deviation 47.5 fL RDW Coefficient of Variation 14.8 % Platelet Count 165 K/uL Mean Platelet Volume 11.2 fL Prothrombin Time 31.3 SECONDS Prothromb Time International Ratio 2.8
--- NOTE | 2016-09-07 14:16 | Progress Note ---
Internal Med Progress Note Date of Service: Sep 07, 2016. Provider Documentation: SUBJECTIVE: Patient is seen and examined at bedside. States dizziness has resolved. Currently denies any chest pain, palpitations. Multiple PVCs on monitor. 8 beats of NSVT this afternoon but patient asymptomatic. Offers no other complaints. OBJECTIVE: Vital Signs-as noted below Physical Exam: General Appearance:Moderately built and nourished, no apparent distress Head: normocephalic, Atraumatic Eyes: normal inspection, EOMI, PERRLA Neck: supple, Trachea midline Respiratory/Chest: Normal breath sounds, CTA Cardiovascular: Irregularly Irregular, + murmur Abdomen/GI:Soft, Non tender, Bowel sounds present Extremities/Musculoskelatal:normal inspection, no edema Neurologic/Psych:AAOX3, grossly no focal neurological deficits Skin: normal color, warm Lab data as noted below. ASSESSMENT & PLAN: CHEST PAIN, ATYPICAL : Patient presented with vertigo and atypical chest pain. Chest pain is not associated with exertion, diaphoresis, SOB, palpitations, diaphoresis H/O non obstructive coronary artery disease: Last cath 2014 EKG: no acute changes, Troponin: negative Chest discomfort likely secondary to PVCs, NSVT Continue amiodarone per cardiology Lisinopril added for declining LV systolic function Continue Metoprolol, Statin. ECHO: As below:moderate global hypokinesis of the left ventricle Cardiology following SUBTHERAPEUTIC INR: Resolved Continue Coumadin, Monitor INR Needs Coumadin dose adjusted as also on amiodarone INR:2.8 today Hold Coumadin today VERTIGO, CHRONIC Likely BPPV. Patient had symptoms for about an year. Has had multiple tests/ Investigations done in past. Last CT scan 08/31- No new changes Continue Meclizine PRN Follow up with Neurology, ENT appointment scheduled for next week Fall precautions Donny maneuver done Currently denies dizziness A.FIB / NSVT: Currently rate controlled Continue Metoprolol, amiodarone Monitor INR Plan to continue amiodarone 200 twice daily for one week then reduce to once daily CHRONIC SYSTOLIC CHF: EF:35-40% Continue lasix/Metoprolol, lisinopril BPH Continue Flomax H/O MENINGIOMA Continue prophylactic Keppra and gabapentin Follow up with Neurology as outpatient Stable DEPRESSION and ANXIETY Continue Zoloft DYSLIPIDEMIA Continue statin DVT PX: on Coumadin Code Status: Full code DISPOSITION: Continue telemetry monitoring Likely discharge in next 24 hours if stable PROCEDURES: ECHO: * Atrial fibrillation with controlled ventricular rate was present during the echocardiogram study. * There is moderate concentric left ventricular hypertrophy. * There is moderate global hypokinesis of the left ventricle. * Left ventricular systolic function is moderately reduced. * The LV Ejection Fraction = 35-40%. * The left atrium is severely dilated. * There is moderate tricuspid regurgitation. * Moderate aortic regurgitation. Vital Signs: Date Time Temp Pulse Resp B/P Pulse Ox O2 Delivery O2 Flow Rate FiO2 09/07/16 12:00 Room Air 09/07/16 11:38 36.3 60 18 103/59 96 Room Air 09/07/16 08:00 Room Air 09/07/16 07:29 36.3 68 20 169/77 95 Room Air 09/07/16 04:00 Room Air 09/07/16 04:00 36.4 67 16 146/88 96 Room Air 09/07/16 00:17 36.5 71 16 128/78 96 Room Air 126/72 131/77 09/07/16 00:00 Room Air 09/06/16 20:03 36.9 67 20 113/58 94 Room Air 09/06/16 20:00 Room Air 09/06/16 16:00 94 Room Air 09/06/16 15:11 36.9 62 18 115/68 94 Room Air Lab Results: Results Past 24 Hours Test 09/07/16 05:46 Range/Units White Blood Count 4.00 4.8-10.8 K/uL Red Blood Count 3.89 4.7-6.1 M/uL Hemoglobin 11.4 14.0-18.0 g/dL Hematocrit 34.3 42-52 % Mean Corpuscular Volume 88.2 80-100 fL Mean Corpuscular Hemoglobin 29.3 25-34 pg Mean Corpuscular Hemoglobin Concent 33.2 32-36 g/dl RDW Standard Deviation 47.5 36.4-46.3 fL RDW Coefficient of Variation 14.8 11.5-14.5 % Platelet Count 165 130-400 K/uL Mean Platelet Volume 11.2 7.4-10.4 fL Prothrombin Time 31.3 9.0-12.0 SECONDS Prothromb Time International Ratio 2.8 0.9-1.1
[2016-09-07] MEDS: WARFARIN SOD 2.5 MG TAB PO SCH (16:10)
[2016-09-08] VITALS: BP 154/76; PULSE 91; TEMP 36.8; O2SAT 95
[2016-09-08 04:00] VITALS: BP 148/91; PULSE 81; TEMP 36.5; O2SAT 94
[2016-09-08 07:06] LABS: PROTHROMBIN TIME (PATIENT) 33.1 SECONDS (9.0-12.0)
[2016-09-08 08:15] VITALS: BP 166/94; PULSE 56; TEMP 36.7; O2SAT 94
[2016-09-08 08:45] VITALS: PULSE 78
[2016-09-08] MEDS: FUROSEMIDE 20 MG TAB PO SCH (08:46)
[2016-09-08] MEDS: TAMSULOSIN HCL 0.4 MG CAP PO SCH (08:46)
[2016-09-08] MEDS: SERTRALINE HCL 50 MG TAB PO SCH (08:47)
[2016-09-08] MEDS: SIMVASTATIN 20 MG TAB PO SCH (08:47)
[2016-09-08] MEDS: CEROVITE ADV FORMULA TAB PO SCH (08:47)
[2016-09-08] MEDS: METOPROLOL TARTRATE 25 MG TAB PO SCH (08:47)
[2016-09-08] MEDS: LISINOPRIL 5 MG TAB PO SCH (08:47)
[2016-09-08] MEDS: MAGNESIUM OXIDE 400 MG TAB PO SCH (08:47)
[2016-09-08] MEDS: MECLIZINE HCL 12.5 MG TAB PO PRN (08:48)
[2016-09-08] MEDS: GABAPENTIN 300 MG CAP PO SCH ×2 (08:48→11:42)
[2016-09-08] MEDS: LEVETIRACETAM 500 MG TAB PO SCH (08:49)
[2016-09-08] MEDS: AMIODARONE 200 MG TAB PO SCH (08:50)
--- NOTE | 2016-09-08 10:01 | Cardiology Follow-Up ---
Subjective General Date of Service: Sep 08, 2016. Pt evaluation today including: conversation w/ patient, physical exam, chart review, lab review, review of studies, conversation w/ [employer] [facility] consultant, review of inpatient medication list History of Present Illness The patient is a 86 year old male seen in follow up. Currently patient is feeling well. 4 beat yuliana of NSVT this AM. AF rate controlled without significant bradycardia or pauses. Ambulating in nash without symptoms. BP elevated this AM. Allergies Coded Allergies: No Known Allergies (Unverified , 09/02/16) Social History Smoking Status: Never Smoker Hx Alcohol Use - Type And Amou: No Hx Substance Use - Type And Am: No Problem List Medical Problems: (1) Afib Status: Acute (2) Anticoagulated on Coumadin Status: Acute (3) Atrial fibrillation with RVR Status: Acute (4) Brain mass Status: Acute (5) Orthostatic hypotension Status: Acute (6) Substernal chest pain Status: Acute (7) Vertigo Status: Acute (8) Vertigo Status: Acute Review of Systems Respiratory: No cough, No dyspnea at rest, No dyspnea on exertion, No hemoptysis, No shortness of breath, No sputum, No wheezing Cardiac: No PND, No chest pain, No claudication, No edema, No orthopnea, No palpitations Physical Exam Vital Signs Last Vital Signs Documentation Date Time Temp Pulse Resp B/P Pulse Ox O2 Delivery O2 Flow Rate FiO2 09/08/16 08:15 36.7 56 16 166/94 94 Room Air Physical Exam Constitutional: General Apperance: well-nourished Level of Distress: NAD Head: normocephalic, atraumatic ENMT: normal ENT inspection Neck: supple, trachea midline Lungs: Auscultation: breath sounds normal, no wheezing, no rales/crackles, no rhonchi Cardiovascular: Heart Auscultation: normal S1, normal S2, II/ WSM, irregular rate rhythm Peripheral Pulses: Carotid Pulse: normal on the left, normal on the right Extremities: no cyanosis, no edema, no clubbing, no ulcers Neurologic: Gait & Station: pertinent finding (No focal motor deficit) Cranial Nerves: grossly intact Assessment and Plan Assessment and Plan Imp: 1. Chronic atrial fibrillation - rate controlled without symptomatic bradycardia or pauses - INR therapeutic today and trending upward. - dose of coumadin held yesterday 09/07/2016 2. Frequent premature ventricular complexes as well as runs of non-sustained ventricular tachycardia. - 4 beat yuliana recorded this AM - tolerating amiodarone 3. Moderate left ventricular systolic dysfunction with an ejection fraction of 35-40%. 4. History of non-obstructive coronary artery disease per cardiac catheterization performed in 2014 with the most significant lesion being a 50% [id number] left circumflex stenosis. 5. Compensated heart failure secondary to atrial fibrillation, moderate systolic dysfunction, diastolic dysfunction and mixed valvular heart disease including moderate mitral regurgitation, moderate tricuspid regurgitation and moderate aortic insufficiency. 6. Hypertension -- labile 7. Dyslipidemia. PLAN AND RECOMMENDATIONS: Continue oral amiodarone 200 twice daily. Other medications will be continued as previously ordered including coumadin for goal INR 2.0 - 3.0. Hold coumadin today. Patient will need close anticoagulation clinic follow with addition of amiodarone. Outpatient cardiology follow up scheduled 09/20/16. Laboratory Results Last 24 Hours Test 09/08/16 06:29 Prothrombin Time 33.1 SECONDS Prothromb Time International Ratio 3.0
--- NOTE | 2016-09-08 10:23 | Progress Note ---
Internal Med Progress Note Date of Service: Sep 08, 2016. Provider Documentation: SUBJECTIVE: Patient is seen and examined at bedside. Patient had 4 beats of NSVT this morning. Patient denies any dizziness, chest pain, palpitations. Feels well. Offers no other complaints. OBJECTIVE: Vital Signs-as noted below Physical Exam: General Appearance:Moderately built and nourished, no apparent distress Head: normocephalic, Atraumatic Eyes: normal inspection, EOMI, PERRLA Neck: supple, Trachea midline Respiratory/Chest: Normal breath sounds, CTA Cardiovascular: Irregularly Irregular, + murmur Abdomen/GI:Soft, Non tender, Bowel sounds present Extremities/Musculoskelatal:normal inspection, no edema Neurologic/Psych:AAOX3, grossly no focal neurological deficits Skin: normal color, warm Lab data as noted below. ASSESSMENT & PLAN: CHEST PAIN, ATYPICAL : Patient presented with vertigo and atypical chest pain. Chest pain is not associated with exertion, diaphoresis, SOB, palpitations, diaphoresis H/O non obstructive coronary artery disease: Last cath 2014 EKG: no acute changes, Troponin: negative Chest discomfort likely secondary to PVCs, NSVT Continue amiodarone per cardiology Lisinopril added for declining LV systolic function Continue Metoprolol, Statin. ECHO: As below:moderate global hypokinesis of the left ventricle Appreciate Cardiology input SUBTHERAPEUTIC INR: Resolved Continue Coumadin, Monitor INR Needs Coumadin dose adjusted as also on amiodarone INR:3.0 today Hold Coumadin today, to resume based on INR VERTIGO, CHRONIC Likely BPPV. Patient had symptoms for about an year. Has had multiple tests/ Investigations done in past. Last CT scan 08/31- No new changes Continue Meclizine PRN Follow up with Neurology, ENT appointment scheduled for next week Fall precautions Donny maneuver done Denies any symptoms currently A.FIB / NSVT: Currently rate controlled Continue Metoprolol, amiodarone Monitor INR Continue amiodarone 200 twice daily CHRONIC SYSTOLIC CHF: EF:35-40% Continue lasix/Metoprolol, lisinopril BPH Continue Flomax H/O MENINGIOMA Continue prophylactic Keppra and gabapentin Follow up with Neurology as outpatient Stable DEPRESSION and ANXIETY Continue Zoloft DYSLIPIDEMIA Continue statin DVT PX: on Coumadin Code Status: Full code DISPOSITION: Plan to discharge home today Follow up with on 09/13/16 at 10:50AM Follow up with on 09/20/16 at 3:15pm Get PT/INR checked on 09/09/16 and follow up with Coumadin clinic for further Coumadin dosage DO NOT TAKE COUMADIN TODAY(09/08/16) PROCEDURES: ECHO: * Atrial fibrillation with controlled ventricular rate was present during the echocardiogram study. * There is moderate concentric left ventricular hypertrophy. * There is moderate global hypokinesis of the left ventricle. * Left ventricular systolic function is moderately reduced. * The LV Ejection Fraction = 35-40%. * The left atrium is severely dilated. * There is moderate tricuspid regurgitation. * Moderate aortic regurgitation. Vital Signs: Date Time Temp Pulse Resp B/P Pulse Ox O2 Delivery O2 Flow Rate FiO2 09/08/16 08:15 36.7 56 16 166/94 94 Room Air 09/08/16 08:00 Room Air 09/08/16 04:00 94 Room Air 09/08/16 04:00 36.5 81 16 148/91 94 Room Air 09/08/16 00:00 36.8 91 18 154/76 95 Room Air 09/07/16 23:59 94 Room Air 09/07/16 20:00 94 Room Air 09/07/16 19:45 36.5 64 16 125/73 94 Room Air 09/07/16 16:00 92 Room Air 09/07/16 15:24 36.4 82 20 98/58 92 Room Air 09/07/16 12:00 Room Air 09/07/16 11:38 36.3 60 18 103/59 96 Room Air Lab Results: Results Past 24 Hours Test 09/08/16 06:29 Range/Units Prothrombin Time 33.1 9.0-12.0 SECONDS Prothromb Time International Ratio 3.0 0.9-1.1
[2016-09-08] MEDS ORDERED: LSN5 PO (10:27)
[2016-09-08] MEDS ORDERED: CRD200 PO (10:27)
--- NOTE | 2016-09-08 10:30 | Discharge Summary ---
Discharge Summary Date of Service Sep 08, 2016. Discharge Summary Admission Date: Sep 05, 2016 at 15:26 Discharge Date: Sep 08, 2016 Discharge Disposition: Home Principal Diagnosis: Chronic atrial fibrillation/NSVT Procedures: ECHO: * Atrial fibrillation with controlled ventricular rate was present during the echocardiogram study. * There is moderate concentric left ventricular hypertrophy. * There is moderate global hypokinesis of the left ventricle. * Left ventricular systolic function is moderately reduced. * The LV Ejection Fraction = 35-40%. * The left atrium is severely dilated. * There is moderate tricuspid regurgitation. * Moderate aortic regurgitation. Consultations: Cardiology Pending Studies/Follow-Up: Follow up with on 09/13/16 at 10:50AM Follow up with on 09/20/16 at 3:15pm Get PT/INR checked on 09/09/16 and follow up with Coumadin clinic for further Coumadin dosage DO NOT TAKE COUMADIN TODAY(09/08/16) Medication Reconciliation New Medications: Amiodarone HCl (Amiodarone HCl) 200 Mg Tab 200 MG PO BIDM for 30 Days, #60 TAB Lisinopril (Lisinopril) 5 Mg Tab 5 MG PO QAM for 30 Days, #30 TAB Continued Medications: Furosemide (Lasix) 20 Mg Tab 20 MG PO Q2D, TAB Gabapentin (Gabapentin) 300 Mg Cap 300 MG PO UD, CAP 2 CAPSULES IN AM, 1 CAPSULE AT LUNCH, 2 CAPSULES AT BEDTIME Levetiracetam (Keppra) 250 Mg Tab 500 MG PO BID, TAB Magnesium Oxide (Mg Supplement (Magnesium Oxide) 250 Mg Tab 1 TAB DAILY Meclizine Hcl (Meclizine Hcl) 25 Mg Tab 25 MG PO Q8 PRN for Dizziness or Vertigo, TAB Metoprolol Tartrate (Lopressor) 25 Mg Tab 12.5 MG PO BID for 30 Days, #60 TAB 5 Refills Multiple Vitamins W/ Minerals (Centrum Silver Ultra Mens) 1 Tab Tab 1 TAB PO DAILY Sertraline Hcl (Zoloft) 25 Mg Tab 25 MG PO DAILY, TAB Simvastatin (Zocor) 20 Mg Tab 20 MG PO QAM, TAB Tamsulosin Hcl (Flomax) 0.4 Mg Cap 0.4 MG PO DAILY, CAP Warfarin Sod (Coumadin) 2.5 Mg Tab 2.5 MG PO DAILY, TAB EVERY DAY, EXCEPT SUNDAY Warfarin Sodium (Coumadin) 5 Mg Tab 5 MG PO UD, TAB ON SUNDAY Admission Information HPI (per Admitting provider): 86 year old male with PMH of AFib on coumadin, cerbral meningioma, vertigo, systolic CHF was brought to the Emergency Room with complaints for dizziness. Pt has been having intermittent dizziness for almost 1 yr. He describes the episodes as the room is spinning. He had many imaging done. He was in the ER 2 days ago for vertigo where he had CT head done. Daughter said that this morning pt had an appointment this morning to see his pcp, they could not get him out of bed because he was so dizzy. Daughter called the PCP that recommended to bring him to the ER via EMS. Pt also said that he has been having intermittent chest discomfort around left breast area, last few seconds, sharp pain and grade 4/10. No aggravating factors. he said that he can occur at anytime. he said that he has been having SOB with minimal exertion. denies any palpitation , fever, cough and urinary symptoms. Physical Exam (per Admitting): General Appearance: WD/WN, no apparent distress Head: normocephalic, atraumatic Eyes: normal inspection, PERRL, EOMI ENT: normal ENT inspection, + nasal congestion Neck: supple, no JVD Respiratory/Chest: lungs clear, no respiratory distress, no accessory muscle use Cardiovascular: no JVD, + systolic murmur, + irregularly irregular Abdomen/GI: normal bowel sounds, non tender, soft Back: normal inspection, no CVA tenderness Extremities/Musculoskelatal: no calf tenderness Neurologic/Psych: no motor/sensory deficits, alert, normal mood/affect Skin: normal color, warm/dry, no rash Hospital Course CHEST PAIN, ATYPICAL : Patient presented with vertigo and atypical chest pain. Chest pain is not associated with exertion, diaphoresis, SOB, palpitations, diaphoresis H/O non obstructive coronary artery disease: Last cath 2014 EKG: no acute changes, Troponin: negative Chest discomfort likely secondary to PVCs, NSVT Continue amiodarone per cardiology Lisinopril added for declining LV systolic function Continue Metoprolol, Statin. ECHO: As below:moderate global hypokinesis of the left ventricle Appreciate Cardiology input SUBTHERAPEUTIC INR: Resolved Continue Coumadin, Monitor INR Needs Coumadin dose adjusted as also on amiodarone INR:3.0 today Hold Coumadin today, to resume based on INR VERTIGO, CHRONIC Likely BPPV. Patient had symptoms for about an year. Has had multiple tests/ Investigations done in past. Last CT scan 08/31- No new changes Continue Meclizine PRN Follow up with Neurology, ENT appointment scheduled for next week Fall precautions Donny maneuver done Denies any symptoms currently A.FIB / NSVT: Currently rate controlled Continue Metoprolol, amiodarone Monitor INR Continue amiodarone 200 twice daily CHRONIC SYSTOLIC CHF: EF:35-40% Continue lasix/Metoprolol, lisinopril BPH Continue Flomax H/O MENINGIOMA Continue prophylactic Keppra and gabapentin Follow up with Neurology as outpatient Stable DEPRESSION and ANXIETY Continue Zoloft DYSLIPIDEMIA Continue statin DVT PX: on Coumadin Code Status: Full code DISPOSITION: Plan to discharge home today Follow up with on 09/13/16 at 10:50AM Follow up with on 09/20/16 at 3:15pm Get PT/INR checked on 09/09/16 and follow up with Coumadin clinic for further Coumadin dosage DO NOT TAKE COUMADIN TODAY(09/08/16) PROCEDURES: ECHO: * Atrial fibrillation with controlled ventricular rate was present during the echocardiogram study. * There is moderate concentric left ventricular hypertrophy. * There is moderate global hypokinesis of the left ventricle. * Left ventricular systolic function is moderately reduced. * The LV Ejection Fraction = 35-40%. * The left atrium is severely dilated. * There is moderate tricuspid regurgitation. * Moderate aortic regurgitation. Total time spent on discharge = 36 minutes This includes examination of the patient, discharge planning, medication reconciliation, and communication with other providers. Discharge Instructions Discharge Instructions Date of Service Sep 08, 2016. Admission Reason for Admission: Chest Pain Discharge Discharge Diagnosis / Problem: Chronic atrial fibrillation/NSVT Discharge Goals Goal(s): Decrease discomfort, Improve function Activity Recommendations Activity Limitations: resume your previous activity Exercise/Sports Limitations: as tolerated . Instructions / Follow-Up Instructions / Follow-Up Follow up with on 09/13/16 at 10:50AM Follow up with on 09/20/16 at 3:15pm Get PT/INR checked on 09/09/16 and follow up with Coumadin clinic for further Coumadin dosage DO NOT TAKE COUMADIN TODAY(09/08/16) Current Hospital Diet Patient's current hospital diet: AHA Diet (Heart Healthy) Discharge Diet Recommended Diet: AHA Diet (Heart Healthy) Pending Studies Studies pending at discharge: no Medical Emergencies . Who to Call and When: Medical Emergencies: If at any time you feel your situation is an emergency, please call 911 immediately. . Non-Emergent Contact Non-Emergency issues call your: Primary Care Provider, Director Hardware Call Non-Emergent contact if: you have a fever, your pain is not controlled, your pain is worsening, your pain is unusual for you, you have any medication questions . . "Provider Documentation" section prepared by Cecil Faustin. VTE Core Measure Inpt VTE Proph given/why not?: Warfarin (Coumadin)
[2016-09-08 10:58] VITALS: BP 148/94; PULSE 56; TEMP 36.7; O2SAT 94
[2016-09-08] MEDS: WARFARIN SOD 2.5 MG TAB PO SCH (15:10)
[2016-10-04] MEDS ORDERED: METO-452 PO (09:49)
[2016-10-04] MEDS ORDERED: CRD200 PO (09:49)
[2016-10-20] MEDS ORDERED: CRD200 PO (14:07)
[2016-10-20] MEDS ORDERED: LSX40 PO (14:07)
== END 2016-09-08 15:59 | disposition home health service (06) | DRG 309 ==
LOC: ENRESERVTM → ENRESERVDT → EDBD 15:42 → C.EDB 15:45 → C.MED 18:51 → OBSVTOIN 09-05 15:26
PROVIDERS: ADMIT Internal Medicine; ATTEND Internal Medicine
DX: I47.2 Ventricular tachycardia (principal); I50.22 Chronic systolic (congestive) heart failure; I42.9 Cardiomyopathy, unspecified; I48.2 Chronic atrial fibrillation; I95.1 Orthostatic hypotension; N40.0 Benign prostatic hyperplasia without lower urinary tract symptoms; D32.0 Benign neoplasm of cerebral meninges; F41.8 Other specified anxiety disorders; I11.0 Hypertensive heart disease with heart failure; E78.5 Hyperlipidemia, unspecified; H81.10 Benign paroxysmal vertigo, unspecified ear; Z79.899 Other long term (current) drug therapy; Z79.01 Long term (current) use of anticoagulants

== ENCOUNTER 2016-09-27 08:55 | Inpatient (IN) | payer OTHER, MEDICARE ==
[~2016-09-27] VITALS: Ht 175.3 cm; Wt 74.0 kg
[2016-09-27] MEDS: METOPROLOL TARTRATE 25 MG TAB PO SCH ×2 (06:00→20:22)
[~2016-09-27 08:55] MED LIST changes: +CMD/25 PO; +CRD200 PO; +FURO-85 PO; -FURO40TA3 PO; -GABA-113 PO; +GABA1CAP4 PO; +LSN5 PO; +MAGN250T16; -WARF2.5T8 PO; -WARF5TAB7 PO; +WARF5TAB90 PO
[2016-09-27] MEDS ORDERED: SODIUM CHLORIDE 0.9% 1000ML 250 ML IV STA (09:31)
[2016-09-27] MEDS ORDERED: SODIUM CHLORIDE 0.9% 1000ML 1,000 ML IV STA (09:31)
--- NOTE | 2016-09-27 09:40 | EMERGENCY ROOM VISIT NOTE ---
History Report prepared by Sonali: Marita Edmond Under the Supervision of: Dr. Ino Altamirano M.D. First contact with patient: 09:28 Chief Complaint: ILLNESS Stated Complaint: VOMITING History of Present Illness The patient is an 86 year old male who presents to the Emergency Room with complaints of persistent dizziness that began this morning around 0600. The patient states that when he went to get out of bed this morning and he became dizzy, describing it as a room spinning sensation. He states that he could not get out of bed so he called 911 for assistance. The patient states that the same exact thing happened to him 3-4 months ago. The patient states that he began vomiting on his way to the emergency department today and EMS reports that the patient was given Zofran. The patient states that he has been short of breath for the past few months, but denies wearing oxygen at home. He states that he has been feeling increasingly weak. The patient additionally associates an irregular heart rate this morning. He states that he has noticed bloody stools when he really forces a bowel movement, and notes that he is on Coumadin. The patient denies any fever, chills, chest pain, cough, or abdominal pain. Source of History: patient, family, EMS Onset: 0600 this morning Position: other (global) Quality: other (dizziness) Timing: other (persistent) Associated Symptoms: + SOB, + vomiting, + weakness, No abdominal pain, No chest pain, No chills, No cough, No fevers Review of Systems See HPI for pertinent positives & negatives. A total of 10 systems reviewed and were otherwise negative. Past Medical & Surgical Medical Problems: (1) Benign positional vertigo (2) Borderline hypertension (3) BPH (benign prostatic hypertrophy) (4) Cerebral meningioma (5) Chronic atrial fibrillation (6) Depression with anxiety (7) Dyslipidemia (8) History of meningioma of the brain (9) Seizure disorder (10) Systolic CHF Surgical Problems: (1) H/O craniotomy (2) S/P cardiac cath Old medical records were reviewed. Nurse's notes were reviewed and I agree with. Family History FH: atrial fibrillation SISTER Social History Smoking Status: Never Smoker Alcohol Use: none Drug Use: none Marital Status: Housing Status: lives with family Occupation Status: retired Current/Historical Medications Scheduled Amiodarone HCl (Amiodarone HCl), 200 MG PO DAILY Furosemide (Lasix), 20 MG PO DAILY Gabapentin (Gabapentin), 300 MG PO UD Levetiracetam (Keppra), 500 MG PO BID Lisinopril (Lisinopril), 5 MG PO QAM Magnesium Oxide (Mg Supplement (Magnesium Oxide), 1 TAB DAILY Metoprolol Tartrate (Lopressor), 12.5 MG PO BID Multiple Vitamins W/ Minerals (Centrum Silver Ultra Mens), 1 TAB PO DAILY Sertraline Hcl (Zoloft), 25 MG PO DAILY Simvastatin (Zocor), 20 MG PO QAM Tamsulosin Hcl (Flomax), 0.4 MG PO DAILY Warfarin Sod (Coumadin), 2.5 MG PO DAILY Scheduled PRN Meclizine Hcl (Meclizine Hcl), 25 MG PO Q8 PRN for Dizziness or Vertigo Allergies Coded Allergies: No Known Allergies (Unverified , 09/27/16) Physical Exam Vital Signs Date Time Temp Pulse Resp B/P Pulse Ox O2 Delivery O2 Flow Rate FiO2 09/27/16 10:22 55 18 156/87 97 Nasal Cannula 5.0 09/27/16 10:05 65 09/27/16 09:15 85 Room Air 09/27/16 09:15 95 Nasal Cannula 6.0 09/27/16 09:09 63 154/76 65 148/83 68 150/72 09/27/16 09:05 36.5 78 16 170/86 85 Room Air Physical Exam General: Well developed well nourished, non-ill appearing older male in no acute distress, breathing comfortably on room air. Normal speech HEENT: Normal cephalic atraumatic. Pupils are equal round and reactive to light. Extraocular movements are intact. No nystagmus. Oropharynx is pink with moist mucous membranes. No swelling of the mouth lips or tongue. Neck: Supple with a midline trachea. No meningeal signs or stiffness, no JVD or bruits. No Stridor. Chest: Clear to auscultation bilaterally. No wheezes or rhonchi. No increased work of breathing. Heart: regular rate and rhythm. Abdomen: Soft nontender, nondistended without rebound guarding or rigidity. Extremities: No cyanosis clubbing or edema. No calf tenderness or assymetry Spine/Back. Non tender to palpation. No CVA tenderness Skin: Good turgor without rashes. Neurologic exam: Cranial nerves two through 12 are intact. Motor and sensation are intact and symmetrical throughout. No tremor Medical Decision & Procedures ER Provider Diagnostic Interpretation: Radiology results as stated below per my review and radiologist interpretation: CT SCAN OF THE BRAIN WITHOUT IV CONTRAST CLINICAL HISTORY: Dizziness. COMPARISON STUDY: CT of the brain dated 08/31/2016. MRI of the brain dated 06/29/2016. TECHNIQUE: Unenhanced axial CT scan of the brain is performed from the vertex to the skull base. CT DOSE: 847.48 mGycm FINDINGS: Brain parenchyma: There is unchanged appearance of a large mass lesion in the anterior left temporal fossa. This measures at least 4.6 cm and invades the anterior sphenoid bone. There is significant edema seen throughout the left hemisphere with effacement of the overlying left temporal sulci. No midline shift is seen. There are age-related involutional changes noting mild to moderate patchy subcortical and periventricular microangiopathic change. There is no hemorrhage or evidence of acute territorial ischemia by CT criteria. No extra-axial fluid collection is seen. Ventricles, sulci, cisterns: Prominent secondary to involutional change. See above. Intracranial vasculature: There is atherosclerotic calcification of the cavernous carotid and vertebral arteries. Calvarium: There is evidence of previous left craniotomy. 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 Sinuses and mastoids: A retention cyst is noted in the right maxillary antrum. Trace mucosal thickening is seen in the ethmoid sinuses. The remaining visualized paranasal sinuses are clear. The mastoid air cells are well pneumatized. Orbits: The bony orbits are grossly intact. There are bilateral ocular lens implants. There is trace abnormal soft tissue density along the posterior aspect of the left orbit, likely related to the permeative lesion in the adjacent sphenoid bone. IMPRESSION: 1. There is no hemorrhage or evidence of acute territorial ischemia by CT criteria. There has been no significant change from 08/31/2016. 2. Unchanged appearance of a large mass lesion within the anterior left temporal fossa measuring at least 4.6 cm. There is significant mass effect and edema throughout the left hemisphere as above. No midline shift is seen. 3. 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 Electronically signed by: Justyn Alaniz M.D. 09/27/2016 10:14 AM Dictated Date/Time: 09/27/2016 10:11 AM CHEST ONE VIEW PORTABLE CLINICAL HISTORY: Atypical chest pain COMPARISON STUDY: 08/31/2016 FINDINGS: The heart remains enlarged. There is mild pulmonary vascular congestion superimposed on chronic interstitial lung disease. There is a small left pleural effusion. There is no lobar consolidation. There is a small left suprahilar nodule versus summation with the left first costochondral cartilage.[ IMPRESSION: 1. Cardiomegaly with mild pulmonary vascular congestion superimposed on chronic interstitial lung disease. 2. Small left pleural effusion 3. Left suprahilar nodule versus summation with the left first costochondral cartilage Electronically signed by: Alfonzo Shi M.D. 09/27/2016 10:31 AM Dictated Date/Time: 09/27/2016 10:29 AM Laboratory Results 09/27/16 08:32 Red Blood Count 4.13, Mean Corpuscular Volume 90.1, Mean Corpuscular Hemoglobin 30.0, Mean Corpuscular Hemoglobin Concent 33.3, Mean Platelet Volume 12.1, Neutrophils (%) (Auto) 79.8, Lymphocytes (%) (Auto) 10.8, Monocytes (%) (Auto) 6.2, Eosinophils (%) (Auto) 2.4, Basophils (%) (Auto) 0.4, Neutrophils # (Auto) 3.61, Lymphocytes # (Auto) 0.49, Monocytes # (Auto) 0.28, Eosinophils # (Auto) 0.11, Basophils # (Auto) 0.02 09/27/16 08:32 Test 09/27/16 08:32 09/27/16 09:53 White Blood Count 4.53 K/uL (4.8-10.8) Red Blood Count 4.13 M/uL (4.7-6.1) Hemoglobin 12.4 g/dL (14.0-18.0) Hematocrit 37.2 % (42-52) Mean Corpuscular Volume 90.1 fL (80-100) Mean Corpuscular Hemoglobin 30.0 pg (25-34) Mean Corpuscular Hemoglobin Concent 33.3 g/dl (32-36) Platelet Count 126 K/uL (130-400) Mean Platelet Volume 12.1 fL (7.4-10.4) Neutrophils (%) (Auto) 79.8 % Lymphocytes (%) (Auto) 10.8 % Monocytes (%) (Auto) 6.2 % Eosinophils (%) (Auto) 2.4 % Basophils (%) (Auto) 0.4 % Neutrophils # (Auto) 3.61 K/uL (1.4-6.5) Lymphocytes # (Auto) 0.49 K/uL (1.2-3.4) Monocytes # (Auto) 0.28 K/uL (0.11-0.59) Eosinophils # (Auto) 0.11 K/uL (0-0.5) Basophils # (Auto) 0.02 K/uL (0-0.2) RDW Standard Deviation 51.5 fL (36.4-46.3) RDW Coefficient of Variation 15.7 % (11.5-14.5) Immature Granulocyte % (Auto) 0.4 % Immature Granulocyte # (Auto) 0.02 K/uL (0.00-0.02) Platelet Estimate DECREASED Prothrombin Time 32.9 SECONDS (9.0-12.0) Prothromb Time International Ratio 2.9 (0.9-1.1) Activated Partial Thromboplast Time 35.6 SECONDS (21.0-31.0) Partial Thromboplastin Ratio 1.4 Anion Gap 7.0 mmol/L (3-11) Est Creatinine Clear Calc Drug Dose 56.4 ml/min Estimated GFR () 84.7 Estimated GFR (Non- 73.1 BUN/Creatinine Ratio 22.7 (10-20) Calcium Level 8.4 mg/dl (8.5-10.1) Total Bilirubin 0.7 mg/dl (0.2-1) Direct Bilirubin 0.1 mg/dl (0-0.2) Aspartate Amino Transf (AST/SGOT) 20 U/L (15-37) Alanine Aminotransferase (ALT/SGPT) 17 U/L (12-78) Alkaline Phosphatase 104 U/L (45-117) Total Creatine Kinase 54 U/L (39-308) Total Protein 7.2 gm/dl (6.4-8.2) Albumin 3.5 gm/dl (3.4-5.0) Lipase 88 U/L (73-393) Bedside Troponin I 0.000 ng/ml (0-0.045) Laboratory studies as stated above per my review. Medications Administered Medications (Trade) Dose Ordered Sig/Alexus Route Start Time Stop Time Status Last Admin Dose Admin Sodium Chloride 250 ml @ 999 mls/hr Q16M STAT IV 09/27/16 09:31 09/27/16 09:46 DC 09/27/16 10:24 999 MLS/HR Sodium Chloride (Nss 1000ml) 1,000 ml @ 100 mls/hr Q10H STAT IV 09/27/16 09:31 09/27/16 14:19 DC 09/27/16 10:24 100 MLS/HR ECG Indication: SOB/dyspnea Rate (beats per minute): 80 Rhythm: atrial fibrillation Findings: PVC, no acute ischemic change Comparison ECG Date: 09/06/16 Change: no significant change Change: Repeat EKG: atrial fibrillation, 70 beats per minute, no ischemia, no change from previous. ED Course 0927: Past medical records reviewed. The patient was evaluated in room B11B, and a complete history and physical examination were performed. 0931: Ordered Sodium Chloride 1000 ml @ 100 mls/hr IV, Sodium Chloride 250 ml @ 999 mls/hr IV. 1107: I reevaluated the patient and he feels much better. He is going to have an ambulation trial. 1138: The patient became weak and shaky with his ambulation trial and he is now complaining of chest pain. He is going to be evaluated for further treatment. 1141: I discussed the patients case with MAURI Venegas. She is going to evaluate the patient for further treatment. Medical Decision Differentials include, but are not limited to; vertigo, arrhythmia, acute coronary syndrome, CHF, electrolyte or metabolic abnormality. This patient comes in as described above. He was placed in room B 11. He woke up with vertigo-type symptoms. He's had this before. He may have taken meclizine prior to arrival. He looks better. He was hypoxemic however upon arrival with O2 sat 85%. EKG shows A. fib but no acute ischemic changes. Cardiac enzymes are unremarkable. He was hydrated gently. CAT scan head shows no acute findings. He does have a known intracranial mass. He has a normal neurologic exam. His chest x-ray does show some increased interstitial markings , he may have some CHF. Given that he is on amiodarone neck could be related to amiodarone as well. He was feeling better until I had him try to get up and walk. He felt very dizzy and started having some chest pain. I did another EKG there is no change compared to EKG #1. Family is concerned about taking him home. He is on Coumadin. I'm also concerned about him falling been on Coumadin. I did consult the [facility] hospitalist who saw him in the ER and will admit him for these measures. Consults Time Called: [phone] Consulting Physician: MAURI Venegas Returned Call: [phone] I discussed the patients case with MAURI Venegas. She is going to evaluate the patient for further treatment. Impression Primary Impression: Dizzy Additional Impressions: Hypoxemia CHF (congestive heart failure) Left sided chest pain Scribe Attestation The scribe's documentation has been prepared under my direction and personally reviewed by me in its entirety. I confirm that the note above accurately reflects all work, treatment, procedures, and medical decision making performed by me. Departure Information Dispostion Being Evaluated By Hospitalist Prescriptions Amiodarone HCl (Amiodarone HCl) 200 Mg Tab 200 MG PO DAILY for 30 Days, #30 TAB Prov: Ricarda Mckeon .MAURI 09/27/16 Referrals Carlie Abarca D.O. (PCP) Problem Qualifiers
[2016-09-27 10:01] LABS: BUN/CREATININE RATIO 22.7 (10-20); CALCIUM 8.4 mg/dl (8.5-10.1); CREATININE 0.94 mg/dl (0.60-1.40); POTASSIUM 3.5 mmol/L (3.5-5.1)
[2016-09-27 10:02] LABS: INR 2.9 (0.9-1.1); PARTIAL THROMBOPLASTIN RATIO 1.4; PROTHROMBIN TIME (PATIENT) 32.9 SECONDS (9.0-12.0)
[2016-09-27 10:04] LABS: CKMB/CK RATIO 1.9 (0-3.0)
[2016-09-27 10:13] LABS: BASO % 0.4 %; BASO ABS # 0.02 K/uL (0-0.2); COMPLETE YES; EOS % 2.4 %; HEMATOCRIT 37.2 % (42-52); IG% 0.4 %; LYMPH % 10.8 %; LYMPH ABS # 0.49 K/uL (1.2-3.4); MEAN CELL VOLUME 90.1 fL (80-100); MEAN CORPUSCULAR HGB CONC 33.3 g/dl (32-36); MEAN PLATELET VOLUME 12.1 fL (7.4-10.4); MONO % 6.2 %; NEUT % 79.8 %; PLATELET COUNT 126 K/uL (130-400); PLT ESTIMATE DECREASED; RED BLOOD COUNT 4.13 M/uL (4.7-6.1); WHITE BLOOD COUNT 4.53 K/uL (4.8-10.8)
--- NOTE | 2016-09-27 10:17 | DIAGNOSTIC IMAGING REPORT ---
CT SCAN OF THE BRAIN WITHOUT IV CONTRAST CLINICAL HISTORY: Dizziness. COMPARISON STUDY: CT of the brain dated 08/31/2016. MRI of the brain dated 06/29/2016. TECHNIQUE: Unenhanced axial CT scan of the brain is performed from the vertex to the skull base. CT DOSE: 847.48 mGycm FINDINGS: Brain parenchyma: There is unchanged appearance of a large mass lesion in the anterior left temporal fossa. This measures at least 4.6 cm and invades the anterior sphenoid bone. There is significant edema seen throughout the left hemisphere with effacement of the overlying left temporal sulci. No midline shift is seen. There are age-related involutional changes noting mild to moderate patchy subcortical and periventricular microangiopathic change. There is no hemorrhage or evidence of acute territorial ischemia by CT criteria. No extra-axial fluid collection is seen. Ventricles, sulci, cisterns: Prominent secondary to involutional change. See above. Intracranial vasculature: There is atherosclerotic calcification of the cavernous carotid and vertebral arteries. Calvarium: There is evidence of previous left craniotomy. 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 Sinuses and mastoids: A retention cyst is noted in the right maxillary antrum. Trace mucosal thickening is seen in the ethmoid sinuses. The remaining visualized paranasal sinuses are clear. The mastoid air cells are well pneumatized. Orbits: The bony orbits are grossly intact. There are bilateral ocular lens implants. There is trace abnormal soft tissue density along the posterior aspect of the left orbit, likely related to the permeative lesion in the adjacent sphenoid bone. IMPRESSION: 1. There is no hemorrhage or evidence of acute territorial ischemia by CT criteria. There has been no significant change from 08/31/2016. 2. Unchanged appearance of a large mass lesion within the anterior left temporal fossa measuring at least 4.6 cm. There is significant mass effect and edema throughout the left hemisphere as above. No midline shift is seen. 3. 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 Electronically signed by: Justyn Alaniz M.D. 09/27/2016 10:14 AM Dictated Date/Time: 09/27/2016 10:11 AM
--- NOTE | 2016-09-27 10:33 | DIAGNOSTIC IMAGING REPORT ---
CHEST ONE VIEW PORTABLE CLINICAL HISTORY: Atypical chest pain COMPARISON STUDY: 08/31/2016 FINDINGS: The heart remains enlarged. There is mild pulmonary vascular congestion superimposed on chronic interstitial lung disease. There is a small left pleural effusion. There is no lobar consolidation. There is a small left suprahilar nodule versus summation with the left first costochondral cartilage.[ IMPRESSION: 1. Cardiomegaly with mild pulmonary vascular congestion superimposed on chronic interstitial lung disease. 2. Small left pleural effusion 3. Left suprahilar nodule versus summation with the left first costochondral cartilage Electronically signed by: Alfonzo Shi M.D. 09/27/2016 10:31 AM Dictated Date/Time: 09/27/2016 10:29 AM
[2016-09-27] MEDS ORDERED: PHARMACIST DISCHARGE MED REC CONSULT PRN (12:45)
[2016-09-27] MEDS ORDERED: ONDANSETRON INJ 2 MG/ML 2 ML VIAL IV PRN (12:45)
[2016-09-27] MEDS ORDERED: MULT-618 PO (12:56)
[2016-09-27] MEDS ORDERED: CRD200 PO (12:56)
[2016-09-27] MEDS ORDERED: FURO20TA PO (12:56)
[2016-09-27] MEDS ORDERED: PROMETHAZINE HCL INJ 12.5 MG in SODIUM CHLORIDE 0.9% 50ML 50 ML IV PRN (13:30)
[2016-09-27 14:19] VITALS: BP 167/85; PULSE 69; TEMP 36.7; O2SAT 96
[2016-09-27] MEDS ORDERED: IV FLUIDS COMPLETED PRN (14:30)
[2016-09-27 14:36] VITALS: BP 167/85; PULSE 69; TEMP 36.7; O2SAT 96; Ht 175.3 cm; Wt 74.0 kg
[2016-09-27] MEDS ORDERED: WARFARIN SOD 2.5 MG TAB PO ONE (14:36)
--- NOTE | 2016-09-27 15:01 | Neurology Consultation ---
Neurology Consultation Date of Consultation: Sep 27, 2016. Attending Physician: Maxine Landa M.D. Primary Care Physician: Carlie Abarca D.O. Reason for Consultation: dizziness History of Present Illness Source: patient, spouse David 86 year old male who has a PMH afib, CHF, DL, BPH, seizure with meningioma partial resection, anxiety, vertigo presents to the ER with reports of dizziness. He has been admitted for similar symptoms in the past. one admission was for acute systolic CHF due to afib with RVR. He was discharged on Lasix and metoprolol. He was then readmitted with chest pain and dizziness. He was also found to have non sustained v-tach on tele and amiodarone was started. Dizziness was felt to be due to his chronic vertigo and Donny maneuver was preformed. He had an outpatient Holter that showed frequent PVCs, non sustained V-tach, and no significant bradycardia or pauses. He was in the cardiology clinic yesterday and was instructed to decrease his Amiodarone. Dr Sandoval in neurology saw him as an outpatient recently and advised him to taper off his Neurontin over several weeks. He woke up he had the sensation of the room spinning around him which was the same feeling he has with his vertigo. She gave him a meclizine but wouldn't let him get out of bed to go to the bathroom because she didn't want him to fall. He then asked her to call 911. He states he is back to his baseline and sitting up in bed eating his lunch. He was also having some left sided chest pain which his states they did a CXR and EKG for evaluation. There was no LOC, fall, SOB, abdominal pain, one sided weakness , numbness tingling. He did vomit in the ambulance on the way to the hospital. He denies recent illness, he had not eaten prior to arrival at hospital. He states he did have some weakness in his LE in the ED but he thinks it was both legs Past Medical/Surgical History Medical Problems: (1) Afib Status: Acute (2) Anticoagulated on Coumadin Status: Acute (3) Atrial fibrillation with RVR Status: Acute (4) Brain mass Status: Acute (5) Orthostatic hypotension Status: Acute (6) Substernal chest pain Status: Acute (7) Vertigo Status: Acute (8) Vertigo Status: Acute Social History Drug Use: none Marital Status: Housing Status: lives with family Occupation Status: retired Allergies Coded Allergies: No Known Allergies (Unverified , 09/27/16) Current Inpatient Medications Current Inpatient Medications Medications (Trade) Dose Ordered Sig/Alexus Route Start Time Stop Time Status Last Admin Dose Admin Acetaminophen (Tylenol Tab) 650 mg Q4H PRN PO 09/27/16 12:45 10/27/16 12:44 Miscellaneous Information 1 ea 1 ea UD PRN N/A 09/27/16 12:45 10/27/16 12:44 Promethazine HCl/ Sodium Chloride (Phenergan Inj/ Nss 50ml) 50.5 ml @ 204 mls/hr Q6H PRN IV 09/27/16 13:30 10/27/16 13:29 Miscellaneous (Iv Fluids Completed) 1 ea PRN PRN N/A 09/27/16 14:30 09/27/17 14:29 UNV Physical Exam Vital Signs (Past 24 Hrs): Date Time Temp Pulse Resp B/P Pulse Ox O2 Delivery O2 Flow Rate FiO2 09/27/16 14:19 36.7 69 22 167/85 96 Nasal Cannula 2.0 09/27/16 13:11 62 20 157/89 96 Nasal Cannula 2.0 09/27/16 10:22 55 18 156/87 97 Nasal Cannula 5.0 09/27/16 10:05 65 09/27/16 09:15 85 Room Air 09/27/16 09:15 95 Nasal Cannula 6.0 09/27/16 09:09 63 154/76 65 148/83 68 150/72 09/27/16 09:05 36.5 78 16 170/86 85 Room Air Physical Exam: Constitutional: appearance nourished, healthy and normal sitting up in bed eating lunch Ears, Nose, Mouth and Throat: mucous membranes moist, no injection and skin normal, eyes normal Cardiovascular: irregular Respiratory: bilateral course breath sounds Musculoskeletal: muscle tone normal Skin: no stigmata of neurocutaneous disease noted and normal and intact Eyes: extraocular muscles intact (EOMI) and pupils equal, round and reactive to light (PERRL), medial diplopia left eye NEUROLOGIC EXAMINATION: Mental status: Alert and interactive Oriented location Oriented to person Speech fluent with no evidence of aphasia Cranial Nerves smile and eye brow raise symmetric, tongue midline Reflexes: Deep tendon reflexes were symmetrical and graded 2/5. Plantar responses neutral Sensory: decreased sensation to vibration bilaterally LE, loss of GT proprioception bilaterally, Cool touch Coordination: finger to nose without bipass, no tremor or cogwheeling Gait/Stance: sitting up in bed Motor: Negative for pronator drift of out stretched arms with eyes closed. 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 5/5 bilaterally, LE hip flex patellar flex ext plantar flex ext bilaterally 5/5 Laboratory Results Past 24 Hours: 09/27/16 08:32 Red Blood Count 4.13, Mean Corpuscular Volume 90.1, Mean Corpuscular Hemoglobin 30.0, Mean Corpuscular Hemoglobin Concent 33.3, Mean Platelet Volume 12.1, Neutrophils (%) (Auto) 79.8, Lymphocytes (%) (Auto) 10.8, Monocytes (%) (Auto) 6.2, Eosinophils (%) (Auto) 2.4, Basophils (%) (Auto) 0.4, Neutrophils # (Auto) 3.61, Lymphocytes # (Auto) 0.49, Monocytes # (Auto) 0.28, Eosinophils # (Auto) 0.11, Basophils # (Auto) 0.02 09/27/16 08:32 Test 09/27/16 08:32 09/27/16 09:53 White Blood Count 4.53 K/uL (4.8-10.8) Red Blood Count 4.13 M/uL (4.7-6.1) Hemoglobin 12.4 g/dL (14.0-18.0) Hematocrit 37.2 % (42-52) Mean Corpuscular Volume 90.1 fL (80-100) Mean Corpuscular Hemoglobin 30.0 pg (25-34) Mean Corpuscular Hemoglobin Concent 33.3 g/dl (32-36) Platelet Count 126 K/uL (130-400) Mean Platelet Volume 12.1 fL (7.4-10.4) Neutrophils (%) (Auto) 79.8 % Lymphocytes (%) (Auto) 10.8 % Monocytes (%) (Auto) 6.2 % Eosinophils (%) (Auto) 2.4 % Basophils (%) (Auto) 0.4 % Neutrophils # (Auto) 3.61 K/uL (1.4-6.5) Lymphocytes # (Auto) 0.49 K/uL (1.2-3.4) Monocytes # (Auto) 0.28 K/uL (0.11-0.59) Eosinophils # (Auto) 0.11 K/uL (0-0.5) Basophils # (Auto) 0.02 K/uL (0-0.2) RDW Standard Deviation 51.5 fL (36.4-46.3) RDW Coefficient of Variation 15.7 % (11.5-14.5) Immature Granulocyte % (Auto) 0.4 % Immature Granulocyte # (Auto) 0.02 K/uL (0.00-0.02) Platelet Estimate DECREASED Prothrombin Time 32.9 SECONDS (9.0-12.0) Prothromb Time International Ratio 2.9 (0.9-1.1) Activated Partial Thromboplast Time 35.6 SECONDS (21.0-31.0) Partial Thromboplastin Ratio 1.4 Anion Gap 7.0 mmol/L (3-11) Est Creatinine Clear Calc Drug Dose 56.4 ml/min Estimated GFR () 84.7 Estimated GFR (Non- 73.1 BUN/Creatinine Ratio 22.7 (10-20) Calcium Level 8.4 mg/dl (8.5-10.1) Total Bilirubin 0.7 mg/dl (0.2-1) Direct Bilirubin 0.1 mg/dl (0-0.2) Aspartate Amino Transf (AST/SGOT) 20 U/L (15-37) Alanine Aminotransferase (ALT/SGPT) 17 U/L (12-78) Alkaline Phosphatase 104 U/L (45-117) Total Creatine Kinase 54 U/L (39-308) Creatine Kinase MB 1.0 ng/ml (0.5-3.6) Creatine Kinase MB Ratio 1.9 (0-3.0) Total Protein 7.2 gm/dl (6.4-8.2) Albumin 3.5 gm/dl (3.4-5.0) Lipase 88 U/L (73-393) Bedside Troponin I 0.000 ng/ml (0-0.045) Imaging CT head-There is no hemorrhage or evidence of acute territorial ischemia by CT criteria. There has been no significant change from 08/31/2016. Unchanged appearance of a large mass lesion within the anterior left temporal fossa measuring at least 4.6 cm. There is significant mass effect and edema throughout the left hemisphere as above. No midline shift is seen. 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 CXR- Cardiomegaly with mild pulmonary vascular congestion superimposed on chronic interstitial lung disease. Small left pleural effusion Left suprahilar nodule versus summation with the left first costochondral cartilage Impression 86 year old male history of CHF, afib on coumadin, vertigo -with an episode of vertigo - now resolved Plan 1. CT head with no acute findings and stable meningioma left temp wing 2. PT/OT for discharge needs and Donny to evoke vertigo 3. remote meningioma partial resection no history of CA 4. cardiology for medication adjustments as needed 5. continue Keppra 500 mg BID for previous report of seizure 6. continue to taper of neurontin possible contributory to dizziness 7. leg weakness may have been due to patient not eating this am and vomiting. 8. coumadin - INR 2.9 9. patient has sensation loss in LE may contribute to dizziness and balance issues 10. hypoxic on admission will need to evaluate for possible need for O2 for home use 11. MRI without contrast to r/o stroke I have seen and discussed above patient with Dr Henok Sandoval, neurology Reviewed an discussed with Radha Hawk and patient seen and examined He is known to me and has chronic atrial fib on coumadin, is post remot3 surgery for a left sphenoid wing meningioma with recent mri showing chonic edema and likely small residual tumor and an unexplained contralateral calvarial lesion on the right that looks surgical to me and a siezure disorder well controlled on keppra and neurontin ( this is on board for pain control due to low back issues I believe 0 He has recurrent bouts of vertigo that ent feels is not vestibular and is readmitted now for one of these events that was perhaps associated with some leg weakness He is now asymptomatic and exam is baseline with no cerebellar or posterior fossa findings and only a mild neuropathy Ra thaving been said we need to be sure that a small cerebellar and possibly embolic cva has occurred despite te therapeutic inr and we are going to check a noncontrst mri If negative then ok to discherge back to home care Dr Riggs and Abeba Hawk PAC to assess tomorrow Henok Sandoval MD
[2016-09-27 15:41] VITALS: BP 166/83; PULSE 78; TEMP 36.6; O2SAT 93
--- NOTE | 2016-09-27 15:44 | History and Physical ---
History & Physical Date & Time of Service: Sep 27, 2016 at 13:39 Chief Complaint: Dizziness Primary Care Physician: Carlie Abarca D.O. History of Present Illness 86 year old male who presents to the ER with reports of dizziness. Patient was recently admitted to [facility] twice. First admission was for acute systolic CHF due to afib with RVR. He was discharged on Lasix and metoprolol. Patient was readmitted with chest pain and dizziness. Chest pain was felt to be due to sensed ventricular ectopy. He was also found to have non sustained v-tach on tele and amiodarone was started. Dizziness was felt to be due to his chronic vertigo and Donny maneuver was preformed. Since being discharged, patient had an outpatient Holter that showed frequent PVCs, non sustained V-tach, and no significant bradycardia or pauses. Patient was seen in the cardiology clinic yesterday and was instructed to decrease his Amiodarone. He also was evaluated by neurology since discharge and was given instructions to taper off the Neurontin to try to help with the dizziness. Patient reports this morning when he woke up he had the sensation of the room spinning around him. He also felt generally weak and was unable to get out of bed. He reports generalized shaking. is at the bedside who reports he did not loose consciousness. Patient took a Meclizine at home without relief in his symptoms. EMS was then called. Patient reports the dizziness continued en route to the ER. He had one episode of vomiting in the ambulance. Symptoms have resolved since arriving to the ER. Patient reports left lateral chest pain. It is reproducible with palpation. Patient reports he has been getting this pain for the past few months. Per prior documentation, it has been attributed to sensed ventricular ectopy. Patient reports the pain comes and goes. No specific causative or alleviating factors. He denies diaphoresis. He reports chronic exertional shortness of breath which is unchanged. Reports he had been feeling well since his discharge. He denies fever, chills, cough, and sputum production. No abdominal pain or diarrhea. He denies urinary symptoms. For EMS, patient was hypoxic at 85% for which he required 6L O2. This has improved in the ER and is now only requiring 2L. Other vitals are stable. No arrhythmias noted on tele. Labs are unremarkable. CT head is unchanged from prior. Past Medical/Surgical History Medical Problems: (1) Benign positional vertigo Status: Chronic (2) Borderline hypertension Status: Chronic (3) BPH (benign prostatic hypertrophy) Status: Chronic (4) Cerebral meningioma Status: Chronic (5) Chronic atrial fibrillation Status: Chronic (6) Depression with anxiety Status: Chronic (7) Dyslipidemia Status: Chronic (8) History of meningioma of the brain Status: Chronic (9) Seizure disorder Status: Chronic (10) Systolic CHF Permanent Comment: echo 08/2016 - EF 35-40%, moderate TR, moderate AR Status: Chronic Surgical Problems: (1) H/O craniotomy Permanent Comment: 1986 for meningioma Status: Chronic (2) S/P cardiac cath Permanent Comment: 01/2015 [facility], [place]- diffuse nonobstructive coronary plaque disease; overall CAD medically manageable Status: Chronic Family History non contributory due to patient's advanced age Social History Smoking Status: Never Smoker Alcohol Use: none Marital Status: Housing status: lives with family Immunizations History of Influenza Vaccine: Yes Influenza Vaccine Date: Mar 06, 2016 Allergies Coded Allergies: No Known Allergies (Unverified , 09/27/16) Home Medications Scheduled Amiodarone HCl (Amiodarone HCl), 200 MG PO DAILY Furosemide (Lasix), 20 MG PO DAILY Gabapentin (Gabapentin), 300 MG PO UD Levetiracetam (Keppra), 500 MG PO BID Lisinopril (Lisinopril), 5 MG PO QAM Magnesium Oxide (Mg Supplement (Magnesium Oxide), 1 TAB DAILY Metoprolol Tartrate (Lopressor), 12.5 MG PO BID Multiple Vitamins W/ Minerals (Centrum Silver Ultra Mens), 1 TAB PO DAILY Sertraline Hcl (Zoloft), 25 MG PO DAILY Simvastatin (Zocor), 20 MG PO QAM Tamsulosin Hcl (Flomax), 0.4 MG PO DAILY Warfarin Sod (Coumadin), 2.5 MG PO DAILY Scheduled PRN Meclizine Hcl (Meclizine Hcl), 25 MG PO Q8 PRN for Dizziness or Vertigo Review of Systems 10 point review of systems was completed with the pertinent positives and negatives noted per the HPI Physical Exam Vital Signs Date Time Temp Pulse Resp B/P Pulse Ox O2 Delivery O2 Flow Rate FiO2 09/27/16 13:11 62 20 157/89 96 Nasal Cannula 2.0 09/27/16 10:22 55 18 156/87 97 Nasal Cannula 5.0 09/27/16 10:05 65 09/27/16 09:15 85 Room Air 09/27/16 09:15 95 Nasal Cannula 6.0 09/27/16 09:09 63 154/76 65 148/83 68 150/72 09/27/16 09:05 36.5 78 16 170/86 85 Room Air General Appearance: no apparent distress Head: normocephalic Eyes: normal inspection ENT: hearing grossly normal Neck: supple, no JVD Respiratory/Chest: no respiratory distress, + decreased breath sounds (BL bases ) Cardiovascular: no edema, + irregularly irregular (rate controlled) Abdomen/GI: normal bowel sounds, non tender, soft Extremities/Musculoskelatal: normal inspection, no calf tenderness Neurologic/Psych: no motor/sensory deficits, alert, normal mood/affect, oriented x 3 Skin: normal color, warm/dry Diagnostics Laboratory Results Results Past 24 Hours Test 09/27/16 08:32 09/27/16 09:53 Range/Units White Blood Count 4.53 4.8-10.8 K/uL Red Blood Count 4.13 4.7-6.1 M/uL Hemoglobin 12.4 14.0-18.0 g/dL Hematocrit 37.2 42-52 % Mean Corpuscular Volume 90.1 80-100 fL Mean Corpuscular Hemoglobin 30.0 25-34 pg Mean Corpuscular Hemoglobin Concent 33.3 32-36 g/dl Platelet Count 126 130-400 K/uL Mean Platelet Volume 12.1 7.4-10.4 fL Neutrophils (%) (Auto) 79.8 % Lymphocytes (%) (Auto) 10.8 % Monocytes (%) (Auto) 6.2 % Eosinophils (%) (Auto) 2.4 % Basophils (%) (Auto) 0.4 % Neutrophils # (Auto) 3.61 1.4-6.5 K/uL Lymphocytes # (Auto) 0.49 1.2-3.4 K/uL Monocytes # (Auto) 0.28 0.11-0.59 K/uL Eosinophils # (Auto) 0.11 0-0.5 K/uL Basophils # (Auto) 0.02 0-0.2 K/uL RDW Standard Deviation 51.5 36.4-46.3 fL RDW Coefficient of Variation 15.7 11.5-14.5 % Immature Granulocyte % (Auto) 0.4 % Immature Granulocyte # (Auto) 0.02 0.00-0.02 K/uL Platelet Estimate DECREASED Prothrombin Time 32.9 9.0-12.0 SECONDS Prothromb Time International Ratio 2.9 0.9-1.1 Activated Partial Thromboplast Time 35.6 21.0-31.0 SECONDS Partial Thromboplastin Ratio 1.4 Sodium Level 142 136-145 mmol/L Potassium Level 3.5 3.5-5.1 mmol/L Chloride Level 108 98-107 mmol/L Carbon Dioxide Level 27 21-32 mmol/L Anion Gap 7.0 3-11 mmol/L Blood Urea Nitrogen 21 7-18 mg/dl Creatinine 0.94 0.60-1.40 mg/dl Est Creatinine Clear Calc Drug Dose 56.4 ml/min Estimated GFR () 84.7 Estimated GFR (Non- 73.1 BUN/Creatinine Ratio 22.7 10-20 Random Glucose 132 70-99 mg/dl Calcium Level 8.4 8.5-10.1 mg/dl Total Bilirubin 0.7 0.2-1 mg/dl Direct Bilirubin 0.1 0-0.2 mg/dl Aspartate Amino Transf (AST/SGOT) 20 15-37 U/L Alanine Aminotransferase (ALT/SGPT) 17 12-78 U/L Alkaline Phosphatase 104 45-117 U/L Total Creatine Kinase 54 39-308 U/L Creatine Kinase MB 1.0 0.5-3.6 ng/ml Creatine Kinase MB Ratio 1.9 0-3.0 Total Protein 7.2 6.4-8.2 gm/dl Albumin 3.5 3.4-5.0 gm/dl Lipase 88 73-393 U/L Bedside Troponin I 0.000 0-0.045 ng/ml Diagnostic Radiology CT HEAD IMPRESSION: 1. There is no hemorrhage or evidence of acute territorial ischemia by CT criteria. There has been no significant change from 08/31/2016. 2. Unchanged appearance of a large mass lesion within the anterior left temporal fossa measuring at least 4.6 cm. There is significant mass effect and edema throughout the left hemisphere as above. No midline shift is seen. 3. 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 CXR IMPRESSION: 1. Cardiomegaly with mild pulmonary vascular congestion superimposed on chronic interstitial lung disease. 2. Small left pleural effusion 3. Left suprahilar nodule versus summation with the left first costochondral cartilage Impression Assessment and Plan DIZZINESS - admit to tele - patient presenting with sudden onset dizziness / sensation of room spinning; took a meclizine at home initially without improvement in his symptoms however is now symptom free - patient with history of brain meningioma s/p resection and also vertigo - was recently seen by neuro who recommended a slow taper off of Neurontin to try to help aide in disequilibrium symptoms - symptoms today appear to be due to patient's chronic underlying vertigo, likely peripheral - CT head unchanged - no focal deficits noted on exam - orthostatic BPs negative - neuro consult, case discussed with Radha Hawk PA-C HYPOXIA - patient initially hypoxic at 85%, requiring 6L O2; improved to 2L requirement - CXR shows mild CHF and small left effusion; on exam, lung only diminished, no crackles noted and no lower extremity edema noted so doubt that the hypoxia is due to volume overload - no cough, sputum production, fever, or leukocytosis; pneumonia unlikely; patient did have vomiting en route however hypoxia was present before vomiting so doubt aspiration - on Coumadin with therapeutic INR; PE unlikely - ? due to hypoventilation during acute illness with vertigo - CXR also shows interstitial changes; may need outpatient PFTs; was just started on amiodarone one month ago so amdioadone lung toxicity unlikely as well - for now, continue O2 and wean as able; may need home O2 evaluation before discharge CHEST PAIN, HX NON OBSTRUCTIVE CAD - seems to be musculoskeletal in nature as is reproducible with palpation; patient also has been having chest pain over the past few months which has been attributed to sensed ventricular ectopy - initial troponin negative, EKG without acute ST changes; continue to cycle cardiac enzymes - continue beta akil and statin - cardio consult, input appreciated SYSTOLIC CHF - echo 08/2016 - EF 35-40% - when seen in the cardio clinic yesterday weight was noted to be up 7lbs - was instructed to start taking Lasix daily versus every other day - patient does not examine to have significant volume overload today as noted above; therefore, will just continue with Lasix 20mg PO daily - continue beta akil and ACEi PROLONGED QTC - QTC 492 - monitor EKG daily - avoid QTC prolonging agents when able HTN - continue lisinopril and metoprolol ATRIAL FIBRILLATION, HX NON SUSTAINED V-TACH - on beta akil for rate control and amio for rhythm control - continue both - amio dose was just decreased to maintenance dosing yesterday - on Coumadin, INR 2.9 - continue Coumadin per home dosing HX BRAIN MENINGIOMA, SEIZURES - continue Keppra PULMONARY NODULE - possible suprahilar lymph node noted on CXR - outpatient follow up DVT PROPHYLAXIS - on Coumadin CODE STATUS - Patient is a full code as per my discussion with him. DISPO - In my clinical judgment this beneficiary meets acute admission criteria, established by [facility], that includes being hospitalized through two midnights. I have seen and examined the patient and agree with the note above. Neuro exam is unremarkable aside from gait which wasn't assessed 2/2 to the patient's discomfort with getting up at this time. He denies any further dizziness today and is tolerating PO. MRI brain is unremarkable for any acute issues. Appreciate Neurology and Cards input here. Asim, DO Level of Care Telemetry Resuscitation Status FULL RESUSCITATION VTE Prophylaxis VTE Risk Assessment Done? Y/N: Yes Risk Level: Moderate Given or contraindicated: Warfarin (Coumadin) Social Service Consult >80 yr.& Lives Alone
--- NOTE | 2016-09-27 15:55 | CARDIOLOGY CONSULTATION ---
DATE OF CONSULTATION: 09/27/2016 DATE OF CONSULTATION: 09/27/2016. Consultation for the [facility] hospitalist group. REASON FOR CONSULTATION: Vertigo. HISTORY OF PRESENT ILLNESS: This is an elderly 86-year-old male patient who was admitted to the hospital. His elderly is in the room with him today. He has a history of vertigo and has been treated by neurology with Donny maneuvers and meclizine. This morning he was using the bathroom and suddenly developed severe vertigo. He could not get up off the toilet and called his who then called 911. He was brought to the hospital where he has now been admitted. The patient has had multiple hospital admissions and this is the 5th admission this year. He has a history of systolic heart failure with exacerbation and atrial fibrillation with RVR. His last hospital admission, he was treated with intravenous diuretics and started on amiodarone mainly due to frequent PVCs and nonsustained ventricular tachycardia. He was seen yesterday by Abby Hogue at the [facility] cardiology clinic. He had been taking amiodarone 200 mg twice a day and that was lowered to 200 mg daily only yesterday. When he was discharged from the hospital he was started on Lasix which was not continued as an outpatient; however, after yesterday's visit, the patient was started on 20 mg of Lasix daily. Currently he has no cardiac complaints. ALLERGIES: No known medical allergies. PAST MEDICAL HISTORY: As outlined in the history of chief complaint, he has chronic systolic heart failure with a history of atrial fibrillation and RVR along with frequent ventricular ectopy including nonsustained ventricular tachycardia. He has had multiple hospital admissions for the above as well as vertigo. He was asked to reduce his dose of amiodarone yesterday and his states that she may have held his meclizine instead. He did not get the meclizine last night and this may have contributed to his recent symptoms and hospital admission. SOCIAL HISTORY: He lives with his . He is a nonsmoker. FAMILY MEDICAL HISTORY: Noncontributory. REVIEW OF SYSTEMS: A 10-point review of systems is negative except for the history of chief complaint. PHYSICAL EXAMINATION: GENERAL: He is alert and oriented. VITAL SIGNS: Blood pressure is 115/60, pulse is irregular at 80 beats per minute, respirations are 16. He is afebrile. HEAD, EYES, EARS, NOSE, AND THROAT: He is normocephalic. He wears corrective lenses. NECK: The neck veins are flat. Carotids have good upstrokes bilaterally without bruits. Thyroid is nonpalpable. RESPIRATORY: Breath sounds equal bilaterally and clear to auscultation. CARDIOVASCULAR: Heart has an irregular rhythm. Normal S1, S2. No S3, S4. GASTROINTESTINAL: Abdomen is soft, nontender without organomegaly. EXTREMITIES: Free of edema, digit clubbing, or cyanosis. NEUROLOGIC: Grossly intact. SKIN: Warm to touch. LYMPH NODES: Negative to palpation. LABORATORY DATA: Echocardiogram in July 2016 reveals moderate concentric LVH with an estimated left ventricular ejection fraction of 45-50%, mild mitral regurgitation and moderate tricuspid regurgitation. Pulmonary hypertension is noted with an estimated pulmonary artery pressure of 42 mmHg and there is severe biatrial enlargement. IMPRESSION: 1. Atrial fibrillation. 2. Nonsustained ventricular tachycardia, started on amiodarone. 3. Chronic systolic heart failure. 4. Mitral and tricuspid regurgitation. 5. Vertigo. RECOMMENDATIONS: From a cardiac standpoint, I believe the patient is stable. He is of course on a monitor technician and we will follow his heart rhythms. As mentioned above, his may have held a dose of his meclizine last night which precipitated his vertigo this morning. It was meant for him to hold his second dose of amiodarone. In any case neurology is on the case and we will follow their recommendations.
[2016-09-27 16:00] VITALS: O2SAT 96
[2016-09-27] MEDS ORDERED: AMIODARONE 200 MG TAB PO ONE (16:00)
[2016-09-27] MEDS ORDERED: METOPROLOL TARTRATE 25 MG TAB PO ONE (16:00)
[2016-09-27] MEDS ORDERED: FUROSEMIDE 20 MG TAB PO ONE (16:00)
[2016-09-27] MEDS ORDERED: WARFARIN SOD 2.5 MG TAB PO SCH (16:00)
[2016-09-27] MEDS ORDERED: LEVETIRACETAM 250 MG TAB PO ONE (16:00)
[2016-09-27] MEDS ORDERED: LISINOPRIL 5 MG TAB PO ONE (16:00)
--- NOTE | 2016-09-27 18:05 | DIAGNOSTIC IMAGING REPORT ---
Brain MRI WITHOUT CONTRAST HISTORY: Mental status change r/o new cerebellar stroke TECHNIQUE: Multiplanar multisequence MRI of the brain was performed without the use of contrast. COMPARISON STUDY: 06/29/2016 FINDINGS: No evidence for an acute ischemic event. Left extra-axial mass essentially unchanged from the prior study. This again is consistent with that of meningioma. Moderate left cerebral vasogenic edema unchanged from the prior study. IMPRESSION: 1. No evidence for an acute ischemic event. 2. No change from the prior study dated 06/29/2016 Electronically signed by: Jairo Haji M.D. 09/27/2016 6:03 PM Dictated Date/Time: 09/27/2016 6:01 PM
[2016-09-27 19:55] VITALS: BP 122/70; PULSE 53; TEMP 36.7; O2SAT 93
[2016-09-27] MEDS: GABAPENTIN 300 MG CAP PO SCH (20:21)
[2016-09-27] MEDS: LEVETIRACETAM 250 MG TAB PO SCH (20:22)
[2016-09-27] MEDS ORDERED: METOPROLOL TARTRATE 25 MG TAB PO SCH (22:00)
[2016-09-27 23:41] VITALS: BP 113/53; PULSE 59; TEMP 36.4; O2SAT 92
[2016-09-28 03:54] VITALS: BP 132/69; PULSE 63; TEMP 36.8; O2SAT 97
[2016-09-28 07:20] VITALS: BP 154/82; PULSE 58; TEMP 36.5; O2SAT 92
[2016-09-28 07:28] LABS: BASO % 0.2 %; BASO ABS # 0.01 K/uL (0-0.2); COMPLETE YES; EOS % 3.9 %; HEMATOCRIT 36.3 % (42-52); IG% 0.2 %; LYMPH % 12.8 %; LYMPH ABS # 0.59 K/uL (1.2-3.4); MEAN CORPUSCULAR HEMOGLOBIN 30.3 pg (25-34); MEAN CORPUSCULAR HGB CONC 33.3 g/dl (32-36); MEAN PLATELET VOLUME 11.2 fL (7.4-10.4); MONO % 12.6 %; NEUT % 70.3 %; PLATELET COUNT 120 K/uL (130-400); RED BLOOD COUNT 3.99 M/uL (4.7-6.1)
[2016-09-28 07:43] LABS: PROTHROMBIN TIME (PATIENT) 40.6 SECONDS (9.0-12.0)
[2016-09-28 07:45] LABS: INR 3.6 (0.9-1.1)
[2016-09-28] MEDS: LEVETIRACETAM 250 MG TAB PO SCH ×2 (08:01→20:45)
[2016-09-28] MEDS: GABAPENTIN 300 MG CAP PO SCH ×3 (08:01→20:45)
[2016-09-28] MEDS: LISINOPRIL 5 MG TAB PO SCH (08:02)
[2016-09-28] MEDS: FUROSEMIDE 20 MG TAB PO SCH (08:02)
[2016-09-28] MEDS: TAMSULOSIN HCL 0.4 MG CAP PO SCH (08:02)
[2016-09-28] MEDS: METOPROLOL TARTRATE 25 MG TAB PO SCH (08:03)
[2016-09-28] MEDS: CEROVITE ADV FORMULA TAB PO SCH (08:04)
[2016-09-28] MEDS: SIMVASTATIN 20 MG TAB PO SCH (08:04)
[2016-09-28] MEDS: SERTRALINE HCL 50 MG TAB PO SCH (08:04)
[2016-09-28 08:12] LABS: BUN/CREATININE RATIO 19.9 (10-20); CHOLESTEROL/HDL RATIO 2.2; POTASSIUM 4.2 mmol/L (3.5-5.1)
[2016-09-28 08:35] LABS: CALCIUM 8.2 mg/dl (8.5-10.1)
[2016-09-28] MEDS: AMIODARONE 200 MG TAB PO SCH (09:00)
[2016-09-28] MEDS ORDERED: MAGNESIUM OXIDE SCH (09:00)
[2016-09-28 10:53] VITALS: BP 125/67; PULSE 56; TEMP 36.8; O2SAT 95
--- NOTE | 2016-09-28 10:56 | PROGRESS NOTE ---
DATE: 09/28/2016 FOLLOWUP VISIT SUBJECTIVE: The patient is an elderly gentleman who was admitted with vertigo, which he has had a chronically in the past. He also has a history of paroxysmal atrial fibrillation and had been started on amiodarone. He is comfortable sitting in a chair and had an uneventful night in regard to his symptoms. The patient did have bradycardia on the monitor while he was sleeping last night with heart rates in the 30s. He also had a bowel movement this morning with bright red blood, most likely due to an elevated INR and hemorrhoids. OBJECTIVE: VITAL SIGNS: Blood pressure is 150/80, pulse is irregular at 60 beats per minute, and he is afebrile. HEENT He is normocephalic. Pupils are equal and reactive to light. Extraocular muscles are intact bilaterally. NECK: The neck veins are flat. Carotids have good upstrokes bilaterally without bruits. Thyroid is nonpalpable. RESPIRATORY: Breath sounds equal bilaterally and clear to auscultation. CARDIOVASCULAR: Heart has an irregular rhythm. Normal S1 and S2. No S3 or S4. GASTROINTESTINAL: Abdomen is soft and nontender without organomegaly. EXTREMITIES: Free of edema, digit clubbing, or cyanosis. NEUROLOGIC: Grossly intact. SKIN: Warm to touch. LYMPH NODES: Negative to palpation. LABORATORY DATA: INR is 3.6 today. Hemoglobin is 12.1. Potassium is 4.2 and creatinine is 1.0. IMPRESSION: 1. Paroxysmal atrial fibrillation. 2. Bradycardia. 3. Lower gastrointestinal bleeding, most likely from hemorrhoids and an elevated INR. 4. Chronic vertigo. RECOMMENDATIONS: The patient's Coumadin will be held. In this elderly gentleman, we may want to consider leaving him on aspirin only because his bleeding risk is too high. I will stop his amiodarone as well as his metoprolol with his slow heart rates. We may have to consider that he needs a pacemaker due to his low heart rates. His vertigo has been chronic, but his most recent episodes may be related to his bradycardia and we have to be careful.
[2016-09-28 15:34] VITALS: BP 131/71; PULSE 49; TEMP 36.4; O2SAT 92
--- NOTE | 2016-09-28 15:44 | Neurology Progress Notes ---
Neurology Progress Note Date of Service Sep 28, 2016. Subjective David 86 year old male who has a PMH afib, CHF, DL, BPH, seizure with meningioma partial resection, anxiety, vertigo presents to the ER with reports of dizziness. He has been admitted for similar symptoms in the past. one admission was for acute systolic CHF due to afib with RVR. He was discharged on Lasix and metoprolol. He was then readmitted with chest pain and dizziness. He was also found to have non sustained v-tach on tele and amiodarone was started. Dizziness was felt to be due to his chronic vertigo and Donny maneuver was preformed. He had an outpatient Holter that showed frequent PVCs, non sustained V-tach, and no significant bradycardia or pauses. He was in the cardiology clinic yesterday and was instructed to decrease his Amiodarone. Dr Sandoval in neurology saw him as an outpatient recently and advised him to taper off his Neurontin over several weeks. He woke up he had the sensation of the room spinning around him which was the same feeling he has with his vertigo. She gave him a meclizine but wouldn't let him get out of bed to go to the bathroom because she didn't want him to fall. He then asked her to call 911. He states he is back to his baseline and sitting up in bed eating his lunch. He was also having some left sided chest pain which his states they did a CXR and EKG for evaluation. . He did vomit in the ambulance on the way to the hospital. He denies recent illness, he had not eaten prior to arrival at hospital. He did have some weakness in his LE in the ED but he thinks it was both legs today he is bedside. According to the chart he had a bright red BM this am likely due to the elevated INR. His coumadin is held at this point and may go home on aspirin only. He has not had any further episodes of dizziness. Nursing staff reports the patient had mixed up stopping his amiodarone with stopping his Meclizine. There was no LOC, fall, SOB, abdominal pain, one sided weakness , numbness tingling. He has been out of bed walking to the bathroom with no issues. He wants to go home tomorrow Objective Date Time Temp Pulse Resp B/P Pulse Ox O2 Delivery O2 Flow Rate FiO2 4/20/17 12:00 Room Air 09/28/16 10:53 36.8 56 20 125/67 95 Room Air 09/28/16 08:00 Room Air 09/28/16 07:20 36.5 58 20 154/82 92 Room Air 09/28/16 04:00 Room Air 09/28/16 03:54 36.8 63 19 132/69 97 Nasal Cannula 2.0 09/27/16 23:59 Room Air 09/27/16 23:41 36.4 59 18 113/53 92 Nasal Cannula 2.0 09/27/16 20:00 Room Air 09/27/16 19:55 36.7 53 20 122/70 93 Nasal Cannula 2.0 09/27/16 16:00 96 Nasal Cannula 2.0 09/27/16 15:41 36.6 78 22 166/83 93 Nasal Cannula 2.0 Last 24 Hours Test 09/27/16 16:00 09/27/16 16:12 09/27/16 22:00 09/27/16 22:03 Creatine Kinase MB Ratio Creatine Kinase MB 1.3 ng/ml 1.0 ng/ml Troponin I 0.016 ng/ml 0.024 ng/ml Test 09/28/16 07:17 White Blood Count 4.60 K/uL Red Blood Count 3.99 M/uL Hemoglobin 12.1 g/dL Hematocrit 36.3 % Mean Corpuscular Volume 91.0 fL Mean Corpuscular Hemoglobin 30.3 pg Mean Corpuscular Hemoglobin Concent 33.3 g/dl Platelet Count 120 K/uL Mean Platelet Volume 11.2 fL Neutrophils (%) (Auto) 70.3 % Lymphocytes (%) (Auto) 12.8 % Monocytes (%) (Auto) 12.6 % Eosinophils (%) (Auto) 3.9 % Basophils (%) (Auto) 0.2 % Neutrophils # (Auto) 3.23 K/uL Lymphocytes # (Auto) 0.59 K/uL Monocytes # (Auto) 0.58 K/uL Eosinophils # (Auto) 0.18 K/uL Basophils # (Auto) 0.01 K/uL RDW Standard Deviation 52.1 fL RDW Coefficient of Variation 15.7 % Immature Granulocyte % (Auto) 0.2 % Immature Granulocyte # (Auto) 0.01 K/uL Prothrombin Time 40.6 SECONDS Prothromb Time International Ratio 3.6 Sodium Level 143 mmol/L Potassium Level 4.2 mmol/L Chloride Level 106 mmol/L Carbon Dioxide Level 31 mmol/L Anion Gap 6.0 mmol/L Blood Urea Nitrogen 20 mg/dl Creatinine 1.00 mg/dl Est Creatinine Clear Calc Drug Dose 53.1 ml/min Estimated GFR () 78.6 Estimated GFR (Non- 67.8 BUN/Creatinine Ratio 19.9 Random Glucose 86 mg/dl Calcium Level 8.2 mg/dl Triglycerides Level 45 mg/dl Cholesterol Level 131 mg/dl HDL Cholesterol 60 mg/dl LDL Cholesterol, Calculated 62 mg/dl VLDL Cholesterol, Calculated 9 mg/dl Cholesterol/HDL Ratio 2.2 Imaging: MRI brain without contrast- FINDINGS: No evidence for an acute ischemic event. Left extra-axial mass essentially unchanged from the prior study. This again is consistent with that of meningioma. Moderate left cerebral vasogenic edema unchanged from the prior study. Exam: Physical Exam: Constitutional: appearance nourished, healthy and normal Ears, Nose, Mouth and Throat: mucous membranes moist, no injection and skin normal, eyes normal Cardiovascular: irregular Respiratory: clear to auscultation (CTA) and no rales, rhonchi or wheeze Musculoskeletal: no peripheral edema Skin: no stigmata of neurocutaneous disease noted and normal and intact Eyes: extraocular muscles intact (EOMI) and pupils equal, round and reactive to light (PERRL) gross peripheral vision in tact NEUROLOGIC EXAMINATION: Mental status: Alert and interactive Oriented to full date and location Oriented to person Speech fluent with no evidence of aphasia Cranial Nerves smile and eye brow raise symmetric, tongue midline Coordination: finger to nose no bi pass no tremor Gait/Stance: Posture normal. stands without assistance from arms of chair Motor: Negative for pronator drift of out stretched arms with eyes closed. 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 Current Inpatient Medications Medications (Trade) Dose Ordered Sig/Alexus Route Start Time Stop Time Status Last Admin Dose Admin Acetaminophen (Tylenol Tab) 650 mg Q4H PRN PO 09/27/16 12:45 10/27/16 12:44 Miscellaneous Information 1 ea 1 ea UD PRN N/A 09/27/16 12:45 10/27/16 12:44 Promethazine HCl/ Sodium Chloride (Phenergan Inj/ Nss 50ml) 50.5 ml @ 204 mls/hr Q6H PRN IV 09/27/16 13:30 10/27/16 13:29 Miscellaneous (Iv Fluids Completed) 1 ea PRN PRN N/A 09/27/16 14:30 09/27/17 14:29 Amiodarone HCl (Cordarone Tab) 200 mg DAILY PO 09/28/16 09:00 10/28/16 08:59 Future Hold Furosemide (Lasix Tab) 20 mg DAILY PO 09/28/16 09:00 10/28/16 08:59 09/28/16 08:02 20 MG Gabapentin (Neurontin Cap) 300 mg DAILY@0900,1200 PO 09/28/16 09:00 10/28/16 08:59 09/28/16 13:05 300 MG Levetiracetam (Keppra Tab) 500 mg BID PO 09/27/16 22:00 10/27/16 21:59 09/28/16 08:01 500 MG Lisinopril (Zestril Tab) 5 mg QAM PO 09/28/16 09:00 10/28/16 08:59 09/28/16 08:02 5 MG Meclizine HCl (Antivert Tab) 25 mg Q8 PRN PO 09/27/16 14:45 10/27/16 14:44 Multivitamins/ Minerals (Multivitamin W/ Minerals Tab) 1 tab DAILY PO 09/28/16 09:00 10/28/16 08:59 09/28/16 08:04 1 TAB Sertraline HCl (Zoloft Tab) 25 mg DAILY PO 09/28/16 09:00 10/28/16 08:59 09/28/16 08:04 25 MG Simvastatin (Zocor Tab) 20 mg QAM PO 09/28/16 09:00 10/28/16 08:59 09/28/16 08:04 20 MG Tamsulosin HCl (Flomax Cap) 0.4 mg DAILY PO 09/28/16 09:00 10/28/16 08:59 09/28/16 08:02 0.4 MG Metoprolol Tartrate (Lopressor Tab) 12.5 mg BID PO 09/27/16 06:00 10/27/16 05:59 Future Hold 09/28/16 08:03 12.5 MG Gabapentin (Neurontin Cap) 600 mg HS PO 09/27/16 21:00 10/27/16 20:59 09/27/16 20:21 600 MG Impression 86 year old male history of CHF, afib on coumadin, vertigo -with an episode of vertigo - now resolved Plan 1. CT head with no acute findings and stable meningioma left temp wing 2. PT/OT for discharge needs and Donny to evoke vertigo - vertigo has resolved 3. remote meningioma partial resection no history of CA- 1986 4. cardiology for medication adjustments as needed- and decision regarding continuation of coumadin vs aspirin only 5. continue Keppra 500 mg BID for previous report of seizure 6. continue to taper of neurontin possible contributory to dizziness 7. leg weakness may have been due to patient not eating in am and vomiting. 8. coumadin - INR 2.9- being held at this time due to bleeding with BM 9. patient has sensation loss in LE may contribute to dizziness and balance issues 10. MRI without contrast to r/o stroke- no acute findings I have seen and discussed above patient with Dr Radha Riggs, neurology Pt seen and examined. No new central event, suspect flare of bppv which bc of pt age he tolerates poorly. NASRA Riggs MD
--- NOTE | 2016-09-28 17:29 | Progress Note ---
Internal Med Progress Note Date of Service: Sep 28, 2016. Provider Documentation: SUBJECTIVE: had blood in stool earlier , no further episode no nausea or abdominal pain improved dizzy spell no complain of chest pain or SOB OBJECTIVE: Vital Signs-as noted below Exam: General-elderly male , no sign of distress Eyes-sclera non icteric Lungs-CTA Heart-regular S1/S2 Abdomen-soft, non tender Extremities-no lower ext edema Neuro-AAO x3, no focal deficit Lab data as noted below. ASSESSMENT & PLAN: DIZZY SPELL possible due to symptomatic bradycardia ? -symptom has resolved - patient presenting with sudden onset dizziness / sensation of room spinning; MRI of brain negative change - CT head unchanged - appreciate neurology consult -tele monitor shows frequent PVC possible bradycardia causing symptom Amiodarone , and beta akil D/radha Cardiology following cont tele monitor may need to be considered for pacemaker for symptomatic bradycardia HYPOXIA - resolved in room air no complain of SOB HX NON OBSTRUCTIVE CAD presented with chest pain , at present symptom free, no evidence of ACS - seems to be musculoskeletal in nature as is reproducible with palpation; - troponin negative, EKG without acute ST changes; - Beta akil D/radha due to bradycardia - cardio consult, input appreciated CHRONIC SYSTOLIC CHF - echo 08/2016 - EF 35-40% compensated - continue ACEi PROLONGED QTC - QTC 492 - monitor EKG daily - avoid QTC prolonging agents follow daily BMP , Mg level HTN - continue lisinopril ATRIAL FIBRILLATION, HX NON SUSTAINED V-TACH - on beta akil Amiodarone D/radha - Coumadin on hold for report of blood in stool in AM HX BRAIN MENINGIOMA, SEIZURES - continue Keppra PULMONARY NODULE - possible suprahilar lymph node noted on CXR - outpatient follow up CODE STATUS - Patient is a full code DVT PROPHYLAXIS hold Coumadin for concern of blood in stool may not be candidate for Coumadin in future for increase bleeding risk need order for SCD and teds as INR drops < 2 DISPOSITION Pt/OT eval requested possible return home with Home health /home PT Medicine follow up with Dr Carlie Abarca Vital Signs: Date Time Temp Pulse Resp B/P Pulse Ox O2 Delivery O2 Flow Rate FiO2 09/28/16 16:00 Room Air 09/28/16 15:34 36.4 49 20 131/71 92 Room Air 09/28/16 12:00 Room Air 09/28/16 10:53 36.8 56 20 125/67 95 Room Air 09/28/16 08:00 Room Air 09/28/16 07:20 36.5 58 20 154/82 92 Room Air 09/28/16 04:00 Room Air 09/28/16 03:54 36.8 63 19 132/69 97 Nasal Cannula 2.0 09/27/16 23:59 Room Air 09/27/16 23:41 36.4 59 18 113/53 92 Nasal Cannula 2.0 09/27/16 20:00 Room Air 09/27/16 19:55 36.7 53 20 122/70 93 Nasal Cannula 2.0 Lab Results: Results Past 24 Hours Test 09/27/16 22:00 09/27/16 22:03 09/28/16 07:17 Range/Units Creatine Kinase MB Ratio 0-3.0 Creatine Kinase MB 1.0 0.5-3.6 ng/ml Troponin I 0.024 0-0.045 ng/ml White Blood Count 4.60 4.8-10.8 K/uL Red Blood Count 3.99 4.7-6.1 M/uL Hemoglobin 12.1 14.0-18.0 g/dL Hematocrit 36.3 42-52 % Mean Corpuscular Volume 91.0 80-100 fL Mean Corpuscular Hemoglobin 30.3 25-34 pg Mean Corpuscular Hemoglobin Concent 33.3 32-36 g/dl Platelet Count 120 130-400 K/uL Mean Platelet Volume 11.2 7.4-10.4 fL Neutrophils (%) (Auto) 70.3 % Lymphocytes (%) (Auto) 12.8 % Monocytes (%) (Auto) 12.6 % Eosinophils (%) (Auto) 3.9 % Basophils (%) (Auto) 0.2 % Neutrophils # (Auto) 3.23 1.4-6.5 K/uL Lymphocytes # (Auto) 0.59 1.2-3.4 K/uL Monocytes # (Auto) 0.58 0.11-0.59 K/uL Eosinophils # (Auto) 0.18 0-0.5 K/uL Basophils # (Auto) 0.01 0-0.2 K/uL RDW Standard Deviation 52.1 36.4-46.3 fL RDW Coefficient of Variation 15.7 11.5-14.5 % Immature Granulocyte % (Auto) 0.2 % Immature Granulocyte # (Auto) 0.01 0.00-0.02 K/uL Prothrombin Time 40.6 9.0-12.0 SECONDS Prothromb Time International Ratio 3.6 0.9-1.1 Sodium Level 143 136-145 mmol/L Potassium Level 4.2 3.5-5.1 mmol/L Chloride Level 106 98-107 mmol/L Carbon Dioxide Level 31 21-32 mmol/L Anion Gap 6.0 3-11 mmol/L Blood Urea Nitrogen 20 7-18 mg/dl Creatinine 1.00 0.60-1.40 mg/dl Est Creatinine Clear Calc Drug Dose 53.1 ml/min Estimated GFR () 78.6 Estimated GFR (Non- 67.8 BUN/Creatinine Ratio 19.9 10-20 Random Glucose 86 70-99 mg/dl Calcium Level 8.2 8.5-10.1 mg/dl Triglycerides Level 45 0-150 mg/dl Cholesterol Level 131 0-200 mg/dl HDL Cholesterol 60 mg/dl LDL Cholesterol, Calculated 62 mg/dl VLDL Cholesterol, Calculated 9 mg/dl Cholesterol/HDL Ratio 2.2
[2016-09-28 19:45] VITALS: BP 131/68; PULSE 65; TEMP 36.8; O2SAT 93
[2016-09-28 23:05] VITALS: BP 152/72; PULSE 35; TEMP 37; O2SAT 92
[2016-09-29] VITALS (7 sets, daily range): BP systolic 133–161; BP diastolic 62–76; PULSE 57–88; TEMP 36.8–37.6; O2SAT 90–97
[2016-09-29 07:23] LABS: BASO % 0.4 %; BASO ABS # 0.02 K/uL (0-0.2); COMPLETE YES; EOS % 3.9 %; HEMATOCRIT 36.1 % (42-52); LYMPH % 13.9 %; LYMPH ABS # 0.65 K/uL (1.2-3.4); MEAN CELL VOLUME 90.7 fL (80-100); MEAN CORPUSCULAR HEMOGLOBIN 29.9 pg (25-34); MEAN PLATELET VOLUME 11.8 fL (7.4-10.4); MONO % 13.7 %; NEUT % 68.1 %; PLATELET COUNT 113 K/uL (130-400); RED BLOOD COUNT 3.98 M/uL (4.7-6.1); WHITE BLOOD COUNT 4.67 K/uL (4.8-10.8)
[2016-09-29 07:34] LABS: INR 3.2 (0.9-1.1); PROTHROMBIN TIME (PATIENT) 35.8 SECONDS (9.0-12.0)
[2016-09-29 07:57] LABS: BUN/CREATININE RATIO 23.2 (10-20); CALCIUM 8.2 mg/dl (8.5-10.1); POTASSIUM 3.8 mmol/L (3.5-5.1)
[2016-09-29] MEDS: GABAPENTIN 300 MG CAP PO SCH ×3 (08:53→20:46)
[2016-09-29] MEDS: LEVETIRACETAM 250 MG TAB PO SCH ×2 (08:53→20:46)
[2016-09-29] MEDS: FUROSEMIDE 20 MG TAB PO SCH (08:54)
[2016-09-29] MEDS: SERTRALINE HCL 50 MG TAB PO SCH (08:54)
[2016-09-29] MEDS: TAMSULOSIN HCL 0.4 MG CAP PO SCH (08:54)
[2016-09-29] MEDS: LISINOPRIL 5 MG TAB PO SCH (08:54)
[2016-09-29] MEDS: CEROVITE ADV FORMULA TAB PO SCH (08:54)
[2016-09-29] MEDS: SIMVASTATIN 20 MG TAB PO SCH (08:54)
--- NOTE | 2016-09-29 11:59 | Cardiology Follow-Up ---
Subjective General Date of Service: Sep 29, 2016. Chief Complaint: follow up Pt evaluation today including: conversation w/ patient, physical exam History of Present Illness The patient is a 86 year old male seen in follow up. Telemetry reveals continued atrial fibrillation with frequent PVCs, ventricular rates in the 80 bpm off of metoprolol and amiodarone. Allergies Coded Allergies: No Known Allergies (Unverified , 09/27/16) Social History Smoking Status: Never Smoker Hx Tobacco Use In Past Year?: No Hx Alcohol Use - Type And Amou: No Hx Substance Use - Type And Am: No Problem List Medical Problems: (1) Afib Status: Acute (2) Anticoagulated on Coumadin Status: Acute (3) Atrial fibrillation with RVR Status: Acute (4) Brain mass Status: Acute (5) Orthostatic hypotension Status: Acute (6) Substernal chest pain Status: Acute (7) Vertigo Status: Acute (8) Vertigo Status: Acute Physical Exam Vital Signs Last Vital Signs Documentation Date Time Temp Pulse Resp B/P Pulse Ox O2 Delivery O2 Flow Rate FiO2 09/29/16 08:15 36.8 64 16 160/76 97 Room Air 09/28/16 03:54 2.0 Physical Exam Constitutional: Level of Distress: NAD Head: normocephalic Neck: supple Lungs: Auscultation: CTA except as noted, no wheezing Cardiovascular: Heart Auscultation: no murmurs, irregular rate rhythm Extremities: no edema Assessment and Plan Assessment and Plan A recent 24-hour Holter monitor had been performed as an outpatient on 2016. Atrial fibrillation was present throughout the study. Frequent PVCs were present including over 8000 isolated PVCs and 6 ventricular runs with the longus salvos of nonsustained ventricular tachycardia of 7 beats in duration with rate of 136 bpm. Minimum heart rate during the monitored intervals 41 bpm. The maximum heart rate was 100 bpm. The average ventricular rate was 66 bpm. The longest R to R interval was 2.1 seconds during the Holter. Summary of transthoracic echocardiogram performed at [facility] 09/04/16 and reviewed an belly by the undersigned: * -- Conclusions -- * Atrial fibrillation with controlled ventricular rate was present during the echocardiogram study. * There is moderate concentric left ventricular hypertrophy. * There is moderate global hypokinesis of the left ventricle. * Left ventricular systolic function is moderately reduced. * The LV Ejection Fraction = 35-40%. * The left atrium is severely dilated. * There is moderate tricuspid regurgitation. * Moderate aortic regurgitation. Impression: 86 year old male 1. Chronic atrial fibrillation 2. Frequent symptomatic premature ventricular contractions, as well as nonsustained ventricular tachycardia 3. Nonischemic cardiomyopathy, moderate LV systolic dysfunction with exertional shortness of breath Recommendations: The patient has had 5 trips to the hospital/emergency room so far this year. He has had multiple outpatient cardiology visits for medication regulation. First low dose metoprolol was initiated, he was then hospitalized and found to have frequent PVCs and amiodarone 200 mg twice a day was added. A recent Holter monitor as outlined above revealed relatively stable ventricular rates with frequent PVCs and nonsustained ventricular tachycardia, the patient has since been admitted, and had transient heart rates down to the 30 beat per minute range prompting discontinuation of his metoprolol and amiodarone. At present, I recommend implantation of a single-chamber ventricular pacemaker for heart rate support to allow medication for his cardiomyopathy and PVCs with beta akil and amiodarone. I do not think that we would be successful and cardioverting the patient to restore sinus rhythm, and therefore a dual-chamber pacemaker is not necessary as the patient has chronic persistent atrial fibrillation. The patient and his daughter, Eliza are agreeable to pacemaker. I discussed the case with Dr Mcgowan of EP and will plan for procedure on Sunday after the patient's INR is hopefully an acceptable range. Coumadin is going to be held. Regarding his long-term Coumadin candidacy. The patient does have chronic atrial fibrillation and is of course at high risk of cardiac embolic stroke. He has had some transient hemorrhoidal bleeding. At the present time, we'll hold his Coumadin, and perhaps plantar reinitiated with a INR goal of 2-2.5. Davian Barahona DO Laboratory Results Last 24 Hours Test 09/29/16 00:00 09/29/16 07:00 Stool Occult Blood NEGATIVE White Blood Count 4.67 K/uL Red Blood Count 3.98 M/uL Hemoglobin 11.9 g/dL Hematocrit 36.1 % Mean Corpuscular Volume 90.7 fL Mean Corpuscular Hemoglobin 29.9 pg Mean Corpuscular Hemoglobin Concent 33.0 g/dl Platelet Count 113 K/uL Mean Platelet Volume 11.8 fL Neutrophils (%) (Auto) 68.1 % Lymphocytes (%) (Auto) 13.9 % Monocytes (%) (Auto) 13.7 % Eosinophils (%) (Auto) 3.9 % Basophils (%) (Auto) 0.4 % Neutrophils # (Auto) 3.18 K/uL Lymphocytes # (Auto) 0.65 K/uL Monocytes # (Auto) 0.64 K/uL Eosinophils # (Auto) 0.18 K/uL Basophils # (Auto) 0.02 K/uL RDW Standard Deviation 51.6 fL RDW Coefficient of Variation 15.6 % Immature Granulocyte % (Auto) 0.0 % Immature Granulocyte # (Auto) 0.00 K/uL Prothrombin Time 35.8 SECONDS Prothromb Time International Ratio 3.2 Sodium Level 141 mmol/L Potassium Level 3.8 mmol/L Chloride Level 106 mmol/L Carbon Dioxide Level 30 mmol/L Anion Gap 5.0 mmol/L Blood Urea Nitrogen 23 mg/dl Creatinine 1.00 mg/dl Est Creatinine Clear Calc Drug Dose 53.1 ml/min Estimated GFR () 78.6 Estimated GFR (Non- 67.8 BUN/Creatinine Ratio 23.2 Random Glucose 82 mg/dl Calcium Level 8.2 mg/dl Magnesium Level 2.0 mg/dl
--- NOTE | 2016-09-29 12:56 | Neurology Progress Notes ---
Neurology Progress Note Date of Service Sep 29, 2016. Subjective David 86 year old male who has a PMH afib, CHF, DL, BPH, seizure with meningioma partial resection, anxiety, vertigo presents to the ER with reports of dizziness. He has been admitted for similar symptoms in the past. one admission was for acute systolic CHF due to afib with RVR. He was discharged on Lasix and metoprolol. He was then readmitted with chest pain and dizziness. He was also found to have non sustained v-tach on tele and amiodarone was started. Dizziness was felt to be due to his chronic vertigo and Donny maneuver was preformed. He had an outpatient Holter that showed frequent PVCs, non sustained V-tach, and no significant bradycardia or pauses. He was in the cardiology clinic yesterday and was instructed to decrease his Amiodarone. Dr Sandoval in neurology saw him as an outpatient recently and advised him to taper off his Neurontin over several weeks. He woke up he had the sensation of the room spinning around him which was the same feeling he has with his vertigo. She gave him a meclizine but wouldn't let him get out of bed to go to the bathroom because she didn't want him to fall. He then asked her to call 911. He states he is back to his baseline and sitting up in bed eating his lunch. He was also having some left sided chest pain which his states they did a CXR and EKG for evaluation. . He did vomit in the ambulance on the way to the hospital. He denies recent illness, he had not eaten prior to arrival at hospital. He did have some weakness in his LE in the ED but he thinks it was both legs Today he is sitting up in bed and states he is ready to go home. He denies any dizzy spells. Cardiology was in earlier and they are planning on implanting a single chamber pacer on Sunday if his INR is below 1.2. denies CP, SOB, abdominal pain, one sided weakness, numbness, tingling, N, V, swallowing difficulty. Objective Date Time Temp Pulse Resp B/P Pulse Ox O2 Delivery O2 Flow Rate FiO2 09/29/16 12:00 Room Air 09/29/16 11:52 36.9 57 16 133/69 94 Room Air 09/29/16 08:15 36.8 64 16 160/76 97 Room Air 09/29/16 08:00 Room Air 09/29/16 04:00 Room Air 09/29/16 03:56 37.0 88 20 160/62 90 Room Air 09/29/16 00:00 Room Air 09/28/16 23:05 37.0 35 18 152/72 92 Room Air 09/28/16 19:45 36.8 65 18 131/68 93 Room Air 09/28/16 19:43 Room Air 09/28/16 16:00 Room Air 09/28/16 15:34 36.4 49 20 131/71 92 Room Air Last 24 Hours Test 09/29/16 00:00 09/29/16 07:00 Stool Occult Blood NEGATIVE White Blood Count 4.67 K/uL Red Blood Count 3.98 M/uL Hemoglobin 11.9 g/dL Hematocrit 36.1 % Mean Corpuscular Volume 90.7 fL Mean Corpuscular Hemoglobin 29.9 pg Mean Corpuscular Hemoglobin Concent 33.0 g/dl Platelet Count 113 K/uL Mean Platelet Volume 11.8 fL Neutrophils (%) (Auto) 68.1 % Lymphocytes (%) (Auto) 13.9 % Monocytes (%) (Auto) 13.7 % Eosinophils (%) (Auto) 3.9 % Basophils (%) (Auto) 0.4 % Neutrophils # (Auto) 3.18 K/uL Lymphocytes # (Auto) 0.65 K/uL Monocytes # (Auto) 0.64 K/uL Eosinophils # (Auto) 0.18 K/uL Basophils # (Auto) 0.02 K/uL RDW Standard Deviation 51.6 fL RDW Coefficient of Variation 15.6 % Immature Granulocyte % (Auto) 0.0 % Immature Granulocyte # (Auto) 0.00 K/uL Prothrombin Time 35.8 SECONDS Prothromb Time International Ratio 3.2 Sodium Level 141 mmol/L Potassium Level 3.8 mmol/L Chloride Level 106 mmol/L Carbon Dioxide Level 30 mmol/L Anion Gap 5.0 mmol/L Blood Urea Nitrogen 23 mg/dl Creatinine 1.00 mg/dl Est Creatinine Clear Calc Drug Dose 53.1 ml/min Estimated GFR () 78.6 Estimated GFR (Non- 67.8 BUN/Creatinine Ratio 23.2 Random Glucose 82 mg/dl Calcium Level 8.2 mg/dl Magnesium Level 2.0 mg/dl Imaging: no new imaging Exam: Physical Exam: Constitutional: appearance nourished, healthy and normal Ears, Nose, Mouth and Throat: mucous membranes moist, no injection and skin normal, eyes normal Cardiovascular: irregular Respiratory: clear to auscultation (CTA) and no rales, rhonchi or wheeze Musculoskeletal: no peripheral edema Skin: no stigmata of neurocutaneous disease noted and normal and intact Eyes: extraocular muscles intact (EOMI) and pupils equal, round and reactive to light (PERRL) NEUROLOGIC EXAMINATION: Mental status: Alert and interactive Oriented to full date and location Oriented to person Speech fluent with no evidence of aphasia Cranial Nerves smile and eye brow raise symmetric, tongue midline Sensory: no sensory deficits Coordination: light touch Gait/Stance: Posture sitting up in bed Strength: biceps triceps 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, hip flex plantar flex ext 5/5 bilaterally Current Inpatient Medications Medications (Trade) Dose Ordered Sig/Alexus Route Start Time Stop Time Status Last Admin Dose Admin Acetaminophen (Tylenol Tab) 650 mg Q4H PRN PO 09/27/16 12:45 10/27/16 12:44 Miscellaneous Information 1 ea 1 ea UD PRN N/A 09/27/16 12:45 10/27/16 12:44 Promethazine HCl/ Sodium Chloride (Phenergan Inj/ Nss 50ml) 50.5 ml @ 204 mls/hr Q6H PRN IV 09/27/16 13:30 10/27/16 13:29 Miscellaneous (Iv Fluids Completed) 1 ea PRN PRN N/A 09/27/16 14:30 09/27/17 14:29 Amiodarone HCl (Cordarone Tab) 200 mg DAILY PO 09/28/16 09:00 10/28/16 08:59 Future Hold Furosemide (Lasix Tab) 20 mg DAILY PO 09/28/16 09:00 10/28/16 08:59 09/29/16 08:54 20 MG Gabapentin (Neurontin Cap) 300 mg DAILY@0900,1200 PO 09/28/16 09:00 10/28/16 08:59 09/29/16 12:33 300 MG Levetiracetam (Keppra Tab) 500 mg BID PO 09/27/16 22:00 10/27/16 21:59 09/29/16 08:53 500 MG Lisinopril (Zestril Tab) 5 mg QAM PO 09/28/16 09:00 10/28/16 08:59 09/29/16 08:54 5 MG Meclizine HCl (Antivert Tab) 25 mg Q8 PRN PO 09/27/16 14:45 10/27/16 14:44 Multivitamins/ Minerals (Multivitamin W/ Minerals Tab) 1 tab DAILY PO 09/28/16 09:00 10/28/16 08:59 09/29/16 08:54 1 TAB Sertraline HCl (Zoloft Tab) 25 mg DAILY PO 09/28/16 09:00 10/28/16 08:59 09/29/16 08:54 25 MG Simvastatin (Zocor Tab) 20 mg QAM PO 09/28/16 09:00 10/28/16 08:59 09/29/16 08:54 20 MG Tamsulosin HCl (Flomax Cap) 0.4 mg DAILY PO 09/28/16 09:00 10/28/16 08:59 09/29/16 08:54 0.4 MG Metoprolol Tartrate (Lopressor Tab) 12.5 mg BID PO 09/27/16 06:00 10/27/16 05:59 Future Hold 09/28/16 08:03 12.5 MG Gabapentin (Neurontin Cap) 600 mg HS PO 09/27/16 21:00 10/27/16 20:59 09/28/16 20:45 600 MG Impression 86 year old male history of CHF, afib on coumadin, vertigo -with an episode of vertigo - now resolved Plan 1. CT head with no acute findings and stable meningioma left temp wing 2. PT/OT for discharge needs and Donny to evoke vertigo - vertigo has resolved 3. remote meningioma partial resection no history of CA- 1986 4. cardiology for medication adjustments as needed - advised will be implanting pacer on Sunday if INR is below 1.2 currently 3.2 5. continue Keppra 500 mg BID for previous report of seizure 6. continue to taper of neurontin possible contributory to dizziness 7. leg weakness may have been due to patient not eating in am and vomiting. 8. patient has sensation loss in LE may contribute to dizziness and balance issues-cardiology issues primary source 9. MRI without contrast to r/o stroke- no acute findings 10. will sign off for now will be available as needed. 11. follow up with Dr Sandoval as scheduled I have seen and discussed above patient with Dr Radha Riggs, neurologyPt seen and examined,discussed with BETHANY Sauceda. Follow-up with Dr Sandoval post vanessa, NASRA Riggs MD
--- NOTE | 2016-09-29 16:51 | Progress Note ---
Subjective Date of Service: Sep 29, 2016. Subjective Pt evaluation today including: conversation w/ patient, physical exam, lab review, review of studies, review of inpatient medication list Saw/examined the patient in room 242 He's doing well; states his symptoms have resolved; denies chest pain has some dyspnea with exertion No dizziness and he is ambulating well with walker Problem List Medical Problems: (1) Afib Status: Acute (2) Anticoagulated on Coumadin Status: Acute (3) Atrial fibrillation with RVR Status: Acute (4) Brain mass Status: Acute (5) Orthostatic hypotension Status: Acute (6) Substernal chest pain Status: Acute (7) Vertigo Status: Acute (8) Vertigo Status: Acute Review of Systems Constitutional: No weakness Respiratory: + dyspnea on exertion, No dyspnea at rest, No hemoptysis, No shortness of breath, No wheezing Cardiac: No chest pain Abdomen: No diarrhea, No nausea, No pain, No vomiting Neurologic: No balance problems, No vertigo (resolved) Medications Current Inpatient Medications Medications (Trade) Dose Ordered Sig/Alexus Route Start Time Stop Time Status Last Admin Dose Admin Acetaminophen (Tylenol Tab) 650 mg Q4H PRN PO 09/27/16 12:45 10/27/16 12:44 Miscellaneous Information 1 ea 1 ea UD PRN N/A 09/27/16 12:45 10/27/16 12:44 Promethazine HCl/ Sodium Chloride (Phenergan Inj/ Nss 50ml) 50.5 ml @ 204 mls/hr Q6H PRN IV 09/27/16 13:30 10/27/16 13:29 Miscellaneous (Iv Fluids Completed) 1 ea PRN PRN N/A 09/27/16 14:30 09/27/17 14:29 Amiodarone HCl (Cordarone Tab) 200 mg DAILY PO 09/28/16 09:00 10/28/16 08:59 Future Hold Furosemide (Lasix Tab) 20 mg DAILY PO 09/28/16 09:00 10/28/16 08:59 09/29/16 08:54 20 MG Gabapentin (Neurontin Cap) 300 mg DAILY@0900,1200 PO 09/28/16 09:00 10/28/16 08:59 09/29/16 12:33 300 MG Levetiracetam (Keppra Tab) 500 mg BID PO 09/27/16 22:00 10/27/16 21:59 09/29/16 08:53 500 MG Lisinopril (Zestril Tab) 5 mg QAM PO 09/28/16 09:00 10/28/16 08:59 09/29/16 08:54 5 MG Meclizine HCl (Antivert Tab) 25 mg Q8 PRN PO 09/27/16 14:45 10/27/16 14:44 Multivitamins/ Minerals (Multivitamin W/ Minerals Tab) 1 tab DAILY PO 09/28/16 09:00 10/28/16 08:59 09/29/16 08:54 1 TAB Sertraline HCl (Zoloft Tab) 25 mg DAILY PO 09/28/16 09:00 10/28/16 08:59 09/29/16 08:54 25 MG Simvastatin (Zocor Tab) 20 mg QAM PO 09/28/16 09:00 10/28/16 08:59 09/29/16 08:54 20 MG Tamsulosin HCl (Flomax Cap) 0.4 mg DAILY PO 09/28/16 09:00 10/28/16 08:59 09/29/16 08:54 0.4 MG Metoprolol Tartrate (Lopressor Tab) 12.5 mg BID PO 09/27/16 06:00 10/27/16 05:59 Future Hold 09/28/16 08:03 12.5 MG Gabapentin (Neurontin Cap) 600 mg HS PO 09/27/16 21:00 10/27/16 20:59 09/28/16 20:45 600 MG Objective Vital Signs Date Time Temp Pulse Resp B/P Pulse Ox O2 Delivery O2 Flow Rate FiO2 09/29/16 15:55 36.8 80 16 161/71 96 Room Air 09/29/16 12:00 Room Air 09/29/16 11:52 36.9 57 16 133/69 94 Room Air 09/29/16 08:15 36.8 64 16 160/76 97 Room Air 09/29/16 08:00 Room Air 09/29/16 04:00 Room Air 09/29/16 03:56 37.0 88 20 160/62 90 Room Air 09/29/16 00:00 Room Air 09/28/16 23:05 37.0 35 18 152/72 92 Room Air 09/28/16 19:45 36.8 65 18 131/68 93 Room Air 09/28/16 19:43 Room Air Physical Exam General Appearance: no apparent distress Respiratory/Chest: lungs clear, normal breath sounds, no respiratory distress, no accessory muscle use Cardiovascular: no murmur, + irregularly irregular Abdomen: normal bowel sounds, non tender, soft Extremities: normal inspection, no pedal edema Neurologic/Psychiatric: no motor/sensory deficits, alert, normal mood/affect Laboratory Results Last 24 Hours Test 09/29/16 00:00 09/29/16 07:00 Stool Occult Blood NEGATIVE White Blood Count 4.67 K/uL Red Blood Count 3.98 M/uL Hemoglobin 11.9 g/dL Hematocrit 36.1 % Mean Corpuscular Volume 90.7 fL Mean Corpuscular Hemoglobin 29.9 pg Mean Corpuscular Hemoglobin Concent 33.0 g/dl Platelet Count 113 K/uL Mean Platelet Volume 11.8 fL Neutrophils (%) (Auto) 68.1 % Lymphocytes (%) (Auto) 13.9 % Monocytes (%) (Auto) 13.7 % Eosinophils (%) (Auto) 3.9 % Basophils (%) (Auto) 0.4 % Neutrophils # (Auto) 3.18 K/uL Lymphocytes # (Auto) 0.65 K/uL Monocytes # (Auto) 0.64 K/uL Eosinophils # (Auto) 0.18 K/uL Basophils # (Auto) 0.02 K/uL RDW Standard Deviation 51.6 fL RDW Coefficient of Variation 15.6 % Immature Granulocyte % (Auto) 0.0 % Immature Granulocyte # (Auto) 0.00 K/uL Prothrombin Time 35.8 SECONDS Prothromb Time International Ratio 3.2 Sodium Level 141 mmol/L Potassium Level 3.8 mmol/L Chloride Level 106 mmol/L Carbon Dioxide Level 30 mmol/L Anion Gap 5.0 mmol/L Blood Urea Nitrogen 23 mg/dl Creatinine 1.00 mg/dl Est Creatinine Clear Calc Drug Dose 53.1 ml/min Estimated GFR () 78.6 Estimated GFR (Non- 67.8 BUN/Creatinine Ratio 23.2 Random Glucose 82 mg/dl Calcium Level 8.2 mg/dl Magnesium Level 2.0 mg/dl Assessment and Plan This is an 86 year old male with PMH of chronic BPPV, chronic atrial fibrillation, frequent PVCs, hx. of NSVT, HTN, systolic CHF, hx. of meningioma and seizure disorder, depression/anxiety, HLD presents with dizziness Dizziness likely related to chronic vertigo vs. symptomatic bradycardia CT head and Brain MRI - negative PT - for Donny maneuver continue Meclizine PRN Phenergan/Zofran PRN for nausea appreciate neuro input, no further testing/medications needed will taper Neurontin continue Keppra outpatient f/u Symptomatic Bradycardia patient with chronic atrial fibrillation has had a Holter monitor which showed multiple PVCs and NSVT was started on amiodarone; and had been continue metoprolol become bradycardic both metoprolol and amiodarone have since been stopped bradycardia now improved Plan is for pacemaker insertion on October 02 Chronic Atrial Fibrillation currently holding metoprolol and amiodarone due to symptomatic bradycardia holding Coumadin, will get INR down to ~ 1.2 prior to procedure on Sunday will likely restart Coumadin after pacemaker insertion Chronic Systolic CHF Echo in August of 2016 shows an LVEF of 35-40% currently euvolemic does get chronic dyspnea with exertion, but no fluid overload noted continue home medications (lisinopril + Lasix) HTN blood pressure stable continue home medications Prolonged QTc QTc > 500 will avoid prolonging agents when possible monitor K and Mg Seizure Disorder hx. of meningioma and partial resection continue [facility] Non Obstructive CAD continue current medications as outlined above no b-blockers currently due to symptomatic bradycardia clinically denies chest pain today (09/29) Pulmonary Nodule possible suprahilar lymph node on CXR repeat CXR as outpatient DVT ppx currently holding Coumadin add SCDs when INR < 2.0 FULL CODE
[2016-09-29] MEDS: MECLIZINE HCL 12.5 MG TAB PO PRN (18:18)
[2016-09-30] VITALS (9 sets, daily range): BP systolic 116–188; BP diastolic 55–78; PULSE 68–91; TEMP 36.7–37.6; O2SAT 91–94
[2016-09-30] MEDS: MECLIZINE HCL 12.5 MG TAB PO PRN (02:43)
[2016-09-30 06:56] LABS: BASO % 0.2 %; BASO ABS # 0.01 K/uL (0-0.2); COMPLETE YES; EOS % 0.8 %; HEMATOCRIT 36.9 % (42-52); IG% 0.2 %; LYMPH % 11.1 %; LYMPH ABS # 0.69 K/uL (1.2-3.4); MEAN CELL VOLUME 89.8 fL (80-100); MEAN CORPUSCULAR HEMOGLOBIN 29.9 pg (25-34); MEAN CORPUSCULAR HGB CONC 33.3 g/dl (32-36); MEAN PLATELET VOLUME 11.3 fL (7.4-10.4); MONO % 14.2 %; NEUT % 73.5 %; PLATELET COUNT 115 K/uL (130-400); RED BLOOD COUNT 4.11 M/uL (4.7-6.1); WHITE BLOOD COUNT 6.19 K/uL (4.8-10.8)
[2016-09-30 07:02] LABS: INR 2.2 (0.9-1.1); PROTHROMBIN TIME (PATIENT) 24.4 SECONDS (9.0-12.0)
[2016-09-30 07:28] LABS: BUN/CREATININE RATIO 18.7 (10-20); CALCIUM 8.4 mg/dl (8.5-10.1); CREATININE 0.9 mg/dl (0.60-1.40); POTASSIUM 3.8 mmol/L (3.5-5.1)
[2016-09-30] MEDS: TAMSULOSIN HCL 0.4 MG CAP PO SCH (07:46)
[2016-09-30] MEDS: LEVETIRACETAM 250 MG TAB PO SCH ×2 (07:47→19:59)
[2016-09-30] MEDS: GABAPENTIN 300 MG CAP PO SCH ×3 (07:47→19:58)
[2016-09-30] MEDS: CEROVITE ADV FORMULA TAB PO SCH (07:47)
[2016-09-30] MEDS: FUROSEMIDE 20 MG TAB PO SCH (07:47)
[2016-09-30] MEDS: SIMVASTATIN 20 MG TAB PO SCH (07:48)
[2016-09-30] MEDS: LISINOPRIL 5 MG TAB PO SCH (07:48)
[2016-09-30] MEDS: SERTRALINE HCL 50 MG TAB PO SCH (07:48)
[2016-09-30] MEDS: ACETAMINOPHEN 325 MG TAB PO PRN (07:49)
--- NOTE | 2016-09-30 08:22 | Progress Note ---
Subjective Date of Service: Sep 30, 2016. Subjective Pt evaluation today including: conversation w/ patient, physical exam, lab review, review of studies, review of inpatient medication list Saw/examined the patient in room 242 Patient states he has significant left ankle/foot pain This is a new onset overnight; does not recall any trauma Very difficult to take his sock off due to pain Decreased range of motion of the foot Denies any shortness of breath/chest pain/palpitations Problem List Medical Problems: (1) Afib Status: Acute (2) Anticoagulated on Coumadin Status: Acute (3) Atrial fibrillation with RVR Status: Acute (4) Brain mass Status: Acute (5) Orthostatic hypotension Status: Acute (6) Substernal chest pain Status: Acute (7) Vertigo Status: Acute (8) Vertigo Status: Acute Review of Systems Constitutional: No weakness Respiratory: No dyspnea on exertion, No shortness of breath, No wheezing Cardiac: No chest pain, No edema, No palpitations Abdomen: No GI bleeding, No constipation, No diarrhea, No nausea, No pain, No vomiting Musculoskeletal: + joint pain, + see HPI Medications Current Inpatient Medications Medications (Trade) Dose Ordered Sig/Alexus Route Start Time Stop Time Status Last Admin Dose Admin Acetaminophen (Tylenol Tab) 650 mg Q4H PRN PO 09/27/16 12:45 10/27/16 12:44 09/30/16 07:49 650 MG Miscellaneous Information 1 ea 1 ea UD PRN N/A 09/27/16 12:45 10/27/16 12:44 Promethazine HCl/ Sodium Chloride (Phenergan Inj/ Nss 50ml) 50.5 ml @ 204 mls/hr Q6H PRN IV 09/27/16 13:30 10/27/16 13:29 Miscellaneous (Iv Fluids Completed) 1 ea PRN PRN N/A 09/27/16 14:30 09/27/17 14:29 Amiodarone HCl (Cordarone Tab) 200 mg DAILY PO 09/28/16 09:00 10/28/16 08:59 Future Hold Furosemide (Lasix Tab) 20 mg DAILY PO 09/28/16 09:00 10/28/16 08:59 09/30/16 07:47 20 MG Gabapentin (Neurontin Cap) 300 mg DAILY@0900,1200 PO 09/28/16 09:00 10/28/16 08:59 09/30/16 07:47 300 MG Levetiracetam (Keppra Tab) 500 mg BID PO 09/27/16 22:00 10/27/16 21:59 09/30/16 07:47 500 MG Lisinopril (Zestril Tab) 5 mg QAM PO 09/28/16 09:00 10/28/16 08:59 09/30/16 07:48 5 MG Meclizine HCl (Antivert Tab) 25 mg Q8 PRN PO 09/27/16 14:45 10/27/16 14:44 09/30/16 02:43 25 MG Multivitamins/ Minerals (Multivitamin W/ Minerals Tab) 1 tab DAILY PO 09/28/16 09:00 10/28/16 08:59 09/30/16 07:47 1 TAB Sertraline HCl (Zoloft Tab) 25 mg DAILY PO 09/28/16 09:00 10/28/16 08:59 09/30/16 07:48 25 MG Simvastatin (Zocor Tab) 20 mg QAM PO 09/28/16 09:00 10/28/16 08:59 09/30/16 07:48 20 MG Tamsulosin HCl (Flomax Cap) 0.4 mg DAILY PO 09/28/16 09:00 10/28/16 08:59 09/30/16 07:46 0.4 MG Metoprolol Tartrate (Lopressor Tab) 12.5 mg BID PO 09/27/16 06:00 10/27/16 05:59 Future Hold 09/28/16 08:03 12.5 MG Gabapentin (Neurontin Cap) 600 mg HS PO 09/27/16 21:00 10/27/16 20:59 09/29/16 20:46 600 MG Objective Vital Signs Date Time Temp Pulse Resp B/P Pulse Ox O2 Delivery O2 Flow Rate FiO2 09/30/16 04:00 Room Air 09/30/16 03:50 36.8 88 16 149/77 92 Room Air 09/30/16 00:01 Room Air 09/29/16 23:00 37.6 88 18 150/70 92 Room Air 09/29/16 20:00 Room Air 09/29/16 19:57 37.5 88 18 147/74 90 Room Air 09/29/16 18:19 85 159/76 09/29/16 16:00 Room Air 09/29/16 15:55 36.8 80 16 161/71 96 Room Air 09/29/16 12:00 Room Air 09/29/16 11:52 36.9 57 16 133/69 94 Room Air Physical Exam General Appearance: + mild distress (secondary to pain), + thin Respiratory/Chest: chest non-tender, lungs clear, normal breath sounds, no respiratory distress, no accessory muscle use Cardiovascular: no edema, no murmur, + irregularly irregular Extremities: normal inspection, no pedal edema, + pertinent finding (+ tenderness at left foot; ankle, dorsal aspect; with decreased and painful ROM in all planes, worse with dorsiflexion) Neurologic/Psychiatric: no motor/sensory deficits, alert, normal mood/affect Laboratory Results Last 24 Hours Test 09/30/16 06:44 White Blood Count 6.19 K/uL Red Blood Count 4.11 M/uL Hemoglobin 12.3 g/dL Hematocrit 36.9 % Mean Corpuscular Volume 89.8 fL Mean Corpuscular Hemoglobin 29.9 pg Mean Corpuscular Hemoglobin Concent 33.3 g/dl Platelet Count 115 K/uL Mean Platelet Volume 11.3 fL Neutrophils (%) (Auto) 73.5 % Lymphocytes (%) (Auto) 11.1 % Monocytes (%) (Auto) 14.2 % Eosinophils (%) (Auto) 0.8 % Basophils (%) (Auto) 0.2 % Neutrophils # (Auto) 4.55 K/uL Lymphocytes # (Auto) 0.69 K/uL Monocytes # (Auto) 0.88 K/uL Eosinophils # (Auto) 0.05 K/uL Basophils # (Auto) 0.01 K/uL RDW Standard Deviation 51.8 fL RDW Coefficient of Variation 15.7 % Immature Granulocyte % (Auto) 0.2 % Immature Granulocyte # (Auto) 0.01 K/uL Prothrombin Time 24.4 SECONDS Prothromb Time International Ratio 2.2 Sodium Level 142 mmol/L Potassium Level 3.8 mmol/L Chloride Level 107 mmol/L Carbon Dioxide Level 29 mmol/L Anion Gap 6.0 mmol/L Blood Urea Nitrogen 17 mg/dl Creatinine 0.90 mg/dl Est Creatinine Clear Calc Drug Dose 58.9 ml/min Estimated GFR () 89.3 Estimated GFR (Non- 77.1 BUN/Creatinine Ratio 18.7 Random Glucose 92 mg/dl Calcium Level 8.4 mg/dl Magnesium Level 2.0 mg/dl Assessment and Plan This is an 86 year old male with PMH of chronic BPPV, chronic atrial fibrillation, frequent PVCs, hx. of NSVT, HTN, systolic CHF, hx. of meningioma and seizure disorder, depression/anxiety, HLD presents with dizziness Dizziness 09/30 currently denies dizziness 09/29 likely related to chronic vertigo vs. symptomatic bradycardia CT head and Brain MRI - negative PT - for Donny maneuver continue Meclizine PRN Phenergan/Zofran PRN for nausea appreciate neuro input, no further testing/medications needed will taper Neurontin continue Keppra outpatient f/u Symptomatic Bradycardia 09/30 HRs in the 80s-s this morning multiple PVCs on tele monitoring currently holding b-akil and amiodarone monitor for tachycardia plan for pacemaker insertion on Sunday (10/02) 09/29 patient with chronic atrial fibrillation has had a Holter monitor which showed multiple PVCs and NSVT was started on amiodarone; and had been continue metoprolol become bradycardic both metoprolol and amiodarone have since been stopped bradycardia now improved Plan is for pacemaker insertion on October 02 Chronic Atrial Fibrillation 09/30 INR down to 2.2 continue to hold Coumadin as outlined below 09/29 currently holding metoprolol and amiodarone due to symptomatic bradycardia holding Coumadin, will get INR down to ~ 1.2 prior to procedure on Sunday will likely restart Coumadin after pacemaker insertion Left Foot/Ankle pain will obtain radiographs unsure if there was any trauma no swelling of the calf noted Chronic Systolic CHF Echo in August of 2016 shows an LVEF of 35-40% currently euvolemic does get chronic dyspnea with exertion, but no fluid overload noted continue home medications (lisinopril + Lasix) HTN blood pressure stable continue home medications Prolonged QTc QTc > 500 will avoid prolonging agents when possible monitor K and Mg Seizure Disorder hx. of meningioma and partial resection continue Keppra Non Obstructive CAD continue current medications as outlined above no b-blockers currently due to symptomatic bradycardia denies chest pain Pulmonary Nodule possible suprahilar lymph node on CXR repeat CXR as outpatient DVT ppx currently holding Coumadin add SCDs when INR < 2.0 FULL CODE
--- NOTE | 2016-09-30 10:53 | Cardiology Follow-Up ---
Subjective General Date of Service: Sep 30, 2016. Chief Complaint: follow up Pt evaluation today including: conversation w/ patient, physical exam History of Present Illness The patient is a 86 year old male seen in follow-up. Patient feels well with the exception of having pain over the dorsum of his left foot. Telemetry reveals continued atrial fibrillation, ventricular rates are in the 80 beat per minute range for the most part the present time off of metoprolol and off of amiodarone. 10 beat yuliana of nonsustained ventricular tachycardia was noted at 1:32 AM on 09/30/16. Allergies Coded Allergies: No Known Allergies (Unverified , 09/27/16) Social History Smoking Status: Never Smoker Hx Tobacco Use In Past Year?: No Hx Alcohol Use - Type And Amou: No Hx Substance Use - Type And Am: No Problem List Medical Problems: (1) Afib Status: Acute (2) Anticoagulated on Coumadin Status: Acute (3) Atrial fibrillation with RVR Status: Acute (4) Brain mass Status: Acute (5) Orthostatic hypotension Status: Acute (6) Substernal chest pain Status: Acute (7) Vertigo Status: Acute (8) Vertigo Status: Acute Physical Exam Vital Signs Last Vital Signs Documentation Date Time Temp Pulse Resp B/P Pulse Ox O2 Delivery O2 Flow Rate FiO2 09/30/16 08:24 36.8 91 19 188/75 94 Room Air 09/30/16 08:01 2.0 Physical Exam Constitutional: Level of Distress: NAD Head: normocephalic Neck: supple Lungs: Auscultation: CTA except as noted, no wheezing Cardiovascular: Heart Auscultation: no murmurs, irregular rate rhythm Extremities: no edema Assessment and Plan Assessment and Plan A recent 24-hour Holter monitor had been performed as an outpatient on 2016. Atrial fibrillation was present throughout the study. Frequent PVCs were present including over 8000 isolated PVCs and 6 ventricular runs with the longus salvos of nonsustained ventricular tachycardia of 7 beats in duration with rate of 136 bpm. Minimum heart rate during the monitored intervals 41 bpm. The maximum heart rate was 100 bpm. The average ventricular rate was 66 bpm. The longest R to R interval was 2.1 seconds during the Holter. Summary of transthoracic echocardiogram performed at [facility] 09/04/16 and reviewed an belly by the undersigned: * -- Conclusions -- * Atrial fibrillation with controlled ventricular rate was present during the echocardiogram study. * There is moderate concentric left ventricular hypertrophy. * There is moderate global hypokinesis of the left ventricle. * Left ventricular systolic function is moderately reduced. * The LV Ejection Fraction = 35-40%. * The left atrium is severely dilated. * There is moderate tricuspid regurgitation. * Moderate aortic regurgitation. Impression: 86 year old male 1. Chronic atrial fibrillation 2. Frequent symptomatic premature ventricular contractions, as well as nonsustained ventricular tachycardia 3. Nonischemic cardiomyopathy, moderate LV systolic dysfunction with exertional shortness of breath Recommendations: Resume low-dose metoprolol tartrate 12.5 mg twice a day. Monitor patient on telemetry. As long as there is no significant problem with his left foot found, plan to proceed with single chamber permanent pacemaker early next week when INR is at an appropriate level. Coumadin is on hold. Repeat INR tomorrow. Davian Barahona DO Laboratory Results Last 24 Hours Test 09/30/16 06:44 White Blood Count 6.19 K/uL Red Blood Count 4.11 M/uL Hemoglobin 12.3 g/dL Hematocrit 36.9 % Mean Corpuscular Volume 89.8 fL Mean Corpuscular Hemoglobin 29.9 pg Mean Corpuscular Hemoglobin Concent 33.3 g/dl Platelet Count 115 K/uL Mean Platelet Volume 11.3 fL Neutrophils (%) (Auto) 73.5 % Lymphocytes (%) (Auto) 11.1 % Monocytes (%) (Auto) 14.2 % Eosinophils (%) (Auto) 0.8 % Basophils (%) (Auto) 0.2 % Neutrophils # (Auto) 4.55 K/uL Lymphocytes # (Auto) 0.69 K/uL Monocytes # (Auto) 0.88 K/uL Eosinophils # (Auto) 0.05 K/uL Basophils # (Auto) 0.01 K/uL RDW Standard Deviation 51.8 fL RDW Coefficient of Variation 15.7 % Immature Granulocyte % (Auto) 0.2 % Immature Granulocyte # (Auto) 0.01 K/uL Prothrombin Time 24.4 SECONDS Prothromb Time International Ratio 2.2 Sodium Level 142 mmol/L Potassium Level 3.8 mmol/L Chloride Level 107 mmol/L Carbon Dioxide Level 29 mmol/L Anion Gap 6.0 mmol/L Blood Urea Nitrogen 17 mg/dl Creatinine 0.90 mg/dl Est Creatinine Clear Calc Drug Dose 58.9 ml/min Estimated GFR () 89.3 Estimated GFR (Non- 77.1 BUN/Creatinine Ratio 18.7 Random Glucose 92 mg/dl Calcium Level 8.4 mg/dl Magnesium Level 2.0 mg/dl
[2016-09-30] MEDS ORDERED: METOPROLOL TARTRATE 25 MG TAB PO ONE (11:22)
[2016-09-30] MEDS ORDERED: KETOROLAC TROMETHAMINE 15 MG/ML VIAL IV ONE (11:22)
--- NOTE | 2016-09-30 11:50 | DIAGNOSTIC IMAGING REPORT ---
LEFT ANKLE MIN 3 VIEWS ROUTINE CLINICAL HISTORY: Left ankle pain status post trauma COMPARISON: None. DISCUSSION: The bones are osteopenic. No acute fractures or dislocations are visualized. A subtle linear lucency within the distal fibula on the oblique film is felt to represent a prominent trabecular marking as there is no cortical disruption. There is a plantar calcaneal spur. Arterial calcifications are evident. IMPRESSION: Osteopenia. No acute fractures or subluxations identified. Electronically signed by: Alfonzo Shi M.D. 09/30/2016 11:48 AM Dictated Date/Time: 09/30/2016 11:46 AM
--- NOTE | 2016-09-30 11:51 | DIAGNOSTIC IMAGING REPORT ---
LEFT FOOT MIN 3 VIEWS ROUTINE CLINICAL HISTORY: Left foot pain status post trauma COMPARISON: None DISCUSSION: The bones are osteopenic. There is a plantar calcaneal spur. No acute fractures are visualized. Degenerative changes are present the level the first metatarsal phalangeal joint. IMPRESSION: No acute fractures or dislocations identified. Electronically signed by: Alfonzo Shi M.D. 09/30/2016 11:49 AM Dictated Date/Time: 09/30/2016 11:48 AM
[2016-09-30] MEDS: METOPROLOL TARTRATE 25 MG TAB PO SCH (20:00)
[2016-10-01] VITALS (10 sets, daily range): BP systolic 118–166; BP diastolic 62–92; PULSE 65–104; TEMP 36.5–37.5; O2SAT 91–95
[2016-10-01 06:35] LABS: INR 1.6 (0.9-1.1); PROTHROMBIN TIME (PATIENT) 17.8 SECONDS (9.0-12.0)
[2016-10-01 07:06] LABS: BUN/CREATININE RATIO 28.8 (10-20); CALCIUM 8.3 mg/dl (8.5-10.1); MAGNESIUM 2.1 mg/dl (1.8-2.4); POTASSIUM 4.3 mmol/L (3.5-5.1)
[2016-10-01] MEDS: LEVETIRACETAM 250 MG TAB PO SCH ×2 (07:30→20:38)
[2016-10-01] MEDS: TAMSULOSIN HCL 0.4 MG CAP PO SCH (07:30)
[2016-10-01] MEDS: SERTRALINE HCL 50 MG TAB PO SCH (07:30)
[2016-10-01] MEDS: LISINOPRIL 5 MG TAB PO SCH (07:30)
[2016-10-01] MEDS: GABAPENTIN 300 MG CAP PO SCH ×3 (07:30→20:38)
[2016-10-01] MEDS: SIMVASTATIN 20 MG TAB PO SCH (07:30)
[2016-10-01] MEDS: CEROVITE ADV FORMULA TAB PO SCH (07:30)
[2016-10-01] MEDS: METOPROLOL TARTRATE 25 MG TAB PO SCH ×2 (09:04→20:38)
[2016-10-01] MEDS: FUROSEMIDE 20 MG TAB PO SCH (09:04)
--- NOTE | 2016-10-01 09:36 | Progress Note ---
Subjective Date of Service: Oct 01, 2016. Subjective Pt evaluation today including: conversation w/ patient, physical exam, lab review, review of studies, review of inpatient medication list Saw/examined the patient in room 242 He's doing well today left ankle pain improved No chest pain/shortness of breath/palpitations Problem List Medical Problems: (1) Afib Status: Acute (2) Anticoagulated on Coumadin Status: Acute (3) Atrial fibrillation with RVR Status: Acute (4) Brain mass Status: Acute (5) Orthostatic hypotension Status: Acute (6) Substernal chest pain Status: Acute (7) Vertigo Status: Acute (8) Vertigo Status: Acute Review of Systems Constitutional: + weakness Respiratory: No shortness of breath Cardiac: No chest pain, No edema, No palpitations Abdomen: No diarrhea, No nausea, No pain, No vomiting Musculoskeletal: + joint pain (left foot/ankle, improving) Heme: No abnormal bleeding/bruising Medications Current Inpatient Medications Medications (Trade) Dose Ordered Sig/Alexus Route Start Time Stop Time Status Last Admin Dose Admin Acetaminophen (Tylenol Tab) 650 mg Q4H PRN PO 09/27/16 12:45 10/27/16 12:44 09/30/16 07:49 650 MG Miscellaneous Information 1 ea 1 ea UD PRN N/A 09/27/16 12:45 10/27/16 12:44 Promethazine HCl/ Sodium Chloride (Phenergan Inj/ Nss 50ml) 50.5 ml @ 204 mls/hr Q6H PRN IV 09/27/16 13:30 10/27/16 13:29 Miscellaneous (Iv Fluids Completed) 1 ea PRN PRN N/A 09/27/16 14:30 09/27/17 14:29 Amiodarone HCl (Cordarone Tab) 200 mg DAILY PO 09/28/16 09:00 10/28/16 08:59 Future Hold Furosemide (Lasix Tab) 20 mg DAILY PO 09/28/16 09:00 10/28/16 08:59 10/01/16 09:04 20 MG Gabapentin (Neurontin Cap) 300 mg DAILY@0900,1200 PO 09/28/16 09:00 10/28/16 08:59 10/01/16 07:30 300 MG Levetiracetam (Keppra Tab) 500 mg BID PO 09/27/16 22:00 10/27/16 21:59 10/01/16 07:30 500 MG Lisinopril (Zestril Tab) 5 mg QAM PO 09/28/16 09:00 10/28/16 08:59 10/01/16 07:30 5 MG Meclizine HCl (Antivert Tab) 25 mg Q8 PRN PO 09/27/16 14:45 10/27/16 14:44 09/30/16 02:43 25 MG Multivitamins/ Minerals (Multivitamin W/ Minerals Tab) 1 tab DAILY PO 09/28/16 09:00 10/28/16 08:59 10/01/16 07:30 1 TAB Sertraline HCl (Zoloft Tab) 25 mg DAILY PO 09/28/16 09:00 10/28/16 08:59 10/01/16 07:30 25 MG Simvastatin (Zocor Tab) 20 mg QAM PO 09/28/16 09:00 10/28/16 08:59 10/01/16 07:30 20 MG Tamsulosin HCl (Flomax Cap) 0.4 mg DAILY PO 09/28/16 09:00 10/28/16 08:59 10/01/16 07:30 0.4 MG Gabapentin (Neurontin Cap) 600 mg HS PO 09/27/16 21:00 10/27/16 20:59 09/30/16 19:58 600 MG Metoprolol Tartrate (Lopressor Tab) 12.5 mg BID PO 09/30/16 21:00 10/30/16 20:59 10/01/16 09:04 12.5 MG Objective Vital Signs Date Time Temp Pulse Resp B/P Pulse Ox O2 Delivery O2 Flow Rate FiO2 10/01/16 08:41 92 Room Air 10/01/16 07:53 36.5 87 16 124/73 92 Room Air 10/01/16 04:10 37.5 75 18 152/92 92 Room Air 10/01/16 04:00 Room Air 10/01/16 00:00 Room Air 09/30/16 23:00 37.6 87 18 149/75 92 Room Air 09/30/16 20:00 Room Air 09/30/16 19:53 37.4 68 16 147/78 91 Room Air 09/30/16 16:01 92 Room Air 09/30/16 15:49 37.1 68 18 116/55 93 Room Air 09/30/16 12:05 92 Room Air 09/30/16 11:53 36.7 87 18 118/69 93 Room Air Physical Exam General Appearance: no apparent distress Respiratory/Chest: lungs clear, normal breath sounds, no respiratory distress, no accessory muscle use Cardiovascular: + irregularly irregular Extremities: normal range of motion, non-tender, normal inspection, no pedal edema, no calf tenderness Laboratory Results Last 24 Hours Test 10/01/16 06:10 Prothrombin Time 17.8 SECONDS Prothromb Time International Ratio 1.6 Sodium Level 141 mmol/L Potassium Level 4.3 mmol/L Chloride Level 106 mmol/L Carbon Dioxide Level 29 mmol/L Anion Gap 6.0 mmol/L Blood Urea Nitrogen 29 mg/dl Creatinine 1.00 mg/dl Est Creatinine Clear Calc Drug Dose 53.1 ml/min Estimated GFR () 78.6 Estimated GFR (Non- 67.8 BUN/Creatinine Ratio 28.8 Random Glucose 80 mg/dl Calcium Level 8.3 mg/dl Magnesium Level 2.1 mg/dl Assessment and Plan This is an 86 year old male with PMH of chronic BPPV, chronic atrial fibrillation, frequent PVCs, hx. of NSVT, HTN, systolic CHF, hx. of meningioma and seizure disorder, depression/anxiety, HLD presents with dizziness Symptomatic Bradycardia 10/01 appreciate cardiology input metoprolol restarted plan for pacemaker insertion on 10/02 09/30 HRs in the 80s-90s this morning multiple PVCs on tele monitoring currently holding b-akil and amiodarone monitor for tachycardia plan for pacemaker insertion on Sunday (10/02) 09/29 patient with chronic atrial fibrillation has had a Holter monitor which showed multiple PVCs and NSVT was started on amiodarone; and had been continue metoprolol become bradycardic both metoprolol and amiodarone have since been stopped bradycardia now improved Plan is for pacemaker insertion on October 02 Dizziness 09/30 currently denies dizziness 09/29 likely related to chronic vertigo vs. symptomatic bradycardia CT head and Brain MRI - negative PT - for Donny maneuver continue Meclizine PRN Phenergan/Zofran PRN for nausea appreciate neuro input, no further testing/medications needed will taper Neurontin continue Kera outpatient f/u Chronic Atrial Fibrillation 10/01 holding Coumadin INR down to 1.6 metoprolol restarted 09/30 INR down to 2.2 continue to hold Coumadin as outlined below 09/29 currently holding metoprolol and amiodarone due to symptomatic bradycardia holding Coumadin, will get INR down to ~ 1.2 prior to procedure on Sunday will likely restart Coumadin after pacemaker insertion Left Foot/Ankle pain 10/01 X-rays negative likely a sprain pain is improving today 09/30 will obtain radiographs unsure if there was any trauma no swelling of the calf noted Chronic Systolic CHF Echo in August of 2016 shows an LVEF of 35-40% currently euvolemic does get chronic dyspnea with exertion, but no fluid overload noted continue home medications (lisinopril + Lasix) HTN blood pressure stable continue home medications Prolonged QTc QTc > 500 will avoid prolonging agents when possible monitor K and Mg Seizure Disorder hx. of meningioma and partial resection continue [facility] Non Obstructive CAD continue current medications as outlined above no b-blockers currently due to symptomatic bradycardia denies chest pain Pulmonary Nodule possible suprahilar lymph node on CXR repeat CXR as outpatient DVT ppx currently holding Coumadin add SCDs when INR < 2.0 FULL CODE
--- NOTE | 2016-10-01 11:46 | Cardiology Follow-Up ---
Subjective General Date of Service: Oct 01, 2016. Chief Complaint: follow up Pt evaluation today including: conversation w/ patient, physical exam History of Present Illness The patient is a 86 year old male seen in follow-up. Patient is comfortable. Telemetry reveals atrial fibrillation at 50-55 bpm while he is sleeping this morning. Occasional PVCs noted overnight with no nonsustained VT. Allergies Coded Allergies: No Known Allergies (Unverified , 09/27/16) Social History Smoking Status: Never Smoker Hx Tobacco Use In Past Year?: No Hx Alcohol Use - Type And Amou: No Hx Substance Use - Type And Am: No Problem List Medical Problems: (1) Afib Status: Acute (2) Anticoagulated on Coumadin Status: Acute (3) Atrial fibrillation with RVR Status: Acute (4) Brain mass Status: Acute (5) Orthostatic hypotension Status: Acute (6) Substernal chest pain Status: Acute (7) Vertigo Status: Acute (8) Vertigo Status: Acute Physical Exam Vital Signs Last Vital Signs Documentation Date Time Temp Pulse Resp B/P Pulse Ox O2 Delivery O2 Flow Rate FiO2 10/01/16 08:41 92 Room Air 10/01/16 07:53 36.5 87 16 124/73 09/30/16 08:01 Physical Exam Constitutional: Level of Distress: NAD Head: normocephalic Neck: supple Lungs: Auscultation: CTA except as noted, no wheezing Cardiovascular: Heart Auscultation: no murmurs, irregular rate rhythm Extremities: no edema Assessment and Plan Assessment and Plan A recent 24-hour Holter monitor had been performed as an outpatient on 2016. Atrial fibrillation was present throughout the study. Frequent PVCs were present including over 8000 isolated PVCs and 6 ventricular runs with the longus salvos of nonsustained ventricular tachycardia of 7 beats in duration with rate of 136 bpm. Minimum heart rate during the monitored intervals 41 bpm. The maximum heart rate was 100 bpm. The average ventricular rate was 66 bpm. The longest R to R interval was 2.1 seconds during the Holter. Summary of transthoracic echocardiogram performed at [facility] 09/04/16 and reviewed an belly by the undersigned: * -- Conclusions -- * Atrial fibrillation with controlled ventricular rate was present during the echocardiogram study. * There is moderate concentric left ventricular hypertrophy. * There is moderate global hypokinesis of the left ventricle. * Left ventricular systolic function is moderately reduced. * The LV Ejection Fraction = 35-40%. * The left atrium is severely dilated. * There is moderate tricuspid regurgitation. * Moderate aortic regurgitation. INR level 10/01/16= 1.6 Impression: 86 year old male 1. Chronic atrial fibrillation 2. Frequent symptomatic premature ventricular contractions, as well as nonsustained ventricular tachycardia 3. Nonischemic cardiomyopathy, moderate LV systolic dysfunction with exertional shortness of breath Recommendations: Low-dose metoprolol tartrate at a dose of Toprol 0.5 mg twice a day was reinitiated on 09/30/16. Monitor patient on telemetry. Coumadin is on hold. Repeat INR tomorrow. Nothing by mouth after midnight except medications, for planned single-chamber, ventricular permanent pacemaker on 10/02/16. Davian Barahona DO Laboratory Results Last 24 Hours Test 10/01/16 06:10 Prothrombin Time 17.8 SECONDS Prothromb Time International Ratio 1.6 Sodium Level 141 mmol/L Potassium Level 4.3 mmol/L Chloride Level 106 mmol/L Carbon Dioxide Level 29 mmol/L Anion Gap 6.0 mmol/L Blood Urea Nitrogen 29 mg/dl Creatinine 1.00 mg/dl Est Creatinine Clear Calc Drug Dose 53.1 ml/min Estimated GFR () 78.6 Estimated GFR (Non- 67.8 BUN/Creatinine Ratio 28.8 Random Glucose 80 mg/dl Calcium Level 8.3 mg/dl Magnesium Level 2.1 mg/dl
[2016-10-01] MEDS: ACETAMINOPHEN 325 MG TAB PO PRN (14:57)
[2016-10-02] VITALS (10 sets, daily range): BP systolic 98–167; BP diastolic 55–90; PULSE 56–98; TEMP 36.4–37; O2SAT 94–100
[2016-10-02] MEDS ORDERED: CEFAZOLIN 1000MG/55 ML D5W IV SCH (06:00)
[2016-10-02 07:15] LABS: HEMATOCRIT 37.9 % (42-52); MEAN CELL VOLUME 90.7 fL (80-100); MEAN CORPUSCULAR HEMOGLOBIN 29.2 pg (25-34); MEAN CORPUSCULAR HGB CONC 32.2 g/dl (32-36); MEAN PLATELET VOLUME 11.6 fL (7.4-10.4); PLATELET COUNT 145 K/uL (130-400); RED BLOOD COUNT 4.18 M/uL (4.7-6.1); WHITE BLOOD COUNT 5.46 K/uL (4.8-10.8)
[2016-10-02 07:27] LABS: INR 1.4 (0.9-1.1)
[2016-10-02 07:41] LABS: BUN/CREATININE RATIO 25.9 (10-20); CALCIUM 8.4 mg/dl (8.5-10.1); CREATININE 1.1 mg/dl (0.60-1.40); MAGNESIUM 2.2 mg/dl (1.8-2.4); POTASSIUM 4.2 mmol/L (3.5-5.1)
[2016-10-02] MEDS ORDERED: LACTATED RINGER'S 1000ML 1,000 ML IV ONE (08:04)
--- NOTE | 2016-10-02 08:19 | Progress Note ---
Subjective Date of Service: Oct 02, 2016. Subjective Pt evaluation today including: conversation w/ patient, physical exam, lab review, review of studies, review of inpatient medication list Saw/examined the patient in room 242 Doing well this morning, currently NPO Foot pain improved No chest pain/shortness of breath, no palpitations Problem List Medical Problems: (1) Afib Status: Acute (2) Anticoagulated on Coumadin Status: Acute (3) Atrial fibrillation with RVR Status: Acute (4) Brain mass Status: Acute (5) Orthostatic hypotension Status: Acute (6) Substernal chest pain Status: Acute (7) Vertigo Status: Acute (8) Vertigo Status: Acute Review of Systems Constitutional: + weakness, No chills, No fever Respiratory: No cough, No shortness of breath, No sputum Cardiac: No chest pain, No edema, No palpitations Abdomen: No GI bleeding, No constipation, No diarrhea, No nausea, No pain, No vomiting Musculoskeletal: + joint pain (left foot pain, improving) Heme: No abnormal bleeding/bruising Medications Current Inpatient Medications Medications (Trade) Dose Ordered Sig/Alexus Route Start Time Stop Time Status Last Admin Dose Admin Acetaminophen (Tylenol Tab) 650 mg Q4H PRN PO 09/27/16 12:45 10/27/16 12:44 10/01/16 14:57 650 MG Miscellaneous Information 1 ea 1 ea UD PRN N/A 09/27/16 12:45 10/27/16 12:44 Promethazine HCl/ Sodium Chloride (Phenergan Inj/ Nss 50ml) 50.5 ml @ 204 mls/hr Q6H PRN IV 09/27/16 13:30 10/27/16 13:29 Miscellaneous (Iv Fluids Completed) 1 ea PRN PRN N/A 09/27/16 14:30 09/27/17 14:29 Amiodarone HCl (Cordarone Tab) 200 mg DAILY PO 09/28/16 09:00 10/28/16 08:59 Future Hold Furosemide (Lasix Tab) 20 mg DAILY PO 09/28/16 09:00 10/28/16 08:59 10/01/16 09:04 20 MG Gabapentin (Neurontin Cap) 300 mg DAILY@0900,1200 PO 09/28/16 09:00 10/28/16 08:59 10/01/16 12:27 300 MG Levetiracetam (Keppra Tab) 500 mg BID PO 09/27/16 22:00 10/27/16 21:59 10/01/16 20:38 500 MG Lisinopril (Zestril Tab) 5 mg QAM PO 09/28/16 09:00 10/28/16 08:59 10/01/16 07:30 5 MG Meclizine HCl (Antivert Tab) 25 mg Q8 PRN PO 09/27/16 14:45 10/27/16 14:44 09/30/16 02:43 25 MG Multivitamins/ Minerals (Multivitamin W/ Minerals Tab) 1 tab DAILY PO 09/28/16 09:00 10/28/16 08:59 10/01/16 07:30 1 TAB Sertraline HCl (Zoloft Tab) 25 mg DAILY PO 09/28/16 09:00 10/28/16 08:59 10/01/16 07:30 25 MG Simvastatin (Zocor Tab) 20 mg QAM PO 09/28/16 09:00 10/28/16 08:59 10/01/16 07:30 20 MG Tamsulosin HCl (Flomax Cap) 0.4 mg DAILY PO 09/28/16 09:00 10/28/16 08:59 10/01/16 07:30 0.4 MG Gabapentin (Neurontin Cap) 600 mg HS PO 09/27/16 21:00 10/27/16 20:59 10/01/16 20:38 600 MG Metoprolol Tartrate (Lopressor Tab) 12.5 mg BID PO 09/30/16 21:00 10/30/16 20:59 10/01/16 20:38 12.5 MG Cefazolin Sodium 1000 mg 1,000 mg PREOP IV 10/03/16 06:00 10/03/16 06:01 UNV Lactated Ringer's (Lr 1000ml) 1,000 ml @ 15 mls/hr Q24H ONCE IV 10/02/16 08:04 10/03/16 08:03 UNV Objective Vital Signs Date Time Temp Pulse Resp B/P Pulse Ox O2 Delivery O2 Flow Rate FiO2 10/02/16 07:28 37.0 80 19 167/77 94 Room Air 10/02/16 04:05 Room Air 10/02/16 03:24 37.0 70 19 160/80 95 Room Air 10/02/16 00:15 Room Air 10/01/16 23:37 36.5 104 19 166/89 91 Room Air 10/01/16 20:30 95 Room Air 10/01/16 19:59 36.6 67 16 118/62 95 Room Air 10/01/16 16:47 37.2 65 16 132/74 92 Room Air 10/01/16 16:32 92 Room Air 10/01/16 12:07 36.6 65 16 121/65 92 Room Air 10/01/16 12:04 92 Room Air 10/01/16 08:41 92 Room Air Physical Exam General Appearance: no apparent distress Respiratory/Chest: chest non-tender, lungs clear, normal breath sounds, no respiratory distress, no accessory muscle use Cardiovascular: no edema, no murmur, + irregularly irregular Abdomen: normal bowel sounds, non tender, soft Extremities: normal inspection, no pedal edema Neurologic/Psychiatric: no motor/sensory deficits, alert, normal mood/affect Skin: normal color Laboratory Results Last 24 Hours Test 10/02/16 06:50 White Blood Count 5.46 K/uL Red Blood Count 4.18 M/uL Hemoglobin 12.2 g/dL Hematocrit 37.9 % Mean Corpuscular Volume 90.7 fL Mean Corpuscular Hemoglobin 29.2 pg Mean Corpuscular Hemoglobin Concent 32.2 g/dl RDW Standard Deviation 51.8 fL RDW Coefficient of Variation 15.7 % Platelet Count 145 K/uL Mean Platelet Volume 11.6 fL Prothrombin Time 15.0 SECONDS Prothromb Time International Ratio 1.4 Sodium Level 140 mmol/L Potassium Level 4.2 mmol/L Chloride Level 105 mmol/L Carbon Dioxide Level 32 mmol/L Anion Gap 3.0 mmol/L Blood Urea Nitrogen 29 mg/dl Creatinine 1.10 mg/dl Est Creatinine Clear Calc Drug Dose 48.2 ml/min Estimated GFR () 70.1 Estimated GFR (Non- 60.5 BUN/Creatinine Ratio 25.9 Random Glucose 83 mg/dl Calcium Level 8.4 mg/dl Magnesium Level 2.2 mg/dl Assessment and Plan This is an 86 year old male with PMH of chronic BPPV, chronic atrial fibrillation, frequent PVCs, hx. of NSVT, HTN, systolic CHF, hx. of meningioma and seizure disorder, depression/anxiety, HLD presents with dizziness Symptomatic Bradycardia 10/02 patient is doing well currently HRs have been labile plan is for pacemaker insertion later today (10/02) 10/01 appreciate cardiology input metoprolol restarted plan for pacemaker insertion on 10/02 09/30 HRs in the 80s-90s this morning multiple PVCs on tele monitoring currently holding b-akil and amiodarone monitor for tachycardia plan for pacemaker insertion on Sunday (10/02) 09/29 patient with chronic atrial fibrillation has had a Holter monitor which showed multiple PVCs and NSVT was started on amiodarone; and had been continue metoprolol become bradycardic both metoprolol and amiodarone have since been stopped bradycardia now improved Plan is for pacemaker insertion on October 02 Dizziness 09/30 currently denies dizziness 09/29 likely related to chronic vertigo vs. symptomatic bradycardia CT head and Brain MRI - negative PT - for Donny maneuver continue Meclizine PRN Phenergan/Zofran PRN for nausea appreciate neuro input, no further testing/medications needed will taper Neurontin continue Keppra outpatient f/u Chronic Atrial Fibrillation 10/01 holding Coumadin INR down to 1.6 metoprolol restarted 09/30 INR down to 2.2 continue to hold Coumadin as outlined below 09/29 currently holding metoprolol and amiodarone due to symptomatic bradycardia holding Coumadin, will get INR down to ~ 1.2 prior to procedure on Sunday will likely restart Coumadin after pacemaker insertion Left Foot/Ankle pain 10/01 X-rays negative likely a sprain pain is improving today 09/30 will obtain radiographs unsure if there was any trauma no swelling of the calf noted Chronic Systolic CHF Echo in August of 2016 shows an LVEF of 35-40% currently euvolemic does get chronic dyspnea with exertion, but no fluid overload noted continue home medications (lisinopril + Lasix) HTN blood pressure stable continue home medications Prolonged QTc QTc > 500 will avoid prolonging agents when possible monitor K and Mg Seizure Disorder hx. of meningioma and partial resection continue Keppra Non Obstructive CAD continue current medications as outlined above no b-blockers currently due to symptomatic bradycardia denies chest pain Pulmonary Nodule possible suprahilar lymph node on CXR repeat CXR as outpatient DVT ppx currently holding Coumadin add SCDs when INR < 2.0 FULL CODE
--- NOTE | 2016-10-02 08:33 | Cardiology Consultation ---
Cardiology Consultation Date of Consultation: Oct 02, 2016. Requesting Physician: Dr. Ramirez Reason for Consultation: Bradycardia Pt evaluation today including: conversation w/ patient, physical exam, lab review, review of studies, conversation w/ x ray consultant, review of inpatient medication list History of Present Illness This is a very pleasant 86-year-old gentleman with a long history of systolic heart failure and atrial fibrillation with rapid ventricular response. He has had multiple hospital admissions for this as well as more recently having frequent premature ventricular beats and episodes of nonsustained ventricular tachycardia. He was therefore started on amiodarone therapy. He has moderate left ventricular dysfunction with an ejection fraction of 35-40% and moderate concentric left ventricular hypertrophy. On low-dose metoprolol he had a Holter monitor performed where his heart rate was down to 30 bpm, however he requires higher dose beta blockade as well as amiodarone for control of his cardiomyopathy and his nonsustained ventricular tachycardia. He therefore is a pacemaker for bradycardia support. He is in permanent atrial fibrillation a single-chamber pacemaker can be used. Past Medical/Surgical History (1) Bradycardia (2) Chronic atrial fibrillation (3) Cerebral meningioma (4) Dyslipidemia (5) Borderline hypertension (6) BPH (benign prostatic hypertrophy) (7) Seizure disorder (8) Systolic CHF Family History FH: atrial fibrillation SISTER Social History Smoking Status: Never Smoker History of Alcohol Use: No Review of Systems Constitutional: No fever, No weakness, No weight loss Respiratory: No cough, No shortness of breath, No sputum Cardiac: No chest pain, No edema, No palpitations Abdomen: No GI bleeding, No diarrhea, No nausea, No pain, No vomiting Male : No nocturia more than once/night, No sexual dysfunction, No slowing stream, No urinary frequency Neurologic: No balance problems, No numbness/tingling, No paralysis, No weakness Heme: No abnormal bleeding/bruising, No clotting problems Endo: No fatigue Skin: No problem reported Allergies Coded Allergies: No Known Allergies (Unverified , 09/27/16) Medications Current Inpatient Medications Medications (Trade) Dose Ordered Sig/Alexus Route Start Time Stop Time Status Last Admin Dose Admin Acetaminophen (Tylenol Tab) 650 mg Q4H PRN PO 09/27/16 12:45 10/27/16 12:44 10/01/16 14:57 650 MG Miscellaneous Information 1 ea 1 ea UD PRN N/A 09/27/16 12:45 10/27/16 12:44 Promethazine HCl/ Sodium Chloride (Phenergan Inj/ Nss 50ml) 50.5 ml @ 204 mls/hr Q6H PRN IV 09/27/16 13:30 10/27/16 13:29 Miscellaneous (Iv Fluids Completed) 1 ea PRN PRN N/A 09/27/16 14:30 09/27/17 14:29 Amiodarone HCl (Cordarone Tab) 200 mg DAILY PO 09/28/16 09:00 10/28/16 08:59 Future Hold Furosemide (Lasix Tab) 20 mg DAILY PO 09/28/16 09:00 10/28/16 08:59 10/01/16 09:04 20 MG Gabapentin (Neurontin Cap) 300 mg DAILY@0900,1200 PO 09/28/16 09:00 10/28/16 08:59 10/01/16 12:27 300 MG Levetiracetam (Keppra Tab) 500 mg BID PO 09/27/16 22:00 10/27/16 21:59 10/01/16 20:38 500 MG Lisinopril (Zestril Tab) 5 mg QAM PO 09/28/16 09:00 10/28/16 08:59 10/01/16 07:30 5 MG Meclizine HCl (Antivert Tab) 25 mg Q8 PRN PO 09/27/16 14:45 10/27/16 14:44 09/30/16 02:43 25 MG Multivitamins/ Minerals (Multivitamin W/ Minerals Tab) 1 tab DAILY PO 09/28/16 09:00 10/28/16 08:59 10/01/16 07:30 1 TAB Sertraline HCl (Zoloft Tab) 25 mg DAILY PO 09/28/16 09:00 10/28/16 08:59 10/01/16 07:30 25 MG Simvastatin (Zocor Tab) 20 mg QAM PO 09/28/16 09:00 10/28/16 08:59 10/01/16 07:30 20 MG Tamsulosin HCl (Flomax Cap) 0.4 mg DAILY PO 09/28/16 09:00 10/28/16 08:59 10/01/16 07:30 0.4 MG Gabapentin (Neurontin Cap) 600 mg HS PO 09/27/16 21:00 10/27/16 20:59 10/01/16 20:38 600 MG Metoprolol Tartrate 12.5 mg 12.5 mg BID PO 09/30/16 21:00 10/30/16 20:59 10/01/16 20:38 12.5 MG Lactated Ringer's 1,000 ml @ 15 mls/hr Q24H ONCE IV 10/02/16 08:04 10/03/16 08:03 Cefazolin Sodium (Ancef 1000mg/55 ml D5W) 55 ml @ 100 mls/hr PREOP IV 10/02/16 06:00 10/02/16 12:00 Physical Exam Vital Signs Past 12 Hours Date Time Temp Pulse Resp B/P Pulse Ox O2 Delivery O2 Flow Rate FiO2 10/02/16 07:28 37.0 80 19 167/77 94 Room Air 10/02/16 04:05 Room Air 10/02/16 03:24 37.0 70 19 160/80 95 Room Air 10/02/16 00:15 Room Air 10/01/16 23:37 36.5 104 19 166/89 91 Room Air Constitutional: General Apperance: heathly-appearing Level of Distress: NAD Psychiatric: Mental Status: active & alert Head: normocephalic Eyes: EOM: EOMI ENMT: normal ENT inspection, hearing grossly normal Neck: supple, no masses Lungs: Respiratory effort: no dyspnea, good air movement Auscultation: CTA except as noted, no wheezing Cardiovascular: Heart Auscultation: no murmurs, irregular rate rhythm Peripheral Pulses: Bruits: none appreciated Abdomen: Bowel Sounds: normal Inspection & Palpation: soft, no tenderness, guarding & rebound, no masses Extremities: no edema Neurologic: Cranial Nerves: grossly intact Sensation: grossly intact Data Laboratory Results: Last 24 Hours Test 10/02/16 06:50 White Blood Count 5.46 K/uL Red Blood Count 4.18 M/uL Hemoglobin 12.2 g/dL Hematocrit 37.9 % Mean Corpuscular Volume 90.7 fL Mean Corpuscular Hemoglobin 29.2 pg Mean Corpuscular Hemoglobin Concent 32.2 g/dl RDW Standard Deviation 51.8 fL RDW Coefficient of Variation 15.7 % Platelet Count 145 K/uL Mean Platelet Volume 11.6 fL Prothrombin Time 15.0 SECONDS Prothromb Time International Ratio 1.4 Sodium Level 140 mmol/L Potassium Level 4.2 mmol/L Chloride Level 105 mmol/L Carbon Dioxide Level 32 mmol/L Anion Gap 3.0 mmol/L Blood Urea Nitrogen 29 mg/dl Creatinine 1.10 mg/dl Est Creatinine Clear Calc Drug Dose 48.2 ml/min Estimated GFR () 70.1 Estimated GFR (Non- 60.5 BUN/Creatinine Ratio 25.9 Random Glucose 83 mg/dl Calcium Level 8.4 mg/dl Magnesium Level 2.2 mg/dl Telemetry reviewed: Atrial fibrillation with a controlled heart rate following discontinuation of beta blockade and amiodarone Assessment & Plan #1. Bradycardia: He has severe bradycardia when on medications which he requires , therefore he will need a pacemaker for bradycardia support. His heart rate has not been low while his medications are on hold but he will need them. I discussed the indications, procedure, risks and alternatives with him and he understands and agrees to proceed. Consent obtained. #2. Atrial fibrillation: Permanent, a single-chamber pacemaker will be used. #3. Anticoagulation: His warfarin has been on hold and his INR is acceptable for surgery today. We'll restart warfarin postoperatively. Thank you for allowing me to participate in his care.
--- NOTE | 2016-10-02 08:34 | Procedure Note ---
Pre-Mod Sedation Assessment General Date of Moderate Sedation: Oct 02, 2016. Vital Signs: Vital Signs Past 12 Hours Date Time Temp Pulse Resp B/P Pulse Ox O2 Delivery O2 Flow Rate FiO2 10/02/16 07:28 37.0 80 19 167/77 94 Room Air 10/02/16 04:05 Room Air 10/02/16 03:24 37.0 70 19 160/80 95 Room Air 10/02/16 00:15 Room Air 10/01/16 23:37 36.5 104 19 166/89 91 Room Air Review Cardiovascular: regular rate, rhythm Abdomen: normal bowel sounds Lungs: lungs clear Pre-Sedation Airway Assessment Oral Cavity: Dentures Smoking Status: Never Smoker Procedure Planning Contraindications-for Mod Sed: None Yes Notes The planned sedation has been discussed with the patient and consent obtained. I have identified the patient, determined the appropriateness of sedation and have assessed the patient immediately prior to the procedure. All medicine(s) and interventions are by my order.
[2016-10-02] MEDS ORDERED: FENTANYL CITRATE INJ 50 MCG/1 ML 2 ML VIAL ONE (08:45)
[2016-10-02] MEDS ORDERED: MIDAZOLAM HCL 5 MG/ML 1 ML VIAL ONE (08:45)
[2016-10-02] MEDS ORDERED: KEFZOL SPECIAL PROCEDURE STOCK 1 GM ADDVIAL IV ONE (08:45)
[2016-10-02] MEDS ORDERED: BACITRACIN 50000 UNIT VIAL ONE (08:46)
[2016-10-02] MEDS ORDERED: LIDOCAINE HCL 1% 20 ML VIAL ONE (08:46)
[2016-10-02] MEDS ORDERED: BACITRACIN OINT 0.9 GM PKT ONE (08:46)
--- NOTE | 2016-10-02 09:34 | Procedure Note ---
Post-Mod Sedation Assessment General Date of Moderate Sedation Oct 02, 2016. Vital Signs: Vital Signs Past 12 Hours Date Time Temp Pulse Resp B/P Pulse Ox O2 Delivery O2 Flow Rate FiO2 10/02/16 07:28 37.0 80 19 167/77 94 Room Air 10/02/16 04:05 Room Air 10/02/16 03:24 37.0 70 19 160/80 95 Room Air 10/02/16 00:15 Room Air 10/01/16 23:37 36.5 104 19 166/89 91 Room Air Review - Discharge Criteria Vital Signs Stable: Yes Alert/Oriented/Conversant: Yes Returned to Baseline Mental St: Yes Nausea Absent/Minimal: Yes Pain/Discomfort/Absent/Minimal: Yes Normal/Baseline Respirations: Yes Active Bleeding?: No
--- NOTE | 2016-10-02 09:40 | Cardiology Procedure Brief Nt ---
Preliminary Cardiology Note Procedure Date Oct 02, 2016. 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 Mcgowan Estimated Blood Loss 20 cc Preliminary Findings Good lead position, good measurements Recommendations Monitor overnight Specimens None Anesthesia local with sedation Complication(s) None Disposition PCU
[2016-10-02] MEDS ORDERED: ACETAMINOPHEN 325 MG TAB PO PRN (09:45)
[2016-10-02] MEDS ORDERED: ACETAMINOPHEN/CODEINE 300/30MG TAB PO PRN (09:45)
[2016-10-02] MEDS: GABAPENTIN 300 MG CAP PO SCH ×3 (10:01→20:18)
[2016-10-02] MEDS: LISINOPRIL 5 MG TAB PO SCH (10:01)
[2016-10-02] MEDS: SERTRALINE HCL 50 MG TAB PO SCH (10:02)
[2016-10-02] MEDS: SIMVASTATIN 20 MG TAB PO SCH (10:02)
[2016-10-02] MEDS: CEROVITE ADV FORMULA TAB PO SCH (10:03)
[2016-10-02] MEDS: FUROSEMIDE 20 MG TAB PO SCH (10:03)
[2016-10-02] MEDS: METOPROLOL TARTRATE 25 MG TAB PO SCH ×2 (10:03→20:19)
[2016-10-02] MEDS: TAMSULOSIN HCL 0.4 MG CAP PO SCH (10:04)
[2016-10-02] MEDS: LEVETIRACETAM 250 MG TAB PO SCH ×2 (10:05→20:19)
--- NOTE | 2016-10-02 10:17 | Cardiology Follow-Up ---
Subjective General Date of Service: Oct 02, 2016. Chief Complaint: follow up Pt evaluation today including: conversation w/ patient, physical exam History of Present Illness The patient is a 86 year old male seen in follow up. Patient tolerated pacemaker well. Allergies Coded Allergies: No Known Allergies (Unverified , 09/27/16) Social History Smoking Status: Never Smoker Hx Tobacco Use In Past Year?: No Hx Alcohol Use - Type And Amou: No Hx Substance Use - Type And Am: No Problem List Medical Problems: (1) Afib Status: Acute (2) Anticoagulated on Coumadin Status: Acute (3) Atrial fibrillation with RVR Status: Acute (4) Brain mass Status: Acute (5) Orthostatic hypotension Status: Acute (6) Substernal chest pain Status: Acute (7) Vertigo Status: Acute (8) Vertigo Status: Acute Physical Exam Vital Signs Last Vital Signs Documentation Date Time Temp Pulse Resp B/P Pulse Ox O2 Delivery O2 Flow Rate FiO2 10/02/16 10:11 98 16 149/79 100 Room Air 10/02/16 07:28 37.0 09/30/16 08:01 Physical Exam Constitutional: Level of Distress: NAD Head: normocephalic Neck: supple Lungs: Auscultation: CTA except as noted, no wheezing Cardiovascular: Heart Auscultation: no murmurs, irregular rate rhythm Extremities: no edema Assessment and Plan Assessment and Plan Impression: 86 year old male 1. Chronic atrial fibrillation with bradycardia, for which patient underwent single chamber PPM, 10/02/16 2. Frequent symptomatic premature ventricular contractions, as well as nonsustained ventricular tachycardia 3. Nonischemic cardiomyopathy, moderate LV systolic dysfunction with exertional shortness of breath Recommendations: Resume metoprolol , amiodarone. Resume coumadin with caution. No bridge. Increase activity as tolerated. Davian Barahona DO Laboratory Results Last 24 Hours Test 10/02/16 06:50 White Blood Count 5.46 K/uL Red Blood Count 4.18 M/uL Hemoglobin 12.2 g/dL Hematocrit 37.9 % Mean Corpuscular Volume 90.7 fL Mean Corpuscular Hemoglobin 29.2 pg Mean Corpuscular Hemoglobin Concent 32.2 g/dl RDW Standard Deviation 51.8 fL RDW Coefficient of Variation 15.7 % Platelet Count 145 K/uL Mean Platelet Volume 11.6 fL Prothrombin Time 15.0 SECONDS Prothromb Time International Ratio 1.4 Sodium Level 140 mmol/L Potassium Level 4.2 mmol/L Chloride Level 105 mmol/L Carbon Dioxide Level 32 mmol/L Anion Gap 3.0 mmol/L Blood Urea Nitrogen 29 mg/dl Creatinine 1.10 mg/dl Est Creatinine Clear Calc Drug Dose 48.2 ml/min Estimated GFR () 70.1 Estimated GFR (Non- 60.5 BUN/Creatinine Ratio 25.9 Random Glucose 83 mg/dl Calcium Level 8.4 mg/dl Magnesium Level 2.2 mg/dl
[2016-10-02] MEDS: AMIODARONE 200 MG TAB PO SCH (12:38)
[2016-10-02] MEDS: CEFAZOLIN IV 1,000 MG in DEXTROSE 5% 50ML 50 ML IV SCH ×2 (15:46→23:30)
[2016-10-02] MEDS: WARFARIN SOD 2.5 MG TAB PO SCH (16:22)
[2016-10-02] MEDS: ACETAMINOPHEN 325 MG TAB PO PRN (20:19)
[2016-10-03 00:10] VITALS: O2SAT 96
[2016-10-03 03:58] VITALS: BP 129/71; PULSE 76; TEMP 36.4; O2SAT 93
[2016-10-03] MEDS ORDERED: CEFAZOLIN SOD 1000MG/55 ML D5W IV SCH (06:00)
--- NOTE | 2016-10-03 07:22 | DIAGNOSTIC IMAGING REPORT ---
CHEST 2 VIEWS ROUTINE HISTORY: EXACT TIME ORDERED Evaluate for pneumothorax and lead placement COMPARISON: Chest 09/27/2016. FINDINGS: No pneumothorax. Trace right pleural effusion. Mild interstitial pulmonary edema has improved. The heart remains moderately enlarged. Tortuous thoracic aorta. Lobular retrocardiac density persists and may represent a hiatus hernia. Interval placement of a left-sided single lead pacemaker. The lead appears intact. IMPRESSION: Left-sided single lead pacemaker. No pneumothorax. Mild interstitial pulmonary edema has improved. Electronically signed by: Aguila Cheek M.D. 10/03/2016 7:20 AM Dictated Date/Time: 10/03/2016 7:18 AM
[2016-10-03 07:24] LABS: HEMATOCRIT 37.9 % (42-52); MEAN CELL VOLUME 90.9 fL (80-100); MEAN CORPUSCULAR HEMOGLOBIN 30.2 pg (25-34); MEAN CORPUSCULAR HGB CONC 33.2 g/dl (32-36); PLATELET COUNT 150 K/uL (130-400); RED BLOOD COUNT 4.17 M/uL (4.7-6.1); WHITE BLOOD COUNT 4.27 K/uL (4.8-10.8)
[2016-10-03 07:35] VITALS: BP 132/69; PULSE 57; TEMP 36.4; O2SAT 96
[2016-10-03 07:45] LABS: INR 1.3 (0.9-1.1)
[2016-10-03 08:25] LABS: CALCIUM 8.8 mg/dl (8.5-10.1); CREATININE 1.1 mg/dl (0.60-1.40); MAGNESIUM 2.2 mg/dl (1.8-2.4)
[2016-10-03] MEDS: CEFAZOLIN IV 1,000 MG in DEXTROSE 5% 50ML 50 ML IV SCH (08:50)
[2016-10-03] MEDS: SIMVASTATIN 20 MG TAB PO SCH (08:50)
[2016-10-03] MEDS: GABAPENTIN 300 MG CAP PO SCH ×3 (08:51→21:24)
[2016-10-03] MEDS: LISINOPRIL 5 MG TAB PO SCH (08:51)
[2016-10-03] MEDS: TAMSULOSIN HCL 0.4 MG CAP PO SCH (08:51)
[2016-10-03] MEDS: LEVETIRACETAM 250 MG TAB PO SCH ×2 (08:51→21:25)
[2016-10-03] MEDS: FUROSEMIDE 20 MG TAB PO SCH (08:51)
[2016-10-03] MEDS: SERTRALINE HCL 50 MG TAB PO SCH (08:51)
[2016-10-03] MEDS: CEROVITE ADV FORMULA TAB PO SCH (08:52)
[2016-10-03] MEDS: AMIODARONE 200 MG TAB PO SCH (08:52)
[2016-10-03] MEDS: METOPROLOL TARTRATE 25 MG TAB PO SCH ×2 (08:53→21:25)
--- NOTE | 2016-10-03 09:05 | Progress Note ---
Subjective Date of Service: Oct 03, 2016. Subjective Pt evaluation today including: conversation w/ patient, physical exam, lab review, review of studies, review of inpatient medication list Saw/examined the patient in room 242 He had a pacemaker put in yesterday; doing well today No chest pain, no shortness of breath, no palpitations some dyspnea with exertion - at baseline no longer has foot pain, eager to go home Problem List Medical Problems: (1) Afib Status: Acute (2) Anticoagulated on Coumadin Status: Acute (3) Atrial fibrillation with RVR Status: Acute (4) Brain mass Status: Acute (5) Orthostatic hypotension Status: Acute (6) Substernal chest pain Status: Acute (7) Vertigo Status: Acute (8) Vertigo Status: Acute Review of Systems Constitutional: No chills, No fever, No weakness Respiratory: No cough, No shortness of breath, No sputum Cardiac: No chest pain, No edema, No palpitations Abdomen: No diarrhea, No nausea, No pain, No vomiting Heme: No abnormal bleeding/bruising Medications Current Inpatient Medications Medications (Trade) Dose Ordered Sig/Alexus Route Start Time Stop Time Status Last Admin Dose Admin Acetaminophen (Tylenol Tab) 650 mg Q4H PRN PO 09/27/16 12:45 10/27/16 12:44 10/02/16 20:19 650 MG Miscellaneous Information 1 ea 1 ea UD PRN N/A 09/27/16 12:45 10/27/16 12:44 Promethazine HCl/ Sodium Chloride (Phenergan Inj/ Nss 50ml) 50.5 ml @ 204 mls/hr Q6H PRN IV 09/27/16 13:30 10/27/16 13:29 Miscellaneous (Iv Fluids Completed) 1 ea PRN PRN N/A 09/27/16 14:30 09/27/17 14:29 Amiodarone HCl (Cordarone Tab) 200 mg DAILY PO 09/28/16 09:00 10/28/16 08:59 Future hold 10/03/16 08:52 200 MG Furosemide (Lasix Tab) 20 mg DAILY PO 09/28/16 09:00 10/28/16 08:59 10/03/16 08:51 20 MG Gabapentin (Neurontin Cap) 300 mg DAILY@0900,1200 PO 09/28/16 09:00 10/28/16 08:59 10/03/16 08:51 300 MG Levetiracetam (Keppra Tab) 500 mg BID PO 09/27/16 22:00 10/27/16 21:59 10/03/16 08:51 500 MG Lisinopril (Zestril Tab) 5 mg QAM PO 09/28/16 09:00 10/28/16 08:59 10/03/16 08:51 5 MG Meclizine HCl (Antivert Tab) 25 mg Q8 PRN PO 09/27/16 14:45 10/27/16 14:44 09/30/16 02:43 25 MG Multivitamins/ Minerals (Multivitamin W/ Minerals Tab) 1 tab DAILY PO 09/28/16 09:00 10/28/16 08:59 10/03/16 08:52 1 TAB Sertraline HCl (Zoloft Tab) 25 mg DAILY PO 09/28/16 09:00 10/28/16 08:59 10/03/16 08:51 25 MG Simvastatin (Zocor Tab) 20 mg QAM PO 09/28/16 09:00 10/28/16 08:59 10/03/16 08:50 20 MG Tamsulosin HCl (Flomax Cap) 0.4 mg DAILY PO 09/28/16 09:00 10/28/16 08:59 10/03/16 08:51 0.4 MG Gabapentin (Neurontin Cap) 600 mg HS PO 09/27/16 21:00 10/27/16 20:59 10/02/16 20:18 600 MG Metoprolol Tartrate (Lopressor Tab) 12.5 mg BID PO 09/30/16 21:00 10/30/16 20:59 10/03/16 08:53 12.5 MG Acetaminophen/ Codeine Phosphate 1 tab for pain scale 4-6 2 t... Q4H PRN PO 10/02/16 09:45 11/01/16 09:44 Cefazolin Sodium/ Dextrose (Ancef Iv/D5 50ml) 55 ml @ 100 mls/hr Q8H IV 10/02/16 16:00 10/03/16 15:59 10/03/16 08:50 100 MLS/HR Warfarin Sodium (Coumadin Tab) 2.5 mg DAILY@16 PO 10/02/16 16:00 11/01/16 15:59 10/02/16 16:22 2.5 MG Objective Vital Signs Date Time Temp Pulse Resp B/P Pulse Ox O2 Delivery O2 Flow Rate FiO2 10/03/16 07:35 36.4 57 20 132/69 96 Room Air 10/03/16 04:00 Room Air 10/03/16 03:58 36.4 76 19 129/71 93 Room Air 10/03/16 00:10 96 Room Air 10/02/16 23:48 36.4 56 19 116/69 96 Room Air 10/02/16 20:38 36.7 70 16 105/58 94 Room Air 10/02/16 20:05 94 Room Air 10/02/16 16:08 Room Air 10/02/16 16:01 36.4 60 16 98/55 94 Room Air 10/02/16 12:35 60 16 118/66 94 Room Air 10/02/16 12:19 Room Air 10/02/16 11:36 36.4 60 19 125/73 94 10/02/16 10:42 69 16 161/90 94 Room Air 10/02/16 10:11 98 16 149/79 100 Room Air 10/02/16 09:45 59 16 145/77 96 Room Air 10/02/16 09:30 60 16 137/73 96 Room Air Physical Exam General Appearance: no apparent distress Respiratory/Chest: lungs clear, normal breath sounds, no respiratory distress, no accessory muscle use, + pertinent finding (left chest wall is bandaged at area of pacemaker insertion, minimal pain) Cardiovascular: no murmur, + irregularly irregular Abdomen: non tender, soft Extremities: normal inspection, no pedal edema Neurologic/Psychiatric: no motor/sensory deficits, alert, normal mood/affect Skin: normal color Laboratory Results Last 24 Hours Test 10/03/16 07:13 White Blood Count 4.27 K/uL Red Blood Count 4.17 M/uL Hemoglobin 12.6 g/dL Hematocrit 37.9 % Mean Corpuscular Volume 90.9 fL Mean Corpuscular Hemoglobin 30.2 pg Mean Corpuscular Hemoglobin Concent 33.2 g/dl RDW Standard Deviation 52.4 fL RDW Coefficient of Variation 15.7 % Platelet Count 150 K/uL Mean Platelet Volume 11.0 fL Prothrombin Time 14.0 SECONDS Prothromb Time International Ratio 1.3 Sodium Level 139 mmol/L Potassium Level 5.0 mmol/L Chloride Level 104 mmol/L Carbon Dioxide Level 33 mmol/L Anion Gap 2.0 mmol/L Blood Urea Nitrogen 26 mg/dl Creatinine 1.10 mg/dl Est Creatinine Clear Calc Drug Dose 48.2 ml/min Estimated GFR () 70.1 Estimated GFR (Non- 60.5 BUN/Creatinine Ratio 24.0 Random Glucose 92 mg/dl Calcium Level 8.8 mg/dl Magnesium Level 2.2 mg/dl Assessment and Plan This is an 86 year old male with PMH of chronic BPPV, chronic atrial fibrillation, frequent PVCs, hx. of NSVT, HTN, systolic CHF, hx. of meningioma and seizure disorder, depression/anxiety, HLD presents with dizziness Symptomatic Bradycardia 10/03 s/p pacemaker insertion doing well metoprolol and amiodarone have since been added back d/c home with home health if okay with cardiology 10/02 patient is doing well currently HRs have been labile plan is for pacemaker insertion later today (10/02) 10/01 appreciate cardiology input metoprolol restarted plan for pacemaker insertion on 10/02 09/30 HRs in the 80s-90s this morning multiple PVCs on tele monitoring currently holding b-akil and amiodarone monitor for tachycardia plan for pacemaker insertion on Sunday (10/02) 09/29 patient with chronic atrial fibrillation has had a Holter monitor which showed multiple PVCs and NSVT was started on amiodarone; and had been continue metoprolol become bradycardic both metoprolol and amiodarone have since been stopped bradycardia now improved Plan is for pacemaker insertion on October 02 Dizziness 09/30 currently denies dizziness 09/29 likely related to chronic vertigo vs. symptomatic bradycardia CT head and Brain MRI - negative PT - for Donny maneuver continue Meclizine PRN Phenergan/Zofran PRN for nausea appreciate neuro input, no further testing/medications needed will taper Neurontin continue Keppra outpatient f/u Chronic Atrial Fibrillation 10/02 continue Coumadin no bridge needed outpatient Coumadin clinic f/u 10/01 holding Coumadin INR down to 1.6 metoprolol restarted 09/30 INR down to 2.2 continue to hold Coumadin as outlined below 4/21 currently holding metoprolol and amiodarone due to symptomatic bradycardia holding Coumadin, will get INR down to ~ 1.2 prior to procedure on Sunday will likely restart Coumadin after pacemaker insertion NSVT non-sustained V-tach amiodarone has been started and will be continued on discharge Left Foot/Ankle pain 10/01 X-rays negative likely a sprain pain is improving today 09/30 will obtain radiographs unsure if there was any trauma no swelling of the calf noted Chronic Systolic CHF Echo in August of 2016 shows an LVEF of 35-40% currently euvolemic does get chronic dyspnea with exertion, but no fluid overload noted continue home medications (lisinopril + Lasix) HTN blood pressure stable continue home medications Prolonged QTc QTc > 500 will avoid prolonging agents when possible monitor K and Mg Seizure Disorder hx. of meningioma and partial resection continue Keppra Non Obstructive CAD continue current medications as outlined above no b-blockers currently due to symptomatic bradycardia denies chest pain Pulmonary Nodule possible suprahilar lymph node on CXR repeat CXR as outpatient DVT ppx currently holding Coumadin add SCDs when INR < 2.0 FULL CODE
--- NOTE | 2016-10-03 09:57 | Cardiology Follow-Up ---
Subjective General Date of Service: Oct 03, 2016. Chief Complaint: follow up Pt evaluation today including: conversation w/ patient, physical exam History of Present Illness The patient is a 86 year old male seen in follow up. Patient states he went for a walk this morning, he felt okay but did note a little shortness of breath. His pain and his left sided pacemaker site is well controlled. Telemetry reveals continued atrial fibrillation with demand ventricular pacing and frequent PVCs. No additional nonsustained VT was noted overnight. Allergies Coded Allergies: No Known Allergies (Unverified , 09/27/16) Social History Smoking Status: Never Smoker Hx Tobacco Use In Past Year?: No Hx Alcohol Use - Type And Amou: No Hx Substance Use - Type And Am: No Problem List Medical Problems: (1) Afib Status: Acute (2) Anticoagulated on Coumadin Status: Acute (3) Atrial fibrillation with RVR Status: Acute (4) Brain mass Status: Acute (5) Orthostatic hypotension Status: Acute (6) Substernal chest pain Status: Acute (7) Vertigo Status: Acute (8) Vertigo Status: Acute Physical Exam Vital Signs Last Vital Signs Documentation Date Time Temp Pulse Resp B/P Pulse Ox O2 Delivery O2 Flow Rate FiO2 10/03/16 07:35 36.4 57 20 132/69 96 Room Air 09/30/16 08:01 Physical Exam Constitutional: General Apperance: heathly-appearing Level of Distress: NAD Psychiatric: Mental Status: active & alert Head: normocephalic Eyes: EOM: EOMI ENMT: normal ENT inspection, hearing grossly normal Neck: supple, no masses Lungs: Respiratory effort: no dyspnea, good air movement Auscultation: CTA except as noted, no wheezing Cardiovascular: Heart Auscultation: no murmurs, irregular rate rhythm Peripheral Pulses: Bruits: none appreciated Abdomen: Bowel Sounds: normal Inspection & Palpation: soft, no tenderness, guarding & rebound, no masses Extremities: no edema Neurologic: Cranial Nerves: grossly intact Sensation: grossly intact Assessment and Plan Assessment and Plan Impression: 86 year old male 1. Chronic atrial fibrillation with bradycardia, for which patient underwent single chamber PPM, 10/02/16 2. Frequent symptomatic premature ventricular contractions, as well as nonsustained ventricular tachycardia 3. Nonischemic cardiomyopathy, moderate LV systolic dysfunction with exertional shortness of breath Recommendations: Increase metoprolol tartrate from 12.5 mg twice a day to 25 mg twice a day. I favor the short acting medication while we adjust his dose, but watermaster given his LV systolic dysfunction will likely transition him to metoprolol succinate as an outpatient. Continue amiodarone 200 mg by mouth daily. His potassium has trended up. He has been drinking orange juice and has orange his history. I asked the nurses to cut back on his citrus intake. His multivitamin has been discontinued. His post pacemaker chest x-ray is stable with no evidence of pneumothorax and appropriate lead placement. His pacemaker interrogation shows stable function. The patient tolerates increase activity as he is on, he is stable from my standpoint for discharge. It may take another day however to get him back on his feet. Continue Coumadin initiation without bridging therapy in order to reduce risk of pocket hematoma. I've arranged outpatient device clinic follow-up within 7-[address] [facility]. I have requested a cardiology follow-up visit within 2-4 weeks. Davian Barahona DO Laboratory Results Last 24 Hours Test 10/03/16 07:13 White Blood Count 4.27 K/uL Red Blood Count 4.17 M/uL Hemoglobin 12.6 g/dL Hematocrit 37.9 % Mean Corpuscular Volume 90.9 fL Mean Corpuscular Hemoglobin 30.2 pg Mean Corpuscular Hemoglobin Concent 33.2 g/dl RDW Standard Deviation 52.4 fL RDW Coefficient of Variation 15.7 % Platelet Count 150 K/uL Mean Platelet Volume 11.0 fL Prothrombin Time 14.0 SECONDS Prothromb Time International Ratio 1.3 Sodium Level 139 mmol/L Potassium Level 5.0 mmol/L Chloride Level 104 mmol/L Carbon Dioxide Level 33 mmol/L Anion Gap 2.0 mmol/L Blood Urea Nitrogen 26 mg/dl Creatinine 1.10 mg/dl Est Creatinine Clear Calc Drug Dose 48.2 ml/min Estimated GFR () 70.1 Estimated GFR (Non- 60.5 BUN/Creatinine Ratio 24.0 Random Glucose 92 mg/dl Calcium Level 8.8 mg/dl Magnesium Level 2.2 mg/dl
[2016-10-03] MEDS ORDERED: METOPROLOL TARTRATE 25 MG TAB PO ONE (10:00)
--- NOTE | 2016-10-03 10:01 | Cardiology Progress Note ---
Cardiology Progress Note Date of Service Oct 03, 2016. Cardiology Progress Note The patient was reassessed and I discussed his progress with his daughter over the phone. Will plan to increase the patient's activity today, I'm optimistic that he will be ready for discharge tomorrow 10/04. A repeat chemistry panel has been ordered for then in order to reassess his potassium.
[2016-10-03 11:25] VITALS: BP 108/64; PULSE 68; TEMP 36.4; O2SAT 97
[2016-10-03] MEDS: WARFARIN SOD 2.5 MG TAB PO SCH (15:29)
[2016-10-03 15:57] VITALS: BP 137/89; PULSE 61; TEMP 36.4; O2SAT 95
[2016-10-04 00:11] VITALS: BP 167/84; PULSE 76; TEMP 36.5; O2SAT 95
[2016-10-04 05:16] VITALS: BP 163/72; PULSE 58; TEMP 36.8; O2SAT 95
[2016-10-04 07:36] LABS: HEMATOCRIT 38.8 % (42-52); MEAN CELL VOLUME 91.3 fL (80-100); MEAN CORPUSCULAR HEMOGLOBIN 29.4 pg (25-34); MEAN CORPUSCULAR HGB CONC 32.2 g/dl (32-36); MEAN PLATELET VOLUME 11.9 fL (7.4-10.4); PLATELET COUNT 170 K/uL (130-400); RED BLOOD COUNT 4.25 M/uL (4.7-6.1); WHITE BLOOD COUNT 4.11 K/uL (4.8-10.8)
[2016-10-04 07:45] LABS: INR 1.4 (0.9-1.1); PROTHROMBIN TIME (PATIENT) 15.2 SECONDS (9.0-12.0)
[2016-10-04] MEDS: METOPROLOL TARTRATE 25 MG TAB PO SCH (08:09)
[2016-10-04] MEDS: AMIODARONE 200 MG TAB PO SCH (08:09)
[2016-10-04] MEDS: GABAPENTIN 300 MG CAP PO SCH ×2 (08:10→12:51)
[2016-10-04] MEDS: LISINOPRIL 5 MG TAB PO SCH (08:10)
[2016-10-04] MEDS: FUROSEMIDE 20 MG TAB PO SCH (08:10)
[2016-10-04 08:11] VITALS: BP 142/76; PULSE 70; TEMP 36.3; O2SAT 91
[2016-10-04] MEDS: SERTRALINE HCL 50 MG TAB PO SCH (08:11)
[2016-10-04] MEDS: SIMVASTATIN 20 MG TAB PO SCH (08:11)
[2016-10-04] MEDS: LEVETIRACETAM 250 MG TAB PO SCH (08:12)
[2016-10-04] MEDS: TAMSULOSIN HCL 0.4 MG CAP PO SCH (08:12)
[2016-10-04 08:13] LABS: BUN/CREATININE RATIO 25.5 (10-20); CREATININE 0.98 mg/dl (0.60-1.40); POTASSIUM 4.5 mmol/L (3.5-5.1)
[2016-10-04 08:28] LABS: CALCIUM 9.2 mg/dl (8.5-10.1)
[2016-10-04] MEDS ORDERED: METOPROLOL SUCC 50MG EXT REL TAB PO ONE (09:09)
--- NOTE | 2016-10-04 09:14 | Cardiology Follow-Up ---
Subjective General Date of Service: Oct 04, 2016. Chief Complaint: follow up Pt evaluation today including: conversation w/ patient, physical exam History of Present Illness The patient is a 86 year old male seen in follow up. Patient feels well. He is eager to return home. Telemetry reveals rate controlled AF, occasional PVCs, and demand ventricular pacing. Allergies Coded Allergies: No Known Allergies (Unverified , 09/27/16) Social History Smoking Status: Never Smoker Hx Tobacco Use In Past Year?: No Hx Alcohol Use - Type And Amou: No Hx Substance Use - Type And Am: No Problem List Medical Problems: (1) Afib Status: Acute (2) Anticoagulated on Coumadin Status: Acute (3) Atrial fibrillation with RVR Status: Acute (4) Brain mass Status: Acute (5) Orthostatic hypotension Status: Acute (6) Substernal chest pain Status: Acute (7) Vertigo Status: Acute (8) Vertigo Status: Acute Physical Exam Vital Signs Last Vital Signs Documentation Date Time Temp Pulse Resp B/P Pulse Ox O2 Delivery O2 Flow Rate FiO2 10/04/16 08:11 36.3 70 18 142/76 91 Room Air 09/30/16 08:01 Physical Exam Constitutional: General Apperance: heathly-appearing Level of Distress: NAD Psychiatric: Mental Status: active & alert Head: normocephalic Eyes: EOM: EOMI ENMT: normal ENT inspection, hearing grossly normal Neck: supple, no masses Lungs: Respiratory effort: no dyspnea, good air movement Auscultation: CTA except as noted, no wheezing Cardiovascular: Heart Auscultation: no murmurs, irregular rate rhythm Peripheral Pulses: Bruits: none appreciated Abdomen: Bowel Sounds: normal Inspection & Palpation: soft, no tenderness, guarding & rebound, no masses Extremities: no edema Neurologic: Cranial Nerves: grossly intact Sensation: grossly intact Assessment and Plan Assessment and Plan Impression: 86 year old male 1. Chronic atrial fibrillation with bradycardia, for which patient underwent single chamber PPM, 10/02/16 2. Frequent symptomatic premature ventricular contractions, as well as nonsustained ventricular tachycardia 3. Nonischemic cardiomyopathy, moderate LV systolic dysfunction with exertional shortness of breath 4. transient hyperkalemia , resolved. Recommendations: DC oral metoprolol tartrate and start metoprolol succinate 50 mg PO daily. Increase amiodarone to 200 mg BID, given treatment of NSVT. Will taper to daily as outpatient after a few more weeks of loading. BP readings are somewhat labile. At this time will increase metoprolol as noted above and continue same lisinopril dose. Permit some degree of HTN given recent dizziness complaints until we see the effects of the pacer and other med changes. Continue Coumadin initiation without bridging therapy in order to reduce risk of pocket hematoma. Will need outpatient follow up with [facility] clinic. I've arranged outpatient device clinic follow-up within 7-10 days at a [facility]. I have requested a cardiology follow-up visit within 2-4 weeks. Stable from my standpoint for DC to home today. Davian Barahona, Laboratory Results Last 24 Hours Test 10/04/16 07:15 White Blood Count 4.11 K/uL Red Blood Count 4.25 M/uL Hemoglobin 12.5 g/dL Hematocrit 38.8 % Mean Corpuscular Volume 91.3 fL Mean Corpuscular Hemoglobin 29.4 pg Mean Corpuscular Hemoglobin Concent 32.2 g/dl RDW Standard Deviation 51.4 fL RDW Coefficient of Variation 15.3 % Platelet Count 170 K/uL Mean Platelet Volume 11.9 fL Prothrombin Time 15.2 SECONDS Prothromb Time International Ratio 1.4 Sodium Level 140 mmol/L Potassium Level 4.5 mmol/L Chloride Level 104 mmol/L Carbon Dioxide Level 30 mmol/L Anion Gap 6.0 mmol/L Blood Urea Nitrogen 25 mg/dl Creatinine 0.98 mg/dl Est Creatinine Clear Calc Drug Dose 54.1 ml/min Estimated GFR () 80.6 Estimated GFR (Non- 69.5 BUN/Creatinine Ratio 25.5 Random Glucose 85 mg/dl Calcium Level 9.2 mg/dl
--- NOTE | 2016-10-04 09:46 | Progress Note ---
Subjective Date of Service: Oct 04, 2016. Subjective Pt evaluation today including: conversation w/ patient, physical exam, lab review, review of studies, review of inpatient medication list Saw/examined the patient in room 242-2 He's doing well today; no complaints at this time denies chest pain/shortness of breath/palpitations mild tenderness to palpation at area of pacemaker insertion, but no other complaints about it Problem List Medical Problems: (1) Afib Status: Acute (2) Anticoagulated on Coumadin Status: Acute (3) Atrial fibrillation with RVR Status: Acute (4) Brain mass Status: Acute (5) Orthostatic hypotension Status: Acute (6) Substernal chest pain Status: Acute (7) Vertigo Status: Acute (8) Vertigo Status: Acute Review of Systems Constitutional: No weakness Respiratory: No cough, No shortness of breath, No sputum Cardiac: No chest pain, No edema, No palpitations Abdomen: No constipation, No diarrhea, No nausea, No pain, No vomiting Heme: No abnormal bleeding/bruising Medications Current Inpatient Medications Medications (Trade) Dose Ordered Sig/Alexus Route Start Time Stop Time Status Last Admin Dose Admin Acetaminophen (Tylenol Tab) 650 mg Q4H PRN PO 09/27/16 12:45 10/27/16 12:44 10/02/16 20:19 650 MG Miscellaneous Information 1 ea 1 ea UD PRN N/A 09/27/16 12:45 10/27/16 12:44 Promethazine HCl/ Sodium Chloride (Phenergan Inj/ Nss 50ml) 50.5 ml @ 204 mls/hr Q6H PRN IV 09/27/16 13:30 10/27/16 13:29 Miscellaneous (Iv Fluids Completed) 1 ea PRN PRN N/A 09/27/16 14:30 09/27/17 14:29 Furosemide (Lasix Tab) 20 mg DAILY PO 09/28/16 09:00 10/28/16 08:59 10/04/16 08:10 20 MG Gabapentin (Neurontin Cap) 300 mg DAILY@0900,1200 PO 09/28/16 09:00 10/28/16 08:59 10/04/16 08:10 300 MG Levetiracetam (Keppra Tab) 500 mg BID PO 09/27/16 22:00 10/27/16 21:59 10/04/16 08:12 500 MG Lisinopril (Zestril Tab) 5 mg QAM PO 09/28/16 09:00 10/28/16 08:59 10/04/16 08:10 5 MG Meclizine HCl (Antivert Tab) 25 mg Q8 PRN PO 09/27/16 14:45 10/27/16 14:44 09/30/16 02:43 25 MG Sertraline HCl (Zoloft Tab) 25 mg DAILY PO 09/28/16 09:00 10/28/16 08:59 10/04/16 08:11 25 MG Simvastatin (Zocor Tab) 20 mg QAM PO 09/28/16 09:00 10/28/16 08:59 10/04/16 08:11 20 MG Tamsulosin HCl (Flomax Cap) 0.4 mg DAILY PO 09/28/16 09:00 10/28/16 08:59 10/04/16 08:12 0.4 MG Gabapentin (Neurontin Cap) 600 mg HS PO 09/27/16 21:00 10/27/16 20:59 10/03/16 21:24 600 MG Acetaminophen/ Codeine Phosphate (Tylenol w/ Codeine #3 Tab) 1 tab for pain scale 4-6 2 t... Q4H PRN PO 10/02/16 09:45 11/01/16 09:44 Warfarin Sodium (Coumadin Tab) 2.5 mg DAILY@16 PO 10/02/16 16:00 11/01/16 15:59 10/03/16 15:29 2.5 MG Amiodarone HCl (Cordarone Tab) 200 mg BID PO 10/04/16 21:00 11/03/16 20:59 Metoprolol Succinate (Toprol Xl Tab) 50 mg QAM PO 10/05/16 09:00 11/04/16 08:59 Objective Vital Signs Date Time Temp Pulse Resp B/P Pulse Ox O2 Delivery O2 Flow Rate FiO2 10/04/16 08:11 36.3 70 18 142/76 91 Room Air 10/04/16 08:00 Room Air 10/04/16 05:16 36.8 58 18 163/72 95 Room Air 10/04/16 04:00 Room Air 10/04/16 00:11 36.5 76 18 167/84 95 Room Air 10/04/16 00:00 Room Air 10/03/16 20:00 Room Air 10/03/16 16:00 Room Air 10/03/16 15:57 36.4 61 18 137/89 95 Room Air 10/03/16 12:00 Room Air 10/03/16 11:25 36.4 68 18 108/64 97 Room Air Physical Exam General Appearance: no apparent distress Respiratory/Chest: lungs clear, normal breath sounds, no respiratory distress, no accessory muscle use Cardiovascular: no murmur, + irregularly irregular Abdomen: normal bowel sounds, non tender, soft Extremities: normal inspection, no pedal edema Neurologic/Psychiatric: no motor/sensory deficits, alert, normal mood/affect Laboratory Results Last 24 Hours Test 10/04/16 07:15 White Blood Count 4.11 K/uL Red Blood Count 4.25 M/uL Hemoglobin 12.5 g/dL Hematocrit 38.8 % Mean Corpuscular Volume 91.3 fL Mean Corpuscular Hemoglobin 29.4 pg Mean Corpuscular Hemoglobin Concent 32.2 g/dl RDW Standard Deviation 51.4 fL RDW Coefficient of Variation 15.3 % Platelet Count 170 K/uL Mean Platelet Volume 11.9 fL Prothrombin Time 15.2 SECONDS Prothromb Time International Ratio 1.4 Sodium Level 140 mmol/L Potassium Level 4.5 mmol/L Chloride Level 104 mmol/L Carbon Dioxide Level 30 mmol/L Anion Gap 6.0 mmol/L Blood Urea Nitrogen 25 mg/dl Creatinine 0.98 mg/dl Est Creatinine Clear Calc Drug Dose 54.1 ml/min Estimated GFR () 80.6 Estimated GFR (Non- 69.5 BUN/Creatinine Ratio 25.5 Random Glucose 85 mg/dl Calcium Level 9.2 mg/dl Assessment and Plan This is an 86 year old male with PMH of chronic BPPV, chronic atrial fibrillation, frequent PVCs, hx. of NSVT, HTN, systolic CHF, hx. of meningioma and seizure disorder, depression/anxiety, HLD presents with dizziness Symptomatic Bradycardia - s/p pacemaker insertion patient presented to the ER with dizziness chronic atrial fibrillation had a Holter monitor as outpatient showing multiple PVCs and PACs He was started on amiodarone and metoprolol prior to admission he was monitored on tele while in patient and found to have non-sustained v- tach episodes and multiple PVCs noted to have bradycardia episodes s/p pacemaker insertion on 10/02 amiodarone and metoprolol have since been restarted at different doses amiodarone 200mg BID metoprolol changed to succinate 50mg daily Dizziness - resolved has denied dizziness since 09/[address] and Brain MRI performed and negative ordered PT for Donny ambulates well with walker neurology consulted and input appreciated plan is to taper Neurontin as tolerated Chronic Atrial Fibrillation patient with chronic atrial fibrillation had initially held metoprolol due to bradycardia s/p pacemaker has since been restarted on metoprolol (and amiodarone) at different doses will do metoprolol succinate 50mg daily held Coumadin for procedure (pacemaker insertion on 10/02) Coumadin has now been restarted - INR at 1.4 today outpatient Coumadin clinic follow-up NSVT Amiodarone 200mg BID on discharge to taper in a few weeks to 200mg daily as per cardiology Left Foot/Ankle pain - resolved radiographs have been negative this was likely a strain no pain for a few days Chronic Systolic CHF Echo in August of 2016 shows an LVEF of 35-40% currently euvolemic does get chronic dyspnea with exertion, but no fluid overload noted continue home medications (lisinopril + Lasix) on discharge HTN - labile appreciate cardiology input allow some permissive HTN due to dizziness metoprolol dose adjusted to 50mg daily - monitor and adjust either lisinopril or metoprolol dose if BP remains elevated Prolonged QTc - improved QTc > 500 on initial EKG electrolytes monitored and corrected EKG on 10/02 - QTc now ~ 450 Seizure Disorder hx. of meningioma and partial resection continue Noman outpatient neurology follow-up Non Obstructive CAD continue b-akil continue aspirin Pulmonary Nodule possible suprahilar lymph node on CXR repeat CXR as outpatient DVT ppx currently holding Coumadin add SCDs when INR < 2.0 FULL CODE
[2016-10-04] MEDS ORDERED: CRD200 PO (09:49)
[2016-10-04] MEDS ORDERED: METO-452 PO (09:49)
--- NOTE | 2016-10-04 09:56 | Discharge Instructions ---
Discharge Instructions Date of Service Oct 04, 2016. Admission Reason for Admission: Dizziness Discharge Discharge Diagnosis / Problem: Dizziness; symptomatic bradycardia; episodes of NSVT, chronic A. fib Discharge Goals Goal(s): Decrease discomfort, Improve function, Diagnostic testing, Therapeutic intervention Activity Recommendations Activity Limitations: resume your previous activity . Instructions / Follow-Up Instructions / Follow-Up Please follow-up with Dr. Abarca on October 09 @ 12:45PM * Your metoprolol is changed to a different type of metoprolol (succinate) 50mg once a day * Your dose of amiodarone is going to be increased to 200mg twice a day * Primary care doctor should check blood pressure and adjust dose of lisinopril if needed * You should have an outpatient chest x-ray to follow-up on a left sided suprahilar lymph node * Your dose of gabapentin should be tapered down as per primary care and neurology * You will be sent home with home health and home physical therapy * Please follow-up with cardiology in 2-4 weeks * You will have a device (pacemaker) check in 7-10 days at [facility] * You will get a call about an appointment at anticoagulation clinic to check your INR level for Coumadin * You should follow-up with neurology as an outpatient Current Hospital Diet Patient's current hospital diet: AHA Diet (Heart Healthy), Low Sodium Diet (2gm Na) Discharge Diet Recommended Diet: AHA Diet (Heart Healthy), Low Sodium Diet (2gm Na) Pending Studies Studies pending at discharge: no Laboratory Results Lipid Panel Test 09/28/16 07:17 Range/Units Triglycerides Level 45 0-150 mg/dl Cholesterol Level 131 0-200 mg/dl HDL Cholesterol 60 mg/dl Cholesterol/HDL Ratio 2.2 LDL Cholesterol, Calculated 62 mg/dl Medical Emergencies . Who to Call and When: Medical Emergencies: If at any time you feel your situation is an emergency, please call 911 immediately. . Non-Emergent Contact Non-Emergency issues call your: Primary Care Provider, Cook Helper . . "Provider Documentation" section prepared by Sarai Rodriguez. . VTE Core Measure Inpt VTE Proph given/why not?: Warfarin (Coumadin)
--- NOTE | 2016-10-04 09:58 | Discharge Summary ---
Discharge Summary Date of Service Oct 04, 2016. Discharge Summary Admission Date: Sep 28, 2016 at 19:40 Discharge Date: Oct 04, 2016 Discharge Disposition: Home with services Principal Diagnosis: Symptomatic Bradycardia Chronic Atrial Fibrillation Dizziness/Vertigo NSVT Chronic Systolic Dysfunction Medication Reconciliation Changed Medications: Amiodarone HCl (Amiodarone HCl) 200 Mg Tab 200 MG PO BID for 15 Days, #30 TAB (Changed from: DAILY; 30) Metoprolol Succinate (Toprol Xl) 50 Mg Tab 1 TAB PO DAILY for 30 Days, #30 TAB 5 Refills (Changed from: Metoprolol Tartrate (Lopressor) 25 Mg Tab 12.5 Mg PO BID 30 Days #60 TAB Ref 5) Continued Medications: Furosemide (Lasix) 20 Mg Tab 20 MG PO DAILY Gabapentin (Gabapentin) 300 Mg Cap 300 MG PO UD, CAP 1 CAPSULES IN AM, 1 CAPSULE AT LUNCH, 2 CAPSULES AT BEDTIME Levetiracetam (Keppra) 250 Mg Tab 500 MG PO BID, TAB Lisinopril (Lisinopril) 5 Mg Tab 5 MG PO QAM for 30 Days, #30 TAB Magnesium Oxide (Mg Supplement (Magnesium Oxide) 250 Mg Tab 1 TAB DAILY Meclizine Hcl (Meclizine Hcl) 25 Mg Tab 25 MG PO Q8 PRN for Dizziness or Vertigo, TAB Multiple Vitamins W/ Minerals (Centrum Silver Ultra Mens) 1 Tab Tab 1 TAB PO DAILY Sertraline Hcl (Zoloft) 25 Mg Tab 25 MG PO DAILY, TAB Simvastatin (Zocor) 20 Mg Tab 20 MG PO QAM, TAB Tamsulosin Hcl (Flomax) 0.4 Mg Cap 0.4 MG PO DAILY, CAP Warfarin Sod (Coumadin) 2.5 Mg Tab 2.5 MG PO DAILY, TAB Admission Information HPI (per Admitting provider): 86 year old male who presents to the ER with reports of dizziness. Patient was recently admitted to [facility] twice. First admission was for acute systolic CHF due to afib with RVR. He was discharged on Lasix and metoprolol. Patient was readmitted with chest pain and dizziness. Chest pain was felt to be due to sensed ventricular ectopy. He was also found to have non sustained v-tach on tele and amiodarone was started. Dizziness was felt to be due to his chronic vertigo and Donny maneuver was preformed. Since being discharged, patient had an outpatient Holter that showed frequent PVCs, non sustained V-tach, and no significant bradycardia or pauses. Patient was seen in the cardiology clinic yesterday and was instructed to decrease his Amiodarone. He also was evaluated by neurology since discharge and was given instructions to taper off the Neurontin to try to help with the dizziness. Patient reports this morning when he woke up he had the sensation of the room spinning around him. He also felt generally weak and was unable to get out of bed. He reports generalized shaking. is at the bedside who reports he did not loose consciousness. Patient took a Meclizine at home without relief in his symptoms. EMS was then called. Patient reports the dizziness continued en route to the ER. He had one episode of vomiting in the ambulance. Symptoms have resolved since arriving to the ER. Patient reports left lateral chest pain. It is reproducible with palpation. Patient reports he has been getting this pain for the past few months. Per prior documentation, it has been attributed to sensed ventricular ectopy. Patient reports the pain comes and goes. No specific causative or alleviating factors. He denies diaphoresis. He reports chronic exertional shortness of breath which is unchanged. Reports he had been feeling well since his discharge. He denies fever, chills, cough, and sputum production. No abdominal pain or diarrhea. He denies urinary symptoms. For EMS, patient was hypoxic at 85% for which he required 6L O2. This has improved in the ER and is now only requiring 2L. Other vitals are stable. No arrhythmias noted on tele. Labs are unremarkable. CT head is unchanged from prior. Physical Exam (per Admitting): General Appearance: no apparent distress Head: normocephalic Eyes: normal inspection ENT: hearing grossly normal Neck: supple, no JVD Respiratory/Chest: no respiratory distress, + decreased breath sounds (BL bases) Cardiovascular: no edema, + irregularly irregular (rate controlled) Abdomen/GI: normal bowel sounds, non tender, soft Extremities/Musculoskelatal: normal inspection, no calf tenderness Neurologic/Psych: no motor/sensory deficits, alert, normal mood/affect, oriented x 3 Skin: normal color, warm/dry Hospital Course This is an 86 year old male with PMH of chronic BPPV, chronic atrial fibrillation, frequent PVCs, hx. of NSVT, HTN, systolic CHF, hx. of meningioma and seizure disorder, depression/anxiety, HLD presents with dizziness Symptomatic Bradycardia - s/p pacemaker insertion patient presented to the ER with dizziness chronic atrial fibrillation had a Holter monitor as outpatient showing multiple PVCs and PACs He was started on amiodarone and metoprolol prior to admission he was monitored on tele while in patient and found to have non-sustained v- tach episodes and multiple PVCs noted to have bradycardia episodes s/p pacemaker insertion on 10/02 amiodarone and metoprolol have since been restarted at different doses amiodarone 200mg BID metoprolol changed to succinate 50mg daily Dizziness - resolved has denied dizziness since 09/[address] and Brain MRI performed and negative ordered PT for Donny ambulates well with walker neurology consulted and input appreciated plan is to taper Neurontin as tolerated Chronic Atrial Fibrillation patient with chronic atrial fibrillation had initially held metoprolol due to bradycardia s/p pacemaker has since been restarted on metoprolol (and amiodarone) at different doses will do metoprolol succinate 50mg daily held Coumadin for procedure (pacemaker insertion on 10/02) Coumadin has now been restarted - INR at 1.4 today outpatient Coumadin clinic follow-up NSVT Amiodarone 200mg BID on discharge to taper in a few weeks to 200mg daily as per cardiology Left Foot/Ankle pain - resolved radiographs have been negative this was likely a strain no pain for a few days Chronic Systolic CHF Echo in August of 2016 shows an LVEF of 35-40% currently euvolemic does get chronic dyspnea with exertion, but no fluid overload noted continue home medications (lisinopril + Lasix) on discharge HTN - labile appreciate cardiology input allow some permissive HTN due to dizziness metoprolol dose adjusted to 50mg daily - monitor and adjust either lisinopril or metoprolol dose if BP remains elevated Prolonged QTc - improved QTc > 500 on initial EKG electrolytes monitored and corrected EKG on 10/02 - QTc now ~ 450 Seizure Disorder hx. of meningioma and partial resection continue Noman outpatient neurology follow-up Non Obstructive CAD continue b-akil continue aspirin Pulmonary Nodule possible suprahilar lymph node on CXR repeat CXR as outpatient DVT ppx currently holding Coumadin add SCDs when INR < 2.0 FULL CODE Total time spent on discharge = 50 minutes This includes examination of the patient, discharge planning, medication reconciliation, and communication with other providers. Discharge Instructions Please follow-up with Dr. Abarca on October 09 @ 12:45PM * Your metoprolol is changed to a different type of metoprolol (succinate) 50mg once a day * Your dose of amiodarone is going to be increased to 200mg twice a day * Primary care doctor should check blood pressure and adjust dose of lisinopril if needed * You should have an outpatient chest x-ray to follow-up on a left sided suprahilar lymph node * Your dose of gabapentin should be tapered down as per primary care and neurology * You will be sent home with home health and home physical therapy * Please follow-up with cardiology in 2-4 weeks * You will have a device (pacemaker) check in 7-10 days at [facility] * You will get a call about an appointment at anticoagulation clinic to check your INR level for Coumadin * You should follow-up with neurology as an outpatient Additional Copies To Carlie Abarca D.O.
[2016-10-04 12:23] VITALS: BP 142/76; PULSE 70; TEMP 36.3; O2SAT 91
[2016-10-04] MEDS ORDERED: AMIODARONE 200 MG TAB PO SCH (21:00)
[2016-10-05] MEDS ORDERED: METOPROLOL SUCC 50MG EXT REL TAB PO SCH (09:00)
--- NOTE | 2016-10-05 16:32 | OPERATIVE REPORT ---
DATE OF OPERATION: 10/02/2016 INPATIENT OPERATIVE REPORT PREOPERATIVE DIAGNOSES: Ventricular tachycardia, atrial fibrillation with slow ventricular response. POSTOPERATIVE DIAGNOSES: Same. PROCEDURE: Single chamber pacemaker implantation. SURGEON: Koby Mcgowan MD ANESTHESIA: Local with sedation. HISTORY: This is an 86-year-old male with a history of systolic heart failure and permanent atrial fibrillation. He typically has a rapid ventricular response and also has premature ventricular beats and episodes of nonsustained ventricular tachycardia. He was started on amiodarone therapy; however, on low-dose metoprolol, he had a heart rate as low as 30 beats per minute. His beta blockers and amiodarone were therefore held. He requires beta blockade and amiodarone for control of his cardiomyopathy (his ejection fraction is 35%-40%) as well as for control of this nonsustained ventricular tachycardia. He is therefore brought to the laboratory for pacemaker. DESCRIPTION OF PROCEDURE: After obtaining informed consent for the procedure, he was brought to the laboratory on the morning of 10/02/2016. He was identified in the laboratory, prepped and draped in standard sterile manner for a left-sided pacemaker implantation. The left prepectoral region was anesthetized with 1% lidocaine local anesthetic and left subclavian venipuncture was performed by percutaneous technique and a guidewire placed through the left subclavian vein into the superior vena cava. The area was further infiltrated with 1% lidocaine local anesthetic and a 5-cm incision was made parallel to the left clavicle and 2 cm below it and carried down to the anterior pectoralis fascia. A pacemaker pocket was formed by blunt dissection anterior to the pectoralis fascia and a bacitracin-soaked sponge (50,000 units in 50 mL normal saline solution) was placed in the pocket. An 8-[place] Medtronic lead introducer was placed over the guidewire into the left subclavian vein, the dilator and guidewire were removed and a bipolar active fixation steroid-tipped ventricular lead was advanced through the introducer into the superior vena cava. The guidewire was placed through the introducer and introducer stripped away from lead and guidewire. Using a curved stylette, the ventricular lead was advanced through the right ventricular outflow tract into the pulmonary artery and then using a straight stylette, was positioned in the right ventricular apex. Once in position, the ventricular pacing threshold was evaluated in bipolar configuration at a pulse width of 0.5 milliseconds. The final ventricular pacing threshold was 0.6 volts with a current of 0.8 milliamp, 5-volt lead impedance was 711 ohms and R-waves were sensed at 12.2 millivolts. Diaphragmatic pacing was not present with a 10-volt bipolar output. Once the lead was in position, it was attached to the anterior pectoralis fascia using 2 sutures of 2-0 silk around the lead collar. The bacitracin-soaked sponge was removed from the pocket, the guidewire was removed from the left subclavian vein and hemostasis was obtained. The pacemaker (Medtronic Advisa SR) was attached to the lead and found to be functioning normally. It was placed in the pocket with the lead coiled beneath it and the incision was closed with a running double subcutaneous closure of 3-0 Vicryl followed by running subcuticular skin closure of 4-0 Vicryl. Bacitracin ointment was placed on the incision and a pressure dressing applied. The patient tolerated the procedure well, there were no complications and estimated blood loss was 20 mL. The patient was transferred to the telemetry unit for monitoring. The ventricular lead is a Medtronic, model #5076, serial #[id number] and is a bipolar active fixation steroid-tipped MRI compatible lead. The pacemaker is a Medtronic Advisa SR MRI SureScan, model #A3SR01, serial #[id number]. The pacemaker was reprogrammed in the laboratory to final settings. This is an MRI compatible system. [email or web address]
== END 2016-10-04 13:02 | disposition home health service (06) | DRG 242 ==
LOC: ENRESERVDT → ENRESERVTM → EDBD 08:55 → C.EDB 08:57 → C.2T 12:45 → OBSVTOIN 09-28 19:40
PROVIDERS: ADMIT Hospitalist; ATTEND Family Medicine
PROC: 0JH604Z Insertion of Pacemaker, Single Chamber into Chest Subcutaneous Tissue and Fascia, Open Approach (ICD-10-PCS; principal; 2016-10-02 08:07)
PROC: 02HK3JZ Insertion of Pacemaker Lead into Right Ventricle, Percutaneous Approach (ICD-10-PCS; principal; 2016-10-02 08:07)
DX: R00.1 Bradycardia, unspecified (principal); G93.6 Cerebral edema; I50.22 Chronic systolic (congestive) heart failure; G40.909 Epilepsy, unspecified, not intractable, without status epilepticus; R09.02 Hypoxemia; N40.0 Benign prostatic hyperplasia without lower urinary tract symptoms; I48.2 Chronic atrial fibrillation; I25.10 Atherosclerotic heart disease of native coronary artery without angina pectoris; F32.9 Major depressive disorder, single episode, unspecified; I11.0 Hypertensive heart disease with heart failure; Z79.01 Long term (current) use of anticoagulants; I42.9 Cardiomyopathy, unspecified; E78.5 Hyperlipidemia, unspecified; E87.5 Hyperkalemia; I48.0 Paroxysmal atrial fibrillation; I35.1 Nonrheumatic aortic (valve) insufficiency; I47.2 Ventricular tachycardia

== ENCOUNTER 2016-10-13 15:29 | Emergency (ER) | payer OTHER, MEDICARE ==
[~2016-10-13] VITALS: Ht 175.3 cm; Wt 75.2 kg
[~2016-10-13 15:29] MED LIST changes: -FURO-85 PO; +FURO20TA PO; -LPR25 PO; +METO-452 PO; -WARF5TAB90 PO
[2016-10-13 15:32] VITALS: TEMP 36.3; Ht 175.3 cm; Wt 75.2 kg
[2016-10-13] MEDS ORDERED: SODIUM CHLORIDE 0.9% 1000ML 500 ML IV STA (16:28)
--- NOTE | 2016-10-13 16:50 | DIAGNOSTIC IMAGING REPORT ---
CHEST ONE VIEW PORTABLE CLINICAL HISTORY: EVALUATE ALTERED MENTAL STATUS/WEAKNESS COMPARISON STUDY: 10/03/2016 FINDINGS: The heart is markedly enlarged. There is mild pulmonary vascular congestion. There are small bilateral pleural effusions. There is no lobar consolidation. There is a left-sided single chamber central venous pacemaker.[ IMPRESSION: Cardiomegaly and mild pulmonary vascular congestion. Small bilateral pleural effusions. Electronically signed by: Alfonzo Shi M.D. 10/13/2016 4:48 PM Dictated Date/Time: 10/13/2016 4:48 PM
[2016-10-13 16:57] LABS: BASO % 0.4 %; BASO ABS # 0.02 K/uL (0-0.2); COMPLETE YES; EOS % 1.7 %; HEMATOCRIT 37.3 % (42-52); IG% 0.6 %; LYMPH % 17.9 %; LYMPH ABS # 0.84 K/uL (1.2-3.4); MEAN CORPUSCULAR HEMOGLOBIN 29.8 pg (25-34); MEAN CORPUSCULAR HGB CONC 32.7 g/dl (32-36); MEAN PLATELET VOLUME 11.7 fL (7.4-10.4); MONO % 7.9 %; NEUT % 71.5 %; PLATELET COUNT 179 K/uL (130-400); WHITE BLOOD COUNT 4.69 K/uL (4.8-10.8)
[2016-10-13 17:05] LABS: INR 3.2 (0.9-1.1); PARTIAL THROMBOPLASTIN RATIO 1.4; PROTHROMBIN TIME (PATIENT) 36.2 SECONDS (9.0-12.0)
[2016-10-13] MEDS ORDERED: LISI-729 PO (17:05)
[2016-10-13 17:22] LABS: ALT/SGPT 20 U/L (12-78); AST/SGOT 20 U/L (15-37); BLOOD UREA NITROGEN 30 mg/dl (7-18); BUN/CREATININE RATIO 27.3 (10-20); CALCIUM 8.8 mg/dl (8.5-10.1); CARBON DIOXIDE 32 mmol/L (21-32); CHLORIDE 107 mmol/L (98-107); GLUCOSE 80 mg/dl (70-99); MAGNESIUM 2.2 mg/dl (1.8-2.4); POTASSIUM 4.2 mmol/L (3.5-5.1); SODIUM 143 mmol/L (136-145)
[2016-10-13 17:33] LABS: ALB/GLOB RATIO 0.9 (0.9-2); ALKALINE PHOSPHATASE 106 U/L (45-117)
--- NOTE | 2016-10-13 17:33 | DIAGNOSTIC IMAGING REPORT ---
CT HEAD WITHOUT CONTRAST (CT) CLINICAL HISTORY: Altered mental status and weakness COMPARISON STUDY: 09/27/2016 TECHNIQUE: Axial CT of the brain is performed from the vertex to the skull base. IV contrast was not administered for this examination. CT DOSE: 687.98 mGy.cm FINDINGS: Post craniotomy changes are visualized in the left. There is a large left middle cranial fossa mass measuring 4.7 cm. There is secondary reactive changes within the sphenoid wing. This was Previously Described felt to represent a meningioma on prior MRI scanning. There is extensive left hemispheric edema, unchanged the preceding study. There is mild ventricular dilatation unchanged the preceding study. There is no evidence of acute sinusitis. There is no evidence of acute intracranial hemorrhage. IMPRESSION: 1. Stable large left middle cranial fossa mass measuring 4.7 cm. This is present felt to represent a meningioma 2. Stable extensive left hemispheric edema 3. No acute findings. No evidence of acute hemorrhage. Electronically signed by: Alfonzo Shi M.D. 10/13/2016 5:32 PM Dictated Date/Time: 10/13/2016 5:28 PM
[2016-10-13 18:22] LABS: URINE APPEARANCE CLEAR (CLEAR); URINE BILIRUBIN NEG (NEG); URINE COLOR YELLOW; URINE NITRITE NEG (NEG); URINE PH 6.5 (4.5-7.5); UROBILINOGEN NEG (NEG); ZZUR CULT IF INDIC CLEAN CATCH NO
[2016-10-13 18:33] LABS: MANUAL MICROSCOPIC REQUIRED? NO; REVIEW REQ? NO
[2016-10-13 19:00] VITALS: BP 140/77; PULSE 64; O2SAT 94
--- NOTE | 2016-10-13 20:51 | EMERGENCY ROOM VISIT NOTE ---
History Report prepared by Sonali: Roseline Cerrato Under the Supervision of: Dr. Justyn Forman M.D. First contact with patient: 16:20 Chief Complaint: DIZZY Stated Complaint: DIZZY, ELEVATED BLOOD PRESSURE Nursing Triage Summary: Pt c/o feeling dizzy since 729. Took his meds for dizziness. Pt c/o left sided rib pain. Pacemaker placed 2 weeks ago. History of Present Illness The patient is an 86 year old male who presents to the Emergency Room with complaints of an episode of dizziness this morning. He got up in the morning to go to the bathroom and began to feel dizzy. He went back to bed for 1.5 hours and waited for the dizziness to pass. He is currently not dizzy. He reports leg weakness. He has some SOB which is normal for him. He reports pain in the pacemaker site. He denies any nausea, vomiting, diarrhea, fever, or headache. He is keeping up with his fluids. He was in the hospital 2 weeks ago at which time he had a pace maker placed. He had a dizzy spell soon after the hospital stay at which time he followed with his doctor who cut his blood pressure medicine. He has meclizine at home which helps his dizziness. Source of History: patient Onset: this morning Position: other (global) Quality: other (dizziness) Timing: other (episodic) Modifying Factors (Relieving): other (meclizine) Associated Symptoms: + SOB, + weakness (legs), No diarrhea, No fevers, No headache, No nausea, No vomiting Review of Systems See HPI for pertinent positives & negatives. A total of 10 systems reviewed and were otherwise negative. Past Medical & Surgical Medical Problems: (1) Benign positional vertigo (2) Borderline hypertension (3) BPH (benign prostatic hypertrophy) (4) Cerebral meningioma (5) Chronic atrial fibrillation (6) Depression with anxiety (7) Dizziness (8) Dyslipidemia (9) History of meningioma of the brain (10) Seizure disorder (11) Systolic CHF Surgical Problems: (1) H/O craniotomy (2) S/P cardiac cath Family History FH: atrial fibrillation SISTER Social History Smoking Status: Never Smoker Alcohol Use: none Marital Status: Housing Status: lives with family Current/Historical Medications Scheduled Amiodarone HCl (Amiodarone HCl), 200 MG PO BID Furosemide (Lasix), 20 MG PO DAILY Gabapentin (Gabapentin), 300 MG PO TID Levetiracetam (Keppra), 500 MG PO BID Lisinopril (Zestril), 2.5 MG PO QAM Magnesium Oxide (Mg Supplement (Magnesium Oxide), 1 TAB DAILY Metoprolol Succinate (Toprol Xl), 1 TAB PO DAILY Multiple Vitamins W/ Minerals (Centrum Silver Ultra Mens), 1 TAB PO DAILY Sertraline Hcl (Zoloft), 25 MG PO DAILY Simvastatin (Zocor), 20 MG PO QAM Tamsulosin Hcl (Flomax), 0.4 MG PO DAILY Warfarin Sod (Coumadin), 2.5 MG PO DAILY Scheduled PRN Meclizine Hcl (Meclizine Hcl), 25 MG PO Q8 PRN for Dizziness or Vertigo Allergies Coded Allergies: No Known Allergies (Unverified , 10/13/16) Physical Exam Vital Signs Date Time Temp Pulse Resp B/P Pulse Ox O2 Delivery O2 Flow Rate FiO2 10/13/16 19:00 64 18 140/77 94 Room Air 10/13/16 17:55 10/13/16 17:51 64 22 141/75 97 Room Air 142/78 154/75 10/13/16 17:01 69 20 137/82 94 Room Air 10/13/16 16:55 67 10/13/16 15:32 36.3 79 17 134/73 96 Room Air Physical Exam GENERAL: Patient is in no acute distress. HEENT: No acute trauma, normocephalic atraumatic, mucous membranes moist, no nasal congestion, no scleral icterus. NECK: No stridor, no adenopathy, no meningismus, trachea is midline. LUNGS: Clear to auscultation bilaterally, no wheeze, no rhonchi, breath sounds equal. HEART: Irregular rhythm, no murmurs, normal rate. ABDOMEN: Soft, nontender, bowel sounds positive, no hernias, no peritonitis. EXTREMITIES: No cyanosis or edema, full range of motion of all the joints without pain or difficulty, no signs for acute trauma. NEUROLOGIC: Oriented x 3, no acute motor or sensory deficits, no focal weakness. No speech slur or facial droop. No pronator drift or cerebellar dysfunction. SKIN: No rash, no jaundice, no diaphoresis. Medical Decision & Procedures ER Provider Diagnostic Interpretation: X ray results and stated below per my interpretation and radiologist interpretation. Other radiology results and stated below per my review and radiologist interpretation: CHEST ONE VIEW PORTABLE CLINICAL HISTORY: EVALUATE ALTERED MENTAL STATUS/WEAKNESS COMPARISON STUDY: 10/03/2016 FINDINGS: The heart is markedly enlarged. There is mild pulmonary vascular congestion. There are small bilateral pleural effusions. There is no lobar consolidation. There is a left-sided single chamber central venous pacemaker.[ IMPRESSION: Cardiomegaly and mild pulmonary vascular congestion. Small bilateral pleural effusions. Electronically signed by: Alfonzo Shi M.D. 10/13/2016 4:48 PM Dictated Date/Time: 10/13/2016 4:[address] HEAD WITHOUT CONTRAST (CT) CLINICAL HISTORY: Altered mental status and weakness COMPARISON STUDY: 09/27/2016 TECHNIQUE: Axial CT of the brain is performed from the vertex to the skull base. IV contrast was not administered for this examination. CT DOSE: 687.98 mGy.cm FINDINGS: Post craniotomy changes are visualized in the left. There is a large left middle cranial fossa mass measuring 4.7 cm. There is secondary reactive changes within the sphenoid wing. This was Previously Described felt to represent a meningioma on prior MRI scanning. There is extensive left hemispheric edema, unchanged the preceding study. There is mild ventricular dilatation unchanged the preceding study. There is no evidence of acute sinusitis. There is no evidence of acute intracranial hemorrhage. IMPRESSION: 1. Stable large left middle cranial fossa mass measuring 4.7 cm. This is present felt to represent a meningioma 2. Stable extensive left hemispheric edema 3. No acute findings. No evidence of acute hemorrhage. Electronically signed by: Alfonzo Shi M.D. 10/13/2016 5:32 PM Dictated Date/Time: 10/13/2016 5:28 PM Laboratory Results 10/13/16 16:45 Red Blood Count 4.10, Mean Corpuscular Volume 91.0, Mean Corpuscular Hemoglobin 29.8, Mean Corpuscular Hemoglobin Concent 32.7, Mean Platelet Volume 11.7, Neutrophils (%) (Auto) 71.5, Lymphocytes (%) (Auto) 17.9, Monocytes (%) (Auto) 7.9, Eosinophils (%) (Auto) 1.7, Basophils (%) (Auto) 0.4, Neutrophils # (Auto) 3.35, Lymphocytes # (Auto) 0.84, Monocytes # (Auto) 0.37, Eosinophils # (Auto) 0.08, Basophils # (Auto) 0.02 10/13/16 16:45 Test 10/13/16 16:45 10/13/16 18:00 White Blood Count 4.69 K/uL (4.8-10.8) Red Blood Count 4.10 M/uL (4.7-6.1) Hemoglobin 12.2 g/dL (14.0-18.0) Hematocrit 37.3 % (42-52) Mean Corpuscular Volume 91.0 fL (80-100) Mean Corpuscular Hemoglobin 29.8 pg (25-34) Mean Corpuscular Hemoglobin Concent 32.7 g/dl (32-36) Platelet Count 179 K/uL (130-400) Mean Platelet Volume 11.7 fL (7.4-10.4) Neutrophils (%) (Auto) 71.5 % Lymphocytes (%) (Auto) 17.9 % Monocytes (%) (Auto) 7.9 % Eosinophils (%) (Auto) 1.7 % Basophils (%) (Auto) 0.4 % Neutrophils # (Auto) 3.35 K/uL (1.4-6.5) Lymphocytes # (Auto) 0.84 K/uL (1.2-3.4) Monocytes # (Auto) 0.37 K/uL (0.11-0.59) Eosinophils # (Auto) 0.08 K/uL (0-0.5) Basophils # (Auto) 0.02 K/uL (0-0.2) RDW Standard Deviation 52.3 fL (36.4-46.3) RDW Coefficient of Variation 15.6 % (11.5-14.5) Immature Granulocyte % (Auto) 0.6 % Immature Granulocyte # (Auto) 0.03 K/uL (0.00-0.02) Prothrombin Time 36.2 SECONDS (9.0-12.0) Prothromb Time International Ratio 3.2 (0.9-1.1) Activated Partial Thromboplast Time 37.5 SECONDS (21.0-31.0) Partial Thromboplastin Ratio 1.4 Anion Gap 4.0 mmol/L (3-11) Est Creatinine Clear Calc Drug Dose 48.2 ml/min Estimated GFR () 70.1 Estimated GFR (Non- 60.5 BUN/Creatinine Ratio 27.3 (10-20) Calcium Level 8.8 mg/dl (8.5-10.1) Magnesium Level 2.2 mg/dl (1.8-2.4) Total Bilirubin 0.5 mg/dl (0.2-1) Aspartate Amino Transf (AST/SGOT) 20 U/L (15-37) Alanine Aminotransferase (ALT/SGPT) 20 U/L (12-78) Alkaline Phosphatase 106 U/L (45-117) Troponin I < 0.015 ng/ml (0-0.045) Total Protein 7.4 gm/dl (6.4-8.2) Albumin 3.6 gm/dl (3.4-5.0) Globulin 3.8 gm/dl (2.5-4.0) Albumin/Globulin Ratio 0.9 (0.9-2) Thyroid Stimulating Hormone (TSH) 3.230 uIu/ml (0.300-4.500) Urine Color YELLOW Urine Appearance CLEAR (CLEAR) Urine pH 6.5 (4.5-7.5) Urine Specific [place] 1.010 (1.000-1.030) Urine Protein NEG (NEG) Urine Glucose (UA) NEG (NEG) Urine Ketones NEG (NEG) Urine Occult Blood NEG (NEG) Urine Nitrite NEG (NEG) Urine Bilirubin NEG (NEG) Urine Urobilinogen NEG (NEG) Urine Leukocyte Esterase NEG (NEG) Laboratory results reviewed by me. Medications Administered Medications (Trade) Dose Ordered Sig/Alexus Route Start Time Stop Time Status Last Admin Dose Admin Sodium Chloride (Nss 1000ml) 500 ml @ 999 mls/hr Q31M STAT IV 10/13/16 16:28 10/13/16 16:58 DC 10/13/16 17:35 999 MLS/HR ECG Indication: other (dizziness) Rate (beats per minute): 69 Rhythm: other (ventricular pacemaker) Findings: other (occasional [place] beats, no obvious ischemia) ED Course 1622: The patient was evaluated in room C3. A complete history and physical exam was performed. 1628: NSS 500 ml @ 999 mls/hr IV. 1800: Orthostatic vital signs are negative. 8: I reevaluated the patient. He is resting comfortably. I discussed results and discharge instructions: he verbalized understanding and agreement. The patient is ready for discharge. Medical Decision Differential diagnoses: vertigo, dehydration, electrolyte imbalance, anemia, infection, UTI, intracranial bleeding, dysrhythmia. There is no leukocytosis or worrisome anemia. No significant electrolyte abnormality, kidney failure or hepatitis. INR is elevated consistent with his Coumadin use. EKG shows a ventricular pacemaker, no acute ischemia. Cardiac enzyme testing 1 is not consistent with acute cardiac injury. Chest film shows cardiomegaly, no pneumonia or pneumothorax. Brain CT shows a stable finding consistent with his past history, there was no acute bleed or acute change. Orthostatic vital signs were negative. Urinalysis does not show evidence for infection. The patient appears to be in a euthyroid state. On exam, there were no focal neurologic deficits. The patient presents with a bout of dizziness earlier today, this has been an ongoing issue for him. It seems to have resolved with rest and meclizine. The patient's blood pressure is adequate, he is feeling well and I do think stable for discharge. He likely is suffering from vertigo. Impression Primary Impression: Vertigo Scribe Attestation The scribe's documentation has been prepared under my direction and personally reviewed by me in its entirety. I confirm that the note above accurately reflects all work, treatment, procedures, and medical decision making performed by me. Departure Information Dispostion Home / Self-Care Referrals No Doctor, Assigned (PCP) Jesus Hickey, DO Forms HOME CARE DOCUMENTATION FORM, IMPORTANT VISIT INFORMATION Patient Instructions My [facility] Additional Instructions testing today was all ok as discussed use the meclizine for vertigo as before return if worsening
[2016-10-20] MEDS ORDERED: LSX40 PO (14:07)
[2016-10-20] MEDS ORDERED: CRD200 PO (14:07)
== END 2016-10-13 19:06 | disposition home or self-care (01) ==
LOC: C.EDB 15:32 → C.EDC 19:06
DX: R42 Dizziness and giddiness (principal); I51.7 Cardiomegaly; J90 Pleural effusion, not elsewhere classified; I10 Essential (primary) hypertension; N40.0 Benign prostatic hyperplasia without lower urinary tract symptoms; D32.0 Benign neoplasm of cerebral meninges; I48.2 Chronic atrial fibrillation; F32.9 Major depressive disorder, single episode, unspecified; F41.9 Anxiety disorder, unspecified; E78.5 Hyperlipidemia, unspecified; G40.909 Epilepsy, unspecified, not intractable, without status epilepticus; I50.20 Unspecified systolic (congestive) heart failure; Z79.01 Long term (current) use of anticoagulants; Z82.49 Family history of ischemic heart disease and other diseases of the circulatory system; Z95.0 Presence of cardiac pacemaker

== ENCOUNTER 2016-10-19 11:00 | Inpatient (IN) | payer OTHER, MEDICARE ==
[~2016-10-19] VITALS: Ht 175.3 cm; Wt 72.8 kg
[~2016-10-19 11:00] MED LIST changes: +LISI-729 PO; -LSN5 PO
--- NOTE | 2016-10-19 11:39 | DIAGNOSTIC IMAGING REPORT ---
CHEST ONE VIEW PORTABLE CLINICAL HISTORY: EVALUATE WEAKNESS DIZZINESS, SHORTNESS OF BREATH COMPARISON STUDY: 10/13/2016 FINDINGS: The heart is enlarged. There is radiographic evidence of congestive failure with mild interstitial edema. Small pleural effusions are suspected. There is a left subclavian single chamber central venous pacemaker. There is no lobar consolidation[ IMPRESSION: Cardiomegaly and radiographic evidence of congestive failure. Electronically signed by: Alfonzo Shi M.D. 10/19/2016 11:37 AM Dictated Date/Time: 10/19/2016 11:37 AM
[2016-10-19] MEDS ORDERED: FUROSEMIDE 40 MG/4 ML VIAL IV STA (11:59)
[2016-10-19 12:33] LABS: BASO % 0.4 %; BASO ABS # 0.02 K/uL (0-0.2); COMPLETE YES; EOS % 1.7 %; HEMATOCRIT 38.9 % (42-52); IG% 0.2 %; MEAN CELL VOLUME 92.4 fL (80-100); MEAN CORPUSCULAR HEMOGLOBIN 29.9 pg (25-34); MEAN CORPUSCULAR HGB CONC 32.4 g/dl (32-36); MEAN PLATELET VOLUME 12.2 fL (7.4-10.4); MONO % 8.7 %; PLATELET COUNT 177 K/uL (130-400); RED BLOOD COUNT 4.21 M/uL (4.7-6.1); WHITE BLOOD COUNT 5.43 K/uL (4.8-10.8)
[2016-10-19 12:51] LABS: URINE APPEARANCE CLEAR (CLEAR); URINE BILIRUBIN NEG (NEG); URINE COLOR YELLOW; URINE NITRITE NEG (NEG); URINE SPECIFIC GRAVITY 1.014 (1.000-1.030); UROBILINOGEN NEG (NEG)
[2016-10-19 12:54] LABS: ALT/SGPT 58 U/L (12-78); AST/SGOT 65 U/L (15-37); BLOOD UREA NITROGEN 30 mg/dl (7-18); BUN/CREATININE RATIO 27.4 (10-20); CALCIUM 8.5 mg/dl (8.5-10.1); CARBON DIOXIDE 30 mmol/L (21-32); CHLORIDE 107 mmol/L (98-107); GLUCOSE 98 mg/dl (70-99); MAGNESIUM 2.3 mg/dl (1.8-2.4); POTASSIUM 4.5 mmol/L (3.5-5.1); SODIUM 141 mmol/L (136-145)
[2016-10-19 13:04] LABS: ALKALINE PHOSPHATASE 126 U/L (45-117); CKMB/CK RATIO 2.3 (0-3.0)
[2016-10-19 13:12] LABS: MANUAL MICROSCOPIC REQUIRED? NO; REVIEW REQ? NO
[2016-10-19] MEDS ORDERED: ONDANSETRON INJ 2 MG/ML 2 ML VIAL IV PRN (14:45)
[2016-10-19] MEDS ORDERED: MECLIZINE HCL 25 MG TAB PO PRN (14:45)
[2016-10-19] MEDS ORDERED: ACETAMINOPHEN 325 MG TAB PO PRN (14:45)
[2016-10-19 15:08] LABS: INR 3.1 (0.9-1.1); PROTHROMBIN TIME (PATIENT) 34.4 SECONDS (9.0-12.0)
[2016-10-19 15:18] VITALS: O2SAT 93; Ht 175.3 cm; Wt 72.8 kg
--- NOTE | 2016-10-19 15:30 | History and Physical ---
History & Physical Date & Time of Service: October 19, 2016 at 15:03 Chief Complaint: Shortness of Breath, Dizziness Primary Care Physician: Jesus Hickey DO History of Present Illness 86 year old male who presents to the ER with shortness of breath and dizziness. This is the patient's fourth hospital stay this year. Most recently he was admitted to [facility] 09/28 - 10/04 for dizziness and was found to have bradycardia, non sustained V-tach, and PVCs. He had a pacemaker placed. His amiodarone was also increased to BID and metoprolol tartrate was changed to succinate. Patient was seen by his PCP on 10/09 and Lisinopril was decreased due to hypotension. Patient reports he has been feeling generally well. He reports feeling generalized weakness. He continues to get dizzy episodes that are relieved with Meclizine. He also gets left sided chest pain which he describes as a pressure. Reports this has been a chronic issue for him. He denies any specific causative or alleviating factors. It will come and go on its own. He denies palpitations. Over the past two nights patient has required two pillows to sleep. He notes a 3lb weight gain over the past week and increased lower extremity edema, R>L which is typical for him. He has chronic exertional shortness of breath at baseline and reports it was worse last night, especially while trying to sleep. He also developed dizziness but took a Meclizine with resolution of symptoms. He denies lightheadedness or syncopal events. Patient denies cough or sputum production. No fever or chills. He denies abdominal pain, nausea, vomiting, or diarrhea. No urinary symptoms. In the ER, patient was saturating 88% on room air. This improved with 2L oxygen via NC. CXR is showing CHF and proBNP is elevated. He was given 40mg IV Lasix. Past Medical/Surgical History Medical Problems: (1) Benign positional vertigo Status: Chronic (2) Borderline hypertension Status: Chronic (3) BPH (benign prostatic hypertrophy) Status: Chronic (4) Cerebral meningioma Status: Chronic (5) Chronic atrial fibrillation Status: Chronic (6) Depression with anxiety Status: Chronic (7) Dyslipidemia Status: Chronic (8) History of meningioma of the brain Status: Chronic (9) Pacemaker Status: Chronic (10) Seizure disorder Status: Chronic (11) Systolic CHF Permanent Comment: echo 08/2016 - EF 35-40%, moderate TR, moderate AR Status: Chronic Surgical Problems: (1) H/O craniotomy Permanent Comment: 1986 for meningioma Status: Chronic (2) S/P cardiac cath Permanent Comment: 01/2015 [facility]- diffuse nonobstructive coronary plaque disease; overall CAD medically manageable Status: Chronic Family History non contributory due to patient's advanced age Social History Smoking Status: Former Smoker Alcohol Use: none Marital Status: Housing status: lives with family Immunizations History of Influenza Vaccine: Yes Influenza Vaccine Date: Mar 06, 2016 Allergies Coded Allergies: No Known Allergies (Unverified , 10/13/16) Home Medications Scheduled Amiodarone HCl (Amiodarone HCl), 200 MG PO BID Furosemide (Lasix), 20 MG PO DAILY Gabapentin (Gabapentin), 300 MG PO BID Levetiracetam (Keppra), 500 MG PO BID Lisinopril (Zestril), 2.5 MG PO QAM Magnesium Oxide (Mg Supplement (Magnesium Oxide), 1 TAB DAILY Metoprolol Succinate (Toprol Xl), 1 TAB PO DAILY Multiple Vitamins W/ Minerals (Centrum Silver Ultra Mens), 1 TAB PO DAILY Sertraline Hcl (Zoloft), 25 MG PO DAILY Simvastatin (Zocor), 20 MG PO QAM Tamsulosin Hcl (Flomax), 0.4 MG PO DAILY Warfarin Sod (Coumadin), 2.5 MG PO DAILY Scheduled PRN Meclizine Hcl (Meclizine Hcl), 25 MG PO Q8 PRN for Dizziness or Vertigo Review of Systems ROS per HPI, all other systems reviewed and negative Physical Exam Vital Signs Date Time Temp Pulse Resp B/P Pulse Ox O2 Delivery O2 Flow Rate FiO2 10/19/16 13:48 54 21 122/86 93 Nasal Cannula 2.0 10/19/16 13:20 60 10/19/16 12:59 60 20 159/89 98 Nasal Cannula 2.0 10/19/16 11:41 36.6 65 20 154/81 94 Nasal Cannula 2.0 65 162/95 67 163/77 10/19/16 11:31 88 Room Air 10/19/16 11:31 93 Nasal Cannula 2.0 10/19/16 11:20 Room Air 88 10/19/16 11:20 36.6 67 20 170/89 88 Room Air 10/19/16 11:09 69 General Appearance: no apparent distress Head: normocephalic Eyes: normal inspection ENT: hearing grossly normal Neck: supple, no JVD Respiratory/Chest: no respiratory distress, + rales (BL bases) Cardiovascular: regular rate, rhythm, + pertinent finding (+1 pitting edema BLLE, R>L) Abdomen/GI: normal bowel sounds, non tender, soft Extremities/Musculoskelatal: normal inspection, no calf tenderness Neurologic/Psych: no motor/sensory deficits, alert, normal mood/affect, oriented x 3 Skin: normal color, warm/dry Diagnostics Laboratory Results Results Past 24 Hours Test 10/19/16 11:58 10/19/16 12:10 Range/Units Urine Color YELLOW Urine Appearance CLEAR CLEAR Urine pH 7.0 4.5-7.5 Urine Specific [place] 1.014 1.000-1.030 Urine Protein NEG NEG Urine Glucose (UA) NEG NEG Urine Ketones NEG NEG Urine Occult Blood NEG NEG Urine Nitrite NEG NEG Urine Bilirubin NEG NEG Urine Urobilinogen NEG NEG Urine Leukocyte Esterase NEG NEG White Blood Count 5.43 4.8-10.8 K/uL Red Blood Count 4.21 4.7-6.1 M/uL Hemoglobin 12.6 14.0-18.0 g/dL Hematocrit 38.9 42-52 % Mean Corpuscular Volume 92.4 80-100 fL Mean Corpuscular Hemoglobin 29.9 25-34 pg Mean Corpuscular Hemoglobin Concent 32.4 32-36 g/dl Platelet Count 177 130-400 K/uL Mean Platelet Volume 12.2 7.4-10.4 fL Neutrophils (%) (Auto) 78.0 % Lymphocytes (%) (Auto) 11.0 % Monocytes (%) (Auto) 8.7 % Eosinophils (%) (Auto) 1.7 % Basophils (%) (Auto) 0.4 % Neutrophils # (Auto) 4.24 1.4-6.5 K/uL Lymphocytes # (Auto) 0.60 1.2-3.4 K/uL Monocytes # (Auto) 0.47 0.11-0.59 K/uL Eosinophils # (Auto) 0.09 0-0.5 K/uL Basophils # (Auto) 0.02 0-0.2 K/uL RDW Standard Deviation 54.7 36.4-46.3 fL RDW Coefficient of Variation 16.2 11.5-14.5 % Immature Granulocyte % (Auto) 0.2 % Immature Granulocyte # (Auto) 0.01 0.00-0.02 K/uL Sodium Level 141 136-145 mmol/L Potassium Level 4.5 3.5-5.1 mmol/L Chloride Level 107 98-107 mmol/L Carbon Dioxide Level 30 21-32 mmol/L Anion Gap 4.0 3-11 mmol/L Blood Urea Nitrogen 30 7-18 mg/dl Creatinine 1.10 0.60-1.40 mg/dl Est Creatinine Clear Calc Drug Dose 48.2 ml/min Estimated GFR () 70.1 Estimated GFR (Non- 60.5 BUN/Creatinine Ratio 27.4 10-20 Random Glucose 98 70-99 mg/dl Calcium Level 8.5 8.5-10.1 mg/dl Magnesium Level 2.3 1.8-2.4 mg/dl Total Bilirubin 0.7 0.2-1 mg/dl Direct Bilirubin 0.2 0-0.2 mg/dl Aspartate Amino Transf (AST/SGOT) 65 15-37 U/L Alanine Aminotransferase (ALT/SGPT) 58 12-78 U/L Alkaline Phosphatase 126 45-117 U/L Total Creatine Kinase 52 39-308 U/L Creatine Kinase MB 1.2 0.5-3.6 ng/ml Creatine Kinase MB Ratio 2.3 0-3.0 Troponin I < 0.015 0-0.045 ng/ml Pro-B-Type Natriuretic Peptide 4072 0-1800 pg/ml Total Protein 7.9 6.4-8.2 gm/dl Albumin 3.9 3.4-5.0 gm/dl Thyroid Stimulating Hormone (TSH) 3.430 0.300-4.500 uIu/ml Diagnostic Radiology CXR IMPRESSION: Cardiomegaly and radiographic evidence of congestive failure. Impression Assessment and Plan ACUTE HYPOXIC RESPIRATORY FAILURE DUE TO ACUTE ON CHRONIC CHF - admit to tele - patient presenting with increasing exertional shortness of breath, orthopnea, and lower extremity edema; in the ER, found to be hypoxic on room air at 88% which improved with oxygen 2L via NC, CXR showing CHF and elevated proBNP; s/p 40mg IV Lasix - echo 08/2016 - EF 35-40%, moderate TR, moderate AR; will hold on repeating echo for now - defer to cardio - will hold on further diuresis for tonight and order 20mg IV for the morning - on Lasix 20mg PO at home - may need to increase home dose of Lasix and decrease metoprolol or Lisinopril due to mild hypotension noted as an outpatient - for now continue beta akil and ACEi - daily weights, low Na+ diet, I/O - cardio consult, input appreciated CHEST PAIN, HX NONOBSTRUCTIVE CAD - seems to be patient's chronic chest pain that he has been experiencing over the past few months - initial EKG showed T-wave inversions laterally and inferiorly, second EKG demonstrated paced rhythm - cath 01/2015 - mild non obstructive CAD - initial trop negative, continue to cycle cardiac enzymes - continue beta akil and statin ATRIAL FIBRILLATION, HX NON SUSTAINED V-TACH, HX BRADYCARDIA S/P PACEMAKER - on beta akil for rate control and amio for rhythm control - continue both - amio dose was increased to BID and metoprolol tartrate and was changed to succinate during last hospitalization - pacer interrogation - on Coumadin, INR 3.1 - will hold Coumadin tonight HTN - BP controlled - continue lisinopril and metoprolol HX BRAIN MENINGIOMA, SEIZURES - continue Keppra BPPV - PRN meclizine DVT PROPHYLAXIS - on Coumadin CODE STATUS - Patient is a full code as per my discussion with him. DISPO - In my clinical judgment this beneficiary meets acute admission criteria, established by [facility], that includes being hospitalized through two midnights. Attending Addendum; The patient was seen and examined Admitted with progressive SOB for the last 3 weeks Worse today No significant chest pain No Fever,chills O/E Moderate SOB at rest HEENT-unremarkable Chest-decreased breath sound bilaterally Minimal crackles at the bases Heart-regular Abdomen-benign Labs and Imaging studies were reviewed Agree with the assessment and plan Dr Jenae Easley VTE Prophylaxis VTE Risk Assessment Done? Y/N: Yes Risk Level: Moderate Given or contraindicated: Warfarin (Coumadin)
[2016-10-19 16:00] VITALS: O2SAT 98
[2016-10-19 16:04] VITALS: BP 131/73; PULSE 60; TEMP 36.3; O2SAT 97
--- NOTE | 2016-10-19 19:00 | EMERGENCY ROOM VISIT NOTE ---
History Report prepared by Sonali: Kennedy Madrid Under the Supervision of: Dr. Henok Gardiner M.D. First contact with patient: 11:24 Chief Complaint: SHORTNESS OF BREATH Stated Complaint: DIZZINESS/SOB Nursing Triage Summary: Pt arrived via ambulance ALS from [facility]. Pt stated that last evening he became dizzy and short of breath while walking. Pt thought that if he slept it would pass. Pt woke this morning and was still dizzy. His shortness of breath became worse. Initially he was just short of breath with exertion and now he is become SOB while at rest. Pt stated he felt that he should come to the ED. Pt had recent pacemaker surgery. Pt denies using any home oxygen. Denies cough and nasal congestion. When EMS arrived the pts pulse ox was 87% on RA. EMS placed the pt on 4lpm and his pulse ox was then in the low 90's. History of Present Illness The patient is an 86 year old male who presents to the Emergency Room with complaints of worsening shortness of breath that the patient began to experience last night. The patient states that he became unusually short of breath while walking last night. He also complains of dizziness. The patient was visited by Home Health today who state that his shortness of breath was worse than usual. Upon arrival to the emergency department his oxygen saturation was 87% on room air. He also notes increased edema in the lower extremities. He does not having frequent chest pain, but denies any pain throughout the day today. He denies any cough or fevers today. He has a history of vertigo and v-tach. He has a pacer placed in the chest. 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 A total of ten systems were reviewed and were otherwise negative. Past Medical & Surgical Medical Problems: (1) Benign positional vertigo (2) Borderline hypertension (3) BPH (benign prostatic hypertrophy) (4) Cerebral meningioma (5) Chronic atrial fibrillation (6) Depression with anxiety (7) Dyslipidemia (8) History of meningioma of the brain (9) Pacemaker (10) Seizure disorder (11) Systolic CHF Surgical Problems: (1) H/O craniotomy (2) S/P cardiac cath Family History FH: atrial fibrillation SISTER Social History Smoking Status: Former Smoker Alcohol Use: none Marital Status: Housing Status: lives with family Current/Historical Medications Scheduled Amiodarone HCl (Amiodarone HCl), 200 MG PO BID Furosemide (Lasix), 20 MG PO DAILY Gabapentin (Gabapentin), 300 MG PO BID Levetiracetam (Keppra), 500 MG PO BID Lisinopril (Zestril), 2.5 MG PO QAM Magnesium Oxide (Mg Supplement (Magnesium Oxide), 1 TAB DAILY Metoprolol Succinate (Toprol Xl), 1 TAB PO DAILY Multiple Vitamins W/ Minerals (Centrum Silver Ultra Mens), 1 TAB PO DAILY Sertraline Hcl (Zoloft), 25 MG PO DAILY Simvastatin (Zocor), 20 MG PO QAM Tamsulosin Hcl (Flomax), 0.4 MG PO DAILY Warfarin Sod (Coumadin), 2.5 MG PO DAILY Scheduled PRN Meclizine Hcl (Meclizine Hcl), 25 MG PO Q8 PRN for Dizziness or Vertigo Allergies Coded Allergies: No Known Allergies (Unverified , 10/13/16) Physical Exam Vital Signs Date Time Temp Pulse Resp B/P Pulse Ox O2 Delivery O2 Flow Rate FiO2 10/19/16 13:48 54 21 122/86 93 Nasal Cannula 2.0 10/19/16 13:20 60 10/19/16 12:59 60 20 159/89 98 Nasal Cannula 2.0 10/19/16 11:41 36.6 65 20 154/81 94 Nasal Cannula 2.0 65 162/95 67 163/77 10/19/16 11:31 88 Room Air 10/19/16 11:31 93 Nasal Cannula 2.0 10/19/16 11:20 Room Air 88 10/19/16 11:20 36.6 67 20 170/89 88 Room Air 10/19/16 11:09 69 Physical Exam GENERAL: Awake, alert, well-appearing, in no distress HENT: Normocephalic, atraumatic. Oropharynx unremarkable. EYES: Normal conjunctiva. Sclera non-icteric. NECK: Supple. No nuchal rigidity. FROM. No JVD. RESPIRATORY: Rales to auscultation bilateral CARDIAC: irregular rhythm. Extremities warm and well perfused. Pulses equal. ABDOMEN: Soft, non-distended. No tenderness to palpation. No rebound or guarding. No masses. RECTAL: Deferred. MUSCULOSKELETAL: Chest examination reveals no tenderness. The back is symmetrical on inspection without obvious abnormality. There is no CVA tenderness to palpation. No joint edema. LOWER EXTREMITIES: Calves are equal size bilaterally and non-tender. 2+ bilateral edema. No discoloration. NEURO: Normal sensorium. No sensory or motor deficits noted. SKIN: No rash or jaundice noted. Medical Decision & Procedures ER Provider Diagnostic Interpretation: Radiology results as stated below per my review and radiologist interpretation: CHEST ONE VIEW PORTABLE CLINICAL HISTORY: EVALUATE WEAKNESS DIZZINESS, SHORTNESS OF BREATH COMPARISON STUDY: 10/13/2016 FINDINGS: The heart is enlarged. There is radiographic evidence of congestive failure with mild interstitial edema. Small pleural effusions are suspected. There is a left subclavian single chamber central venous pacemaker. There is no lobar consolidation[ IMPRESSION: Cardiomegaly and radiographic evidence of congestive failure. Electronically signed by: Alfonzo Shi M.D. 10/19/2016 11:37 AM Dictated Date/Time: 10/19/2016 11:37 AM Laboratory Results 10/19/16 12:10 Red Blood Count 4.21, Mean Corpuscular Volume 92.4, Mean Corpuscular Hemoglobin 29.9, Mean Corpuscular Hemoglobin Concent 32.4, Mean Platelet Volume 12.2, Neutrophils (%) (Auto) 78.0, Lymphocytes (%) (Auto) 11.0, Monocytes (%) (Auto) 8.7, Eosinophils (%) (Auto) 1.7, Basophils (%) (Auto) 0.4, Neutrophils # (Auto) 4.24, Lymphocytes # (Auto) 0.60, Monocytes # (Auto) 0.47, Eosinophils # (Auto) 0.09, Basophils # (Auto) 0.02 10/19/16 12:10 Test 10/19/16 11:58 10/19/16 12:10 Urine Color YELLOW Urine Appearance CLEAR (CLEAR) Urine pH 7.0 (4.5-7.5) Urine Specific [place] 1.014 (1.000-1.030) Urine Protein NEG (NEG) Urine Glucose (UA) NEG (NEG) Urine Ketones NEG (NEG) Urine Occult Blood NEG (NEG) Urine Nitrite NEG (NEG) Urine Bilirubin NEG (NEG) Urine Urobilinogen NEG (NEG) Urine Leukocyte Esterase NEG (NEG) White Blood Count 5.43 K/uL (4.8-10.8) Red Blood Count 4.21 M/uL (4.7-6.1) Hemoglobin 12.6 g/dL (14.0-18.0) Hematocrit 38.9 % (42-52) Mean Corpuscular Volume 92.4 fL (80-100) Mean Corpuscular Hemoglobin 29.9 pg (25-34) Mean Corpuscular Hemoglobin Concent 32.4 g/dl (32-36) Platelet Count 177 K/uL (130-400) Mean Platelet Volume 12.2 fL (7.4-10.4) Neutrophils (%) (Auto) 78.0 % Lymphocytes (%) (Auto) 11.0 % Monocytes (%) (Auto) 8.7 % Eosinophils (%) (Auto) 1.7 % Basophils (%) (Auto) 0.4 % Neutrophils # (Auto) 4.24 K/uL (1.4-6.5) Lymphocytes # (Auto) 0.60 K/uL (1.2-3.4) Monocytes # (Auto) 0.47 K/uL (0.11-0.59) Eosinophils # (Auto) 0.09 K/uL (0-0.5) Basophils # (Auto) 0.02 K/uL (0-0.2) RDW Standard Deviation 54.7 fL (36.4-46.3) RDW Coefficient of Variation 16.2 % (11.5-14.5) Immature Granulocyte % (Auto) 0.2 % Immature Granulocyte # (Auto) 0.01 K/uL (0.00-0.02) Prothrombin Time 34.4 SECONDS (9.0-12.0) Prothromb Time International Ratio 3.1 (0.9-1.1) Anion Gap 4.0 mmol/L (3-11) Est Creatinine Clear Calc Drug Dose 48.2 ml/min Estimated GFR () 70.1 Estimated GFR (Non- 60.5 BUN/Creatinine Ratio 27.4 (10-20) Calcium Level 8.5 mg/dl (8.5-10.1) Magnesium Level 2.3 mg/dl (1.8-2.4) Total Bilirubin 0.7 mg/dl (0.2-1) Direct Bilirubin 0.2 mg/dl (0-0.2) Aspartate Amino Transf (AST/SGOT) 65 U/L (15-37) Alanine Aminotransferase (ALT/SGPT) 58 U/L (12-78) Alkaline Phosphatase 126 U/L (45-117) Total Creatine Kinase 52 U/L (39-308) Pro-B-Type Natriuretic Peptide 4072 pg/ml (0-1800) Total Protein 7.9 gm/dl (6.4-8.2) Albumin 3.9 gm/dl (3.4-5.0) Thyroid Stimulating Hormone (TSH) 3.430 uIu/ml (0.300-4.500) Laboratory results reviewed by me Medications Administered Medications (Trade) Dose Ordered Sig/Alexus Route Start Time Stop Time Status Last Admin Dose Admin Furosemide (Lasix Inj) 40 mg NOW STAT IV 10/19/16 11:59 10/19/16 12:00 DC 10/19/16 12:13 40 MG ECG Indication: SOB/dyspnea Rate (beats per minute): 69 Rhythm: atrial fibrillation Findings: nonspecific-ST abn, PVC, T-wave inversion (Lateral) Comparison ECG Date: Change: no significant change Change: Subsequent EKG on same visit shoes Paced rhythm at 60 bpm. No ischemic change or ectopy. ED Course 1153: The patient was evaluated in room C6. A complete history and physical exam was performed. 1159: Ordered Lasix 40 mg IV. 1243: I reassed the patient at this time. He was resting in bed. 1340: I reassed the patient at this time. He had voided 975 mL of urine after Lasix. His family has arrived and states that he is generally weak, short of breath, and not doing well at home. 1358: I discussed the case with Dr. Tracee Martin Hospitalist, he will evaluate the patient for further treatment. Medical Decision Prior records/ancillary studies reviewed. Triage Nursing notes reviewed and agree them. Additional history obtained from the family. The patient's history was concerning for shortness of breath. Differential diagnosis: Etiologies such as pneumonia, COPD, reactive airway disease, CHF, cardiac ischemia, pulmonary embolism, pneumothorax, musculoskeletal, infections, gastrointestinal, as well as others were entertained. Physical examination: As above. Concerning for CHF. ER treatment provided: IV Lasix Supplemental oxygen On reassessment the patient felt better. Diagnostic interpretation by me: The electrocardiogram was negative for pathologic change. The labs revealed a mild anemia on CBC. Chemistry, LFTs unremarkable. The patient's BNP is moderately elevated concerning for CHF. Imaging studies: Chest x-ray as above. The patient has findings consistent with CHF. Family states that he has been more short of breath and not doing well at home. Further management in the hospital seems appropriate. Consultation: A consultation was placed with the hospitalist. The case was discussed and diagnostics were reviewed. The patient was evaluated in the ER for further treatment. The chart was completed utilizing [employer] Speech voice recognition software. Grammatical errors, random word insertions, pronoun errors, and incomplete sentences are an occasional consequence of this system due to software limitations, ambient noise, and hardware issues. Any formal questions or concerns about the content, text, or information contained within the body of this dictation should be directly addressed to the physician for clarification. Consults Time Called: 1350 Consulting Physician: Dr. Tracee Martin [facility] Returned Call: 1351 I discussed the case with Dr. Tracee Martin Hospitalmaddy, he will evaluate the patient for further treatment. Impression Primary Impression: Congestive heart failure Additional Impressions: Weakness Hypoxia Scribe Attestation The scribe's documentation has been prepared under my direction and personally reviewed by me in its entirety. I confirm that the note above accurately reflects all work, treatment, procedures, and medical decision making performed by me. Departure Information Dispostion Being Evaluated By Hospitalist Referrals Jesus Hickey DO (PCP) Patient Instructions My [facility] Problem Qualifiers
[2016-10-19 19:52] VITALS: BP 134/81; PULSE 68; TEMP 36.8; O2SAT 94
[2016-10-19] MEDS: GABAPENTIN 300 MG CAP PO SCH (20:53)
[2016-10-19] MEDS: LEVETIRACETAM 500 MG TAB PO SCH (20:53)
[2016-10-19] MEDS: AMIODARONE 200 MG TAB PO SCH (20:53)
[2016-10-19 23:18] VITALS: BP 129/60; PULSE 69; TEMP 36.5; O2SAT 94
--- NOTE | 2016-10-20 01:02 | CARDIOLOGY CONSULTATION ---
DATE OF CONSULTATION: 10/19/2016 REFERRING PHYSICIAN: Dr. Rodriguez. REASON FOR CONSULTATION: Congestive heart failure. HISTORY OF PRESENT ILLNESS: Mr. Alcantara is an 86-year-old patient, who is well known to the cardiology service. He was most recently admitted in late September with vertigo, and symptomatic bradycardia with paroxysmal atrial fibrillation. At that time, a pacemaker was implanted. He was discharged to home. This morning, he became short of breath with left-sided chest pain. He was referred to the Emergency Department. Chest x-ray demonstrates mild congestion. His ProBNP is mildly elevated. The patient received 1 dose of intravenous Lasix, he is feeling much better. No recurrent chest pain. His initial troponin was negative. ECG demonstrates atrial fibrillation with lateral T-wave inversion. Pacemaker interrogation demonstrates ventricular pacing, approximately 70%. REVIEW OF SYSTEMS: The pertinent positive noted above, a comprehensive 10-system review is, otherwise, negative, although patient is a poor historian and somewhat unreliable due to underlying dementia. PAST MEDICAL HISTORY: 1. Symptomatic bradycardia, status post recent pacemaker implantation. 2. Nonobstructive coronary artery disease, per cardiac catheterization in January 2015. 3. Hypertension. 4. Atypical chest pain. 5. Chronic atrial fibrillation. 6. Chronic anticoagulation. 7. Brain meningioma. PAST SURGICAL HISTORY: 1. Recent pacemaker implantation. 2. Cardiac catheterization. SOCIAL HISTORY: He is and lives with his . They live independently. FAMILY HISTORY: Negative for premature CAD or sudden cardiac ; however, noncontributory, given patient's advanced age. ALLERGIES: No known drug allergies. CURRENT OUTPATIENT MEDICATIONS: 1. Amiodarone 200 mg t.i.d. 2. Lasix 20 mg daily. 3. Gabapentin 300 mg twice daily. 4. Keppra 500 mg twice daily. 5. Zestril 2.5 mg daily. 6. Magnesium oxide daily. 7. Toprol-XL 50 mg daily. 8. Zoloft 25 mg daily. 9. Zocor 20 mg. 10. Flomax 0.4 mg daily. 11. Coumadin as directed for goal INR of 2.0-3.0. 12. Meclizine as needed. LABORATORY DATA: White blood cell count is 5.43, hemoglobin is 12.6, platelet count is 177. Sodium 141, potassium 4.5, chloride 107, CO2 is 30, BUN is 30, creatinine is 1.10. ProBNP 4072. Cardiac enzymes are undetectable. TSH 3.430. Telemetry demonstrates atrial fibrillation with intermittent ventricular pacing, occasional PVCs, no sustained V-tach. PHYSICAL EXAMINATION: VITAL SIGNS: Temperature is 36.3 degrees centigrade, pulse 60 beats per minute and regular, respiratory rate is 18 breaths per minute, blood pressure 131/73, SaO2 is 97% on 2 liters. GENERAL: NAD, awake, alert and oriented x3. THROAT: His mucous membranes are moist. No scleral icterus. Conjunctivae pink. NECK: Supple. There is no JVD, no HJR, no carotid bruit. HEART: Regular with a normal S1 and S2. A 2/6 midsystolic murmur heard best at the apex. LUNGS: Demonstrate crackles at the right base. No rhonchi or wheeze. ABDOMEN: Soft, nontender. No rebound or guarding. Normal bowel sounds. EXTREMITIES: Demonstrate +1 bilateral pretibial edema with the right side more prominent than left. NEUROLOGIC: Demonstrates no focal motor deficit. FINAL IMPRESSION: 1. Mild acute decompensated systolic heart failure. 2. Chronic atypical chest pain with history of nonobstructive coronary disease. Initial troponin is negative. 3. Chronic atrial fibrillation -- rate controlled on chronic anticoagulation. 4. Hypertension -- controlled. 5. Intermittent dizziness related to vertigo and treated with as-needed meclizine. PLAN AND RECOMMENDATIONS: The patient will receive an additional dose of intravenous Lasix in the a.m., 40 mg daily. Consider titrating Lasix to 40 mg p.o. daily at the time of discharge. A repeat resting 2D transthoracic echo will be performed to assess LV systolic function, which was known to be moderately reduced, per most recent study in August. Cardiac enzymes will be trended x3 sets. He will continue lisinopril, Toprol-XL, amiodarone, in addition to Coumadin. A repeat INR will be performed in the a.m. I will continue to follow during hospitalization. Thank you for allowing me to take part in the care of your patient.
[2016-10-20 04:45] VITALS: BP 138/71; PULSE 68; TEMP 36.6; O2SAT 93
[2016-10-20 06:12] LABS: HEMATOCRIT 34.8 % (42-52); MEAN CELL VOLUME 90.9 fL (80-100); MEAN CORPUSCULAR HEMOGLOBIN 29.5 pg (25-34); MEAN CORPUSCULAR HGB CONC 32.5 g/dl (32-36); MEAN PLATELET VOLUME 11.8 fL (7.4-10.4); PLATELET COUNT 157 K/uL (130-400); RED BLOOD COUNT 3.83 M/uL (4.7-6.1); WHITE BLOOD COUNT 4.72 K/uL (4.8-10.8)
[2016-10-20 06:18] LABS: INR 3.2 (0.9-1.1); PROTHROMBIN TIME (PATIENT) 35.4 SECONDS (9.0-12.0)
[2016-10-20 06:53] LABS: BUN/CREATININE RATIO 24.6 (10-20); CALCIUM 8.4 mg/dl (8.5-10.1); CREATININE 1.3 mg/dl (0.60-1.40); MAGNESIUM 2.2 mg/dl (1.8-2.4); POTASSIUM 3.9 mmol/L (3.5-5.1)
[2016-10-20] MEDS ORDERED: PERFLUTREN LIPID MICROSPHERE (DEFINITY) IV ONE (07:23)
[2016-10-20 07:42] VITALS: BP 156/85; PULSE 61; TEMP 36.8; O2SAT 93
[2016-10-20] MEDS: GABAPENTIN 300 MG CAP PO SCH (08:25)
[2016-10-20] MEDS: LEVETIRACETAM 500 MG TAB PO SCH (08:25)
[2016-10-20] MEDS: AMIODARONE 200 MG TAB PO SCH (08:26)
[2016-10-20] MEDS ORDERED: SERTRALINE HCL 50 MG TAB PO SCH (09:00)
[2016-10-20] MEDS ORDERED: SIMVASTATIN 20 MG TAB PO SCH (09:00)
[2016-10-20] MEDS ORDERED: METOPROLOL SUCC 50MG EXT REL TAB PO SCH (09:00)
[2016-10-20] MEDS ORDERED: FUROSEMIDE INJ 20 MG in SYRINGE 0 ML IV SCH (09:00)
[2016-10-20] MEDS ORDERED: FUROSEMIDE INJ 40 MG in SYRINGE 0 ML IV SCH (09:00)
[2016-10-20] MEDS ORDERED: LISINOPRIL 2.5 MG TAB PO SCH (09:00)
[2016-10-20] MEDS ORDERED: CEROVITE ADV FORMULA TAB PO SCH (09:00)
[2016-10-20] MEDS ORDERED: TAMSULOSIN HCL 0.4 MG CAP PO SCH (09:00)
--- NOTE | 2016-10-20 09:02 | Progress Note ---
Subjective Date of Service: October 20, 2016. Subjective Pt evaluation today including: conversation w/ patient, physical exam, lab review, review of studies, review of inpatient medication list Saw/examined the patient in room 240-2 He's doing okay today, seated in a chair States he presented to the ER due to shortness of breath with exertion and while laying down He also states that he developed dizziness again prior to arrival Currently, he has no shortness of breath, no chest pain/palpitations, no edema, denies dizziness today Problem List Medical Problems: (1) Afib Status: Acute (2) Anticoagulated on Coumadin Status: Acute (3) Atrial fibrillation with RVR Status: Acute (4) Brain mass Status: Acute (5) Congestive heart failure Status: Acute (6) Hypoxia Status: Acute (7) Orthostatic hypotension Status: Acute (8) Substernal chest pain Status: Acute (9) Vertigo Status: Acute (10) Vertigo Status: Acute (11) Vertigo Status: Acute (12) Weakness Status: Acute Review of Systems Constitutional: No chills, No fever, No weakness Respiratory: + dyspnea on exertion, + shortness of breath, No cough, No dyspnea at rest, No hemoptysis, No sputum, No wheezing Cardiac: + orthopnea, No chest pain, No edema, No palpitations Abdomen: No diarrhea, No nausea, No vomiting Musculoskeletal: No joint pain Neurologic: + balance problems, + vertigo, No memory loss, No numbness/tingling , No paralysis, No weakness Medications Current Inpatient Medications Medications (Trade) Dose Ordered Sig/Alexus Route Start Time Stop Time Status Last Admin Dose Admin Acetaminophen (Tylenol Tab) 650 mg Q4H PRN PO 10/19/16 14:45 11/18/16 14:44 Ondansetron HCl (Zofran Inj) 4 mg Q6H PRN IV 10/19/16 14:45 11/18/16 14:44 Amiodarone HCl (Cordarone Tab) 200 mg BID PO 10/19/16 21:00 11/18/16 20:59 10/20/16 08:26 200 MG Gabapentin (Neurontin Cap) 300 mg BID PO 10/19/16 21:00 11/18/16 20:59 10/20/16 08:25 300 MG Levetiracetam (Keppra Tab) 500 mg BID PO 10/19/16 21:00 11/18/16 20:59 10/20/16 08:25 500 MG Lisinopril (Zestril Tab) 2.5 mg QAM PO 10/20/16 09:00 11/19/16 08:59 10/20/16 08:27 2.5 MG Meclizine HCl (Antivert Tab) 25 mg Q8 PRN PO 10/19/16 14:45 11/18/16 14:44 Metoprolol Succinate (Toprol Xl Tab) 50 mg DAILY PO 10/20/16 09:00 11/19/16 08:59 10/20/16 08:26 50 MG Multivitamins/ Minerals (Multivitamin W/ Minerals Tab) 1 tab DAILY PO 10/20/16 09:00 11/19/16 08:59 10/20/16 08:26 1 TAB Sertraline HCl (Zoloft Tab) 25 mg DAILY PO 10/20/16 09:00 11/19/16 08:59 10/20/16 08:27 25 MG Simvastatin (Zocor Tab) 20 mg QAM PO 10/20/16 09:00 11/19/16 08:59 10/20/16 08:26 20 MG Tamsulosin HCl (Flomax Cap) 0.4 mg DAILY PO 10/20/16 09:00 11/19/16 08:59 10/20/16 08:27 0.4 MG Miscellaneous Information 1 ea 1 ea QS N/A 10/20/16 00:00 11/19/16 00:00 Furosemide/Syringe (Lasix Inj/ Syringe) 4 ml @ 4 mls/min DAILY IV 10/20/16 09:00 11/19/16 08:59 10/20/16 08:25 4 MLS/MIN Objective Vital Signs Date Time Temp Pulse Resp B/P Pulse Ox O2 Delivery O2 Flow Rate FiO2 10/20/16 07:42 36.8 61 18 156/85 93 Room Air 10/20/16 04:45 36.6 68 18 138/71 93 Nasal Cannula 2.0 10/20/16 04:45 Nasal Cannula 2.0 10/20/16 00:00 Nasal Cannula 2.0 10/19/16 23:18 36.5 69 16 129/60 94 Nasal Cannula 2.0 10/19/16 20:00 Nasal Cannula 2.0 10/19/16 19:52 36.8 68 18 134/81 94 Nasal Cannula 2.0 10/19/16 16:04 36.3 60 18 131/73 97 Nasal Cannula 2.0 10/19/16 16:00 98 Nasal Cannula 2.0 10/19/16 15:18 93 Nasal Cannula 2.0 88 10/19/16 13:48 54 21 122/86 93 Nasal Cannula 2.0 10/19/16 13:20 60 10/19/16 12:59 60 20 159/89 98 Nasal Cannula 2.0 10/19/16 11:41 36.6 65 20 154/81 94 Nasal Cannula 2.0 65 162/95 67 163/77 10/19/16 11:31 88 Room Air 10/19/16 11:31 93 Nasal Cannula 2.0 10/19/16 11:20 Room Air 88 10/19/16 11:20 36.6 67 20 170/89 88 Room Air 10/19/16 11:09 69 Physical Exam General Appearance: no apparent distress, + pertinent finding (elderly male seated in a chair, with no significant issues to note) Eyes: normal inspection Respiratory/Chest: chest non-tender, lungs clear, normal breath sounds, no respiratory distress, no accessory muscle use, + pertinent finding (+pacemaker on L chest) Cardiovascular: no edema, no JVD, no murmur, + irregularly irregular Abdomen: normal bowel sounds, non tender, soft Extremities: + pertinent finding (+varicose veins b/l LE) Neurologic/Psychiatric: no motor/sensory deficits, alert, normal mood/affect Laboratory Results Last 24 Hours Test 10/19/16 11:58 10/19/16 12:10 10/19/16 18:00 10/19/16 18:20 Urine Color YELLOW Urine Appearance CLEAR Urine pH 7.0 Urine Specific [place] 1.014 Urine Protein NEG Urine Glucose (UA) NEG Urine Ketones NEG Urine Occult Blood NEG Urine Nitrite NEG Urine Bilirubin NEG Urine Urobilinogen NEG Urine Leukocyte Esterase NEG White Blood Count 5.43 K/uL Red Blood Count 4.21 M/uL Hemoglobin 12.6 g/dL Hematocrit 38.9 % Mean Corpuscular Volume 92.4 fL Mean Corpuscular Hemoglobin 29.9 pg Mean Corpuscular Hemoglobin Concent 32.4 g/dl Platelet Count 177 K/uL Mean Platelet Volume 12.2 fL Neutrophils (%) (Auto) 78.0 % Lymphocytes (%) (Auto) 11.0 % Monocytes (%) (Auto) 8.7 % Eosinophils (%) (Auto) 1.7 % Basophils (%) (Auto) 0.4 % Neutrophils # (Auto) 4.24 K/uL Lymphocytes # (Auto) 0.60 K/uL Monocytes # (Auto) 0.47 K/uL Eosinophils # (Auto) 0.09 K/uL Basophils # (Auto) 0.02 K/uL RDW Standard Deviation 54.7 fL RDW Coefficient of Variation 16.2 % Immature Granulocyte % (Auto) 0.2 % Immature Granulocyte # (Auto) 0.01 K/uL Prothrombin Time 34.4 SECONDS Prothromb Time International Ratio 3.1 Sodium Level 141 mmol/L Potassium Level 4.5 mmol/L Chloride Level 107 mmol/L Carbon Dioxide Level 30 mmol/L Anion Gap 4.0 mmol/L Blood Urea Nitrogen 30 mg/dl Creatinine 1.10 mg/dl Est Creatinine Clear Calc Drug Dose 48.2 ml/min Estimated GFR () 70.1 Estimated GFR (Non- 60.5 BUN/Creatinine Ratio 27.4 Random Glucose 98 mg/dl Calcium Level 8.5 mg/dl Magnesium Level 2.3 mg/dl Total Bilirubin 0.7 mg/dl Direct Bilirubin 0.2 mg/dl Aspartate Amino Transf (AST/SGOT) 65 U/L Alanine Aminotransferase (ALT/SGPT) 58 U/L Alkaline Phosphatase 126 U/L Total Creatine Kinase 52 U/L Creatine Kinase MB 1.2 ng/ml 1.2 ng/ml Creatine Kinase MB Ratio 2.3 Troponin I < 0.015 ng/ml < 0.015 ng/ml Pro-B-Type Natriuretic Peptide 4072 pg/ml Total Protein 7.9 gm/dl Albumin 3.9 gm/dl Thyroid Stimulating Hormone (TSH) 3.430 uIu/ml Test 10/20/16 00:00 10/20/16 00:36 10/20/16 05:45 10/20/16 07:14 Creatine Kinase MB Ratio Creatine Kinase MB 1.2 ng/ml Troponin I < 0.015 ng/ml White Blood Count 4.72 K/uL Red Blood Count 3.83 M/uL Hemoglobin 11.3 g/dL Hematocrit 34.8 % Mean Corpuscular Volume 90.9 fL Mean Corpuscular Hemoglobin 29.5 pg Mean Corpuscular Hemoglobin Concent 32.5 g/dl RDW Standard Deviation 53.0 fL RDW Coefficient of Variation 15.9 % Platelet Count 157 K/uL Mean Platelet Volume 11.8 fL Prothrombin Time 35.4 SECONDS Prothromb Time International Ratio 3.2 Sodium Level 141 mmol/L Potassium Level 3.9 mmol/L Chloride Level 105 mmol/L Carbon Dioxide Level 31 mmol/L Anion Gap 5.0 mmol/L Blood Urea Nitrogen 32 mg/dl Creatinine 1.30 mg/dl Est Creatinine Clear Calc Drug Dose 40.8 ml/min Estimated GFR () 57.3 Estimated GFR (Non- 49.4 BUN/Creatinine Ratio 24.6 Random Glucose 83 mg/dl Calcium Level 8.4 mg/dl Magnesium Level 2.2 mg/dl Bedside Glucose 100 mg/dl Assessment and Plan This is an 86 year old male with a PMH of 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 of NSVT, HTN, systolic CHF, hx. of meningioma and seizure disorder, depression/anxiety, HLD presents with shortness of breath, orthopnea Acute on Chronic Systolic CHF Echo in August of 2016 shows an LVEF of 35-40% Presented with orthopnea/dyspnea on exertion CXR shows congestive failure changes, BNP elevated repeat Echo pending received IV Lasix on 10/19 with good clinical results continue IV Lasix 40mg today will need to adjust outpatient dose Symptomatic Bradycardia s/p PPM Dizziness, BPPV patient is presenting with dizziness as well this could be multifactorial, including multiple PVCs and NSVT episodes vs. hypotension vs. BPPV dizziness improves with meclizine PT/OT ordered monitor in tele Chronic Atrial Fibrillation patient with chronic atrial fibrillation hold Coumadin due to elevated INR continue Toprol 50mg daily for rate control Multiple PVCs and NSVT has recurrent arrhythmia episodes was started on amiodarone 200mg BID as per cardiology, which we will continue HTN blood pressure stable continue home medications (to note, Lisinopril dose was recently decreased as outpatient) Prolonged QTc Seizure Disorder continue Keppra Non Obstructive CAD continue b-akil, statin cardiac enzymes negative x 3 Pulmonary Nodule not noted on CXR from 10/19 DVT ppx Coumadin FULL CODE
--- NOTE | 2016-10-20 09:12 | Clinical Documentation Query ---
CLINICAL DOCUMENTATION QUERY 86 year old male who presents acute on chronic CHF exacerbation and acute respiratory failure. H&P make not of hx of systolic chf, but diagnostic statement only state acute on chronic CHF. It is also important to note that new changes in requirements for documentation of patient clinical severity include the diagnosis of heart failure. The medical record documentation is now expected to include definitive and explicit description of the patient's heart failure; vague terms such as "heart failure," ventricular dysfunction," and "CHF" may not fully capture the physician's intended level of severity. In your clinical opinion is this patient being managed for: ( X ) Acute on chronic systolic (reduced EF) heart failure treated with IV Lasix - please see documentation from 10/20 ( ) Other explanation of clinical findings (Please Explain) ( ) Unable to determine (Please Define) ( ) Need to Discuss ( ) Not Agree The medical record reflects the following clinical findings, treatment, and risk factors. Clinical Indicators: CHF exacerbation by H&P and cardiology consult. Rales by auscultation of lungs and hypoxia of 87%. Treatment: IV Lasix, telemetry, I/O's, daily weights, cardiology consult. Risk Factors: Age, hx of systolic CHF, and HTN. Please clarify and document your clinical opinion in the progress notes and discharge summary. Terms such as "probable", "suspected", "likely", "questionable", "possible", or "still to be ruled out" are acceptable. IF IN AGREEMENT, YOU MUST DOCUMENT ABOVE DIAGNOSTIC STATEMENT IN DAILY PROGRESS NOTES AND DISCHARGE SUMMARY. This document is not part of the patient's record. Thank You, Jimmy Rodriguez, RN [phone]
--- NOTE | 2016-10-20 09:25 | ECHOCARDIOGRAM REPORT ---
*NOTICE TO RECEIVING LIBERTARIAN AGENCY This information is strictly Confidential and protected under [place] law. [place] law prohibits you from making any further disclosure of this information unless further disclosure is expressly permitted by the written consent of the person to whom it pertains or is authorized by law. A general authorization for the release of medical or other information is not sufficient for this purpose. Hospital accepts no responsibility if the information is made available to any other person, INCLUDING THE PATIENT. Interpretation Summary * Name: ABDULKADIR BOYD Study Date: 10/20/2016 06:49 AM BP: 138/71 mmHg * Patient Location: C.2T\S\S240\S\2 HR: 68 * : 1930 (M/d/yyy) Gender: Male Height: 69 in * Age: 86 yrs Ethnicity: [place] Weight: 169 lb * Ordering Physician: Jesus Hickey * Referring Physician: Self, Referred * Performed By: Marita Rivas RDCS * * Reason For Study: CHF * BSA: 1.9 m2 * History: CHF * The study was technically adequate. * Compared to prior study, there is no significant change. * -- Conclusions -- * Left ventricular systolic function is moderately reduced. * Ejection Fraction = 35-40%. * There is moderate global hypokinesis of the left ventricle. * There is moderate concentric left ventricular hypertrophy. * Mild aortic regurgitation. * There is moderate mitral regurgitation. * There is mild tricuspid regurgitation. * The estimated systolic PAP is 40mmHg. Procedure Details * A contrast injection of Definity was performed to improve assessment of LV function. * Contrast was injected into an intravenous site in the left arm. * One vial of Definity ultrasound contrast was diluted in normal saline to a total volume of 10 ml. A total of '2' ml of solution was administered during imaging. * Lot # [id number] of Definity utilized for procedure. * Expiration date 1 NOV 26. * The attending nurse who injected the contrast agent was LIZA WAGONER RN. * A complete two-dimensional transthoracic echocardiogram was performed (2D, M-mode, Doppler and color flow Doppler). Left Ventricle * The left ventricle is normal in size. * Frequent PVC's recorded. * There is moderate concentric left ventricular hypertrophy. * Left ventricular systolic function is moderately reduced. * Ejection Fraction = 35-40%. * There is moderate global hypokinesis of the left ventricle. Right Ventricle * The right ventricle is normal size. * There is a pacemaker lead in the right ventricle. * The right ventricular systolic function is normal as assessed by tricuspid annular plane systolic excursion (TAPSE) (normal >1.5 cm). Atria * The left atrium is severely dilated. * The right atrium is moderately dilated. * There is no evidence of atrial septal defect, but resolution does not allow assessment for a patent foramen ovale. Mitral Valve * The mitral valve is normal. * There is no mitral valve stenosis. * There is moderate mitral regurgitation. Tricuspid Valve * The tricuspid valve is normal. * There is no tricuspid stenosis. * There is mild tricuspid regurgitation. * The estimated systolic PAP is 40mmHg. Aortic Valve * The aortic valve is trileaflet. * Aortic stenosis is absent. * Mild aortic regurgitation. Pulmonic Valve * The pulmonary valve is not well seen, but the Doppler examination is normal without significant regurgitation or stenosis. Great Vessels * The aortic root is normal size. Pericardium/Pleural * There is no pericardial effusion. Great Vessels * Normal inferior vena cava diameter and respiratory variation suggests normal central venous pressure. MMode 2D Measurements and Calculations IVSd 1.2 cm IVSs 2.2 cm LVIDd 5.2 cm LVIDs 3.9 cm LVPWd 1.7 cm LVPWs 1.9 cm IVS/LVPW 0.72 FS 25.3 % EDV(Teich) 129.7 ml ESV(Teich) 65.5 ml EF(Teich) 49.5 % EDV(cubed) 140.9 ml ESV(cubed) 58.8 ml EF(cubed) 58.2 % % IVS thick 74.9 % % LVPW thick 11.4 % LV mass(C)d 340.5 grams LV mass(C)dI 177.1 grams/m\S\2 LV mass(C)s 378.8 grams LV mass(C)sI 197.0 grams/m\S\2 SV(Teich) 64.2 ml SI(Teich) 33.4 ml/m\S\2 SV(cubed) 82.1 ml SI(cubed) 42.7 ml/m\S\2 Ao root diam 3.4 cm Ao root area 9.0 cm\S\2 LA dimension 4.9 cm LA/Ao 1.4 LVAd ap4 39.7 cm\S\2 LVLd ap4 9.1 cm EDV(MOD-sp4) 148.0 ml LVAs ap4 25.6 cm\S\2 LVLs ap4 7.6 cm ESV(MOD-sp4) 73.3 ml EF(MOD-sp4) 50.5 % LVAd ap2 38.0 cm\S\2 LVLd ap2 9.1 cm EDV(MOD-sp2) 135.0 ml LVAs ap2 24.7 cm\S\2 LVLs ap2 8.4 cm ESV(MOD-sp2) 63.1 ml EF(MOD-sp2) 53.3 % SV(MOD-sp4) 74.7 ml SI(MOD-sp4) 38.8 ml/m\S\2 SV(MOD-sp2) 71.9 ml SI(MOD-sp2) 37.4 ml/m\S\2 Doppler Measurements and Calculations MV E max luan 72.9 cm/sec MV dec time 0.22 sec Ao V2 max 172.5 cm/sec Ao max PG 11.9 mmHg Ao max PG (full) 10.4 mmHg Ao V2 mean 122.2 cm/sec Ao mean PG 6.7 mmHg Ao mean PG (full) 5.8 mmHg Ao V2 VTI 37.0 cm AI max luan 458.2 cm/sec AI max PG 84.0 mmHg AI dec slope 199.3 cm/sec\S\2 AI P1/2t 673.3 msec LV V1 max PG 1.5 mmHg LV V1 mean PG 0.87 mmHg LV V1 max 62.2 cm/sec LV V1 mean 44.1 cm/sec LV V1 VTI 13.2 cm MR max luan 532.1 cm/sec MR max PG 113.2 mmHg SV(Ao) 331.4 ml SI(Ao) 172.3 ml/m\S\2 TR max luan 305.4 cm/sec
[2016-10-20] MEDS ORDERED: POTASSIUM CHLORIDE 10 MEQ TABCR PO ONE (10:00)
--- NOTE | 2016-10-20 10:59 | Cardiology Follow-Up ---
Subjective General Date of Service: October 20, 2016. Pt evaluation today including: conversation w/ patient, conversation w/ family , physical exam, chart review, lab review, review of studies, review of inpatient medication list History of Present Illness The patient is a 86 year old male seen in follow up. No recurrent chest discomfort overnight. Denies dizziness or GROVE. No dysrhythmia on telemetry. Family present at bedside with questions regarding vertigo. Allergies Coded Allergies: No Known Allergies (Unverified , 10/13/16) Social History Smoking Status: Former Smoker Hx Tobacco Use In Past Year?: No Hx Alcohol Use - Type And Amou: No Hx Substance Use - Type And Am: No Problem List Medical Problems: (1) Afib Status: Acute (2) Anticoagulated on Coumadin Status: Acute (3) Atrial fibrillation with RVR Status: Acute (4) Brain mass Status: Acute (5) Congestive heart failure Status: Acute (6) Hypoxia Status: Acute (7) Orthostatic hypotension Status: Acute (8) Substernal chest pain Status: Acute (9) Vertigo Status: Acute (10) Vertigo Status: Acute (11) Vertigo Status: Acute (12) Weakness Status: Acute Review of Systems Respiratory: No cough, No dyspnea at rest, No dyspnea on exertion, No hemoptysis, No shortness of breath, No wheezing Cardiac: No PND, No chest pain, No claudication, No edema, No orthopnea, No palpitations Physical Exam Vital Signs Last Vital Signs Documentation Date Time Temp Pulse Resp B/P Pulse Ox O2 Delivery O2 Flow Rate FiO2 10/20/16 08:00 Nasal Cannula 2.0 10/20/16 07:42 36.8 61 18 156/85 93 10/19/16 15:18 88 Physical Exam Constitutional: General Apperance: well-nourished Level of Distress: NAD Head: normocephalic, atraumatic Neck: supple, trachea midline Lungs: Auscultation: breath sounds normal, no wheezing, no rales/crackles, no rhonchi Cardiovascular: Heart Auscultation: RRR, normal S1, normal S2 Abdomen: Bowel Sounds: normal Inspection & Palpation: non-distended, no tenderness, guarding & rebound Extremities: no cyanosis, no edema, no clubbing, no ulcers Neurologic: Gait & Station: pertinent finding (No focal motor deficit) Cranial Nerves: grossly intact Assessment and Plan Assessment and Plan FINAL IMPRESSION: 1. 86 year old patient admitted with mild acute decompensated systolic heart failure. - patient appears euvolemic on exam today 2. Chronic atypical chest pain with history of nonobstructive coronary disease. No evidence of ACS. 3. Chronic atrial fibrillation - rate controlled on chronic anticoagulation. - INR supratherapeutic 4. Hypertension -- controlled. 5. Intermittent dizziness related to vertigo. PLAN AND RECOMMENDATIONS: Patient appears improved / compensated today . I will titrate PO Lasix to 40mg daily. Hold coumadin today with suprtherapeutic INR. Reduce amiodarone to 200mg daily. He will need a repeat BMP in one week as outpatient. Repeat 2D echo reviewed and appears stable. Continue lisinopril, Toprol-XL. No further cardiac testing at this time. Will sign off. Please call with questions. Laboratory Results Last 24 Hours Test 10/19/16 11:58 10/19/16 12:10 10/19/16 18:00 10/19/16 18:20 Urine Color YELLOW Urine Appearance CLEAR Urine pH 7.0 Urine Specific [place] 1.014 Urine Protein NEG Urine Glucose (UA) NEG Urine Ketones NEG Urine Occult Blood NEG Urine Nitrite NEG Urine Bilirubin NEG Urine Urobilinogen NEG Urine Leukocyte Esterase NEG White Blood Count 5.43 K/uL Red Blood Count 4.21 M/uL Hemoglobin 12.6 g/dL Hematocrit 38.9 % Mean Corpuscular Volume 92.4 fL Mean Corpuscular Hemoglobin 29.9 pg Mean Corpuscular Hemoglobin Concent 32.4 g/dl Platelet Count 177 K/uL Mean Platelet Volume 12.2 fL Neutrophils (%) (Auto) 78.0 % Lymphocytes (%) (Auto) 11.0 % Monocytes (%) (Auto) 8.7 % Eosinophils (%) (Auto) 1.7 % Basophils (%) (Auto) 0.4 % Neutrophils # (Auto) 4.24 K/uL Lymphocytes # (Auto) 0.60 K/uL Monocytes # (Auto) 0.47 K/uL Eosinophils # (Auto) 0.09 K/uL Basophils # (Auto) 0.02 K/uL RDW Standard Deviation 54.7 fL RDW Coefficient of Variation 16.2 % Immature Granulocyte % (Auto) 0.2 % Immature Granulocyte # (Auto) 0.01 K/uL Prothrombin Time 34.4 SECONDS Prothromb Time International Ratio 3.1 Sodium Level 141 mmol/L Potassium Level 4.5 mmol/L Chloride Level 107 mmol/L Carbon Dioxide Level 30 mmol/L Anion Gap 4.0 mmol/L Blood Urea Nitrogen 30 mg/dl Creatinine 1.10 mg/dl Est Creatinine Clear Calc Drug Dose 48.2 ml/min Estimated GFR () 70.1 Estimated GFR (Non- 60.5 BUN/Creatinine Ratio 27.4 Random Glucose 98 mg/dl Calcium Level 8.5 mg/dl Magnesium Level 2.3 mg/dl Total Bilirubin 0.7 mg/dl Direct Bilirubin 0.2 mg/dl Aspartate Amino Transf (AST/SGOT) 65 U/L Alanine Aminotransferase (ALT/SGPT) 58 U/L Alkaline Phosphatase 126 U/L Total Creatine Kinase 52 U/L Creatine Kinase MB 1.2 ng/ml 1.2 ng/ml Creatine Kinase MB Ratio 2.3 Troponin I < 0.015 ng/ml < 0.015 ng/ml Pro-B-Type Natriuretic Peptide 4072 pg/ml Total Protein 7.9 gm/dl Albumin 3.9 gm/dl Thyroid Stimulating Hormone (TSH) 3.430 uIu/ml Test 10/20/16 00:00 10/20/16 00:36 10/20/16 05:45 10/20/16 07:14 Creatine Kinase MB Ratio Creatine Kinase MB 1.2 ng/ml Troponin I < 0.015 ng/ml White Blood Count 4.72 K/uL Red Blood Count 3.83 M/uL Hemoglobin 11.3 g/dL Hematocrit 34.8 % Mean Corpuscular Volume 90.9 fL Mean Corpuscular Hemoglobin 29.5 pg Mean Corpuscular Hemoglobin Concent 32.5 g/dl RDW Standard Deviation 53.0 fL RDW Coefficient of Variation 15.9 % Platelet Count 157 K/uL Mean Platelet Volume 11.8 fL Prothrombin Time 35.4 SECONDS Prothromb Time International Ratio 3.2 Sodium Level 141 mmol/L Potassium Level 3.9 mmol/L Chloride Level 105 mmol/L Carbon Dioxide Level 31 mmol/L Anion Gap 5.0 mmol/L Blood Urea Nitrogen 32 mg/dl Creatinine 1.30 mg/dl Est Creatinine Clear Calc Drug Dose 40.8 ml/min Estimated GFR () 57.3 Estimated GFR (Non- 49.4 BUN/Creatinine Ratio 24.6 Random Glucose 83 mg/dl Calcium Level 8.4 mg/dl Magnesium Level 2.2 mg/dl Bedside Glucose 100 mg/dl
[2016-10-20 11:36] VITALS: BP 114/71; PULSE 60; TEMP 36.5; O2SAT 94
[2016-10-20] MEDS ORDERED: CRD200 PO (14:07)
[2016-10-20] MEDS ORDERED: LSX40 PO (14:07)
--- NOTE | 2016-10-20 14:09 | Discharge Instructions ---
Discharge Instructions Date of Service October 20, 2016. Admission Reason for Admission: Chf (Congestive Heart Failure) Discharge Discharge Diagnosis / Problem: Acute on Chronic Systolic CHF; BPPV Discharge Goals Goal(s): Decrease discomfort, Improve function, Diagnostic testing, Therapeutic intervention Activity Recommendations Activity Limitations: resume your previous activity . Instructions / Follow-Up Instructions / Follow-Up Please follow-up with Dr. Abarca on October 24 @ 12:45PM * Your dose of amiodarone has changed to 200mg once daily * Your dose of Lasix is changed from 20mg to 40mg once a day * Do not take Coumadin tonight (10/20) or tomorrow (10/21), then resume as prescribed - follow-up as an outpatient for INR checks * continue other medications as prescribed; take meclizine as needed for dizziness * Follow-up with cardiology as an outpatient * You will be discharged home with home health Current Hospital Diet Patient's current hospital diet: AHA Diet (Heart Healthy), Low Sodium Diet (2gm Na) Discharge Diet Recommended Diet: AHA Diet (Heart Healthy), Low Sodium Diet (2gm Na) Pending Studies Studies pending at discharge: no Laboratory Results Lipid Panel Test 09/28/16 07:17 Range/Units Triglycerides Level 45 0-150 mg/dl Cholesterol Level 131 0-200 mg/dl HDL Cholesterol 60 mg/dl Cholesterol/HDL Ratio 2.2 LDL Cholesterol, Calculated 62 mg/dl Medical Emergencies . Who to Call and When: Medical Emergencies: If at any time you feel your situation is an emergency, please call 911 immediately. . Non-Emergent Contact Non-Emergency issues call your: Primary Care Provider, Calender Machine Operator . . "Provider Documentation" section prepared by Sarai Rodriguez. . VTE Core Measure Inpt VTE Proph given/why not?: Warfarin (Coumadin)
[2016-10-20 14:48] VITALS: O2SAT 94
[2016-10-20 15:21] VITALS: BP 114/71; PULSE 60; TEMP 36.5; O2SAT 94
--- NOTE | 2016-10-20 15:23 | Discharge Summary ---
Discharge Summary Date of Service October 20, 2016. Discharge Summary Admission Date: October 19, 2016 at 14:41 Discharge Date: October 20, 2016 Discharge Disposition: Home with services Principal Diagnosis: Acute on Chronic Systolic CHF Medication Reconciliation Changed Medications: Amiodarone HCl (Amiodarone HCl) 200 Mg Tab 200 MG PO DAILY for 15 Days, #15 TAB (Changed from: BID; 30) Furosemide (Furosemide) 40 Mg Tab 40 MG PO DAILY for 30 Days, #30 TABS (Changed from: Furosemide (Lasix) 20 Mg Tab 20 Mg PO DAILY) Continued Medications: Gabapentin (Gabapentin) 300 Mg Cap 300 MG PO BID, CAP Levetiracetam (Keppra) 250 Mg Tab 500 MG PO BID, TAB Lisinopril (Zestril) 5 Mg Tab 2.5 MG PO QAM, TAB Magnesium Oxide (Mg Supplement (Magnesium Oxide) 250 Mg Tab 1 TAB DAILY Meclizine Hcl (Meclizine Hcl) 25 Mg Tab 25 MG PO Q8 PRN for Dizziness or Vertigo, TAB Metoprolol Succinate (Toprol Xl) 50 Mg Tab 1 TAB PO DAILY for 30 Days, #30 TAB 5 Refills Multiple Vitamins W/ Minerals (Centrum Silver Ultra Mens) 1 Tab Tab 1 TAB PO DAILY Sertraline Hcl (Zoloft) 25 Mg Tab 25 MG PO DAILY, TAB Simvastatin (Zocor) 20 Mg Tab 20 MG PO QAM, TAB Tamsulosin Hcl (Flomax) 0.4 Mg Cap 0.4 MG PO DAILY, CAP Warfarin Sod (Coumadin) 2.5 Mg Tab 2.5 MG PO DAILY, TAB Admission Information HPI (per Admitting provider): 86 year old male who presents to the ER with shortness of breath and dizziness. This is the patient's fourth hospital stay this year. Most recently he was admitted to [facility] 09/28 - 10/04 for dizziness and was found to have bradycardia, non sustained V-tach, and PVCs. He had a pacemaker placed. His amiodarone was also increased to BID and metoprolol tartrate was changed to succinate. Patient was seen by his PCP on 10/09 and Lisinopril was decreased due to hypotension. Patient reports he has been feeling generally well. He reports feeling generalized weakness. He continues to get dizzy episodes that are relieved with Meclizine. He also gets left sided chest pain which he describes as a pressure. Reports this has been a chronic issue for him. He denies any specific causative or alleviating factors. It will come and go on its own. He denies palpitations. Over the past two nights patient has required two pillows to sleep. He notes a 3lb weight gain over the past week and increased lower extremity edema, R>L which is typical for him. He has chronic exertional shortness of breath at baseline and reports it was worse last night, especially while trying to sleep. He also developed dizziness but took a Meclizine with resolution of symptoms. He denies lightheadedness or syncopal events. Patient denies cough or sputum production. No fever or chills. He denies abdominal pain, nausea, vomiting, or diarrhea. No urinary symptoms. In the ER, patient was saturating 88% on room air. This improved with 2L oxygen via NC. CXR is showing CHF and proBNP is elevated. He was given 40mg IV Lasix. Physical Exam (per Admitting): General Appearance: no apparent distress Head: normocephalic Eyes: normal inspection ENT: hearing grossly normal Neck: supple, no JVD Respiratory/Chest: no respiratory distress, + rales (BL bases) Cardiovascular: regular rate, rhythm, + pertinent finding (+1 pitting edema BLLE, R>L) Abdomen/GI: normal bowel sounds, non tender, soft Extremities/Musculoskelatal: normal inspection, no calf tenderness Neurologic/Psych: no motor/sensory deficits, alert, normal mood/affect, oriented x 3 Skin: normal color, warm/dry Hospital Course This is an 86 year old male with a PMH of 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 of NSVT, HTN, systolic CHF, hx. of meningioma and seizure disorder, depression/anxiety, HLD presents with shortness of breath, orthopnea Acute on Chronic Systolic CHF Echo in August of 2016 shows an LVEF of 35-40% Presented with orthopnea/dyspnea on exertion CXR shows congestive failure changes, BNP elevated repeat Echo pending received IV Lasix on 10/19 with good clinical results continue IV Lasix 40mg today will need to adjust outpatient dose Symptomatic Bradycardia s/p PPM Dizziness, BPPV patient is presenting with dizziness as well this could be multifactorial, including multiple PVCs and NSVT episodes vs. hypotension vs. BPPV dizziness improves with meclizine PT/OT ordered monitor in tele Chronic Atrial Fibrillation patient with chronic atrial fibrillation hold Coumadin due to elevated INR continue Toprol 50mg daily for rate control Multiple PVCs and NSVT has recurrent arrhythmia episodes was started on amiodarone 200mg BID as per cardiology, which we will continue HTN blood pressure stable continue home medications (to note, Lisinopril dose was recently decreased as outpatient) Prolonged QTc Seizure Disorder continue Keppra Non Obstructive CAD continue b-akil, statin cardiac enzymes negative x 3 Pulmonary Nodule not noted on CXR from 10/19 DVT ppx Coumadin FULL CODE Total time spent on discharge = 45 minutes This includes examination of the patient, discharge planning, medication reconciliation, and communication with other providers. Discharge Instructions Please follow-up with Dr. Abarca on October 24 @ 12:45PM * Your dose of amiodarone has changed to 200mg once daily * Your dose of Lasix is changed from 20mg to 40mg once a day * Do not take Coumadin tonight (10/20) or tomorrow (10/21), then resume as prescribed - follow-up as an outpatient for INR checks * continue other medications as prescribed; take meclizine as needed for dizziness * Follow-up with cardiology as an outpatient * You will be discharged home with home health
[2016-10-21] MEDS ORDERED: AMIODARONE 200 MG TAB PO SCH (09:00)
== END 2016-10-20 15:45 | disposition home health service (06) | DRG 291 ==
LOC: ENRESERVDT → ENRESERVTM → EDBD 11:00 → C.EDC 11:01 → C.2T 14:41 → CANBEDREQ 17:18
PROVIDERS: ADMIT Internal Medicine; ATTEND Family Medicine
DX: I50.23 Acute on chronic systolic (congestive) heart failure (principal); J96.01 Acute respiratory failure with hypoxia; I47.1 Supraventricular tachycardia; G40.909 Epilepsy, unspecified, not intractable, without status epilepticus; H81.10 Benign paroxysmal vertigo, unspecified ear; I11.0 Hypertensive heart disease with heart failure; N40.0 Benign prostatic hyperplasia without lower urinary tract symptoms; R00.1 Bradycardia, unspecified; I25.10 Atherosclerotic heart disease of native coronary artery without angina pectoris; I48.2 Chronic atrial fibrillation; E78.5 Hyperlipidemia, unspecified; F41.8 Other specified anxiety disorders; I49.3 Ventricular premature depolarization; R91.1 Solitary pulmonary nodule; I08.2 Rheumatic disorders of both aortic and tricuspid valves; Z87.891 Personal history of nicotine dependence; Z79.01 Long term (current) use of anticoagulants; Z79.899 Other long term (current) drug therapy; Z95.0 Presence of cardiac pacemaker; Z86.011 Personal history of benign neoplasm of the brain

== ENCOUNTER 2017-06-19 12:12 | Inpatient (IN) | payer OTHER, MEDICARE ==
[~2017-06-19] VITALS: Ht 175.3 cm; Wt 72.7 kg
[~2017-06-19 12:12] MED LIST changes: -FURO20TA PO; +LSX40 PO
[2017-06-19] MEDS ORDERED: ASPIRIN 81 MG CHEW PO STA (12:29)
--- NOTE | 2017-06-19 12:43 | EMERGENCY ROOM VISIT NOTE ---
History Report prepared by Sonali: Kennedy Madrid Under the Supervision of: Dr. Justyn Forman M.D. First contact with patient: 12:22 Chief Complaint: SHOULDER PAIN Stated Complaint: SHOULDER PAIN History of Present Illness The patient is an 87 year old male who presents to the Emergency Room with complaints of intermittent left shoulder pain that the patient has been dealing with for a while, but is more severe today. The patient claims that there is also pain in his chest. He is unsure how long the symptoms have been present today. He rates the pain as an 8/10 in severity at its worse. There is nothing that worsens/relieves the pain, and it can start when he is just sitting. He denies any trauma that could have caused the shoulder pain. There was no associated nausea or vomiting today. He does become short of breath with walking , but he claims that this has been the case for sometime and is not unusual. He has no history of myocardial infarction. The patient is on Coumadin daily. Source of History: patient Onset: Worsening today Position: shoulder (left) Symptom Intensity: 8/10 Timing: intermittent, worsening Associated Symptoms: + chest pain, + SOB, No nausea, No vomiting Review of Systems See HPI for pertinent positives & negatives. A total of 10 systems reviewed and were otherwise negative. Past Medical & Surgical Medical Problems: (1) Benign positional vertigo (2) Borderline hypertension (3) BPH (benign prostatic hypertrophy) (4) Cerebral meningioma (5) Chronic atrial fibrillation (6) Depression with anxiety (7) Dyslipidemia (8) History of meningioma of the brain (9) Pacemaker (10) Seizure disorder (11) Systolic CHF Surgical Problems: (1) H/O craniotomy (2) S/P cardiac cath Family History FH: atrial fibrillation SISTER Social History Smoking Status: Never Smoker Alcohol Use: none Marital Status: Housing Status: lives with family Current/Historical Medications Scheduled Amiodarone HCl (Amiodarone HCl), 200 MG PO DAILY Furosemide (Furosemide), 40 MG PO DAILY Levetiracetam (Keppra), 500 MG PO BID Lisinopril (Zestril), 1 TAB PO QAM Magnesium Oxide (Mg Supplement (Magnesium Oxide), 1 TAB DAILY Metoprolol Succinate (Toprol Xl), 1 TAB PO DAILY Multiple Vitamins W/ Minerals (Centrum Silver Ultra Mens), 1 TAB PO DAILY Sertraline Hcl (Zoloft), 1 TAB PO DAILY Simvastatin (Zocor), 20 MG PO QAM Tamsulosin Hcl (Flomax), 0.4 MG PO DAILY Warfarin Sod (Coumadin), 2.5 MG PO DAILY Allergies Coded Allergies: No Known Allergies (Unverified , 06/19/17) Physical Exam Vital Signs Date Time Temp Pulse Resp B/P (MAP) Pulse Ox O2 Delivery O2 Flow Rate FiO2 06/19/17 14:18 63 16 172/103 93 Room Air 06/19/17 13:01 68 20 159/95 94 06/19/17 12:58 94 Room Air 06/19/17 12:20 69 06/19/17 12:17 36.4 78 16 155/95 92 Room Air Physical Exam GENERAL: Patient is in no acute distress. HEENT: No acute trauma, normocephalic atraumatic, mucous membranes moist, no nasal congestion, no scleral icterus. NECK: No stridor, no adenopathy, no meningismus, trachea is midline. LUNGS: There are scattered crackles at the bases bilaterally. Breath sounds are full. No wheezing. HEART: Without gallops or rubs. There is a 2/6 systolic murmur, with regular rate and rhythm. ABDOMEN: Soft, nontender, bowel sounds positive, no hernias, no peritonitis. EXTREMITIES: There is mild tenderness over the lateral left shoulder with no evidence for dislocation. Minimal pain with movement of the shoulder. Strong left radial pulse. NEUROLOGIC: Oriented x 3, no acute motor or sensory deficits, no focal weakness. SKIN: No rash, no jaundice, no diaphoresis. Chest: Mild tenderness over the anterior chest wall. Medical Decision & Procedures ER Provider Diagnostic Interpretation: Radiology results as stated below per my review and radiologist interpretation: CHEST ONE VIEW PORTABLE CLINICAL HISTORY: Chest pain. COMPARISON STUDY: Chest radiograph October 19, 2016. FINDINGS: Marked cardiomegaly is noted. A single lead left subclavian pacemaker is in place. There is no pneumothorax. There is pulmonary vascular congestion with suspected mild pulmonary edema. A small right pleural effusion is noted. IMPRESSION: 1. Mild pulmonary edema. 2. Suspected small right pleural effusion. 3. Marked cardiomegaly. Electronically signed by: Garrison Martinez M.D. 06/19/2017 1:24 PM Dictated Date/Time: 06/19/2017 1:22 PM LEFT SHOULDER 3 VIEWS CLINICAL HISTORY: Left shoulder pain. FINDINGS: 3 portable views of the left shoulder are obtained. No prior studies are available for comparison at the time of dictation. The skeletal structures are osteopenic. No fracture or dislocation is seen. Productive degenerative change is identified at the acromioclavicular joint. Mild arthritic change is also seen at the glenohumeral articulation. The heart is enlarged and a cardiac pacemaker is observed. The left lung parenchyma is clear as imaged. IMPRESSION: Osteopenia and arthritic change as above. No left shoulder fracture or dislocation is seen. Electronically signed by: Justyn Alaniz M.D. 06/19/2017 1:24 PM Dictated Date/Time: 06/19/2017 1:23 PM Laboratory Results 06/19/17 13:00 06/19/17 13:00 Test 06/19/17 13:00 Red Blood Count 4.07 M/uL (4.7-6.1) Mean Corpuscular Volume 93.1 fL (80-100) Mean Corpuscular Hemoglobin 31.4 pg (25-34) Mean Corpuscular Hemoglobin Concent 33.8 g/dl (32-36) RDW Standard Deviation 50.7 fL (36.4-46.3) RDW Coefficient of Variation 14.9 % (11.5-14.5) Mean Platelet Volume 12.1 fL (7.4-10.4) Prothrombin Time 22.0 SECONDS (9.0-12.0) Prothromb Time International Ratio 2.1 (0.9-1.1) Activated Partial Thromboplast Time 32.5 SECONDS (21.0-31.0) Partial Thromboplastin Ratio 1.3 Anion Gap 5.0 mmol/L (3-11) Est Creatinine Clear Calc Drug Dose 56.0 ml/min Estimated GFR () 85.2 Estimated GFR (Non- 73.6 BUN/Creatinine Ratio 28.1 (10-20) Calcium Level 8.6 mg/dl (8.5-10.1) Magnesium Level 2.0 mg/dl (1.8-2.4) Total Bilirubin 0.8 mg/dl (0.2-1) Aspartate Amino Transf (AST/SGOT) 30 U/L (15-37) Alanine Aminotransferase (ALT/SGPT) 27 U/L (12-78) Alkaline Phosphatase 99 U/L (45-117) Total Creatine Kinase 73 U/L (39-308) Creatine Kinase MB 1.8 ng/ml (0.5-3.6) Creatine Kinase MB Ratio 2.5 (0-3.0) Troponin I < 0.015 ng/ml (0-0.045) Total Protein 7.0 gm/dl (6.4-8.2) Albumin 3.4 gm/dl (3.4-5.0) Globulin 3.6 gm/dl (2.5-4.0) Albumin/Globulin Ratio 0.9 (0.9-2) Laboratory results reviewed by me. Medications Administered Medications (Trade) Dose Ordered Sig/Alexus Route Start Time Stop Time Status Last Admin Dose Admin Aspirin (Aspirin Chew) 324 mg NOW STAT PO 06/19/17 12:29 06/19/17 12:31 DC 06/19/17 12:56 324 MG ECG Indication: chest pain Rate (beats per minute): 71 Rhythm: other (intermittent ventricular pacemaker ) Findings: other (Torres Martinez beats are seen, underlying rhythm appears to be A-fib. ) Comparison ECG Date: 10/20/2016 Change: no significant change ED Course 1224: The patient was evaluated in room C6. A complete history and physical exam was performed. 1229: Ordered Aspirin Chew 324 mg PO. 1424: I checked on the patient at this time. He is doing fine. 1433: I discussed the case with Dr. Corrigan - Cardiology - He would recommend the patient stay in the hospital for a cardiac rule-out. 1436: I reevaluated the patient at this time. He has no complaints. 1441: I discussed the case with Ricarda Martin. She will evaluated the patient for further treatment. Medical Decision Differential Diagnosis includes; Cardiac Ischemia, myocardia infarction, arthritis, nerve impingement, musculoskeletal pain, electrolyte imbalance, angina. There is no leukocytosis or concerning anemia. No significant electrolyte abnormality, kidney failure or hepatitis. INR is elevated consistent with the Coumadin use. EKG shows a functioning ventricular pacemaker. Cardiac enzyme testing 1 is not consistent with acute cardiac injury. Chest film shows some mild CHF with cardiomegaly-the x-ray appears improved from previous films. Left shoulder film does not show dislocation or fracture. The patient presents with left shoulder pain and left chest pain. He admits to dyspnea as well. Certainly angina or cardiac ischemia is a consideration. He was given oral aspirin. I spoke with the lambskin trimmer second butler, he recommended a hospital stay for further cardiac workup. I spoke to the patient and case management. The on- call hospitalist was consulted. Medication Reconcilliation Current Medication List: was personally reviewed by me Blood Pressure Screening Patient's blood pressure: Elevated blood pressure Blood pressure disposition: Referred to PCP Consults Time Called: 1438 Consulting Physician: Ricarda Martin Returned Call: [phone] I discussed the case with Ricarda Martin. She will evaluated the patient for further treatment. Impression Primary Impression: Left shoulder pain Additional Impression: Left sided chest pain Scribe Attestation The scribe's documentation has been prepared under my direction and personally reviewed by me in its entirety. I confirm that the note above accurately reflects all work, treatment, procedures, and medical decision making performed by me. Departure Information Dispostion Being Evaluated By Hospitalist Referrals Jesus Hickey DO (PCP) Patient Instructions [facility] Problem Qualifiers
--- NOTE | 2017-06-19 13:25 | DIAGNOSTIC IMAGING REPORT ---
CHEST ONE VIEW PORTABLE CLINICAL HISTORY: Chest pain. COMPARISON STUDY: Chest radiograph October 19, 2016. FINDINGS: Marked cardiomegaly is noted. A single lead left subclavian pacemaker is in place. There is no pneumothorax. There is pulmonary vascular congestion with suspected mild pulmonary edema. A small right pleural effusion is noted. IMPRESSION: 1. Mild pulmonary edema. 2. Suspected small right pleural effusion. 3. Marked cardiomegaly. Electronically signed by: Garrison Martinez M.D. 06/19/2017 1:24 PM Dictated Date/Time: 06/19/2017 1:22 PM
--- NOTE | 2017-06-19 13:25 | DIAGNOSTIC IMAGING REPORT ---
LEFT SHOULDER 3 VIEWS CLINICAL HISTORY: Left shoulder pain. FINDINGS: 3 portable views of the left shoulder are obtained. No prior studies are available for comparison at the time of dictation. The skeletal structures are osteopenic. No fracture or dislocation is seen. Productive degenerative change is identified at the acromioclavicular joint. Mild arthritic change is also seen at the glenohumeral articulation. The heart is enlarged and a cardiac pacemaker is observed. The left lung parenchyma is clear as imaged. IMPRESSION: Osteopenia and arthritic change as above. No left shoulder fracture or dislocation is seen. Electronically signed by: Justyn Alaniz M.D. 06/19/2017 1:24 PM Dictated Date/Time: 06/19/2017 1:23 PM
[2017-06-19 13:49] LABS: HEMATOCRIT 37.9 % (42-52); HEMOGLOBIN 12.8 g/dL (14.0-18.0); MEAN CELL VOLUME 93.1 fL (80-100); MEAN CORPUSCULAR HEMOGLOBIN 31.4 pg (25-34); MEAN CORPUSCULAR HGB CONC 33.8 g/dl (32-36); MEAN PLATELET VOLUME 12.1 fL (7.4-10.4); PLATELET COUNT 141 K/uL (130-400); RED CELL DISTRIBUTION WIDTH CV 14.9 % (11.5-14.5); RED CELL DISTRIBUTION WIDTH SD 50.7 fL (36.4-46.3); WHITE BLOOD COUNT 4.69 K/uL (4.8-10.8)
[2017-06-19 14:03] LABS: INR 2.1 (0.9-1.1); PTT PATIENT 32.5 SECONDS (21.0-31.0)
[2017-06-19 14:12] LABS: ALBUMIN 3.4 gm/dl (3.4-5.0); ALT/SGPT 27 U/L (12-78); AST/SGOT 30 U/L (15-37); BLOOD UREA NITROGEN 26 mg/dl (7-18); CALCIUM 8.6 mg/dl (8.5-10.1); CARBON DIOXIDE 30 mmol/L (21-32); CREATININE 0.93 mg/dl (0.60-1.40); GLUCOSE 86 mg/dl (70-99); POTASSIUM 3.9 mmol/L (3.5-5.1); SODIUM 139 mmol/L (136-145)
[2017-06-19 14:18] LABS: ALKALINE PHOSPHATASE 99 U/L (45-117); CKMB 1.8 ng/ml (0.5-3.6)
[2017-06-19] MEDS ORDERED: METO25TA3 PO (14:20)
[2017-06-19] MEDS ORDERED: ONDANSETRON INJ 2 MG/ML 2 ML VIAL IV PRN (15:30)
[2017-06-19] MEDS ORDERED: ALUMINUM/MAGNESIUM/SIMETH (MAALOX MAX) 30 ML UDC PO PRN (15:30)
[2017-06-19 16:01] VITALS: Ht 175.3 cm; Wt 72.7 kg
[2017-06-19 16:04] VITALS: O2SAT 93
--- NOTE | 2017-06-19 16:10 | History and Physical ---
History & Physical Date & Time of Service: Jun 19, 2017 at 15:44 Chief Complaint: Shoulder Pain Primary Care Physician: Carlie Abarca D.O. History of Present Illness Source: patient, family, clinic records, hospital records This is an 87 year old male with a PMH of symptomatic bradycardia s/p PPM, hx. of meningioma and seizure disorder, chronic BPPV, chronic atrial fibrillation on long-term anticoagulation, hx. of NSVT, frequent PVCs, chronic systolic CHF, depression/anxiety - presents with L sided chest wall pain and L shoulder pain. States this pain has been intermittent x 2 days, but worse today and bad enough that he had to come to the hospital. No shortness of breath; worse with palpation. Pain is sharp on the L side worse with palpation. L shoulder radiograph performed shows no injuries. Denies nausea/vomiting/fevers/chills. No trauma noted. Mild residual tenderness persists. Past Medical/Surgical History Medical Problems: (1) Benign positional vertigo Status: Chronic (2) Borderline hypertension Status: Chronic (3) BPH (benign prostatic hypertrophy) Status: Chronic (4) Cerebral meningioma Status: Chronic (5) Chronic atrial fibrillation Status: Chronic (6) Depression with anxiety Status: Chronic (7) Dyslipidemia Status: Chronic (8) History of meningioma of the brain Status: Chronic (9) Pacemaker Status: Chronic (10) Seizure disorder Status: Chronic (11) Systolic CHF Permanent Comment: echo 08/2016 - EF 35-40%, moderate TR, moderate AR Status: Chronic Surgical Problems: (1) H/O craniotomy Permanent Comment: 1986 for meningioma Status: Chronic (2) S/P cardiac cath Permanent Comment: 01/2015 [facility]- diffuse nonobstructive coronary plaque disease; overall CAD medically manageable Status: Chronic Family History FH: atrial fibrillation SISTER Social History Smoking Status: Never Smoker Marital Status: Housing status: lives with family Immunizations History of Influenza Vaccine: Yes Influenza Vaccine Date: Mar 06, 2016 Allergies Coded Allergies: No Known Allergies (Unverified , 06/19/17) Home Medications Scheduled Amiodarone HCl (Amiodarone HCl), 200 MG PO DAILY Furosemide (Furosemide), 40 MG PO DAILY Levetiracetam (Keppra), 500 MG PO BID Lisinopril (Zestril), 1 TAB PO QAM Magnesium Oxide (Mg Supplement (Magnesium Oxide), 1 TAB DAILY Metoprolol Succinate (Toprol Xl), 1 TAB PO DAILY Multiple Vitamins W/ Minerals (Centrum Silver Ultra Mens), 1 TAB PO DAILY Sertraline Hcl (Zoloft), 1 TAB PO DAILY Simvastatin (Zocor), 20 MG PO QAM Tamsulosin Hcl (Flomax), 0.4 MG PO DAILY Warfarin Sod (Coumadin), 2.5 MG PO DAILY Review of Systems Constitutional: No fever, No chills, No weakness Respiratory: No cough, No sputum, No wheezing, No shortness of breath, No dyspnea on exertion, No dyspnea at rest, No hemoptysis Cardiovascular: No chest pain, No edema, No palpitations Abdomen: No pain, No nausea, No vomiting, No diarrhea, No constipation Musculoskeletal: + joint pain (L shoulder pain) Genitourinary - Male: No dysuria, No urinary frequency, No urinary urgency Neurologic: No numbness/tingling, No vertigo, No balance problems Psychiatric: No depression symptoms, No anxiety, No insomnia Endocrine: No fatigue Hematologic / Lymphatic: No abnormal bleeding/bruising Integumentary: No rash Allergic / Immunologic: No environmental allergies, No seasonal allergies Physical Exam Vital Signs Date Time Temp Pulse Resp B/P (MAP) Pulse Ox O2 Delivery O2 Flow Rate FiO2 06/19/17 14:18 63 16 172/103 93 Room Air 06/19/17 13:01 68 20 159/95 94 06/19/17 12:58 94 Room Air 06/19/17 12:20 69 06/19/17 12:17 36.4 78 16 155/95 92 Room Air General Appearance: no apparent distress Eyes: normal inspection ENT: hearing grossly normal Neck: supple, no JVD, trachea midline Respiratory/Chest: lungs clear, normal breath sounds, no respiratory distress, no accessory muscle use, + pertinent finding (+l sided chest wall tenderness) Cardiovascular: no edema, no gallop, no JVD, no murmur, normal peripheral pulses, + irregularly irregular Abdomen/GI: normal bowel sounds, non tender, soft Extremities/Musculoskelatal: normal inspection, no calf tenderness, normal capillary refill, no pedal edema, normal range of motion Neurologic/Psych: no motor/sensory deficits, alert, oriented x 3 Skin: normal color, warm/dry, no rash Lymphatic: no adenopathy Diagnostics Laboratory Results Results Past 24 Hours Test 06/19/17 13:00 Range/Units White Blood Count 4.69 4.8-10.8 K/uL Red Blood Count 4.07 4.7-6.1 M/uL Hemoglobin 12.8 14.0-18.0 g/dL Hematocrit 37.9 42-52 % Mean Corpuscular Volume 93.1 80-100 fL Mean Corpuscular Hemoglobin 31.4 25-34 pg Mean Corpuscular Hemoglobin Concent 33.8 32-36 g/dl RDW Standard Deviation 50.7 36.4-46.3 fL RDW Coefficient of Variation 14.9 11.5-14.5 % Platelet Count 141 130-400 K/uL Mean Platelet Volume 12.1 7.4-10.4 fL Prothrombin Time 22.0 9.0-12.0 SECONDS Prothromb Time International Ratio 2.1 0.9-1.1 Activated Partial Thromboplast Time 32.5 21.0-31.0 SECONDS Partial Thromboplastin Ratio 1.3 Sodium Level 139 136-145 mmol/L Potassium Level 3.9 3.5-5.1 mmol/L Chloride Level 104 98-107 mmol/L Carbon Dioxide Level 30 21-32 mmol/L Anion Gap 5.0 3-11 mmol/L Blood Urea Nitrogen 26 7-18 mg/dl Creatinine 0.93 0.60-1.40 mg/dl Est Creatinine Clear Calc Drug Dose 56.0 ml/min Estimated GFR () 85.2 Estimated GFR (Non- 73.6 BUN/Creatinine Ratio 28.1 10-20 Random Glucose 86 70-99 mg/dl Calcium Level 8.6 8.5-10.1 mg/dl Magnesium Level 2.0 1.8-2.4 mg/dl Total Bilirubin 0.8 0.2-1 mg/dl Aspartate Amino Transf (AST/SGOT) 30 15-37 U/L Alanine Aminotransferase (ALT/SGPT) 27 12-78 U/L Alkaline Phosphatase 99 45-117 U/L Total Creatine Kinase 73 39-308 U/L Creatine Kinase MB 1.8 0.5-3.6 ng/ml Creatine Kinase MB Ratio 2.5 0-3.0 Troponin I < 0.015 0-0.045 ng/ml Total Protein 7.0 6.4-8.2 gm/dl Albumin 3.4 3.4-5.0 gm/dl Globulin 3.6 2.5-4.0 gm/dl Albumin/Globulin Ratio 0.9 0.9-2 Diagnostic Radiology CHEST ONE VIEW PORTABLE CLINICAL HISTORY: Chest pain. COMPARISON STUDY: Chest radiograph October 19, 2016. FINDINGS: Marked cardiomegaly is noted. A single lead left subclavian pacemaker is in place. There is no pneumothorax. There is pulmonary vascular congestion with suspected mild pulmonary edema. A small right pleural effusion is noted. IMPRESSION: 1. Mild pulmonary edema. 2. Suspected small right pleural effusion. 3. Marked cardiomegaly. LEFT SHOULDER 3 VIEWS CLINICAL HISTORY: Left shoulder pain. FINDINGS: 3 portable views of the left shoulder are obtained. No prior studies are available for comparison at the time of dictation. The skeletal structures are osteopenic. No fracture or dislocation is seen. Productive degenerative change is identified at the acromioclavicular joint. Mild arthritic change is also seen at the glenohumeral articulation. The heart is enlarged and a cardiac pacemaker is observed. The left lung parenchyma is clear as imaged. IMPRESSION: Osteopenia and arthritic change as above. No left shoulder fracture or dislocation is seen. EKG Atrial fibrillation with frequent ventricular-paced complexes and with premature ventricular or aberrantly conducted complexes Left bundle branch block ST & T wave abnormality, consider inferior ischemia ST & T wave abnormality, consider anterolateral ischemia Impression Assessment and Plan This is an 87 year old male with a PMH of symptomatic bradycardia s/p PPM, hx. of meningioma and seizure disorder, chronic BPPV, chronic atrial fibrillation on long-term anticoagulation, hx. of NSVT, frequent PVCs, chronic systolic CHF, depression/anxiety - presents with L sided chest wall pain and L shoulder pain. L Chest Wall Tenderness Rule Out ACS due to worsening pain with palpation, this seems more like costochondritis either way, he has a complex cardiac history, therefore, we will observe in tele overnight EKG with no changes since August will recheck EKG in AM trend cardiac enzymes recheck echo (last EF ~35-40% with global hypokinesis) continue aspirin, statin, b-akil cardiology consultation for further input Chronic Systolic CHF no exacerbation, no shortness of breath, no fluid overload noted for now, will recheck echo to compare to the one in October hold Lasix for now, give gentle hydration restart Lasix and diuretics in AM continue low dose Lisinopril Chronic Atrial Fibrillation continue Amiodarone, b-akil continue Coumadin, goal INR of 2-3 Hx. of NSVT continue Amiodarone Hx. of Symptomatic Bradycardia s/p PPM Seizure Disorder continue current medications Depression/Anxiety continue Zoloft DVT ppx Coumadin FULL CODE VTE Prophylaxis VTE Risk Assessment Done? Y/N: Yes Risk Level: Moderate
[2017-06-19] MEDS ORDERED: IV FLUIDS COMPLETED PRN (16:15)
[2017-06-19] MEDS: SODIUM CHLORIDE 0.9% 1000ML 1,000 ML IV SCH (17:12)
[2017-06-19 17:14] VITALS: BP 170/96; PULSE 79; TEMP 36.5; O2SAT 93
[2017-06-19 20:04] VITALS: BP 129/71; PULSE 66; TEMP 36.7; O2SAT 91
[2017-06-19] MEDS: ACETAMINOPHEN 325 MG TAB PO PRN (21:07)
[2017-06-19] MEDS: LEVETIRACETAM 500 MG TAB PO SCH (21:07)
[2017-06-19 22:05] LABS: CKMB 1.6 ng/ml (0.5-3.6)
[2017-06-20] VITALS (9 sets, daily range): BP systolic 111–179; BP diastolic 56–89; PULSE 63–84; TEMP 36.4–36.6; O2SAT 91–96
[2017-06-20] MEDS: SODIUM CHLORIDE 0.9% 1000ML 1,000 ML IV SCH ×2 (05:33→17:37)
[2017-06-20 05:56] LABS: HEMATOCRIT 41.8 % (42-52); MEAN CELL VOLUME 93.7 fL (80-100); MEAN CORPUSCULAR HEMOGLOBIN 31.4 pg (25-34); MEAN CORPUSCULAR HGB CONC 33.5 g/dl (32-36); PLATELET COUNT 156 K/uL (130-400); RED CELL DISTRIBUTION WIDTH CV 14.9 % (11.5-14.5); RED CELL DISTRIBUTION WIDTH SD 50.5 fL (36.4-46.3); WHITE BLOOD COUNT 6.36 K/uL (4.8-10.8)
[2017-06-20 06:00] LABS: INR 2.3 (0.9-1.1)
[2017-06-20 06:22] LABS: BLOOD UREA NITROGEN 26 mg/dl (7-18); CALCIUM 8.6 mg/dl (8.5-10.1); CARBON DIOXIDE 32 mmol/L (21-32); CREATININE 1.11 mg/dl (0.60-1.40); GLUCOSE 86 mg/dl (70-99); POTASSIUM 3.7 mmol/L (3.5-5.1); SODIUM 140 mmol/L (136-145)
[2017-06-20 06:28] LABS: CHOLESTEROL 121 mg/dl (0-200); CKMB 2.5 ng/ml (0.5-3.6); LDL CHOLESTEROL CALCULATED 57 mg/dl
[2017-06-20] MEDS: METOPROLOL SUCC 50MG EXT REL TAB PO SCH (08:08)
[2017-06-20] MEDS: ASPIRIN 81 MG ECTAB PO SCH (08:08)
[2017-06-20] MEDS: TAMSULOSIN HCL 0.4 MG CAP PO SCH (08:08)
[2017-06-20] MEDS: SERTRALINE HCL 50 MG TAB PO SCH (08:08)
[2017-06-20] MEDS: LEVETIRACETAM 500 MG TAB PO SCH ×2 (08:08→20:27)
[2017-06-20] MEDS: CEROVITE ADV FORMULA TAB PO SCH (08:09)
[2017-06-20] MEDS: AMIODARONE 200 MG TAB PO SCH (08:09)
[2017-06-20] MEDS: SIMVASTATIN 20 MG TAB PO SCH (08:09)
[2017-06-20] MEDS: MAGNESIUM OXIDE 400 MG TAB PO SCH (08:09)
[2017-06-20] MEDS: LISINOPRIL 2.5 MG TAB PO SCH (08:09)
[2017-06-20] MEDS ORDERED: IV FLUIDS COMPLETED PRN (11:00)
--- NOTE | 2017-06-20 11:26 | ECHOCARDIOGRAM REPORT ---
*NOTICE TO RECEIVING LIBERTARIAN AGENCY This information is strictly Confidential and protected under [place] law. [place] law prohibits you from making any further disclosure of this information unless further disclosure is expressly permitted by the written consent of the person to whom it pertains or is authorized by law. A general authorization for the release of medical or other information is not sufficient for this purpose. Hospital accepts no responsibility if the information is made available to any other person, INCLUDING THE PATIENT. Interpretation Summary * Name: ABDULKADIR BOYD Study Date: 06/20/2017 07:46 AM BP: 146/82 mmHg * Patient Location: .MED\S\N286\S\2 HR: 84 * : 1930 (M/d/yyyy) Gender: Male Height: 69 in * Age: 87 yrs Ethnicity: [place] Weight: 160 lb * Ordering Physician: Sarai Rodriguez * Referring Physician: Self, Referred * Performed By: Chanell Velasco RDCS * * Reason For Study: Chest pain * BSA: 1.9 m2 * The study was technically adequate. * Compared to prior study, there is no significant change. * -- Conclusions -- * Left ventricular systolic function is moderate to severely reduced. * Ejection Fraction = 35-40%. * There is moderate global hypokinesis of the left ventricle. * Apical and septal wall motion abnormality may reflect pacemaker activation. * There is moderate mitral regurgitation. * Aortic valve sclerosis moderate, without significant aortic valvular stenosis. * Mild aortic regurgitation. * There is mild tricuspid regurgitation. * The estimated systolic PAP 42mmHg. Procedure Details * A complete two-dimensional transthoracic echocardiogram was performed (2D, M-mode, Doppler and color flow Doppler). * A saline contrast injection was performed to assess for cardiac shunting. * The injection was performed through an intravenous line in the right arm. * The attending nurse who injected the saline contrast was Kenia Renteria RN. * A total of 20 cc of agitated saline was given. Left Ventricle * The left ventricle is normal in size. * There is mild concentric left ventricular hypertrophy. * There is normal left ventricular wall thickness. * Ejection Fraction = 35-40%. * Left ventricular systolic function is moderate to severely reduced. * There is moderate global hypokinesis of the left ventricle. * Apical and septal wall motion abnormality may reflect pacemaker activation. Right Ventricle * The right ventricle is normal size. * The right ventricular systolic function is normal as assessed by tricuspid annular plane systolic excursion (TAPSE) (normal >1.5 cm). Atria * The left atrium is severely dilated. * The right atrium is moderately dilated. * Doppler interrogation of the interatrial septum suggests a small PFO with a small left to right shunt. Mitral Valve * The mitral valve is normal. * There is no mitral valve stenosis. * There is moderate mitral regurgitation. Tricuspid Valve * The tricuspid valve is normal. * There is no tricuspid stenosis. * There is mild tricuspid regurgitation. * The estimated systolic PAP 42mmHg. Aortic Valve * The aortic valve is trileaflet. * Aortic valve sclerosis moderate, without significant aortic valvular stenosis. * Aortic stenosis is absent. * Mild aortic regurgitation. Pulmonic Valve * The pulmonary valve is not well seen, but the Doppler examination is normal without significant regurgitation or stenosis. Great Vessels * The aortic root is normal size. Pericardium/Pleural * There is no pericardial effusion. Great Vessels * Normal inferior vena cava diameter and respiratory variation suggests normal central venous pressure. Left Ventricular Diastolic Function * Pulse wave TDI of the anterior and posterior mitral annulas demonstrates abnormal LV relaxation MMode 2D Measurements and Calculations IVSd 1.2 cm LVIDd 5.8 cm LVIDs 4.8 cm LVPWd 1.3 cm IVS/LVPW 0.87 FS 17.0 % EDV(Teich) 166.8 ml ESV(Teich) 108.2 ml EF(Teich) 35.1 % EDV(cubed) 195.4 ml ESV(cubed) 111.6 ml EF(cubed) 42.9 % LV mass(C)d 311.2 grams LV mass(C)dI 165.6 grams/m\S\2 SV(Teich) 58.5 ml SI(Teich) 31.1 ml/m\S\2 SV(cubed) 83.9 ml SI(cubed) 44.6 ml/m\S\2 Ao root diam 3.2 cm Ao root area 8.2 cm\S\2 ACS 1.8 cm asc Aorta Diam 2.9 cm LVOT diam 2.0 cm LVOT area 3.1 cm\S\2 LVAd ap4 36.0 cm\S\2 LVLd ap4 7.7 cm EDV(MOD-sp4) 136.4 ml EDV(sp4-el) 141.7 ml LVAs ap4 28.2 cm\S\2 LVLs ap4 7.7 cm ESV(MOD-sp4) 87.0 ml ESV(sp4-el) 87.2 ml EF(MOD-sp4) 36.2 % EF(sp4-el) 38.5 % LVAd ap2 32.6 cm\S\2 LVLd ap2 7.7 cm EDV(MOD-sp2) 108.0 ml EDV(sp2-el) 116.9 ml LVAs ap2 25.0 cm\S\2 LVLs ap2 7.4 cm ESV(MOD-sp2) 68.2 ml ESV(sp2-el) 72.1 ml EF(MOD-sp2) 36.8 % EF(sp2-el) 38.3 % LVLd %diff -0.33 % EDV(MOD-bp) 123.1 ml LVLs %diff -4.76 % ESV(MOD-bp) 76.3 ml EF(MOD-bp) 38.1 % SV(MOD-sp4) 49.4 ml SI(MOD-sp4) 26.3 ml/m\S\2 SV(MOD-sp2) 39.8 ml SI(MOD-sp2) 21.2 ml/m\S\2 SV(MOD-bp) 46.9 ml SI(MOD-bp) 24.9 ml/m\S\2 SV(sp4-el) 54.5 ml SI(sp4-el) 29.0 ml/m\S\2 SV(sp2-el) 44.8 ml SI(sp2-el) 23.8 ml/m\S\2 Doppler Measurements and Calculations MV E max luan 83.6 cm/sec MV dec time 0.17 sec Ao V2 max 152.8 cm/sec Ao max PG 9.3 mmHg Ao max PG (full) 7.5 mmHg FARTUN(V,A) 1.4 cm\S\2 FARTUN(V,D) 1.4 cm\S\2 AI max luan 441.9 cm/sec AI max PG 78.1 mmHg AI dec slope 165.6 cm/sec\S\2 AI P1/2t 781.9 msec LV V1 max PG 1.9 mmHg LV V1 max 68.6 cm/sec MR max luan 530.0 cm/sec MR max PG 112.3 mmHg MR mean luan 432.7 cm/sec MR mean PG 81.7 mmHg MR VTI 184.3 cm PA V2 max 66.4 cm/sec PA max PG 1.8 mmHg PA acc slope 425.4 cm/sec\S\2 PA acc time 0.11 sec TR max luan 313.1 cm/sec PA pr(Accel) 31.1 mmHg
--- NOTE | 2017-06-20 13:30 | CARDIOLOGY CONSULTATION ---
DATE OF CONSULTATION: 06/20/2017 REFERRING PHYSICIAN: Dr. Sarai Rodriguez. REASON FOR CONSULTATION: Chest pain. HISTORY OF PRESENT ILLNESS: Mr. Alcantara is an 87-year-old complex patient who is known to the undersigned. He presented to the Emergency Department with left-sided chest discomfort as well as left-sided shoulder discomfort. Initial cardiac evaluation including ECG and cardiac enzymes are unremarkable. There have been no dysrhythmias on telemetry. A repeat resting 2D transthoracic echocardiogram demonstrates moderate to severe left ventricular systolic function which is unchanged from previous study. His cardiac enzymes are not elevated. There have been no sustained dysrhythmias on telemetry overnight. Currently, the patient is resting comfortably. His chest pain has resolved. Denies orthopnea, PND, or lower extremity edema. Denies any recent trauma or falls. Offers no other complaints at this time. REVIEW OF SYSTEMS: The pertinent positive noted above, a comprehensive 10-system review is otherwise negative. PAST MEDICAL HISTORY: 1. Chronic rate controlled atrial fibrillation. 2. Symptomatic bradycardia status post single chamber pacemaker implantation - 10/02/2016. 3. Symptomatic PVCs with a history of nonsustained ventricular tachycardia. 4. Chronic compensated systolic/diastolic heart failure. 5. Hypertension. 6. Dyslipidemia. PAST SURGICAL HISTORY: 1. Cardiac catheterization. 2. Permanent pacemaker implantation. 3. Cardiac catheterization with nonobstructive CAD - 2014. SOCIAL HISTORY: and lives with his , they live independently. FAMILY HISTORY: Negative for premature coronary artery disease or sudden cardiac ; however, noncontributory given his advanced age. ALLERGIES: No known drug allergies. CURRENT OUTPATIENT MEDICATIONS: Per review of Epic records demonstrates: 1. Keppra 250 mg 2 tablets twice daily. 2. Magnesium oxide 250 mg daily. 3. Lisinopril 2.5 mg. 4. Toprol-XL 50 mg daily. 5. Coumadin 2.5 mg as directed by the anticoagulation clinic. 6. Zoloft 50 mg daily. 7. Furosemide 40 mg daily. 8. Simvastatin 20 mg at bedtime. 9. Flomax 0.4 mg daily. 10. Amiodarone 200 mg daily. IMAGING DATA: Electrocardiogram on admission: Probable underlying atrial fibrillation with demand ventricular pacing, PVCs, T-wave inversions noted in lead II and V5. Chest x-ray demonstrates cardiomegaly with pulmonary edema. LABORATORY DATA: Troponins are negative x3 sets. Sodium is 140, potassium 3.7, chloride 106, CO2 is 32, BUN is 26, and creatinine is 1.11. White blood cell count 6.36, hemoglobin is 14.0, and platelet count is 156. PHYSICAL EXAMINATION: VITAL SIGNS: Temperature is 36.4 degrees centigrade, pulse 68 beats per minute and regular, respiratory rate 20 breaths per minute, blood pressure 101/64 and SaO2 is 95% on room air. GENERAL: NAD, awake, alert and oriented x3. THROAT: His mucous membranes are moist. No scleral icterus. Conjunctivae are pink. NECK: Supple without JVD or HJR. No carotid bruit. HEART: Regular with a 1-2/6 systolic ejection murmur heard best at the base. LUNGS: Demonstrate clear breath sounds without rales, rhonchi, or wheeze. ABDOMEN: Soft, nontender. No rebound or guarding. Normal bowel sounds. EXTREMITIES: Warm and dry. There is no clubbing, cyanosis, or edema. NEUROLOGIC: Demonstrates no focal motor deficit. FINAL IMPRESSION: 1. An 87-year-old patient with history of chronic atypical chest discomfort presents to the hospital with recurrent episode of left-sided chest and shoulder pain. Left shoulder pain is reproducible on exam, suspect related to osteoarthritis. Currently, no evidence of acute coronary syndrome with negative cardiac enzymes and stable resting 2D transthoracic echocardiogram. T-wave inversion noted on intrinsic beats on electrocardiogram are of unclear significance at this time. The patient is currently pain free. 2. Chronic atrial fibrillation with therapeutic INR. 3. Symptomatic bradycardia with history of single chamber pacemaker implantation - September 2016 - no interrogation has been performed since that time. 4. Chronic systolic heart failure - patient appears compensated. 5. Hypertension - controlled. 6. Dyslipidemia. 7. History of symptomatic premature ventricular contractions and nonsustained ventricular tachycardia, maintained on amiodarone - no recent TSH on record. PLAN AND RECOMMENDATIONS: The patient's shoulder discomfort appears to be musculoskeletal. This was discussed with him at length. With negative cardiac enzymes and stable echo, should continue conservative medical therapy at this time. I have ordered a repeat TSH given patient's use of long-term amiodarone. Pacemaker interrogation was performed during hospitalization. Repeat PA and lateral chest x-ray will be performed to further assess cardiomegaly noted on admission. LV chamber size was not significantly enlarged on a 2D transthoracic echo. There was no evidence of pericardial effusion. If repeat testing and lab studies are within acceptable range, the patient likely will be discharged to home with close cardiology followup in 1 week. Thank you for allowing me to participate in the care of your patient.
--- NOTE | 2017-06-20 14:01 | DIAGNOSTIC IMAGING REPORT ---
CHEST 2 VIEWS ROUTINE CLINICAL HISTORY: Left-sided chest pain. Shortness of breath. Dyspnea on exertion. COMPARISON STUDY: 06/19/2017 FINDINGS: The heart is enlarged. There are small bilateral pleural effusions. There is no focal pulmonary consolidation. There is resolving pulmonary vascular congestion. There is a left subclavian single chamber central venous pacemaker.[ IMPRESSION: 1. Stable marked cardiomegaly 2. Small bilateral pleural effusions 3. Improving pulmonary vascular congestion Electronically signed by: Alfonzo Shi M.D. 06/20/2017 2:00 PM Dictated Date/Time: 06/20/2017 1:59 PM
[2017-06-20] MEDS: ACETAMINOPHEN 325 MG TAB PO PRN (14:36)
--- NOTE | 2017-06-20 15:21 | Progress Note ---
Internal Med Progress Note Date of Service: Jun 20, 2017. Provider Documentation: SUBJECTIVE: The patient was seen and examined Left shoulder pain with H/O CAD and AF Still has some pain but wants to go home OBJECTIVE: Vital Signs-as noted below Exam: General-NO distres at rest Eyes-normal ENT-normal Neck-supple Lungs-Clear to ausucltate bilaterally with minimal crackles at the bases Heart-Irregular Abdomen-Benign,no masses,bowel sound present Extremities-trace edema bilaterally Neuro-AAOx3 Lab data as noted below. ASSESSMENT & PLAN: This is an 87 year old male with a PMH of symptomatic bradycardia s/p PPM, hx. of meningioma and seizure disorder, chronic BPPV, chronic atrial fibrillation on long-term anticoagulation, hx. of NSVT, frequent PVCs, chronic systolic CHF, depression/anxiety - presents with L sided chest wall pain and L shoulder pain. L Chest Wall Tenderness Rule Out ACS -Worsening pain with palpation and movement , this seems more like costochondritis -EKG with no changes since August -Trend cardiac enzymes-negative for aany ACS -ECHO:: Left ventricular systolic function is moderate to severely reduced. * Ejection Fraction = 35-40%. * There is moderate global hypokinesis of the left ventricle. * Apical and septal wall motion abnormality may reflect pacemaker activation. * There is moderate mitral regurgitation. * Aortic valve sclerosis moderate, without significant aortic valvular stenosis. * Mild aortic regurgitation. * There is mild tricuspid regurgitation. * The estimated systolic PAP 42mmHg. -Continue aspirin, statin, b-akil -Appreciate Cardiology Input and recommendation -Likely discharge tomorrow Chronic Systolic CHF -No exacerbation, no shortness of breath, no fluid overload noted -No CHF in repeat CXR Chronic Atrial Fibrillation -Continue Amiodarone, b-akil -Continue Coumadin, goal INR of 2-3 Symptomatic bradycardia with history of single chamber pacemaker implantation - September 2016 - no interrogation has been performed since that time. Hx. of NSVT -Continue Amiodarone Hx. of Symptomatic Bradycardia s/p PPM Seizure Disorder continue current medications Depression/Anxiety continue Zoloft DVT ppx Coumadin FULL CODE Vital Signs: Date Time Temp Pulse Resp B/P (MAP) Pulse Ox O2 Delivery O2 Flow Rate FiO2 06/20/17 12:00 Room Air 06/20/17 11:26 36.4 68 20 111/64 (80) 95 06/20/17 08:00 Room Air 06/20/17 07:45 36.4 84 20 146/82 (103) 93 06/20/17 04:17 36.5 83 16 128/74 (92) 91 Room Air 06/20/17 04:00 Room Air 06/20/17 00:06 36.6 67 16 147/78 (101) 91 Room Air 06/20/17 00:00 Room Air 06/19/17 20:04 36.7 66 18 129/71 (90) 91 Room Air 06/19/17 20:00 Room Air 06/19/17 17:14 36.5 79 18 170/96 (120) 93 Room Air 06/19/17 16:04 61 18 162/82 93 Room Air 06/19/17 16:01 Room Air Lab Results: Results Past 24 Hours Test 06/19/17 21:22 06/20/17 05:34 Range/Units Total Creatine Kinase 72 83 39-308 U/L Creatine Kinase MB 1.6 2.5 0.5-3.6 ng/ml Creatine Kinase MB Ratio 2.2 3.0 0-3.0 Troponin I < 0.015 < 0.015 0-0.045 ng/ml White Blood Count 6.36 4.8-10.8 K/uL Red Blood Count 4.46 4.7-6.1 M/uL Hemoglobin 14.0 14.0-18.0 g/dL Hematocrit 41.8 42-52 % Mean Corpuscular Volume 93.7 80-100 fL Mean Corpuscular Hemoglobin 31.4 25-34 pg Mean Corpuscular Hemoglobin Concent 33.5 32-36 g/dl RDW Standard Deviation 50.5 36.4-46.3 fL RDW Coefficient of Variation 14.9 11.5-14.5 % Platelet Count 156 130-400 K/uL Mean Platelet Volume 12.0 7.4-10.4 fL Prothrombin Time 23.3 9.0-12.0 SECONDS Prothromb Time International Ratio 2.3 0.9-1.1 Sodium Level 140 136-145 mmol/L Potassium Level 3.7 3.5-5.1 mmol/L Chloride Level 106 98-107 mmol/L Carbon Dioxide Level 32 21-32 mmol/L Anion Gap 2.0 3-11 mmol/L Blood Urea Nitrogen 26 7-18 mg/dl Creatinine 1.11 0.60-1.40 mg/dl Est Creatinine Clear Calc Drug Dose 46.9 ml/min Estimated GFR () 68.8 Estimated GFR (Non- 59.4 BUN/Creatinine Ratio 23.7 10-20 Random Glucose 86 70-99 mg/dl Calcium Level 8.6 8.5-10.1 mg/dl Magnesium Level 2.0 1.8-2.4 mg/dl Triglycerides Level 69 0-150 mg/dl Cholesterol Level 121 0-200 mg/dl HDL Cholesterol 50 mg/dl LDL Cholesterol, Calculated 57 mg/dl VLDL Cholesterol, Calculated 14 mg/dl Cholesterol/HDL Ratio 2.4 Thyroid Stimulating Hormone (TSH) 4.820 0.300-4.500 uIu/ml
[2017-06-20] MEDS: WARFARIN SOD 2.5 MG TAB PO SCH (17:34)
[2017-06-21] VITALS (8 sets, daily range): BP systolic 127–181; BP diastolic 78–92; PULSE 69–105; TEMP 36.4–37.2; O2SAT 90–92
[2017-06-21] MEDS: ACETAMINOPHEN 325 MG TAB PO PRN (00:23)
[2017-06-21] MEDS: SODIUM CHLORIDE 0.9% 1000ML 1,000 ML IV SCH (05:36)
[2017-06-21 07:21] LABS: CALCIUM 8.4 mg/dl (8.5-10.1); CREATININE 0.99 mg/dl (0.60-1.40); POTASSIUM 4.1 mmol/L (3.5-5.1)
[2017-06-21 07:37] LABS: HEMATOCRIT 40.9 % (42-52); HEMOGLOBIN 13.5 g/dL (14.0-18.0); MEAN CELL VOLUME 94.5 fL (80-100); MEAN CORPUSCULAR HEMOGLOBIN 31.2 pg (25-34); MEAN PLATELET VOLUME 12.2 fL (7.4-10.4); PLATELET COUNT 127 K/uL (130-400); RED CELL DISTRIBUTION WIDTH CV 15.1 % (11.5-14.5); RED CELL DISTRIBUTION WIDTH SD 52.1 fL (36.4-46.3); WHITE BLOOD COUNT 6.31 K/uL (4.8-10.8)
[2017-06-21] MEDS: SERTRALINE HCL 50 MG TAB PO SCH (07:42)
[2017-06-21] MEDS: SIMVASTATIN 20 MG TAB PO SCH (07:42)
[2017-06-21] MEDS: MAGNESIUM OXIDE 400 MG TAB PO SCH (07:43)
[2017-06-21] MEDS: LISINOPRIL 2.5 MG TAB PO SCH (07:43)
[2017-06-21] MEDS: ASPIRIN 81 MG ECTAB PO SCH (07:43)
[2017-06-21] MEDS: LEVETIRACETAM 500 MG TAB PO SCH (07:43)
[2017-06-21] MEDS: METOPROLOL SUCC 50MG EXT REL TAB PO SCH (07:43)
[2017-06-21] MEDS: CEROVITE ADV FORMULA TAB PO SCH (07:43)
[2017-06-21] MEDS: TAMSULOSIN HCL 0.4 MG CAP PO SCH (07:43)
[2017-06-21] MEDS: AMIODARONE 200 MG TAB PO SCH (07:44)
[2017-06-21] MEDS ORDERED: LORAZEPAM INJ 0.25 MG in SYRINGE 0.125 ML IV ONE (08:30)
--- NOTE | 2017-06-21 12:43 | Progress Note ---
Internal Med Progress Note Date of Service: Jun 21, 2017. Provider Documentation: SUBJECTIVE: The patient was seen and examined Left shoulder pain with H/O CAD and AF Still has some pain but wants to go home Gets SOB on Minimal exertion -chronic symptoms OBJECTIVE: Vital Signs-as noted below Exam: General-NO distress at rest Eyes-normal ENT-normal Neck-supple Lungs-Clear to ausucltate bilaterally with minimal crackles at the bases Decreased breath sound bilaterally Heart-Irregular Abdomen-Benign,no masses,bowel sound present Extremities-trace edema bilaterally Neuro-AAOx3 Lab data as noted below. ASSESSMENT & PLAN: This is an 87 year old male with a PMH of symptomatic bradycardia s/p PPM, hx. of meningioma and seizure disorder, chronic BPPV, chronic atrial fibrillation on long-term anticoagulation, hx. of NSVT, frequent PVCs, chronic systolic CHF, depression/anxiety - presents with L sided chest wall pain and L shoulder pain. L Chest Wall Tenderness Rule Out ACS -Worsening pain with palpation and movement , this seems more like costochondritis -EKG with no changes since August -Trend cardiac enzymes-negative for aany ACS -ECHO:: Left ventricular systolic function is moderate to severely reduced. * Ejection Fraction = 35-40%. * There is moderate global hypokinesis of the left ventricle. * Apical and septal wall motion abnormality may reflect pacemaker activation. * There is moderate mitral regurgitation. * Aortic valve sclerosis moderate, without significant aortic valvular stenosis. * Mild aortic regurgitation. * There is mild tricuspid regurgitation. * The estimated systolic PAP 42mmHg. -Continue aspirin, statin, b-akil -Appreciate Cardiology Input and recommendation -Likely discharge tomorrow Chronic Systolic CHF -No exacerbation, no shortness of breath, no fluid overload noted -No CHF in repeat CXR -looks dry and the SOB is multifactorial -can be discharged home as per cardiology Chronic Atrial Fibrillation -Continue Amiodarone, b-akil -Continue Coumadin, goal INR of 2-3 -rate is controlled -TSH is borderline hish -needs to be rechecked in 6-12 weeks Symptomatic bradycardia with history of single chamber pacemaker implantation - September 2016 - no interrogation has been performed since that time. Hx. of NSVT -Continue Amiodarone Hx. of Symptomatic Bradycardia s/p PPM Seizure Disorder continue current medications Depression/Anxiety continue Zoloft DVT ppx Coumadin FULL CODE Likely discharge today Vital Signs: Date Time Temp Pulse Resp B/P (MAP) Pulse Ox O2 Delivery O2 Flow Rate FiO2 06/21/17 12:15 Room Air 06/21/17 11:48 36.6 101 20 178/91 (120) 92 06/21/17 08:15 Room Air 06/21/17 07:54 36.7 105 20 172/92 (118) 91 06/21/17 04:30 88 163/81 (108) 06/21/17 04:18 36.5 94 16 181/91 (121) 91 Room Air 06/21/17 04:00 Room Air 06/21/17 00:10 36.4 69 16 168/87 (114) 90 Room Air 06/20/17 23:05 Room Air 06/20/17 21:17 67 154/87 (109) 06/20/17 20:19 36.5 72 18 154/83 (106) 92 Room Air 06/20/17 20:00 Room Air 06/20/17 16:49 83 20 178/89 (118) 96 Room Air 179/84 (115) 06/20/17 16:00 Room Air 06/20/17 15:33 63 Lab Results: Results Past 24 Hours Test 06/21/17 06:06 Range/Units White Blood Count 6.31 4.8-10.8 K/uL Red Blood Count 4.33 4.7-6.1 M/uL Hemoglobin 13.5 14.0-18.0 g/dL Hematocrit 40.9 42-52 % Mean Corpuscular Volume 94.5 80-100 fL Mean Corpuscular Hemoglobin 31.2 25-34 pg Mean Corpuscular Hemoglobin Concent 33.0 32-36 g/dl RDW Standard Deviation 52.1 36.4-46.3 fL RDW Coefficient of Variation 15.1 11.5-14.5 % Platelet Count 127 130-400 K/uL Mean Platelet Volume 12.2 7.4-10.4 fL Sodium Level 140 136-145 mmol/L Potassium Level 4.1 3.5-5.1 mmol/L Chloride Level 110 98-107 mmol/L Carbon Dioxide Level 24 21-32 mmol/L Anion Gap 6.0 3-11 mmol/L Blood Urea Nitrogen 23 7-18 mg/dl Creatinine 0.99 0.60-1.40 mg/dl Est Creatinine Clear Calc Drug Dose 52.6 ml/min Estimated GFR () 79.0 Estimated GFR (Non- 68.2 BUN/Creatinine Ratio 22.8 10-20 Random Glucose 96 70-99 mg/dl Calcium Level 8.4 8.5-10.1 mg/dl Magnesium Level 2.0 1.8-2.4 mg/dl
--- NOTE | 2017-06-21 14:23 | CARDIOLOGY PROGRESS NOTE ---
DATE: 06/21/2017 DATE: 06/21/2017 SUBJECTIVE: The patient is seen and examined at the bedside. He is agitated and confused this morning. He received a dose of intravenous Ativan at approximately 8:00 a.m. The patient denies any recurrent chest discomfort. His ECG demonstrates Afib with elevated heart rate. There are lateral T-wave inversions concerning for ischemia. Resting 2D echo unchanged demonstrating moderate global hypokinesis. On telemetry, he is in atrial fibrillation with intermittent ventricular pacing. No orthopnea, PND, or edema. Aside from agitation and confusion there are no other complaints offered by the nursing staff. REVIEW OF SYSTEMS: The pertinent positive noted above with 3-system review including cardiovascular, pulmonary, gastroenterologic systems otherwise negative. MEDICATIONS: Reviewed via EMR. Please see list for details. LABORATORY DATA: Sodium 140, potassium 4.0, chloride 110, CO2 is 24, BUN is 23, creatinine 0.99. TSH 4.820. White blood cell count 6.31, hemoglobin is 13.5, platelet count is 127. PHYSICAL EXAMINATION: VITAL SIGNS: Temperature is 36.6 degrees centigrade, pulse is 90 beats per minute and irregular, respiratory rate 20, blood pressure 178/91. GENERAL: NAD, agitated, confused. HEAD, EYES, EARS, NOSE, AND THROAT: Mucous membranes moist. No scleral icterus. Conjunctivae pink. NECK: Supple without JVD or HJR. No carotid bruit. HEART: Irregular, borderline tachycardic with a 1-2/6 systolic ejection murmur heard best at the base. LUNGS: Demonstrate clear breath sounds without rales, rhonchi, or wheeze. ABDOMEN: Soft, nontender. No rebound or guarding. Normal bowel sounds. EXTREMITIES: Warm and dry without clubbing, cyanosis, or edema. NEUROLOGIC: Agitated, no focal deficit, moves all extremities freely. FINAL IMPRESSION: 1. An 87-year-old patient admitted with atypical chest discomfort. Echocardiogram appears stable without regional wall motion abnormality. He remains in atrial fibrillation on telemetry which is a chronic issue. In general, his heart rates are controlled, however, mildly elevated this morning and associated with elevated blood pressures related to agitation after receiving Ativan. His INR is therapeutic. 2. Chronic systolic heart failure -- patient appears compensated. 3. Labile hypertension related to agitation currently. 4. Abnormal ECG with T-wave inversions concerning for ischemia; however, the patient is without chest discomfort currently. His cardiac enzymes are undetectable. History of symptomatic premature ventricular contractions treated with amiodarone. 5. Tachybrady syndrome, status post single chamber pacemaker implantation, pacemaker interrogation demonstrates normal function. PLAN AND RECOMMENDATIONS: The patient's agitation appears to be related to benzodiazepine given this a.m. His presenting symptoms have resolved without elevation of cardiac enzymes or change in LV systolic function. He appears compensated at this time. I reviewed his ECG which is abnormal, however, given his lack of chest discomfort and stable echo will recommend continued conservative medical management. I suspect the patient's underlying dementia is worsening somewhat as well. I will discuss the case further with the hospitalist. At this time, he will continue amiodarone, simvastatin, Toprol-XL, lisinopril as previously ordered. I will arrange for close cardiology followup in 1-2 weeks in my office in [facility].
[2017-06-21] MEDS: WARFARIN SOD 2.5 MG TAB PO SCH (15:38)
[2017-06-21] MEDS ORDERED: LSX40 PO (16:10)
[2017-06-21] MEDS ORDERED: OXGN (16:13)
--- NOTE | 2017-06-21 16:15 | Discharge Instructions ---
Discharge Instructions Date of Service Jun 21, 2017. Admission Reason for Admission: Left Shoulder Pain, Left Sided Chest Pain Discharge Discharge Diagnosis / Problem: AF ,Cardiomyopathy,Diastolic heart failure Discharge Goals Goal(s): Prevent Disease Progression Activity Recommendations Activity Limitations: resume your previous activity . Instructions / Follow-Up Instructions / Follow-Up Dr Abarca on 06/26/17 at 10:45 AM.Cardiology will call with appointment.Please have regular follow up with the Coagulation clinic Current Hospital Diet Patient's current hospital diet: AHA Diet (Heart Healthy) Discharge Diet Recommended Diet: AHA Diet (Heart Healthy), Low Sodium Diet (2gm Na) Fluid Restriction: 1500 ml (6 cups) Pending Studies Studies pending at discharge: no Laboratory Results Lipid Panel Test 06/20/17 05:34 Range/Units Triglycerides Level 69 0-150 mg/dl Cholesterol Level 121 0-200 mg/dl HDL Cholesterol 50 mg/dl Cholesterol/HDL Ratio 2.4 LDL Cholesterol, Calculated 57 mg/dl Medical Emergencies . Who to Call and When: Medical Emergencies: If at any time you feel your situation is an emergency, please call 911 immediately. . Non-Emergent Contact Non-Emergency issues call your: Primary Care Provider . Past History Medical & Surgical History: (1) Left sided chest pain (2) Chronic atrial fibrillation (3) Dyslipidemia (4) Borderline hypertension (5) Depression with anxiety (6) Pacemaker (7) H/O craniotomy (8) S/P cardiac cath . "Provider Documentation" section prepared by Tatyana Easley. . VTE Core Measure Inpt VTE Proph given/why not?: Warfarin (Coumadin)
--- NOTE | 2017-06-22 08:34 | Discharge Summary ---
Discharge Summary Date of Service Jun 22, 2017. Discharge Summary Admission Date: Jun 20, 2017 at 10:42 Discharge Date: Jun 21, 2017 Discharge Disposition: Home Principal Diagnosis: AF ,Cardiomyopathy,Diastolic heart failure Secondary Diagnoses/Problems: Please see H&P and Hospital Progress note Consultations: Cardiology Medication Reconciliation New Medications: Home O2 Therapy (Oxygen) Gas 2 LITERS NA PRN, #1 Changed Medications: Furosemide (Furosemide) 40 Mg Tab 40 MG PO UD for 30 Days, TABS (Changed from: DAILY; Removed Quantity) 1 po daily for a day or two if you gain 2-3 lbs in a week. Continued Medications: Amiodarone HCl (Amiodarone HCl) 200 Mg Tab 200 MG PO DAILY for 15 Days, #15 TAB Levetiracetam (Keppra) 250 Mg Tab 500 MG PO BID, TAB Lisinopril (Zestril) Unknown Strength Tab 1 TAB PO QAM Magnesium Oxide (Mg Supplement (Magnesium Oxide) 250 Mg Tab 1 TAB DAILY Metoprolol Succinate (Toprol Xl) Unknown Strength Tabcr 50 TAB PO DAILY for 30 Days, #30 Multiple Vitamins W/ Minerals (Centrum Silver Ultra Mens) 1 Tab Tab 1 TAB PO DAILY Sertraline Hcl (Zoloft) Unknown Strength Tab 1 TAB PO DAILY Simvastatin (Zocor) 20 Mg Tab 20 MG PO QAM, TAB Tamsulosin Hcl (Flomax) 0.4 Mg Cap 0.4 MG PO DAILY, CAP Warfarin Sod (Coumadin) 2.5 Mg Tab 2.5 MG PO DAILY, TAB Admission Information HPI (per Admitting provider): This is an 87 year old male with a PMH of symptomatic bradycardia s/p PPM, hx. of meningioma and seizure disorder, chronic BPPV, chronic atrial fibrillation on long-term anticoagulation, hx. of NSVT, frequent PVCs, chronic systolic CHF, depression/anxiety - presents with L sided chest wall pain and L shoulder pain. States this pain has been intermittent x 2 days, but worse today and bad enough that he had to come to the hospital. No shortness of breath; worse with palpation. Pain is sharp on the L side worse with palpation. L shoulder radiograph performed shows no injuries. Denies nausea/vomiting/fevers/chills. No trauma noted. Mild residual tenderness persists. Past Medical/Surgical History Medical Problems: (1) Benign positional vertigo Status: Chronic (2) Borderline hypertension Status: Chronic (3) BPH (benign prostatic hypertrophy) Status: Chronic (4) Cerebral meningioma Status: Chronic (5) Chronic atrial fibrillation Status: Chronic (6) Depression with anxiety Status: Chronic (7) Dyslipidemia Status: Chronic (8) History of meningioma of the brain Status: Chronic (9) Pacemaker Status: Chronic (10) Seizure disorder Status: Chronic (11) Systolic CHF Permanent Comment: echo 08/2016 - EF 35-40%, moderate TR, moderate AR Status: Chronic Surgical Problems: (1) H/O craniotomy Permanent Comment: 1986 for meningioma Status: Chronic (2) S/P cardiac cath Permanent Comment: 01/2015 [facility]- diffuse nonobstructive coronary plaque disease; overall CAD medically manageable Status: Chronic Family History FH: atrial fibrillation SISTER Social History Smoking Status: Never Smoker Marital Status: Housing status: lives with family Immunizations History of Influenza Vaccine: Yes Influenza Vaccine Date: Mar 06, 2016 Allergies Coded Allergies: No Known Allergies (Unverified , 06/19/17) Home Medications Scheduled Amiodarone HCl (Amiodarone HCl), 200 MG PO DAILY Furosemide (Furosemide), 40 MG PO DAILY Levetiracetam (Keppra), 500 MG PO BID Lisinopril (Zestril), 1 TAB PO QAM Magnesium Oxide (Mg Supplement (Magnesium Oxide), 1 TAB DAILY Metoprolol Succinate (Toprol Xl), 1 TAB PO DAILY Multiple Vitamins W/ Minerals (Centrum Silver Ultra Mens), 1 TAB PO DAILY Sertraline Hcl (Zoloft), 1 TAB PO DAILY Simvastatin (Zocor), 20 MG PO QAM Tamsulosin Hcl (Flomax), 0.4 MG PO DAILY Warfarin Sod (Coumadin), 2.5 MG PO DAILY Review of Systems Constitutional: No fever, No chills, No weakness Respiratory: No cough, No sputum, No wheezing, No shortness of breath, No dyspnea on exertion, No dyspnea at rest, No hemoptysis Cardiovascular: No chest pain, No edema, No palpitations Abdomen: No pain, No nausea, No vomiting, No diarrhea, No constipation Musculoskeletal: + joint pain (L shoulder pain) Genitourinary - Male: No dysuria, No urinary frequency, No urinary urgency Neurologic: No numbness/tingling, No vertigo, No balance problems Psychiatric: No depression symptoms, No anxiety, No insomnia Endocrine: No fatigue Hematologic / Lymphatic: No abnormal bleeding/bruising Integumentary: No rash Allergic / Immunologic: No environmental allergies, No seasonal allergies Physical Ex - H&P Physical Exam Vital Signs Date Time Temp Pulse Resp B/P (MAP) Pulse Ox O2 Delivery O2 Flow Rate FiO2 06/19/17 14:18 63 16 172/103 93 Room Air 06/19/17 13:01 68 20 159/95 94 06/19/17 12:58 94 Room Air 06/19/17 12:20 69 06/19/17 12:17 36.4 78 16 155/95 92 Room Air General Appearance: no apparent distress Eyes: normal inspection ENT: hearing grossly normal Neck: supple, no JVD, trachea midline Respiratory/Chest: lungs clear, normal breath sounds, no respiratory distress, no accessory muscle use, + pertinent finding (+l sided chest wall tenderness) Cardiovascular: no edema, no gallop, no JVD, no murmur, normal peripheral pulses, + irregularly irregular Abdomen/GI: normal bowel sounds, non tender, soft Extremities/Musculoskelatal: normal inspection, no calf tenderness, normal capillary refill, no pedal edema, normal range of motion Neurologic/Psych: no motor/sensory deficits, alert, oriented x 3 Skin: normal color, warm/dry, no rash Lymphatic: no adenopathy Diagnostics - H&P Diagnostics Laboratory Results Results Past 24 Hours Test 06/19/17 13:00 Range/Units White Blood Count 4.69 4.8-10.8 K/uL Red Blood Count 4.07 4.7-6.1 M/uL Hemoglobin 12.8 14.0-18.0 g/dL Hematocrit 37.9 42-52 % Mean Corpuscular Volume 93.1 80-100 fL Mean Corpuscular Hemoglobin 31.4 25-34 pg Mean Corpuscular Hemoglobin Concent 33.8 32-36 g/dl RDW Standard Deviation 50.7 36.4-46.3 fL RDW Coefficient of Variation 14.9 11.5-14.5 % Platelet Count 141 130-400 K/uL Mean Platelet Volume 12.1 7.4-10.4 fL Prothrombin Time 22.0 9.0-12.0 SECONDS Prothromb Time International Ratio 2.1 0.9-1.1 Activated Partial Thromboplast Time 32.5 21.0-31.0 SECONDS Partial Thromboplastin Ratio 1.3 Sodium Level 139 136-145 mmol/L Potassium Level 3.9 3.5-5.1 mmol/L Chloride Level 104 98-107 mmol/L Carbon Dioxide Level 30 21-32 mmol/L Anion Gap 5.0 3-11 mmol/L Blood Urea Nitrogen 26 7-18 mg/dl Creatinine 0.93 0.60-1.40 mg/dl Est Creatinine Clear Calc Drug Dose 56.0 ml/min Estimated GFR () 85.2 Estimated GFR (Non- 73.6 BUN/Creatinine Ratio 28.1 10-20 Random Glucose 86 70-99 mg/dl Calcium Level 8.6 8.5-10.1 mg/dl Magnesium Level 2.0 1.8-2.4 mg/dl Total Bilirubin 0.8 0.2-1 mg/dl Aspartate Amino Transf (AST/SGOT) 30 15-37 U/L Alanine Aminotransferase (ALT/SGPT) 27 12-78 U/L Alkaline Phosphatase 99 45-117 U/L Total Creatine Kinase 73 39-308 U/L Creatine Kinase MB 1.8 0.5-3.6 ng/ml Creatine Kinase MB Ratio 2.5 0-3.0 Troponin I < 0.015 0-0.045 ng/ml Total Protein 7.0 6.4-8.2 gm/dl Albumin 3.4 3.4-5.0 gm/dl Globulin 3.6 2.5-4.0 gm/dl Albumin/Globulin Ratio 0.9 0.9-2 Diagnostic Radiology CHEST ONE VIEW PORTABLE CLINICAL HISTORY: Chest pain. COMPARISON STUDY: Chest radiograph October 19, 2016. FINDINGS: Marked cardiomegaly is noted. A single lead left subclavian pacemaker is in place. There is no pneumothorax. There is pulmonary vascular congestion with suspected mild pulmonary edema. A small right pleural effusion is noted. IMPRESSION: 1. Mild pulmonary edema. 2. Suspected small right pleural effusion. 3. Marked cardiomegaly. LEFT SHOULDER 3 VIEWS CLINICAL HISTORY: Left shoulder pain. FINDINGS: 3 portable views of the left shoulder are obtained. No prior studies are available for comparison at the time of dictation. The skeletal structures are osteopenic. No fracture or dislocation is seen. Productive degenerative change is identified at the acromioclavicular joint. Mild arthritic change is also seen at the glenohumeral articulation. The heart is enlarged and a cardiac pacemaker is observed. The left lung parenchyma is clear as imaged. IMPRESSION: Osteopenia and arthritic change as above. No left shoulder fracture or dislocation is seen. EKG Atrial fibrillation with frequent ventricular-paced complexes and with premature ventricular or aberrantly conducted complexes Left bundle branch block ST & T wave abnormality, consider inferior ischemia ST & T wave abnormality, consider anterolateral ischemia Impression - H&P Impression Assessment and Plan This is an 87 year old male with a PMH of symptomatic bradycardia s/p PPM, hx. of meningioma and seizure disorder, chronic BPPV, chronic atrial fibrillation on long-term anticoagulation, hx. of NSVT, frequent PVCs, chronic systolic CHF, depression/anxiety - presents with L sided chest wall pain and L shoulder pain. L Chest Wall Tenderness Rule Out ACS due to worsening pain with palpation, this seems more like costochondritis either way, he has a complex cardiac history, therefore, we will observe in tele overnight EKG with no changes since August will recheck EKG in AM trend cardiac enzymes recheck echo (last EF ~35-40% with global hypokinesis) continue aspirin, statin, b-akil cardiology consultation for further input Chronic Systolic CHF no exacerbation, no shortness of breath, no fluid overload noted for now, will recheck echo to compare to the one in October hold Lasix for now, give gentle hydration restart Lasix and diuretics in AM continue low dose Lisinopril Chronic Atrial Fibrillation continue Amiodarone, b-akil continue Coumadin, goal INR of 2-3 Hx. of NSVT continue Amiodarone Hx. of Symptomatic Bradycardia s/p PPM Seizure Disorder continue current medications Depression/Anxiety continue Zoloft DVT ppx Coumadin FULL CODE VTE Prophylaxis VTE Risk Assessment Done? Y/N: Yes Risk Level: Moderate Physical Exam (per Admitting): General Appearance: no apparent distress Eyes: normal inspection ENT: hearing grossly normal Neck: supple, no JVD, trachea midline Respiratory/Chest: lungs clear, normal breath sounds, no respiratory distress, no accessory muscle use, + pertinent finding (+l sided chest wall tenderness) Cardiovascular: no edema, no gallop, no JVD, no murmur, normal peripheral pulses, + irregularly irregular Abdomen/GI: normal bowel sounds, non tender, soft Extremities/Musculoskelatal: normal inspection, no calf tenderness, normal capillary refill, no pedal edema, normal range of motion Neurologic/Psych: no motor/sensory deficits, alert, oriented x 3 Skin: normal color, warm/dry, no rash Lymphatic: no adenopathy Hospital Course This is an 87 year old male with a PMH of symptomatic bradycardia s/p PPM, hx. of meningioma and seizure disorder, chronic BPPV, chronic atrial fibrillation on long-term anticoagulation, hx. of NSVT, frequent PVCs, chronic systolic CHF, depression/anxiety - presents with L sided chest wall pain and L shoulder pain. L Chest Wall Tenderness Rule Out ACS -Worsening pain with palpation and movement , this seems more like costochondritis -EKG with no changes since August -Trend cardiac enzymes-negative for aany ACS -ECHO:: Left ventricular systolic function is moderate to severely reduced. * Ejection Fraction = 35-40%. * There is moderate global hypokinesis of the left ventricle. * Apical and septal wall motion abnormality may reflect pacemaker activation. * There is moderate mitral regurgitation. * Aortic valve sclerosis moderate, without significant aortic valvular stenosis. * Mild aortic regurgitation. * There is mild tricuspid regurgitation. * The estimated systolic PAP 42mmHg. -Continue aspirin, statin, b-akil -Appreciate Cardiology Input and recommendation -Likely discharge tomorrow Chronic Systolic CHF -No exacerbation, no shortness of breath, no fluid overload noted -No CHF in repeat CXR -looks dry and the SOB is multifactorial -can be discharged home as per cardiology Chronic Atrial Fibrillation -Continue Amiodarone, b-akil -Continue Coumadin, goal INR of 2-3 -rate is controlled -TSH is borderline hish -needs to be rechecked in 6-12 weeks Symptomatic bradycardia with history of single chamber pacemaker implantation - September 2016 - no interrogation has been performed since that time. Hx. of NSVT -Continue Amiodarone Hx. of Symptomatic Bradycardia s/p PPM Seizure Disorder continue current medications Depression/Anxiety continue Zoloft DVT ppx Coumadin FULL CODE Likely discharge today Total time spent on discharge = 35 minutes This includes examination of the patient, discharge planning, medication reconciliation, and communication with other providers. Discharge Instructions Date of Service Jun 21, 2017. Admission Reason for Admission: Left Shoulder Pain, Left Sided Chest Pain Discharge Discharge Diagnosis / Problem: AF ,Cardiomyopathy,Diastolic heart failure Discharge Goals Goal(s): Prevent Disease Progression Activity Recommendations Activity Limitations: resume your previous activity . Instructions / Follow-Up Instructions / Follow-Up Dr Abarca on 06/26/17 at 10:45 AM.Cardiology will call with appointment.Please have regular follow up with the Coagulation clinic Current Hospital Diet Patient's current hospital diet: AHA Diet (Heart Healthy) Discharge Diet Recommended Diet: AHA Diet (Heart Healthy), Low Sodium Diet (2gm Na) Fluid Restriction: 1500 ml (6 cups) Pending Studies Studies pending at discharge: no Laboratory Results Lipid Panel Test 06/20/17 05:34 Range/Units Triglycerides Level 69 0-150 mg/dl Cholesterol Level 121 0-200 mg/dl HDL Cholesterol 50 mg/dl Cholesterol/HDL Ratio 2.4 LDL Cholesterol, Calculated 57 mg/dl Medical Emergencies . Who to Call and When: Medical Emergencies: If at any time you feel your situation is an emergency, please call 911 immediately. . Non-Emergent Contact Non-Emergency issues call your: Primary Care Provider . Past History Medical & Surgical History: (1) Left sided chest pain (2) Chronic atrial fibrillation (3) Dyslipidemia (4) Borderline hypertension (5) Depression with anxiety (6) Pacemaker (7) H/O craniotomy (8) S/P cardiac cath . "Provider Documentation" section prepared by Tatyana Easley. . VTE Core Measure Inpt VTE Proph given/why not?: Warfarin (Coumadin) <Electronically signed by Tatyana Easley M.D.> Signed: 06/21/17 9045 Additional Copies To Carlie Abarca D.O.
== END 2017-06-21 17:05 | disposition home health service (06) | DRG 206 ==
LOC: EDBD 12:12 → C.EDC 12:15 → C.MED 15:35 → ENRESERV 15:44 → OBSVTOIN 06-20 10:42
PROVIDERS: ADMIT Family Medicine; ATTEND Internal Medicine
DX: M94.0 Chondrocostal junction syndrome [Tietze] (principal); I42.9 Cardiomyopathy, unspecified; I50.32 Chronic diastolic (congestive) heart failure; I47.1 Supraventricular tachycardia; R94.31 Abnormal electrocardiogram [ECG] [EKG]; I48.2 Chronic atrial fibrillation; R45.1 Restlessness and agitation; M25.512 Pain in left shoulder; I49.3 Ventricular premature depolarization; I11.0 Hypertensive heart disease with heart failure; E78.5 Hyperlipidemia, unspecified; G40.909 Epilepsy, unspecified, not intractable, without status epilepticus; H81.10 Benign paroxysmal vertigo, unspecified ear; F32.9 Major depressive disorder, single episode, unspecified; F41.9 Anxiety disorder, unspecified; Z79.01 Long term (current) use of anticoagulants; Z95.0 Presence of cardiac pacemaker; Z79.899 Other long term (current) drug therapy

== ENCOUNTER 2018-06-12 09:10 | Inpatient (IN) ==
[2018-06-12] MEDS ORDERED: ALBUT/IPRATROP 3MG/0.5MG NEB 3 ML VIAL NEB STA (10:17)
[2018-06-12 10:34] LABS: Basophils # (auto) 0.03 K/uL (0-0.2); Basophils % (auto) 0.6 %; Eosinophils # (auto) 0.25 K/uL (0-0.5); Eosinophils % (auto) 4.8 %; Hematocrit (blood only) 36.3 % (42-52); Hemoglobin 11.8 g/dL (14.0-18.0); Immature Granulocytes # (auto) 0.03 K/uL (0.00-0.02); Immature Granulocytes % (auto) 0.6 %; Lymphocytes # (auto) 1.11 K/uL (1.2-3.4); Lymphocytes % (auto) 21.1 %; Mean Corpuscular Hgb Conc 32.5 g/dL (32-36); Mean Corpuscular Volume 97.1 fL (80-100); Monocytes # (auto) 0.51 K/uL (0.11-0.59); Monocytes % (auto) 9.7 %; Neutrophils # (auto) 3.32 K/uL (1.4-6.5); Neutrophils % (auto) 63.2 %; Platelet Count 143 K/uL (130-400); RDW Coefficient of Variation 16.3 % (11.5-14.5); RDW Standard Deviation 57.1 fL (36.4-46.3); Red Blood Count 3.74 M/uL (4.7-6.1); White Blood Count 5.25 K/uL (4.8-10.8)
[2018-06-12 10:41] LABS: Alanine Aminotransferase 27 U/L (12-78); Albumin Level 3.7 gm/dl (3.4-5.0); Aspartate Aminotransferase 30 U/L (15-37); BUN Creatinine Ratio 34.3 (10-20); Blood Urea Nitrogen 44 mg/dl (7-18); Calcium 8.7 mg/dl (8.5-10.1); Carbon Dioxide 31 mmol/L (21-32); Chloride 106 mmol/L (98-107); Creatinine Clr Calc Pharmacy 39.9 ml/min; Est GFR (African American) 57.5; Est GFR (Non-African American) 49.6; Glucose 85 mg/dl (70-99); Potassium 4.4 mmol/L (3.5-5.1); Sodium 140 mmol/L (136-145)
[2018-06-12 10:45] LABS: Albumin Globulin Ratio 0.8 (0.9-2); Alkaline Phosphatase 101 U/L (45-117); Bilirubin,Total 0.6 mg/dl (0.2-1); Globulin 4.4 gm/dl (2.5-4.0); Total Protein 8.1 gm/dl (6.4-8.2); Troponin I < 0.015 ng/ml (0-0.045)
--- NOTE | 2018-06-12 10:51 | XRay Report ---
XR chest 1V portable CLINICAL HISTORY: 88 years-old Male presenting with Chest Pain. TECHNIQUE: Portable upright AP view of the chest was obtained. COMPARISON: 05/26/2018. FINDINGS: Left subclavian pacer with single lead to the right ventricular apex. Atherosclerosis of aortic arch. Cardiac silhouette markedly enlarged. Pulmonary vascular prominence increased from prior. Prominent perihilar density bilaterally. Bronchial wall cuffing. Mildly low lung volumes with new and/or increa sing pleural effusions and bibasilar dense opacity. Osteopenia suggested. Multilevel degenerative hayes nges of the spine. Upper abdomen normal. IMPRESSION: 1. Marked cardiomegaly with volume overload/congestive change and developing pulmonary edema. 2. Poor aeration of the lung bases with bilateral pleural effusions and suspected extensive bibasila r atelectasis. Electronically signed by: Dawson Brennan M.D. 06/12/2018 10:50 AM
[2018-06-12] MEDS ORDERED: FUROSEMIDE 40 MG/4 ML VIAL IV STA (11:19)
[2018-06-12 11:47] LABS: INR 1.5 (0.9-1.1); Prothrombin Time 15.1 Seconds (9.0-12.0)
--- NOTE | 2018-06-12 12:32 | Emergency Department Note ---
Entered by Shelly Hawk acting as a scribe for History of Present Illness General Chief complaint: Chest Pain Time Seen by Provider: 06/12/18 09:31 Source: patient Mode of arrival: ambulatory History of Present Illness Onset (ago): hour(s) (this morning) Location: chest Pain Consistency: + other (worsening) Maximum Pain Intensity: 3 Quality: + other (SOB) Associated symptoms: no cough Treatments prior to arrival: other (nitroglycerin) The patient is an 88 year old male who presents to the Emergency Room with complaints of worsening SOB that began early this morning. The patient states that he had left-sided CP, but it is now resolved. He denies any cough. He notes that he wears 2 L O2 NC at home. The patient notes that he was picked up by the ambulance and given 3 nitroglycerin FISHER TERRAPIN. He notes that he has a pacemaker. Home Medications Home Medications Medication Instructions Recorded Confirmed Type amiodarone 200 mg PO QAM 04/19/18 06/12/18 History furosemide [Lasix] 40 mg PO QAM 04/19/18 06/12/18 History levetiracetam [Keppra] 500 mg PO BID 04/19/18 06/12/18 History lisinopril 2.5 mg PO QAM 04/19/18 06/12/18 History magnesium 250 mg PO QAM 04/19/18 06/12/18 History metoprolol succinate 50 mg PO QAM 04/19/18 06/12/18 History hmzdsjtx-xbq-WA-lycopen-lutein 1 tab PO QAM 04/19/18 06/12/18 History [Centrum Silver Ultra Men's] simvastatin 20 mg PO HS 04/19/18 06/12/18 History tamsulosin 0.4 mg PO QAM 04/19/18 06/12/18 History warfarin [Jantoven] 2.5 mg PO HS 04/19/18 06/12/18 History sertraline 50 mg PO QAM 06/12/18 06/12/18 History Allergies Allergy/AdvReac Type Severity Reaction Status Date / Time No Known Allergies Allergy Verified 06/12/18 10:14 Past Med/Surg History Medical History Chronic atrial fibrillation (Chronic) Cerebral meningioma (Chronic) Dyslipidemia (Chronic) Borderline hypertension (Chronic) BPH (benign prostatic hypertrophy) (Chronic) Benign positional vertigo (Chronic) Seizure disorder (Chronic) Depression with anxiety (Chronic) Pacemaker (Chronic) Systolic CHF (Chronic) "echo 08/2016 - EF 35-40%, moderate TR, moderate AR" Surgical History H/O craniotomy (Chronic) "1986 for meningioma" S/P cardiac cath (Chronic) "01/2015 [facility]- diffuse nonobstructive coronary plaque disease; overall CAD medically manageable" Family History Other Atrial fibrillation Breast cancer Social History marital status: Current Living Situation: Spouse Other Information That Helps Us Care for You: No Feels Safe at Home: Yes Safety Concerns: Feels Safe At This Time Smoking Status: Never smoker Hx Alcohol Use: No Hx Substance Use: No Beliefs That Will Affect Care: None Preferred Language: Pakistani Communication Ability: Effective Review of Systems See HPI for pertinent positives & negatives. and A total of 10 systems reviewed and were otherwise negative Physical Exam Vital Signs Vital Signs - 24 hr 06/12/18 09:17 06/12/18 09:27 06/12/18 10:20 Sepsis Recent Fever Within 48 Hours No Sepsis New/Unexplained Change in Mental Status No Sepsis Action Taken by Nursing No Action Required Pulse Rate 85 Pulse Rate [Apical] 52 L Respiratory Rate 18 16 Respiratory Effort / Characteristics Respiratory Depth Respiratory Pattern Blood Pressure 117/80 Blood Pressure [Right Arm] 125/69 Blood Pressure Mean 92 Blood Pressure Mean [Right Arm] 87 Pulse Oximetry 95 95 98 Oxygen Delivery Method Nasal Cannula Nasal Cannula Oxygen Flow Rate 3 3 06/12/18 10:46 06/12/18 11:23 06/12/18 11:38 Sepsis Recent Fever Within 48 Hours Sepsis New/Unexplained Change in Mental Status Sepsis Action Taken by Nursing Pulse Rate Pulse Rate [Apical] 61 Respiratory Rate 16 Respiratory Effort / Characteristics Non-Labored Spontaneous Short of Breath SOB on Exertion Respiratory Depth Normal Respiratory Pattern Regular Blood Pressure Blood Pressure [Right Arm] 142/76 H Blood Pressure Mean Blood Pressure Mean [Right Arm] 98 Pulse Oximetry 95 97 Oxygen Delivery Method Nasal Cannula Room Air Nasal Cannula Oxygen Flow Rate 3 3 3 CONSTITUTIONAL/VITAL SIGNS: Reviewed / noted above. GENERAL: Non-toxic in appearance. INTEGUMENTARY: Warm, dry, and [place]. HEAD: Normocephalic. EYES: without scleral icterus or trauma. ENT/OROPHARYNX: clear and moist. LYMPHADENOPATHY/NECK: Is supple without lymphadenopathy or meningismus. RESPIRATORY: Lungs clear and equal. Dimished breath sounds bilaterally. CARDIOVASCULAR: Regular rate and rhythm. GI/ABDOMEN: Soft and nontender. No organomegaly or pulsatile mass. No rebound or guarding. Normal bowel sounds. EXTREMITIES: Warm and well perfused. Mild pedal edema. BACK: No CVA tenderness. NEUROLOGICAL: Intact without focal deficits. PSYCHIATRIC: normal affect. MUSCULOSKELETAL: Normally developed with good muscle tone. Course 932: Past medical records reviewed. The patient was evaluated in room A03, and a complete history and physical examination were performed. 1054: I checked on the patient. 1116: [facility]. He will further evaluate the patient. Consultations Consultation #1: I [facility]'s [facility]. He will further evaluate the patient. Time: 11:16 Administered Medications Discontinued Medications Albuterol (Duoneb) 3 ml NEB NOW STA Stop: 06/12/18 10:18 Last Admin: 06/12/18 10:45 Dose: 3 ml Furosemide (Lasix) 20 mg IV NOW STA Stop: 06/12/18 11:20 Last Admin: 06/12/18 11:39 Dose: 20 mg Medical Decision Making Differential Diagnosis Etiologies such as infections, reactive airway disease, COPD, pneumonia, pleural effusion, pulmonary edema, ARDS, pneumothorax, CHF, cardiac ischemia, cardiac tamponade, dysrhythmia, anemia, pulmonary embolism, musculoskeletal, gastrointestinal process, as well as others were entertained. Medical Records Attestation: I reviewed the patient's medical records. Home Medications Current Medication List: was personally reviewed by me Laboratory Data Attestation: I reviewed the patient's lab results. Result diagrams: 06/12/18 09:00 06/12/18 09:00 Lab Results 06/12/18 06/12/18 06/12/18 Range/Units 09:00 09:00 09:00 WBC 5.25 (4.8-10.8) K/uL RBC 3.74 L (4.7-6.1) M/uL Hgb 11.8 L (14.0-18.0) g/dL Hct 36.3 L (42-52) % MCV 97.1 (80-100) fL MCH 31.6 (25-34) pg MCHC 32.5 (32-36) g/dL RDW Std Deviation 57.1 H (36.4-46.3) fL RDW Coeff of Marge 16.3 H (11.5-14.5) % Plt Count 143 (130-400) K/uL MPV 12.0 H (7.4-10.4) fL Immature Gran % (Auto) 0.6 % Neut % (Auto) 63.2 % Lymph % (Auto) 21.1 % [place] % (Auto) 9.7 % Eos % (Auto) 4.8 % Baso % (Auto) 0.6 % Immature Gran # (Auto) 0.03 H (0.00-0.02) K/uL Neut # (Auto) 3.32 (1.4-6.5) K/uL Lymph # (Auto) 1.11 L (1.2-3.4) K/uL [place] # (Auto) 0.51 (0.11-0.59) K/uL Eos # (Auto) 0.25 (0-0.5) K/uL Baso # (Auto) 0.03 (0-0.2) K/uL PT 15.1 H (9.0-12.0) Seconds INR 1.5 H (0.9-1.1) Sodium 140 (136-145) mmol/L Potassium 4.4 (3.5-5.1) mmol/L Chloride 106 (98-107) mmol/L Carbon Dioxide 31 (21-32) mmol/L Anion Gap 3.0 (3-11) BUN 44 H (7-18) mg/dl Creatinine 1.28 (0.6-1.4) mg/dl Est Cr Clr Drug Dosing 39.9 ml/min Est GFR ( Amer) 57.5 Est GFR (Non-Af Amer) 49.6 BUN/Creatinine Ratio 34.3 H (10-20) Glucose 85 (70-99) mg/dl Calcium 8.7 (8.5-10.1) mg/dl Total Bilirubin 0.6 (0.2-1) mg/dl AST 30 (15-37) U/L ALT 27 (12-78) U/L Alkaline Phosphatase 101 (45-117) U/L Troponin I < 0.015 (0-0.045) ng/ml Total Protein 8.1 (6.4-8.2) gm/dl Albumin 3.7 (3.4-5.0) gm/dl Globulin 4.4 H (2.5-4.0) gm/dl Albumin/Globulin Ratio 0.8 L (0.9-2) Imaging Data Radiologist's Impression: Radiology results as stated below per my review and the radiologist's interpretation: XR chest 1V portable CLINICAL HISTORY: 88 years-old Male presenting with Chest Pain. TECHNIQUE: Portable upright AP view of the chest was obtained. COMPARISON: 05/26/2018. FINDINGS: Left subclavian pacer with single lead to the right ventricular apex. Atherosclerosis of aortic arch. Cardiac silhouette markedly enlarged. Pulmonary vascular prominence increased from prior. Prominent perihilar density bilaterally. Bronchial wall cuffing. Mildly low lung volumes with new and/or increasing pleural effusions and bibasilar dense opacity. Osteopenia suggested. Multilevel degenerative changes of the spine. Upper abdomen normal. IMPRESSION: 1. Marked cardiomegaly with volume overload/congestive change and developing pulmonary edema. 2. Poor aeration of the lung bases with bilateral pleural effusions and suspected extensive bibasilar atelectasis. Electronically signed by: Dawson Brennan M.D. 06/12/2018 10:50 AM ECG Data Attestation: I personally reviewed and interpreted this ECG as follows: Indication: chest pain Rate (beats per minute): 75 Rhythm: other (ventricular paced rhythm) Findings: no ST elevation and no ectopy Blood Pressure Blood Pressure Findings: Elevated blood pressure Blood Pressure Disposition: further management by hospitalist ASIA Tay This is a 88-year-old male who presents to the ED with a chief complaint of chest discomfort and shortness of breath that started less than 20 hours ago. The patient denies any cough. He states that his breathing is worse today than it had been in the past few days. It is progressively worsening. He has no other specific complaints. His exam revealed some diminished breath sounds bilaterally with some scattered wheezes. A chest x-ray is concerning for cardiomegaly and volume overload. EMS provided 3 nitroglycerin to the patient and his chest discomfort improved with this. His EKG shows a ventricular paced rhythm with a normal rate. Troponin was negative, chemistry panel was unremarkable. BUN is 44 and CBC is normal. INR is 1.5. He is on Coumadin. The patient was treated with Lasix 20 mg IV as well as a DuoNeb treatment. His symptoms did improve with this but because his symptoms appear to be cardiac and he has significant cardiac history, the patient was seen by the hospitalist for further inpatient evaluation and care. Impression & Plan Precordial chest pain, Dyspnea Discharge Plan Visit Data Chief Complaint: Chest Pain Other Complaint: Shortness of Breath/Dyspnea ED Provider: Alberto Maharaj Discharge Problem: Precordial chest pain, Dyspnea Patient Disposition: Being Evaluated by Hospitalist Forms Stand Alone Forms: My [facility] Prescriptions Prescriptions: No Action sertraline 50 mg tablet 50 mg PO QAM RF: 0 furosemide [Lasix] 40 mg Tablet 40 mg PO QAM RF: 0 amiodarone 200 mg Tablet 200 mg PO QAM RF: 0 metoprolol succinate 50 mg Tablet Extended Release 24 Hr 50 mg PO QAM RF: 0 warfarin [Jantoven] 2.5 mg Tablet 2.5 mg PO HS RF: 0 tamsulosin 0.4 mg Capsule 0.4 mg PO QAM RF: 0 simvastatin 20 mg Tablet 20 mg PO HS RF: 0 lisinopril 2.5 mg Tablet 2.5 mg PO QAM RF: 0 coksifmg-lqq-TB-lycopen-lutein [Centrum Silver Ultra Men's] 300-600-300 mcg Tablet 1 tab PO QAM RF: 0 levetiracetam [Keppra] 250 mg Tablet 500 mg PO BID RF: 0 magnesium 250 mg Tablet 250 mg PO QAM RF: 0 Referrals Referrals: Carlie Abarca [Primary Care Provider] - The scribe's documentation has been prepared under my direction and personally reviewed by me in its entirety. I confirm that the note above accurately reflects all work, treatment, procedures, and medical decision making performed by me.
[2018-06-12] MEDS ORDERED: NITROGLYCERIN SL 0.4 MG/TAB TAB SL PRN (13:56)
--- NOTE | 2018-06-12 15:09 | History & Physical Report ---
Date of Service June 12, 2018 Assessment & Plan (1) Acute on chronic combined systolic and diastolic CHF, NYHA class 3: This is a recurrent issue for this patient with this being the third admission for same complaint within the past two months. Goals of care were discussed during last visit but pt and family unsure if they wish to pursue home hospice. - IV Lasix 40 mg BID - KCl 10 mEq BID - monitor labs daily - Continue aldactone 12.5 mg daily that was started by cardiology outpatient - Consult cardiology for any additional recommendations - discussed with Dr. Aden - Monitor on telemetry, cardiac enzymes x 3, repeat EKG in AM and with chest pain Present on Admission?: Yes (2) Chronic atrial fibrillation: - On coumadin but subtherapeutic - will increase dose to 5 mg daily and monitor INR - On amiodarone - continue to monitor (3) Depression with anxiety: - Holding Zoloft due to recent prolonged QT - per discharge summary, was to be held as outpatient (4) CKD (chronic kidney disease) stage 3, GFR 30-59 ml/min: - Monitor daily labs with increase in diuretics (5) Pulmonary hypertension: (6) Goals of care, counseling/discussion: This is patient's third hospitalization for decompensated CHF since early April. I did attempt to discuss goals of care with patient and his at bedside but they do not seem to grasp the severity of his condition or poor long -term prognosis. Appreciate the assistance of cardiology in this difficult situation as we attempt to develop reasonable goals of care. Holding on repeat palliative care consult for now but may consider pending course of hospitalization. (7) Prolonged QT interval: (8) Dyslipidemia: Continue simvastatin as taken outpatient (9) BPH (benign prostatic hypertrophy): - Continue home tamsulosin Plan: Plan - Roxann Alonso PA-C: Patient reviewed with attending physician, Dr. Faustin. Plan of care discussed and as outlined above. In discussing code status with patient, he was somewhat unclear on what he wanted but was clear that he did not want intubation. Will be full without mechanical ventilation for now. Davian Alonso PA-C History of Present Illness Primary Care Provider: PCP - Carlie Abarca This is an 88 year old male, well-known to this service, with a complicated PMH including chronic systolic heart failure, chronic atrial fibrillation, moderate pulmonary hypertension, severe mitral regurgitation and ischemic cardiomyopathy with an EF of 25-30%, who presents to the ED today via EMS with recurrent chest pain and dyspnea. Of note, pt was admitted here 04/19-04/22/18 and 05/11-05/15/18 with decompensated CHF that presented with similar symptoms. During his last admission, palliative care was consulted and home hospice was discussed but to date, this has not been initiated as family still unsure if this is the route they wish to take. History today obtained from the patient, as well as his at the bedside. Per pt and , pt developed worsening SOB over the past 24 hours, particularly with exertion and lying flat. Pt did not sleep well last night due to symptoms. This morning, he started with right substernal chest pain and some mild nausea so they called the home health nurse. Home health apparently called EMS upon their arrival. Pt did receive nitro from EMS with some improvement in the chest discomfort although he reports it still present during my examination. He is feeling weak and tired with some mild lightheadedness but denies fevers, chills, sweats, vomiting, diarrhea, cold symptoms. His notes that his weight has been creeping up over the past week and she has noticed increased lower extremity edema. The patient complains of ongoing issues with cramping pains in bilateral legs but states this is a chronic issue. Pt and are unsure of his medication dosing but think that he did take an extra Lasix dose yesterday due to these symptoms. Allergies Allergy/AdvReac Type Severity Reaction Status Date / Time No Known Allergies Allergy Verified 06/12/18 10:14 Home Medications Home Medications Medication Instructions Recorded Confirmed Type amiodarone 200 mg PO QAM 04/19/18 06/12/18 History furosemide [Lasix] 40 mg PO QAM 04/19/18 06/12/18 History levetiracetam [Keppra] 500 mg PO BID 04/19/18 06/12/18 History lisinopril 2.5 mg PO QAM 04/19/18 06/12/18 History magnesium 250 mg PO QAM 04/19/18 06/12/18 History metoprolol succinate 50 mg PO QAM 04/19/18 06/12/18 History wiuxetpa-uqb-CC-lycopen-lutein 1 tab PO QAM 04/19/18 06/12/18 History [Centrum Silver Ultra Men's] simvastatin 20 mg PO HS 04/19/18 06/12/18 History tamsulosin 0.4 mg PO QAM 04/19/18 06/12/18 History warfarin [Jantoven] 2.5 mg PO HS 04/19/18 06/12/18 History sertraline 50 mg PO QAM 06/12/18 06/12/18 History Past Med/Surg History Medical History Chronic atrial fibrillation (Chronic) Cerebral meningioma (Chronic) Dyslipidemia (Chronic) Borderline hypertension (Chronic) BPH (benign prostatic hypertrophy) (Chronic) Benign positional vertigo (Chronic) Seizure disorder (Chronic) Depression with anxiety (Chronic) Pacemaker (Chronic) Systolic CHF (Chronic) "echo 08/2016 - EF 35-40%, moderate TR, moderate AR" Surgical History H/O craniotomy (Chronic) "1986 for meningioma" S/P cardiac cath (Chronic) "01/2015 [facility]- diffuse nonobstructive coronary plaque disease; overall CAD medically manageable" Family History Other Atrial fibrillation Breast cancer Social History marital status: Current Living Situation: Spouse Other Information That Helps Us Care for You: No Feels Safe at Home: Yes Safety Concerns: Feels Safe At This Time Smoking Status: Never smoker Hx Alcohol Use: No Hx Substance Use: No Beliefs That Will Affect Care: None Preferred Language: Indonesian Communication Ability: Effective Review of Systems All systems reviewed & are unremarkable except as noted in HPI & below Constitutional: + fatigue and + weight gain (pt and unable to quantify ); no fever, no chills, no sweats and no anorexia Eyes: no diplopia and not seeing flashes Ear, Nose, Mouth, Throat: + hearing loss (chronic - hearing aid) Respiratory: + cough (occasional), + dyspnea on exertion and + pain on inspiration; no wheezing Cardiovascular: + chest pain, + dyspnea on exertion, + orthopnea, + paroxysmal nocturnal dyspnea, + lightheadedness and + edema; no syncope Gastrointestinal: + nausea; no vomiting, no pain with swallowing, no dysphagia, no change in bowel habits and no blood in stools Genitourinary (Male): no dysuria, no urinary frequency and no hematuria Bilateral LE cramping pains as per HPI Integumentary: no non-healing lesions and no yellowing of the skin Neurologic: + generalized weakness; no syncope and no headache(s) Physical Exam 2 Vital Signs (Past 24 Hours): Last Vital Signs Temp 36.4 C L 06/12/18 14:04 Pulse 63 06/12/18 14:55 Resp 16 06/12/18 14:04 BP 132/81 06/12/18 14:04 Pulse Ox 100 06/12/18 14:04 Constitutional: + thin and + frail appearing; no acute distress Eyes: PERRL, conjunctivae normal, anicteric sclerae ENMT: external ear and nose normal, oropharynx normal Neck: trachea midline Respiratory: no respiratory distress Auscultation: + crackles (at bilateral bases); no wheezes Cardiovascular: Rate/Rhythm: regular rate and regular rhythm Heart Sounds: + murmur Vessels: no carotid bruit Extremities: + pedal edema (1+ pitting edema to pretibial area); no calf tenderness Gastrointestinal (Abdomen): Inspection/Auscultation: normal bowel sounds; abdomen not distended Percussion/Palpation: abdomen soft; abdomen nontender Musculoskeletal: Report Clerk strength 5/5 and equal bilaterally Dorsiflexion/Plantar flexion 5/5 and equal bilaterally Results & Data Laboratory Results Laboratory Results - last 24 hr 06/12/18 06/12/18 06/12/18 09:00 09:00 09:00 WBC 5.25 RBC 3.74 L Hgb 11.8 L Hct 36.3 L MCV 97.1 MCH 31.6 MCHC 32.5 RDW Std Deviation 57.1 H RDW Coeff of Marge 16.3 H Plt Count 143 MPV 12.0 H Immature Gran % (Auto) 0.6 Neut % (Auto) 63.2 Lymph % (Auto) 21.1 [place] % (Auto) 9.7 Eos % (Auto) 4.8 Baso % (Auto) 0.6 Immature Gran # (Auto) 0.03 H Neut # (Auto) 3.32 Lymph # (Auto) 1.11 L [place] # (Auto) 0.51 Eos # (Auto) 0.25 Baso # (Auto) 0.03 PT 15.1 H INR 1.5 H Sodium 140 Potassium 4.4 Chloride 106 Carbon Dioxide 31 Anion Gap 3.0 BUN 44 H Creatinine 1.28 Est Cr Clr Drug Dosing 39.9 Est GFR ( Amer) 57.5 Est GFR (Non-Af Amer) 49.6 BUN/Creatinine Ratio 34.3 H Glucose 85 Calcium 8.7 Total Bilirubin 0.6 AST 30 ALT 27 Alkaline Phosphatase 101 Troponin I < 0.015 Total Protein 8.1 Albumin 3.7 Globulin 4.4 H Albumin/Globulin Ratio 0.8 L Diagnostic Findings Chest X-ray 06/12/18 - IMPRESSION: 1. Marked cardiomegaly with volume overload/ congestive change and developing pulmonary edema. 2. Poor aeration of the lung bases with bilateral pleural effusions and suspected extensive bibasilar atelectasis. Medications Administered Discontinued Medications Albuterol (Duoneb) 3 ml NEB NOW STA Stop: 06/12/18 10:18 Last Admin: 06/12/18 10:45 Dose: 3 ml Furosemide (Lasix) 20 mg IV NOW STA Stop: 06/12/18 11:20 Last Admin: 06/12/18 11:39 Dose: 20 mg Supervising Physician Co-Signing Physician Notes Patient is an 88 yr male who presents with worsening dypnea, weight gain, orthopnea, leg swelling, weakness. CXR suggestive of marked cardiomegaly with volume overload. On Exam patient has basilar crackles, B/L LE edema, pacemaker on left side of chest. No distress. Patient is thought to have CHF exacerbation and started on IV diuretics, fluid restriction, sodium restriction. His QTC is prolonged and patient is on amiodarone for symptomatic PVCs which was discontinued by Cardiology. His Metprolol and lisnopril were continued. I personally reviewed the record. Patient is interviewed and examined at bedside. Patient's care is coordinated with Roxann Alonso NP. Please refer to the documentation above for details of patient's presentation and for discussion of other issues. _ (1) BPH (benign prostatic hypertrophy) Lower urinary tract symptom presence: unspecified whether lower urinary tract symptoms present Qualified Code(s): N40.0 - Benign prostatic hyperplasia without lower urinary tract symptoms
[2018-06-12] MEDS: POTASSIUM CHLORIDE 10 MEQ TABCR PO SCH (16:18)
[2018-06-12] MEDS: WARFARIN SOD 5 MG TAB PO SCH (16:18)
[2018-06-12] MEDS: FUROSEMIDE 40 MG in SYRINGE 0 ML IV SCH (16:30)
--- NOTE | 2018-06-12 17:06 | Cardiology Consultation ---
Date of Consultation June 12, 2018 Assessment & Plan (1) Acute on chronic combined systolic and diastolic CHF, NYHA class 3: Agree with plan for IV diuretics following urine output, weights, electrolytes and renal function Continue prehospital afterload reduction with lisinopril appropriate beta- akil of metoprolol (2) Severe mitral regurgitation: Contributing to patient's current issues and recurrent hospitalizations (3) Pulmonary hypertension: (4) Chronic atrial fibrillation: Rate controlled with paced rhythm, patient anticoagulated with warfarin (5) Symptomatic PVCs: Patient on chronic amiodarone for PVC and ventricular tachycardia suppression. QT prolonged may need to consider discontinuation or reduction in dosing of additional pulmonary issues as described increased interstitial markings pulmonary hypertension (6) S/P cardiac cath: History of Present Illness Reason for Consultation: Recurrent congestive heart failure Requesting Physician: Dr. Faustin Attending Physician: Cecil Faustin MD History of Present Illness Patient is an 88-year-old male complex past medical history 1. Nonischemic cardiomyopathy, EF 2530 % echocardiogram 05/12/2018 2. Chronic atrial fibrillation, on chronic Coumadin therapy. 3. History of symptomatic bradycardia, status post dual chamber permanent pacemaker placement. September 2016 4. 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 5. Hypertension. 6. Dyslipidemia. 7. Stage III chronic kidney disease. 8. Depression. 9. History of prostate cancer. 10. Moderate to severe mitral insufficiency with elevated pulmonary pressures chronically Patient presents today once again readmitted with signs and symptoms of decompensated systolic and diastolic heart failure with increasing dyspnea weight gain mild edema. Patient's been compliant with his medications by his description denies any recent fevers chills or infections described a sharp jabbing pains in the chest at times but no tachyarrhythmias. Notes no syncope or near syncope. Notes no fevers chills unexplained infections. Does admit to cough when lying flat but no overt orthopnea notes no melena hematochezia dysuria hematuria. Note patient is only fair historian Allergies Allergy/AdvReac Type Severity Reaction Status Date / Time No Known Allergies Allergy Verified 06/12/18 10:14 Home Medications Home Medications Medication Instructions Recorded Confirmed Type amiodarone 200 mg PO QAM 04/19/18 06/12/18 History furosemide [Lasix] 40 mg PO QAM 04/19/18 06/12/18 History levetiracetam [Keppra] 500 mg PO BID 04/19/18 06/12/18 History lisinopril 2.5 mg PO QAM 04/19/18 06/12/18 History magnesium 250 mg PO QAM 04/19/18 06/12/18 History metoprolol succinate 50 mg PO QAM 04/19/18 06/12/18 History nxuiuhip-[id number]-XT-lycopen-lutein 1 tab PO QAM 04/19/18 06/12/18 History [Centrum Silver Ultra Men's] simvastatin 20 mg PO HS 04/19/18 06/12/18 History tamsulosin 0.4 mg PO QAM 04/19/18 06/12/18 History warfarin [Jantoven] 2.5 mg PO HS 04/19/18 06/12/18 History sertraline 50 mg PO QAM 06/12/18 06/12/18 History Patient History Medical History Chronic atrial fibrillation (Chronic) Cerebral meningioma (Chronic) Dyslipidemia (Chronic) Borderline hypertension (Chronic) BPH (benign prostatic hypertrophy) (Chronic) Benign positional vertigo (Chronic) Seizure disorder (Chronic) Depression with anxiety (Chronic) Pacemaker (Chronic) Systolic CHF (Chronic) "echo 08/2016 - EF 35-40%, moderate TR, moderate AR" Surgical History H/O craniotomy (Chronic) "1986 for meningioma" S/P cardiac cath (Chronic) "01/2015 [facility]- diffuse nonobstructive coronary plaque disease; overall CAD medically manageable" Family History Other Atrial fibrillation Breast cancer Social History marital status: Current Living Situation: Spouse Other Information That Helps Us Care for You: No Feels Safe at Home: Yes Safety Concerns: Feels Safe At This Time Smoking Status: Never smoker Hx Alcohol Use: No Hx Substance Use: No Beliefs That Will Affect Care: None Preferred Language: Wolof Communication Ability: Effective Review of Systems As per HPI or otherwise unobtainable Physical Exam 2 Vital Signs (Past 24 Hours): Last Vital Signs Temp 36.4 C L 06/12/18 14:04 Pulse 63 06/12/18 14:55 Resp 16 06/12/18 14:04 BP 132/81 06/12/18 14:04 Pulse Ox 100 06/12/18 14:04 Constitutional: Elderly white male in no acute distress. Does admit to mild dyspnea with activity ENMT: external ear and nose normal, oropharynx normal Neck: Neck is thin with mild jugular venous distention at 30 degree Respiratory: Auscultation: + crackles (Bibasilar crackles are present with good aeration in the apices) Cardiovascular: Irregularly irregular with a grade 1/6 systolic murmur at the apex no diastolic murmur. No S3 gallop audible There is 1+ mild peripheral edema Chest (Breasts): Chest: + pacemaker Additional Comments: Pacemaker site without irritation Results & Data Laboratory Results 06/12/18 06/12/18 06/12/18 Range/Units 15:30 09:00 09:00 WBC (4.8-10.8) K/uL RBC (4.7-6.1) M/uL Hgb (14.0-18.0) g/dL Hct (42-52) % MCV (80-100) fL MCH (25-34) pg MCHC (32-36) g/dL RDW Std Deviation (36.4-46.3) fL RDW Coeff of Marge (11.5-14.5) % Plt Count (130-400) K/uL MPV (7.4-10.4) fL Immature Gran % (Auto) % Neut % (Auto) % Lymph % (Auto) % [place] % (Auto) % Eos % (Auto) % Baso % (Auto) % Immature Gran # (Auto) (0.00-0.02) K/uL Neut # (Auto) (1.4-6.5) K/uL Lymph # (Auto) (1.2-3.4) K/uL [place] # (Auto) (0.11-0.59) K/uL Eos # (Auto) (0-0.5) K/uL Baso # (Auto) (0-0.2) K/uL PT 15.1 H (9.0-12.0) Seconds INR 1.5 H (0.9-1.1) Sodium 140 (136-145) mmol/L Potassium 4.4 (3.5-5.1) mmol/L Chloride 106 (98-107) mmol/L Carbon Dioxide 31 (21-32) mmol/L Anion Gap 3.0 (3-11) BUN 44 H (7-18) mg/dl Creatinine 1.28 (0.6-1.4) mg/dl Est Cr Clr Drug Dosing 39.9 ml/min Est GFR ( Amer) 57.5 Est GFR (Non-Af Amer) 49.6 BUN/Creatinine Ratio 34.3 H (10-20) Glucose 85 (70-99) mg/dl Calcium 8.7 (8.5-10.1) mg/dl Total Bilirubin 0.6 (0.2-1) mg/dl AST 30 (15-37) U/L ALT 27 (12-78) U/L Alkaline Phosphatase 101 (45-117) U/L Troponin I < 0.015 < 0.015 (0-0.045) ng/ml Total Protein 8.1 (6.4-8.2) gm/dl Albumin 3.7 (3.4-5.0) gm/dl Globulin 4.4 H (2.5-4.0) gm/dl Albumin/Globulin Ratio 0.8 L (0.9-2) 06/12/18 Range/Units 09:00 WBC 5.25 (4.8-10.8) K/uL RBC 3.74 L (4.7-6.1) M/uL Hgb 11.8 L (14.0-18.0) g/dL Hct 36.3 L (42-52) % MCV 97.1 (80-100) fL MCH 31.6 (25-34) pg MCHC 32.5 (32-36) g/dL RDW Std Deviation 57.1 H (36.4-46.3) fL RDW Coeff of Marge 16.3 H (11.5-14.5) % Plt Count 143 (130-400) K/uL MPV 12.0 H (7.4-10.4) fL Immature Gran % (Auto) 0.6 % Neut % (Auto) 63.2 % Lymph % (Auto) 21.1 % [place] % (Auto) 9.7 % Eos % (Auto) 4.8 % Baso % (Auto) 0.6 % Immature Gran # (Auto) 0.03 H (0.00-0.02) K/uL Neut # (Auto) 3.32 (1.4-6.5) K/uL Lymph # (Auto) 1.11 L (1.2-3.4) K/uL [place] # (Auto) 0.51 (0.11-0.59) K/uL Eos # (Auto) 0.25 (0-0.5) K/uL Baso # (Auto) 0.03 (0-0.2) K/uL PT (9.0-12.0) Seconds INR (0.9-1.1) Sodium (136-145) mmol/L Potassium (3.5-5.1) mmol/L Chloride (98-107) mmol/L Carbon Dioxide (21-32) mmol/L Anion Gap (3-11) BUN (7-18) mg/dl Creatinine (0.6-1.4) mg/dl Est Cr Clr Drug Dosing ml/min Est GFR ( Amer) Est GFR (Non-Af Amer) BUN/Creatinine Ratio (10-20) Glucose (70-99) mg/dl Calcium (8.5-10.1) mg/dl Total Bilirubin (0.2-1) mg/dl AST (15-37) U/L ALT (12-78) U/L Alkaline Phosphatase (45-117) U/L Troponin I (0-0.045) ng/ml Total Protein (6.4-8.2) gm/dl Albumin (3.4-5.0) gm/dl Globulin (2.5-4.0) gm/dl Albumin/Globulin Ratio (0.9-2) Diagnostic Findings Chest x-ray 06/12/2018. Marked cardiomegaly with increased vascular markings consistent with pulmonary edema possible superimposed on underlying interstitial markings ECG Additional Comments: EKG: Ventricular paced rhythm rate 75 with wide QRS complex
[2018-06-12] MEDS: levETIRAcetam 500 MG TAB PO SCH (21:12)
[2018-06-12] MEDS: SIMVASTATIN 20 MG TAB PO SCH (21:12)
[2018-06-12] MEDS ORDERED: XOPENEX/ATROVENT 1.25mg/0.5MG NEB COMBO NEB PRN (22:10)
[2018-06-12] MEDS ORDERED: LEVALBUTEROL 1.25MG/0.5ML NEB INH PRN (22:15)
[2018-06-12] MEDS ORDERED: IPRATROPIUM BROMIDE NEB SOLN 0.02% 2.5 ML VIAL INH PRN (22:15)
[2018-06-12] MEDS ORDERED: FUROSEMIDE 40 MG in SYRINGE 0 ML IV ONE (23:45)
[2018-06-13 07:05] LABS: Hematocrit (blood only) 37.8 % (42-52); Hemoglobin 12.2 g/dL (14.0-18.0); Mean Corpuscular Hgb Conc 32.3 g/dL (32-36); Mean Corpuscular Volume 96.9 fL (80-100); Platelet Count 149 K/uL (130-400); RDW Coefficient of Variation 16.1 % (11.5-14.5); RDW Standard Deviation 56.7 fL (36.4-46.3); White Blood Count 5.67 K/uL (4.8-10.8)
[2018-06-13 07:11] LABS: INR 1.6 (0.9-1.1); Prothrombin Time 15.5 Seconds (9.0-12.0)
[2018-06-13 07:41] LABS: BUN Creatinine Ratio 34.9 (10-20); Calcium 8.7 mg/dl (8.5-10.1); Creatinine Clr Calc Pharmacy 41.2 ml/min; Est GFR (African American) 59.8; Est GFR (Non-African American) 51.6; Magnesium 2.1 mg/dl (1.8-2.4); Potassium 3.7 mmol/L (3.5-5.1)
[2018-06-13] MEDS: POTASSIUM CHLORIDE 10 MEQ TABCR PO SCH ×2 (08:04→16:49)
[2018-06-13] MEDS: levETIRAcetam 500 MG TAB PO SCH ×2 (08:04→19:45)
[2018-06-13] MEDS: METOPROLOL SUCC 50MG EXT REL TAB PO SCH (08:04)
[2018-06-13] MEDS: SPIRONOLACTONE 25 MG TAB PO SCH (08:05)
[2018-06-13] MEDS: LISINOPRIL 2.5 MG TAB PO SCH (08:05)
[2018-06-13] MEDS: FUROSEMIDE 40 MG in SYRINGE 0 ML IV SCH ×2 (08:05→16:49)
[2018-06-13] MEDS: TAMSULOSIN HCL 0.4 MG CAP PO SCH (08:05)
[2018-06-13] MEDS ORDERED: AMIODARONE 200 MG TAB PO SCH (09:00)
--- NOTE | 2018-06-13 15:40 | Cardiology Progress Note ---
Date of Service June 13, 2018 Assessment & Plan (1) Acute on chronic combined systolic and diastolic CHF, NYHA class 3: Patient appears to responded to IV diuretics will continue current dosing. Order urine outputs and Is Os to be recorded (2) Chronic atrial fibrillation: Rate with ventricular paced rhythm (3) Severe mitral regurgitation: Limiting long-term effective treatment of heart failure. We will add low- dose preload reduction with Isordil 10 twice daily (4) Pacemaker: (5) Prolonged QT interval: Holding amiodarone for now this is being used for suppression of ventricular ectopy and ventricular tachycardia and will likely need to be resumed Subjective Patient seen and examined chart medications telemetry reviewed. Patient appears clinically improved with better aeration of lung cadet on auscultation "states he is better" Weight and 9 urine outputs not distinctly accurate. Patient denies chest pain or comfort discomfort currently telemetry reveals ventricular paced rhythm with occasional ventricular ectopic beats no sustained VT Physical Exam 2 Vital Signs (Past 24 Hours): Last Vital Signs Temp 36.3 C L 06/13/18 11:33 Pulse 66 06/13/18 11:33 Resp 20 06/13/18 11:33 BP 117/69 06/13/18 11:33 Pulse Ox 98 06/13/18 14:14 Constitutional: WD/WN, vitals as above ENMT: external ear and nose normal, oropharynx normal Respiratory: Auscultation: + rales (Minimal basilar rales are present apices are clear) Cardiovascular: Extremities: + edema (1+) Regular with paced rhythm and grade 2/6 systolic murmur at the apex no S3 gallop Chest (Breasts): Chest: + pacemaker Gastrointestinal (Abdomen): normal bowel sounds, soft, nontender, no hepatosplenomegaly
[2018-06-13] MEDS: WARFARIN SOD 5 MG TAB PO SCH (16:48)
--- NOTE | 2018-06-13 19:11 | Hospitalist Progress Note ---
Date of Service June 13, 2018 Assessment & Plan (1) Acute on chronic respiratory failure with hypoxemia: Acute on chronic systolic and diastolic CHF, NYHA class 3: --CXR: Marked cardiomegaly with volume overload/congestive change and developing pulmonary edema. Poor aeration of the lung bases with bilateral pleural effusions and suspected extensive bibasilar atelectasis. -Continue IV diuretics Also on aldactone Added Imdur Monitor I/Os, daily weight Oxygen support as needed Appreciate Cardiology Input Chronic atrial fibrillation: Persistent Afib Amiodarone on hold due to prolonged QTC continue metoprolol continue coumadin monitor INR: 1.6 today Depression with anxiety: Hold Zoloft due to prolonged QT monitor CKD III: monitor renal function Cr: 1.24 today Prolonged QT interval: monitor with daily EKG Dyslipidemia: Continue statin BPH Continue tamsulosin DVT Px: On Coumadin Disposition: To be determined Subjective Patient is seen and examined at bedside Leg swelling better Dyspnea slowly improving Offers no other compliants Physical Exam 2 Vital Signs (Past 24 Hours): Last Vital Signs Temp 36.4 C L 06/13/18 16:00 Pulse 59 L 06/13/18 16:00 Resp 18 06/13/18 16:00 BP 115/68 06/13/18 16:00 Pulse Ox 97 06/13/18 16:00 Physical Exam: Physical Exam: Vitals signs as noted above General Appearance:Moderately built and nourished, no apparent distress Head: normocephalic, Atraumatic Eyes: normal inspection, EOMI Neck: supple, Trachea midline Respiratory/Chest: Normal breath sounds, basal rales Cardiovascular: S1, S2, + murmur, left side pacemaker Abdomen/GI:Soft, Non tender, Bowel sounds present Extremities/Musculoskelatal:normal inspection, B/L LE edema Neurologic/Psych:AAOX3, grossly no focal neurological deficits Skin: normal color, warm Results & Data Laboratory Results Short CBC 06/13/18 Range/Units 06:43 WBC 5.67 (4.8-10.8) K/uL Hgb 12.2 L (14.0-18.0) g/dL Hct 37.8 L (42-52) % Plt Count 149 (130-400) K/uL BMP 06/13/18 06:43 Sodium 140 Potassium 3.7 D Chloride 103 Carbon Dioxide 31 BUN 43 H Creatinine 1.24 Glucose 100 H Calcium 8.7 Cardiac Enzymes 06/12/18 Range/Units 22:50 Troponin I < 0.015 (0-0.045) ng/ml
[2018-06-13] MEDS: ISOSORBIDE DINITRATE 10 MG TAB PO SCH (19:44)
[2018-06-13] MEDS: SIMVASTATIN 20 MG TAB PO SCH (19:45)
[2018-06-13] MEDS: ACETAMINOPHEN 325 MG TAB PO PRN (21:10)
[2018-06-14] MEDS: TAMSULOSIN HCL 0.4 MG CAP PO SCH (08:31)
[2018-06-14] MEDS: levETIRAcetam 500 MG TAB PO SCH ×2 (08:31→21:57)
[2018-06-14] MEDS: POTASSIUM CHLORIDE 10 MEQ TABCR PO SCH ×2 (08:31→16:25)
[2018-06-14] MEDS: METOPROLOL SUCC 50MG EXT REL TAB PO SCH (08:31)
[2018-06-14] MEDS: SPIRONOLACTONE 25 MG TAB PO SCH (08:32)
[2018-06-14] MEDS: FUROSEMIDE 40 MG in SYRINGE 0 ML IV SCH ×2 (08:33→16:25)
[2018-06-14] MEDS: ISOSORBIDE DINITRATE 10 MG TAB PO SCH ×2 (08:33→21:56)
[2018-06-14] MEDS: LISINOPRIL 2.5 MG TAB PO SCH (08:34)
[2018-06-14 08:41] LABS: Prothrombin Time 19.7 Seconds (9.0-12.0)
[2018-06-14 09:04] LABS: BUN Creatinine Ratio 36.2 (10-20); Calcium 8.8 mg/dl (8.5-10.1); Creatinine Clr Calc Pharmacy 32.9 ml/min; Est GFR (African American) 51.2; Est GFR (Non-African American) 44.2; Potassium 4.2 mmol/L (3.5-5.1)
[2018-06-14] MEDS: WARFARIN SOD 5 MG TAB PO SCH (16:25)
--- NOTE | 2018-06-14 18:29 | Hospitalist Progress Note ---
Date of Service June 14, 2018 Assessment & Plan (1) Acute on chronic respiratory failure with hypoxemia: Acute on chronic systolic and diastolic CHF, NYHA class 3: --CXR: Marked cardiomegaly with volume overload/congestive change and developing pulmonary edema. Poor aeration of the lung bases with bilateral pleural effusions and suspected extensive bibasilar atelectasis. -Continue IV diuretics Also on aldactone Added Imdur Monitor I/Os, daily weight Oxygen support as needed Appreciate Cardiology Input continue diuresis as above monitor electrolytes Chronic atrial fibrillation: Persistent Afib Amiodarone on hold due to prolonged QTC continue metoprolol continue coumadin monitor INR: 2.0 today Depression with anxiety: Hold Zoloft due to prolonged QT monitor CKD III: monitor renal function Cr: 1.24>> 1.41 monitor renal function while on IV diuretics Prolonged QT interval: monitor with daily EKG Dyslipidemia: Continue statin BPH Continue tamsulosin DVT Px: On Coumadin Disposition: Expect to discharge home with Home Health when medically stable Subjective Patient is seen and examined at bedside Had had low blood pressure after diuretics this morning but asymptomatic BP improved during later Leg swelling better part of the day Dyspnea slightly better today Sitting in chair comfortably No new complaints Physical Exam 2 Vital Signs (Past 24 Hours): Last Vital Signs Temp 36.5 C 06/14/18 15:50 Pulse 60 06/14/18 15:50 Resp 18 06/14/18 15:50 BP 110/60 06/14/18 15:50 Pulse Ox 100 06/14/18 15:50 Physical Exam: Physical Exam: Vitals signs as noted above General Appearance:Moderately built and nourished, no apparent distress Head: normocephalic, Atraumatic Eyes: normal inspection, EOMI Neck: supple, Trachea midline Respiratory/Chest: Normal breath sounds, CTA Cardiovascular: S1, S2, + murmur, left side pacemaker Abdomen/GI:Soft, Non tender, Bowel sounds present Extremities/Musculoskelatal:normal inspection, B/L LE edema improving Neurologic/Psych:AAOX3, grossly no focal neurological deficits Skin: normal color, warm Results & Data Laboratory Results [facility] 06/14/18 08:09 Sodium 139 Potassium 4.2 Chloride 102 Carbon Dioxide 31 BUN 51 H Creatinine 1.41 H Glucose 94 Calcium 8.8
--- NOTE | 2018-06-14 18:31 | Cardiology Progress Note ---
Date of Service June 14, 2018 Assessment & Plan (1) Acute on chronic combined systolic and diastolic CHF, NYHA class 3: Patient appears to responded to IV diuretics will continue current dosing tonight, switch to oral dosing in a.m. (2) Chronic atrial fibrillation: Rate with ventricular paced rhythm (3) Severe mitral regurgitation: Limiting long-term effective treatment of heart failure. We continue low- dose preload reduction with Isordil 10 twice daily (4) Pacemaker: (5) Prolonged QT interval: Holding amiodarone for now this is being used for suppression of ventricular ectopy and ventricular tachycardia and will likely need to be resumed Subjective Patient seen and examined chart medications telemetry reviewed. Patient denies any acute complaints not certain if he is better no weight is less than pulmonary status appears improved better oxygenation. Physical Exam 2 Vital Signs (Past 24 Hours): Last Vital Signs Temp 36.5 C 06/14/18 15:50 Pulse 60 06/14/18 15:50 Resp 18 06/14/18 15:50 BP 110/60 06/14/18 15:50 Pulse Ox 100 06/14/18 15:50 Constitutional: WD/WN, vitals as above ENMT: external ear and nose normal, oropharynx normal Respiratory: Auscultation: + rales (Lung cadet are predominantly clear other than a few scattered crackles) Cardiovascular: Extremities: + edema (1+) Chest (Breasts): Chest: + pacemaker Gastrointestinal (Abdomen): normal bowel sounds, soft, nontender, no hepatosplenomegaly Results & Data Laboratory Results 06/14/18 06/14/18 Range/Units 08:09 08:09 PT 19.7 H (9.0-12.0) Seconds INR 2.0 H (0.9-1.1) Sodium 139 (136-145) mmol/L Potassium 4.2 (3.5-5.1) mmol/L Chloride 102 (98-107) mmol/L Carbon Dioxide 31 (21-32) mmol/L Anion Gap 6.0 (3-11) BUN 51 H (7-18) mg/dl Creatinine 1.41 H (0.6-1.4) mg/dl Est Cr Clr Drug Dosing 32.9 ml/min Est GFR ( Amer) 51.2 Est GFR (Non-Af Amer) 44.2 BUN/Creatinine Ratio 36.2 H (10-20) Glucose 94 (70-99) mg/dl Calcium 8.8 (8.5-10.1) mg/dl
[2018-06-14] MEDS: SIMVASTATIN 20 MG TAB PO SCH (21:57)
[2018-06-15] MEDS: METOPROLOL SUCC 50MG EXT REL TAB PO SCH (07:21)
[2018-06-15] MEDS: levETIRAcetam 500 MG TAB PO SCH ×2 (07:21→21:44)
[2018-06-15] MEDS: TAMSULOSIN HCL 0.4 MG CAP PO SCH (07:21)
[2018-06-15] MEDS: LISINOPRIL 2.5 MG TAB PO SCH (07:21)
[2018-06-15] MEDS: SPIRONOLACTONE 25 MG TAB PO SCH (07:21)
[2018-06-15] MEDS: ISOSORBIDE DINITRATE 10 MG TAB PO SCH ×2 (07:21→21:42)
[2018-06-15] MEDS: POTASSIUM CHLORIDE 10 MEQ TABCR PO SCH ×2 (07:21→16:51)
[2018-06-15] MEDS: FUROSEMIDE 20 MG TAB PO SCH (07:21)
[2018-06-15 07:38] LABS: INR 3.1 (0.9-1.1); Prothrombin Time 29.1 Seconds (9.0-12.0)
[2018-06-15 08:04] LABS: BUN Creatinine Ratio 34.1 (10-20); Calcium 8.7 mg/dl (8.5-10.1); Est GFR (African American) 47.9; Est GFR (Non-African American) 41.3; Potassium 4.6 mmol/L (3.5-5.1)
--- NOTE | 2018-06-15 15:01 | Cardiology Progress Note ---
Date of Service June 15, 2018 Assessment & Plan (1) Acute on chronic combined systolic and diastolic CHF, NYHA class 3: Patient appears to responded to IV diuretics does not examine as volume overloaded cont oral diuretics will need to readdress hospice care (2) Chronic atrial fibrillation: Rate with ventricular paced rhythm (3) Severe mitral regurgitation: Limiting long-term effective treatment of heart failure. We continue low- dose preload reduction with Isordil 10 twice daily (4) Pacemaker: (5) Prolonged QT interval: Holding amiodarone for now this is being used for suppression of ventricular ectopy and ventricular tachycardia and will likely need to be resumed Subjective Pt seen and examined, oob in chair, states breathing has improved but not yet back to baseline. Denies cp or palpitations. Physical Exam 2 Vital Signs (Past 24 Hours): Last Vital Signs Temp 36.9 C 06/15/18 08:13 Pulse 61 06/15/18 08:13 Resp 20 06/15/18 08:13 BP 116/58 L 06/15/18 08:13 Pulse Ox 99 06/15/18 08:13 Physical Exam: General: Awake, alert and oriented x 3. No acute distress. HEENT: Normocephalic, atraumatic. Pupils equal, round and reactive to light and accommodation. Extraocular muscles are intact. Anicteric sclera. Moist mucous membranes. Neck: No JVD. No bruit. Cardiovascular: Regular. Positive S-4. Normal S-1 and S-2. No S-3. 3/6 holosystolic ejection murmur, left sternal border, mid-clavicular line with radiation to the axilla. No rubs. Pulmonary: Clear to auscultation bilaterally. No rales, rhonchi, or wheezing. Abdomen: Bowel sounds x 4, soft. No rebound, guarding or tenderness. No organomegaly. Extremities: No clubbing, cyanosis or edema. +2 pedal pulses bilaterally. Skin: Warm and dry.
[2018-06-15] MEDS: ACETAMINOPHEN 325 MG TAB PO PRN (16:01)
--- NOTE | 2018-06-15 16:32 | Hospitalist Progress Note ---
Date of Service June 15, 2018 Assessment & Plan (1) Acute on chronic respiratory failure with hypoxemia: Acute on chronic systolic and diastolic CHF, NYHA class 3: --CXR: Marked cardiomegaly with volume overload/congestive change and developing pulmonary edema. Poor aeration of the lung bases with bilateral pleural effusions and suspected extensive bibasilar atelectasis. Received IV diuretics >>Transitioned to PO Also on aldactone Added Imdur Monitor I/Os, daily weight Oxygen support as needed Appreciate Cardiology Input continue diuresis as per Cardiology monitor electrolytes High risk for readmission, need to address goals of care Chronic atrial fibrillation: Persistent Afib Amiodarone on hold due to prolonged QTC continue metoprolol Hold coumadin today monitor INR: 3.1 today Depression with anxiety: Hold Zoloft due to prolonged QT monitor CKD III: monitor renal function Cr: 1.24>> 1.49 monitor renal function while on IV diuretics Renal function stable Prolonged QT interval: monitor with daily EKG Dyslipidemia: Continue statin BPH Continue tamsulosin DVT Px: On Coumadin Disposition: Expect to discharge home with Home Health when medically stable Subjective Patient is seen and examined at bedside Dyspnea improved Mild pleuritic discomfort Leg swelling improved as well Sitting in chair comfortably No new complaints No family at bedside Physical Exam 2 Vital Signs (Past 24 Hours): Last Vital Signs Temp 36.4 C L 06/15/18 15:32 Pulse 62 06/15/18 15:32 Resp 20 06/15/18 15:32 BP 91/52 L 06/15/18 15:32 Pulse Ox 91 06/15/18 15:32 Physical Exam: Physical Exam: Vitals signs as noted above General Appearance:Moderately built and nourished, no apparent distress Head: normocephalic, Atraumatic Eyes: normal inspection, EOMI Neck: supple, Trachea midline Respiratory/Chest: Normal breath sounds, CTA Cardiovascular: S1, S2, + murmur, left side pacemaker Abdomen/GI:Soft, Non tender, Bowel sounds present Extremities/Musculoskelatal:normal inspection, B/L LE edema improved Neurologic/Psych:AAOX3, grossly no focal neurological deficits Skin: normal color, warm Results & Data Laboratory Results [facility] 06/15/18 07:13 Sodium 139 Potassium 4.6 Chloride 105 Carbon Dioxide 32 BUN 51 H Creatinine 1.49 H Glucose 87 Calcium 8.7
[2018-06-15] MEDS: SIMVASTATIN 20 MG TAB PO SCH (21:44)
[2018-06-16 07:20] LABS: INR 3.3 (0.9-1.1)
[2018-06-16 07:44] LABS: BUN Creatinine Ratio 36.2 (10-20); Calcium 8.6 mg/dl (8.5-10.1); Creatinine Clr Calc Pharmacy 27.8 ml/min; Est GFR (Non-African American) 36.3; Potassium 4.3 mmol/L (3.5-5.1)
[2018-06-16] MEDS: ISOSORBIDE DINITRATE 10 MG TAB PO SCH ×2 (08:23→20:46)
[2018-06-16] MEDS: METOPROLOL SUCC 50MG EXT REL TAB PO SCH (08:24)
[2018-06-16] MEDS: FUROSEMIDE 20 MG TAB PO SCH (08:25)
[2018-06-16] MEDS: TAMSULOSIN HCL 0.4 MG CAP PO SCH (08:25)
[2018-06-16] MEDS: levETIRAcetam 500 MG TAB PO SCH ×2 (08:25→20:46)
[2018-06-16] MEDS: LISINOPRIL 2.5 MG TAB PO SCH (08:26)
[2018-06-16] MEDS: SPIRONOLACTONE 25 MG TAB PO SCH (08:26)
[2018-06-16] MEDS: POTASSIUM CHLORIDE 10 MEQ TABCR PO SCH ×2 (08:27→17:13)
--- NOTE | 2018-06-16 14:47 | Hospitalist Progress Note ---
Date of Service June 16, 2018 Assessment & Plan (1) Acute on chronic respiratory failure with hypoxemia: Acute on chronic systolic and diastolic CHF, NYHA class 3: --CXR: Marked cardiomegaly with volume overload/congestive change and developing pulmonary edema. Poor aeration of the lung bases with bilateral pleural effusions and suspected extensive bibasilar atelectasis. Received IV diuretics >>Transitioned to PO Also on aldactone Added Imdur 10mg BID Monitor I/Os, daily weight Oxygen support as needed Appreciate Cardiology Input continue PO Lasix 60mg daily monitor electrolytes High risk for readmission, need to address goals of care Palliative care consulted Chronic atrial fibrillation: Persistent Afib Amiodarone on hold due to prolonged QTC continue metoprolol Hold coumadin today monitor INR: 3.3 today Depression with anxiety: Hold Zoloft due to prolonged QT monitor ROEL on CKD III: monitor renal function Cr: 1.24>> 1.49>>1.66 monitor renal function Hold lisinopril for now Prolonged QT interval: monitor with EKG Dyslipidemia: Continue statin BPH Continue tamsulosin DVT Px: On Coumadin Disposition: Expect to discharge home with Home Health when medically stable Subjective Patient is seen and examined at bedside Clinically improved today Less Dyspnea and pleuritic discomfort Leg swelling improved Family at bedside No new complaints Cr slightly worsened to today Physical Exam 2 Vital Signs (Past 24 Hours): Last Vital Signs Temp 36.6 C 06/16/18 06:57 Pulse 60 06/16/18 07:23 Resp 21 06/16/18 06:57 BP 126/73 06/16/18 06:57 Pulse Ox 96 06/16/18 06:57 Physical Exam: Physical Exam: Vitals signs as noted above General Appearance:Moderately built and nourished, no apparent distress Head: normocephalic, Atraumatic Eyes: normal inspection, EOMI Neck: supple, Trachea midline Respiratory/Chest: Normal breath sounds, Basal Crackles Cardiovascular: S1, S2, + murmur, left side pacemaker Abdomen/GI:Soft, Non tender, Bowel sounds present Extremities/Musculoskelatal:normal inspection, B/L LE edema improved Neurologic/Psych:AAOX3, grossly no focal neurological deficits Skin: normal color, warm Results & Data Laboratory Results [facility] 06/16/18 06:58 Sodium 137 Potassium 4.3 Chloride 104 Carbon Dioxide 34 H BUN 60 H Creatinine 1.66 H Glucose 90 Calcium 8.6
[2018-06-16] MEDS: ACETAMINOPHEN 325 MG TAB PO PRN ×2 (15:23→23:16)
[2018-06-16] MEDS ORDERED: WARFARIN SOD 2.5 MG TAB PO SCH (16:00)
[2018-06-16] MEDS: SIMVASTATIN 20 MG TAB PO SCH (20:46)
[2018-06-17 07:13] LABS: INR 2.7 (0.9-1.1); Prothrombin Time 26.1 Seconds (9.0-12.0)
[2018-06-17 07:27] LABS: BUN Creatinine Ratio 36.5 (10-20); Calcium 8.6 mg/dl (8.5-10.1); Creatinine Clr Calc Pharmacy 32.4 ml/min; Est GFR (African American) 50.7; Est GFR (Non-African American) 43.8; Potassium 4.1 mmol/L (3.5-5.1)
[2018-06-17] MEDS: levETIRAcetam 500 MG TAB PO SCH ×2 (07:50→20:47)
[2018-06-17] MEDS: FUROSEMIDE 20 MG TAB PO SCH (07:50)
[2018-06-17] MEDS: ISOSORBIDE DINITRATE 10 MG TAB PO SCH ×2 (07:50→20:46)
[2018-06-17] MEDS: TAMSULOSIN HCL 0.4 MG CAP PO SCH (07:50)
[2018-06-17] MEDS: SPIRONOLACTONE 25 MG TAB PO SCH (07:51)
[2018-06-17] MEDS: POTASSIUM CHLORIDE 10 MEQ TABCR PO SCH (07:51)
[2018-06-17] MEDS: METOPROLOL SUCC 50MG EXT REL TAB PO SCH (07:51)
--- NOTE | 2018-06-17 10:15 | Palliative Care Consultation ---
Date of Consultation June 17, 2018 Assessment & Plan (1) Palliative care encounter: -This patient is an 88 year-old male who is known to the Palliative Care Service, presented to the hospital from home with increased SOB and edema with a preseumable CHF exacerbation. He has additional PMH that includes; chronic afib, CHF, symptomatic bradycardia s/p pacemaker, and CKD stage III. Patient with significant SOB with activity at home (getting the mail, walking around the apartment, etc). Palliative care was re- consulted to discuss goals of care. Please see the assessment and plan for additional comments. -Upon meeting the patient, he was comfortable, pleasant and willing to have a GOALS OF CARE conversation with his , Edwar, and daughter Gabriela at his bedside. -He continued to defer most of his decision-making to his daughter Alis. -Patient states his goal is to be at home and avoid re-hospitalizations unless his comfort needs could not be met at home - was recent admission early May 2018. -CODE STATUS was addressed and we concluded to change him to a DNR/DNI which has been reflected in the orders. -The patient was being seen at home with [facility] and we discussed transitioning to Hospice through them but they stated they would like a different agency due to availability with medications, etc. A referral has been placed to [facility] by Gely, with Case Management. -They live in a 2 bed room apartment on the third floor with close access to an elevator. -The pt sleeps in a separate bedroom from the patient and she has macular degeneration, so education and possible prefilled medications may be helpful, which I suggested they speak with Hospice about. -Overnight private duty was discussed with the patient and family as well, which I feel most comfortable about since they will be in a different bedroom from each other and the stated that she is a sound sleeper. -The patients daughter lives just 10 minutes away, but also works FT and has a family with children at home, so she is available but not able to stay multiple nights every week. -We also discussed SNF if home with hospice support becomes too overwhelming. -A POLST form was completed at the bedside with his , Shawna and daughter Gabriela, and signed by the patient. -Palliative Performance Scale: 50% (2) Severe mitral regurgitation: -Managed by Hospitalists -Patient with long-term heart failure -Patient with decreased EF 25% -previous admission pt with symptomatic bradycardia s/p pacemaker -Pt receiving IV Lasix and does receive this intermittently at home as well. Also on Aldactone 12.5 mg po daily -Pt receiving Isordil 10 mg po BID (3) Acute on chronic respiratory failure with hypoxemia: -Managed by Hospitalists -Patient wears 3LNC at home at baseline -Currently able to speak in full sentences without distress -Would need to return home with O2 under Hospice support -IV lasix helping with SOB symptoms -LE edema improving (4) CKD (chronic kidney disease) stage 3, GFR 30-59 ml/min: -Stable -Managed by hospitalists -Pt B/L LE edema improving -BUN 52 Creatinine 1.42 -Pt on Aldactone 12.5 mg po daily Supervising Physician Co-Signing Physician Notes Chart reviewed, patient seen and examined-no family at bedside. PE: Patient awake and alert, no acute distress HEENT: EOMI, wears hearing aids Respiratory: Unlabored CV: Regular rate, positive murmur Abdomen: Not distended Extremities: No edema Neuro: Patient alert and oriented Agree with above note, assessment and plan as per KEIRA Burns P - patient's goal is to return home with home nursing with transition to hospice care,POLST form completed History of Present Illness Reason for Consultation: Goals of care Requesting Physician: Dr. Faustin Attending Physician: Cecil Faustin MD History of Present Illness This patient is an 88 year-old male who is known to the Palliative Care Service , presented to the hospital from home with increased SOB and edema with a preseumable CHF exacerbation. He has additional PMH that includes; chronic afib , CHF, symptomatic bradycardia s/p pacemaker, and CKD stage III. Patient with significant SOB with activity at home (getting the mail, walking around the apartment, etc). Palliative care was re- consulted to discuss goals of care. Please see the assessment and plan for additional comments. Upon meeting the patient, he was comfortable, pleasant and willing to have a GOALS OF CARE conversation with his , Edwar, and daughter Gabriela at his bedside. He continued to defer most of his decision-making to his daughter Alis. Patient states his goal is to be at home and avoid re-hospitalizations unless his comfort needs could not be met at home. Thank you kindly for re-involving us in his care. We will follow as needed throughout the remainder of his hospitalization. Allergies Allergy/AdvReac Type Severity Reaction Status Date / Time No Known Allergies Allergy Verified 06/12/18 10:14 Home Medications Home Medications Medication Instructions Recorded Confirmed Type amiodarone 200 mg PO QAM 04/19/18 06/12/18 History furosemide [Lasix] 40 mg PO QAM 04/19/18 06/12/18 History levetiracetam [Keppra] 500 mg PO BID 04/19/18 06/12/18 History lisinopril 2.5 mg PO QAM 04/19/18 06/12/18 History magnesium 250 mg PO QAM 04/19/18 06/12/18 History metoprolol succinate 50 mg PO QAM 04/19/18 06/12/18 History mllnylee-etz-GI-lycopen-lutein 1 tab PO QAM 04/19/18 06/12/18 History [Centrum Silver Ultra Men's] simvastatin 20 mg PO HS 04/19/18 06/12/18 History tamsulosin 0.4 mg PO QAM 04/19/18 06/12/18 History warfarin [Jantoven] 2.5 mg PO HS 04/19/18 06/12/18 History sertraline 50 mg PO QAM 06/12/18 06/12/18 History Patient History Medical History Chronic atrial fibrillation (Chronic) Cerebral meningioma (Chronic) Dyslipidemia (Chronic) Borderline hypertension (Chronic) BPH (benign prostatic hypertrophy) (Chronic) Benign positional vertigo (Chronic) Seizure disorder (Chronic) Depression with anxiety (Chronic) Pacemaker (Chronic) Systolic CHF (Chronic) "echo 08/2016 - EF 35-40%, moderate TR, moderate AR" Surgical History H/O craniotomy (Chronic) "1986 for meningioma" S/P cardiac cath (Chronic) "01/2015 [facility]- diffuse nonobstructive coronary plaque disease; overall CAD medically manageable" Family History Other Atrial fibrillation Breast cancer Social History marital status: Current Living Situation: Spouse Other Information That Helps Us Care for You: No Feels Safe at Home: Yes Safety Concerns: Feels Safe At This Time Smoking Status: Never smoker Hx Alcohol Use: No Hx Substance Use: No Beliefs That Will Affect Care: None Preferred Language: Greek Communication Ability: Effective Review of Systems General: Pt denies overall discomfort. Pt. states he feels 'winded' at times when he ambulates, but is able to walk around with his walker HEENT: Pt denies PEDRAZA, dizziness, tinnitus, visual changes, cough CV: Pt denies CP, palpitations. Pt states swelling improving Resp: Pt denies SOB on 4 LNC. GI: Pt denies N/V/D. Pt states he intermittently has LLQ pain. : Pt denies urinary changes Skin: Pt denies skin rashes or changes Psych: Pt states he feels in good spirits and overall is happy Physical Exam 2 Vital Signs (Past 24 Hours): Last Vital Signs Temp 36.5 C 06/17/18 07:51 Pulse 77 06/17/18 07:51 Resp 16 06/17/18 07:51 BP 116/66 06/17/18 07:51 Pulse Ox 94 06/17/18 07:51 Physical Exam: Pt sitting up in bed for exam in NAD Constitutional: WD/WN, vitals as above well developed and + cachectic ( around collarbone) ENMT: external ear and nose normal, oropharynx normal Respiratory: Auscultation: + diminished lung sounds and + rales (coarse on expiration) Cardiovascular: Heart Sounds: normal S1, normal S2 (currently regular ) and + murmur Vessels: + JVD Gastrointestinal (Abdomen): normal bowel sounds, soft, nontender, no hepatosplenomegaly Percussion/Palpation: abdomen soft Skin: no rashes, warm and dry + turgor decreased pt with mottling on bottom of feet. varicose veins prominent around knees Psychiatric: Eye Contact: good eye contact Thought Process: goal directed thought process Suicidal Thoughts: denies suicidal thoughts Insight: good insight Judgement: good judgement heavily involves daughter, Gabriela, with decision making Time Spent Midlevel Total time spent 70 minutes with > 50% of that time spent reviewing the chart, assessing the patient, discussing CODE STATUS and GOALS OF CARE with the patient and family at the bedside.
[2018-06-17] MEDS ORDERED: WARFARIN SOD 1 MG TAB PO ONE (16:00)
--- NOTE | 2018-06-17 16:17 | Hospitalist Progress Note ---
Date of Service June 17, 2018 Assessment & Plan (1) Acute on chronic respiratory failure with hypoxemia: Acute on chronic systolic and diastolic CHF, NYHA class 3: --CXR: Marked cardiomegaly with volume overload/congestive change and developing pulmonary edema. Poor aeration of the lung bases with bilateral pleural effusions and suspected extensive bibasilar atelectasis. Received IV diuretics >>Transitioned to PO lasix 60mg daily Also on aldactone Added Imdur 10mg BID Monitor I/Os, daily weight Oxygen support as needed Appreciate Cardiology Input monitor electrolytes Appreciate Palliative care Input Hospice to evaluate for further recommendations Chronic atrial fibrillation: Persistent Afib Amiodarone discontinued as per Cardiology recommendations continue metoprolol Resume coumadin today monitor INR: 2.7 today Needs follow up with Cardiology upon discharge Depression with anxiety: Hold Zoloft due to prolonged QT monitor ROEL on CKD III: monitor renal function Cr: 1.24>> 1.49>>1.66>>1.42 monitor renal function Resume lisinopril as able Prolonged QT interval: monitor with EKG Dyslipidemia: Continue statin BPH Continue tamsulosin DVT Px: On Coumadin Disposition: Expect to discharge home Subjective Patient is seen and examined at bedside Feels well today No new complaints Less Dyspnea and Leg swelling Palliative care discussed about gaols of Care Family at bedside Hospice to evaluate patient today Physical Exam 2 Vital Signs (Past 24 Hours): Last Vital Signs Temp 36.5 C 06/17/18 07:51 Pulse 77 06/17/18 07:51 Resp 16 06/17/18 07:51 BP 116/66 06/17/18 07:51 Pulse Ox 94 06/17/18 07:51 Physical Exam: Physical Exam: Vitals signs as noted above General Appearance:Moderately built and nourished, no apparent distress Head: normocephalic, Atraumatic Eyes: normal inspection, EOMI Neck: supple, Trachea midline Respiratory/Chest: Normal breath sounds, Basal Crackles Cardiovascular: S1, S2, + murmur, left side pacemaker Abdomen/GI:Soft, Non tender, Bowel sounds present Extremities/Musculoskelatal:normal inspection, B/L LE edema improved Neurologic/Psych:AAOX3, grossly no focal neurological deficits Skin: normal color, warm Results & Data [place] [facility] [place]17[place] 06:44 Sodium 137 Potassium 4.1 Chloride 102 Carbon Dioxide 30 BUN 52 H Creatinine 1.42 H Glucose 100 H Calcium 8.6
[2018-06-17] MEDS: ACETAMINOPHEN 325 MG TAB PO PRN (17:07)
[2018-06-17] MEDS: SIMVASTATIN 20 MG TAB PO SCH (20:46)
[2018-06-18 07:46] LABS: INR 2.2 (0.9-1.1); Prothrombin Time 21.7 Seconds (9.0-12.0)
[2018-06-18] MEDS: TAMSULOSIN HCL 0.4 MG CAP PO SCH (07:51)
[2018-06-18] MEDS: SPIRONOLACTONE 25 MG TAB PO SCH (07:51)
[2018-06-18] MEDS: FUROSEMIDE 20 MG TAB PO SCH (07:52)
[2018-06-18] MEDS: METOPROLOL SUCC 50MG EXT REL TAB PO SCH (07:53)
[2018-06-18] MEDS: ISOSORBIDE DINITRATE 10 MG TAB PO SCH (07:53)
[2018-06-18] MEDS: levETIRAcetam 500 MG TAB PO SCH (07:54)
[2018-06-18 08:10] LABS: BUN Creatinine Ratio 33.4 (10-20); Calcium 8.6 mg/dl (8.5-10.1); Est GFR (African American) 47.9; Est GFR (Non-African American) 41.3; Potassium 4.4 mmol/L (3.5-5.1)
--- NOTE | 2018-06-18 12:41 | Hospitalist Progress Note ---
Date of Service June 18, 2018 Assessment & Plan (1) Acute on chronic respiratory failure with hypoxemia: Acute on chronic systolic and diastolic CHF, NYHA class 3: --CXR: Marked cardiomegaly with volume overload/congestive change and developing pulmonary edema. Poor aeration of the lung bases with bilateral pleural effusions and suspected extensive bibasilar atelectasis. Received IV diuretics >>Transitioned to PO lasix 60mg daily Also on aldactone Added Imdur 10mg BID Monitor I/Os, daily weight Oxygen support as needed Appreciate Cardiology Input monitor electrolytes Appreciate Palliative care Input Patient is planned to be discharged home with Hospice Services Chronic atrial fibrillation: Persistent Afib Amiodarone discontinued as per Cardiology recommendations continue metoprolol Continue coumadin monitor INR: 2.2 today Needs follow up with Cardiology upon discharge Depression with anxiety: Hold Zoloft due to prolonged QT monitor ROEL on CKD III: monitor renal function Cr: 1.24>> 1.49>>1.66>>1.42 monitor renal function Prolonged QT interval: monitor with EKG Dyslipidemia: Continue statin BPH Continue tamsulosin DVT Px: On Coumadin Disposition: Plan to discharge home today Subjective Patient is seen and examined at bedside No significant change from yesterday No new complaints Less Dyspnea Leg swelling much improved Renal function is stable Physical Exam 2 Vital Signs (Past 24 Hours): Last Vital Signs Temp 36.6 C 06/18/18 07:10 Pulse 75 06/18/18 07:10 Resp 16 06/18/18 07:10 BP 126/68 06/18/18 07:10 Pulse Ox 99 06/18/18 07:10 Physical Exam: Physical Exam: Vitals signs as noted above General Appearance:Moderately built and nourished, no apparent distress Head: normocephalic, Atraumatic Eyes: normal inspection, EOMI Neck: supple, Trachea midline Respiratory/Chest: Normal breath sounds, minimal Basal Crackles Cardiovascular: S1, S2, + murmur, left side pacemaker Abdomen/GI:Soft, Non tender, Bowel sounds present Extremities/Musculoskelatal:normal inspection, B/L LE edema improved Neurologic/Psych:AAOX3, grossly no focal neurological deficits Skin: normal color, warm Results & Data Laboratory Results [facility] 06/18/18 06:59 Sodium 137 Potassium 4.4 Chloride 104 Carbon Dioxide 29 BUN 50 H Creatinine 1.49 H Glucose 89 Calcium 8.6
--- NOTE | 2018-06-18 12:45 | Discharge Summary ---
Date of Service June 18, 2018 Admission HPI Per Admitting Provider This is an 88 year old male, well-known to this service, with a complicated PMH including chronic systolic heart failure, chronic atrial fibrillation, moderate pulmonary hypertension, severe mitral regurgitation and ischemic cardiomyopathy with an EF of 25-30%, who presents to the ED today via EMS with recurrent chest pain and dyspnea. Of note, pt was admitted here 04/19-04/22/18 and 05/11-05/15/18 with decompensated CHF that presented with similar symptoms. During his last admission, palliative care was consulted and home hospice was discussed but to date, this has not been initiated as family still unsure if this is the route they wish to take. History today obtained from the patient, as well as his at the bedside. Per pt and , pt developed worsening SOB over the past 24 hours, particularly with exertion and lying flat. Pt did not sleep well last night due to symptoms. This morning, he started with right substernal chest pain and some mild nausea so they called the home health nurse. Home health apparently called EMS upon their arrival. Pt did receive nitro from EMS with some improvement in the chest discomfort although he reports it still present during my examination. He is feeling weak and tired with some mild lightheadedness but denies fevers, chills, sweats, vomiting, diarrhea, cold symptoms. His notes that his weight has been creeping up over the past week and she has noticed increased lower extremity edema. The patient complains of ongoing issues with cramping pains in bilateral legs but states this is a chronic issue. Pt and are unsure of his medication dosing but think that he did take an extra Lasix dose yesterday due to these symptoms Admission Exam Per Admitting Provider Constitutional: + thin and + frail appearing; no acute distress Eyes: PERRL, conjunctivae normal, anicteric sclerae ENMT: external ear and nose normal, oropharynx normal Neck: trachea midline Respiratory: no respiratory distress Auscultation: + crackles (at bilateral bases); no wheezes Cardiovascular: Rate/Rhythm: regular rate and regular rhythm Heart Sounds: + murmur Vessels: no carotid bruit Extremities: + pedal edema (1+ pitting edema to pretibial area); no calf tenderness Gastrointestinal (Abdomen): Inspection/Auscultation: normal bowel sounds; abdomen not distended Percussion/Palpation: abdomen soft; abdomen nontender Musculoskeletal: Campus Receptionist strength 5/5 and equal bilaterally Dorsiflexion/Plantar flexion 5/5 and equal bilaterally Principal Diagnosis Discharge Information Discharge Diagnosis Acute on chronic respiratory failure with hypoxemia Acute on chronic systolic and diastolic heart failure ROEL on CKD III Discharge Goals Decrease discomfort,Improve function Discharge Activity Limitations Resume your previous activity Discharge Data Allergies Allergy/AdvReac Type Severity Reaction Status Date / Time No Known Allergies Allergy Verified 06/12/18 10:14 Consultations 06/12/18 11:33 ED Decision to Admit Stat 06/12/18 13:56 Consult Cardiology Routine Consult Case Management - Discharge Planning Routine 06/16/18 09:23 Consult Palliative Care Routine 06/16/18 12:45 Consult Palliative Care Routine Procedures Performed CXR: 1. Marked cardiomegaly with volume overload/congestive change and developing pulmonary edema. 2. Poor aeration of the lung bases with bilateral pleural effusions and suspected extensive bibasilar atelectasis. Hospital Course (1) Acute on chronic respiratory failure with hypoxemia: Acute on chronic systolic and diastolic CHF, NYHA class 3: --CXR: Marked cardiomegaly with volume overload/congestive change and developing pulmonary edema. Poor aeration of the lung bases with bilateral pleural effusions and suspected extensive bibasilar atelectasis. Received IV diuretics >>Transitioned to PO lasix 60mg daily Also on aldactone Added Imdur 10mg BID Monitor I/Os, daily weight Oxygen support as needed Appreciate Cardiology Input monitor electrolytes Appreciate Palliative care Input Patient is planned to be discharged home with Hospice Services Chronic atrial fibrillation: Persistent Afib Amiodarone discontinued as per Cardiology recommendations continue metoprolol Continue coumadin monitor INR: 2.2 today Needs follow up with Cardiology upon discharge Depression with anxiety: Hold Zoloft due to prolonged QT monitor ROEL on CKD III: monitor renal function Cr: 1.24>> 1.49>>1.66>>1.42 monitor renal function Prolonged QT interval: monitor with EKG Dyslipidemia: Continue statin BPH Continue tamsulosin DVT Px: On Coumadin Disposition: Plan to discharge home today Total Time Total Time Spent Total Time Spent (In Minutes): 42 minutes Total Time Includes: Examination of the Patient, Discharge Planning, Medication Reconciliation, Communication With Other Providers and Other Discharge Plan Discharge Items Patient Disposition: Hospice - Home Reason For Visit: DECOMPENSATED CHF, CHEST PAIN Discharge Diagnosis: Acute on chronic respiratory failure with hypoxemia Acute on chronic systolic and diastolic heart failure ROEL on CKD III Discharge Goals: Decrease discomfort and Improve function Activity: Resume your previous activity Exercise/Sports: Gradually increase as tolerated Non-emergency contact: Primary Care Provider and Manager [employer] Call non-emergency contact if: you have any medication questions, your symptoms worsen, your pain is not controlled, your pain is worsening, your pain is unusual for you and you have a fever Diet: Heart Healthy and Low Sodium (2gm) Fluids: 1800ml (7 cups) Addtl Provider Instructions: Follow up with your PCP on 06/21/18 at 2:05pm Follow up with your Manager [employer] as scheduled Seek immediate medical attention if your symptoms reoccur or worsen Call your Primary Care doctor if any of the following symptoms or problems start or get worse: * Shortness of breath or difficulty breathing * Wake up at night short of breath * Chest pain * Cough * Swelling of your hands, feet, or legs * More fatigued or tired with your normal activity * Palpitations - sudden fast heart beats WEIGHT * Weigh yourself every morning after using the bathroom. * Use the same scale. * Wear the same amount of clothing. * Write your weight down on a chart. * Call your Primary Care doctor if you gain more than 2-3 pounds in 1-2 days. MEDICATIONS * Use this discharge instruction sheet for medication instructions. * Take your medications at the time your doctor ordered. * Do not skip a dose of your medicines. * If you miss a dose of medicine, take it as soon as possible, but DO NOT DOUBLE A DOSE. * Read your medicine information when you get home. * Know all of the side effects of your medicine. If in doubt, ask your pharmacist * Call your Primary Care doctor's office if you have any side effects. * Be sure all of your doctors know what medicine and herbs you take (including cold, flu, and herbal medicine). Take the following with you to your follow-up doctor appointments: * Weight Chart * Medication List * List of questions Do not drink excessive alcohol, beer or wine. Prescriptions: New isosorbide dinitrate 10 mg Tablet 10 mg PO BID 30 Days Qty: 60 RF: 0 spironolactone 25 mg Tablet 12.5 mg PO DAILY 30 Days Qty: 15 RF: 0 furosemide 20 mg Tablet 60 mg PO QAM 30 Days Qty: 90 RF: 0 Continue sertraline 50 mg tablet 50 mg PO QAM RF: 0 metoprolol succinate 50 mg Tablet Extended Release 24 Hr 50 mg PO QAM RF: 0 warfarin [Jantoven] 2.5 mg Tablet 2.5 mg PO HS RF: 0 tamsulosin 0.4 mg Capsule 0.4 mg PO QAM RF: 0 simvastatin 20 mg Tablet 20 mg PO HS RF: 0 lisinopril 2.5 mg Tablet 2.5 mg PO QAM RF: 0 ecgxgglg-stg-YE-lycopen-lutein [Centrum Silver Ultra Men's] 300-600-300 mcg Tablet 1 tab PO QAM RF: 0 levetiracetam [Keppra] 250 mg Tablet 500 mg PO BID RF: 0 magnesium 250 mg Tablet 250 mg PO QAM RF: 0 Discontinued furosemide [Lasix] 40 mg Tablet 40 mg PO QAM RF: 0 amiodarone 200 mg Tablet 200 mg PO QAM RF: 0 Stand-Alone Forms: [facility] Discharge Orders: Discharge Order (Routine); Ordered 06/18/18 Ordered By: Cecil Faustin Admission Data Admit Date/Time: 06/12/18 12:48 Attending Provider: Cecil Faustin Admit Provider: Cecil Faustin Primary Care Provider: Carlie Abarca Other Providers: Cecil Faustin ; Nickolas Aden ; Home,Nursing Agency ; IRB Approved Study,Carlie Lara Service: Telemetry Other Interventions: Discharge Summary Assessment (RN) Last Done: 06/18/18 13:26 Pending Studies at Discharge: No DC Date/Time DO NOT enter until pt leaves facility: 06/18/18 14:57
== END 2018-06-18 14:57 | disposition hospice, home (50) | DRG 291 ==
LOC: ED 09:10 → 2W 12:48